=== PATIENT | male | born 1945 | race Hispanic/Latino ===

== ENCOUNTER 2018-10-27 02:08 | Observation (INO) | payer MEDICARE ==
[2018-10-27 02:09] VITALS: BMI 42.3
--- NOTE | 2018-10-27 02:14 | C.PDOC ---
History Of Present Illness Patient presents with SOB and chest pain on deep inspiration. Patient still smokes and is on home o2. He was hypoxic at home, on arrival placed on bipap with improvement. Denies fever or chills. Time Seen by Provider: 10/27/18 02:13 History Per: Patient History/Exam Limitations: no limitations Onset/Duration Of Symptoms: Hrs Current Symptoms Are (Timing): Still Present Current Respiratory Medications: See Home Med List Severity: Severe Pain Scale Rating Of: 8 Associated Symptoms: Other (SOB, Chest with deep inspiration) Reports Recently: Seen In ED, Treated By A Physician, Hospitalized Recent travel outside of the [place]: No Past Medical History Reviewed: Historical Data, Nursing Documentation, Vital Signs - Medical History PMH: Back Problems, Benign Prostatic Hyperplasia, CHF, Fractures, HTN, Hypercholesterolemia Denies: COPD, Chronic Kidney Disease Surgical History: Denies: Pacemaker - [facility] Procedures ASSISTANCE WITH RESPIRATORY VENTILATION, <24 HRS, CPAP (08/15/18) DRAINAGE OF BLADDER WITH DRAINAGE DEVICE, VIA OPENING (08/15/18) EXCISION OF STOMACH, ENDO, DIAGN (08/15/18) INSERT INFUSION DEV IN L INT JUGULAR VEIN, PERC (08/15/18) INSPECTION OF LOWER INTESTINAL TRACT, ENDO (08/15/18) INSPECTION OF UPPER INTESTINAL TRACT, ENDO (08/15/18) INTRODUCTION OF VASOPRESSOR INTO CENTRAL VEIN, PERC APPROACH (08/15/18) TRANSFUSE NONAUT RED BLOOD CELLS IN PERIPH VEIN, PERC (08/15/18) TU DESTRUC BLADD LES NEC (09/07/13) ULTRASONOGRAPHY OF LEFT JUGULAR VEINS, GUIDANCE (08/15/18) Family History: States: No Known Family Hx - Social History Hx Tobacco Use: Yes Hx Alcohol Use: No Hx Substance Use: No - Immunization History Hx Tetanus Toxoid Vaccination: No Hx Influenza Vaccination: No Hx Pneumococcal Vaccination: No Review Of Systems Constitutional: Negative for: Fever, Chills Eyes: Negative for: Vision Change ENT: Negative for: Throat Pain Cardiovascular: Positive for: Chest Pain. Negative for: Palpitations Respiratory: Positive for: Shortness of Breath. Negative for: Cough Gastrointestinal: Negative for: Nausea, Vomiting Genitourinary: Negative for: Dysuria, Hematuria Musculoskeletal: Negative for: Back Pain Skin: Negative for: Rash Neurological: Negative for: Weakness, Numbness Psych: Positive for: Anxiety Physical Exam - Physical Exam Appears: Non-toxic Skin: Warm, Dry Head: Normacephalic Eye(s): bilateral: Normal Inspection Oral Mucosa: Moist Neck: Trachea Midline, Supple Chest: Symmetrical, No Tenderness Cardiovascular: Rhythm Regular Respiratory: Decreased Breath Sounds, Rales, Rhonchi, Wheezing Gastrointestinal/Abdominal: Soft, No Tenderness Back: No CVA Tenderness Extremity: Pedal Edema (Bilateral) Extremity: Bilateral: Atraumatic Pulses: Left Dorsalis Pedis: Normal, Right Dorsalis Pedis: Normal Neurological/Psych: Oriented x3 Gait: Unable To Assess ED Course And Treatment - Laboratory Results Result Diagrams: 10/27/18 02:30 10/27/18 02:30 ECG: Interpreted By Me, Viewed By Me ECG Rhythm: Sinus Rhythm (102), Nonspecific Changes O2 Sat by Pulse Oximetry: 100 Pulse Ox Interpretation: Normal - Radiology CXR: Interpreted by Me, Viewed By Me CXR Interpretation: Yes: Cardiomegaly, Other (pulm edema). No: Infiltrates, Fracture Progress Note: Blood work, EKG, CXR, and urinalysis ordered. Duoneb administered. Critical Care Time - Critical Care Note Total Time (in mins): 30 Documented critical care: time excludes all time spent performing seperately billable procedures. Disposition Discussed With Dr.: Joshua Leon Jr. Comment: accepted the pt on his service and took over the care at 5:11 AM Doctor Will See Patient In The: ED Counseled Patient/Family Regarding: Studies Performed, Diagnosis - Disposition Disposition: HOSPITALIZED Disposition Time: 02:14 Condition: GUARDED - POA Present On Arrival: None - Clinical Impression Clinical Impression: Respiratory distress, Dyspnea, Congestive heart failure, COPD exacerbation - Scribe Statement The provider has reviewed the documentation as recorded by the Scribe Josh Clark All medical record entries made by the Scribe were at my direction and personally dictated by me. I have reviewed the chart and agree that the record accurately reflects my personal performance of the history, physical exam, medical decision making, and the department course for this patient. I have also personally directed, reviewed, and agree with the discharge instructions and disposition. Decision To Admit - Pt Status Changed To: Hospital Disposition Of: Observation - . Bed Request Type: Telemetry Admitting Physician: Joshua Leon Jr. Patient Diagnosis: Respiratory distress, Dyspnea, Congestive heart failure, COPD exacerbation
[2018-10-27 02:42] LABS: INR 1.2; PROTHROMBIN TIME 13.5 SECONDS (9.7-12.2)
[2018-10-27] MEDS: Albuterol-Ipratrop 3 mg / 0.5 (3 ml) UD IH SCH ×3 (02:43→03:31)
[2018-10-27 02:45] LABS: ALB/GLOB RATIO 1.2 (1.0-2.1); ALBUMIN 4.1 g/dL (3.5-5.0); ALT/SGPT 9 U/L (21-72); AST/SGOT 20 U/L (17-59); BLOOD UREA NITROGEN 24 mg/dL (9-20); GFR NON-AFRICAN AMERICAN > 60
[2018-10-27 02:57] LABS: B-TYPE NATRIURETIC PEPTIDE 1480 pg/mL (0-900); BASO % 0.4 % (0.0-2.0); EOS # 0.1 K/uL (0.0-0.7); EOS % 0.7 % (0.0-4.0); LYMPH # 2.1 K/uL (1.0-4.3); MEAN CELL VOLUME 73.4 fL (80.0-94.0); MEAN CORPUSCULAR HEMOGLOBIN 21.7 pg (27.0-31.0); MEAN CORPUSCULAR HGB CONC 29.6 g/dL (33.0-37.0); MEAN PLATELET VOLUME 7.6 fL (7.2-11.7); MONO # 0.9 K/uL (0.0-0.8); MONO % 8.8 % (0.0-10.0); NEUT % 69.1 % (50.0-75.0); NRBC % 0.1 % (0.0-2.0); RBC 5.58 Mil/uL (4.40-5.90); RED CELL DISTRIBUTION WIDTH 18.4 % (11.5-14.5); WHITE BLOOD COUNT 10.2 K/uL (4.8-10.8)
[2018-10-27 03:00] LABS: HEMOGLOBIN 12.1 g/dL (12.0-18.0)
[2018-10-27 03:42] LABS: ABG ALLEN TEST POS; ARTERIAL BLOOD GAS HCO3 22.5 mmol/L (21-28); ARTERIAL BLOOD GAS O2 SAT 93.7 % (95-98); ARTERIAL BLOOD GAS PCO2 60 mm/Hg (35-45); ARTERIAL BLOOD GAS PH 7.24 (7.35-7.45); ARTERIAL BLOOD GAS PO2 65 mm/Hg (80-100); ARTERIAL BLOOD GAS TCO2 27.5 mmol/L (22-28)
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
[2018-10-27] MEDS ORDERED: Oxycodone/Acetaminophen 5/325 mg Tab PO PRN ×2 (07:20→12:56)
[2018-10-27] MEDS ORDERED: Albuterol HFA 90 mcg/actuation (8 g) IH PRN (07:20)
[2018-10-27] MEDS: Metoprolol Succinate 25 mg XL Tab PO SCH (08:24)
[2018-10-27] MEDS: Magnesium Sulfate 1 gm in D5W 1 GM/100 ML BAG IVPB SCH ×2 (08:38→10:55)
[2018-10-27] MEDS: MethylPREDNISolone 40 mg Vial IVP SCH (09:00)
[2018-10-27] MEDS: Pantoprazole 40 mg EC Tab PO SCH ×2 (09:00→18:05)
--- NOTE | 2018-10-27 09:32 | RAD ---
Date of service: 10/27/2018 PROCEDURE: CHEST RADIOGRAPH, 1 VIEW HISTORY: SOB COMPARISON: None available. FINDINGS: LUNGS: Pulmonary venous congestion. No gross consolidation appreciated PLEURA: No pneumothorax or pleural fluid seen. CARDIOVASCULAR: There is presence of aortic atherosclerotic calcification on x-ray. Cardiomegaly. Pulmonary venous congestion present OSSEOUS STRUCTURES: Thoracic spondylosis. VISUALIZED UPPER ABDOMEN: Normal. OTHER FINDINGS: None. IMPRESSION: Cardiomegaly and pulmonary venous congestion-compatible with CHF.
--- NOTE | 2018-10-27 11:19 | CP.PCM.PN ---
Subjective - Date & Time of Evaluation Date of Evaluation: 10/27/18 Time of Evaluation: 08:00 - Subjective Subjective: PGY-[address] Leon service Patient is seen and examined at bedside. Patient denies chest pain or shortness of breath at this time. Patient was observed to be saturating at 88% in the afternoon, placed on bipap. Patient denies fever, chills, n/v/d/c or any other complaint at this time. Objective - Vital Signs/Intake and Output Vital Signs (last 24 hours): Temp Pulse Resp BP Pulse Ox 99.4 F 101 H 20 130/73 97 10/27/18 09:29 10/27/18 09:29 10/27/18 09:29 10/27/18 10:55 10/27/18 09:29 - Medications Medications: Current Medications Acetaminophen (Tylenol 325mg Tab) 650 mg PO Q6 PRN PRN Reason: Fever >100.4 F Last Admin: 10/27/18 08:21 Dose: 650 mg Albuterol (Ventolin Hfa 90 Mcg/Actuation (8 G)) 2 puff IH RQID PRN PRN Reason: Shortness of Breath Amlodipine Besylate (Norvasc) 5 mg PO DAILY [facility] Last Admin: 10/27/18 09:00 Dose: 5 mg Docusate Sodium (Colace) 100 mg PO BID [facility] Furosemide (Lasix) 40 mg IVP BID [facility] Last Admin: 10/27/18 10:55 Dose: 40 mg Heparin Sodium (Porcine) (Heparin) 5,000 units SC Q8 [facility] Lisinopril (Zestril) 20 mg PO DAILY [facility] Last Admin: 10/27/18 09:00 Dose: 20 mg Methylprednisolone (Solu-Medrol) 40 mg IVP DAILY [facility] Last Admin: 10/27/18 09:00 Dose: 40 mg Metoprolol Succinate (Toprol Xl) 25 mg PO BRK [facility] Last Admin: 10/27/18 08:24 Dose: 25 mg Oxycodone/Acetaminophen (Percocet 5/325 Mg Tab) 1 tab PO Q6H PRN PRN Reason: Pain, severe (8-10) Stop: 10/30/18 07:21 Last Admin: 10/27/18 08:25 Dose: 1 tab Pantoprazole Sodium (Protonix Ec Tab) 40 mg PO BID [facility] Last Admin: 10/27/18 09:00 Dose: 40 mg Rosuvastatin Calcium (Crestor) 10 mg PO DIN [facility] - Labs Labs: 10/27/18 02:30 10/27/18 02:30 PT 13.5 SECONDS (9.7-12.2) H 10/27/18 02:30 INR 1.2 10/27/18 02:30 APTT 37 SECONDS (21-34) H 10/27/18 02:30 - Constitutional Appears: Non-toxic, No Acute Distress - Head Exam Head Exam: ATRAUMATIC, NORMOCEPHALIC - Eye Exam Eye Exam: EOMI, Normal appearance - ENT Exam ENT Exam: Mucous Membranes Moist - Respiratory Exam Respiratory Exam: Rales (bilateral lungs ). absent: Rhonchi, Wheezes - Cardiovascular Exam Cardiovascular Exam: REGULAR RHYTHM, +S1, +S2 - GI/Abdominal Exam GI & Abdominal Exam: Soft, Normal Bowel Sounds Additional comments: obese abdomen - Extremities Exam Extremities Exam: Full ROM Additional comments: mild pitting edema LE multiple abrasions and wounds in various staging of healing - Back Exam Back Exam: NORMAL INSPECTION - Neurological Exam Neurological Exam: Alert, Awake, CN II-XII Intact - Psychiatric Exam Psychiatric exam: Normal Affect, Normal Mood - Skin Skin Exam: Diaphoretic, Intact, Normal Color, Warm Assessment and Plan - Assessment and Plan (Free Text) Assessment: 72yo M PMH HTN, DM, COPD, CHF admitted for SOB from CHF vs. COPD exacerbation. Plan: CHF vs. COPD exacerbation ProBNP 1480 chest xray - cardiomegaly and pulm venous congestion, consistent with CHF Trop negative x3 - f/u Blood Cx - f/u UA - f/u ECHO - pending official results - last ECHO 07/17/18: normal LVEF, biatrial enlargement, mod TR, mod to severe pulmonary HTN - home Albuterol 200 puff INH QID prn - home amlodipine 5mg po daily - home lisinopril 20mg po daily - home metoprolol 25mg po daily - Lasix 40mg IVP BID - Solumedrol 40mg IVP daily - Cardio consulted: Dr. Elam - help appreciated - On bipap Hypertension - home lisinopril 20mg po daily - home amlodipine 5mg po daily - home metoprolol 25mg po daily - normotensive, continue to monitor vitals Hyperlipidemia - Crestor 10mg po HS PPx - DVT: Heparin 5000u SC q8 - GI: Protonix 40mg po BID - Diet: HHD - home Percocet 2 tab po q8 prn for severe pain, confirmed with pharmacy - Tylenol 650mg po q6 prn for mod pain -Colace 100 mg PO BID Plan discussed w/ Dr Edward Joshi, PGY-1
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
[2018-10-27] MEDS: Oxycodone/Acetaminophen 5/325 mg Tab PO PRN (19:49)
--- NOTE | 2018-10-28 07:25 | CP.PCM.PN ---
Subjective - Date & Time of Evaluation Date of Evaluation: 10/28/18 Time of Evaluation: 09:00 - Subjective Subjective: Medicine progress note for Dr. Leon. Patient seen and examined at bedside. Patient offers no complaints. States his chest pain is resolved and feels ready to go home. Patient reports using NC @ 3LPM at home at baseline. Denies SOB, headaches, chest pain, constipation, diarrhea, dysuria. Objective - Vital Signs/Intake and Output Vital Signs (last 24 hours): Temp Pulse Resp BP Pulse Ox 97.6 F 75 20 91/55 L 95 10/28/18 00:00 10/28/18 03:50 10/28/18 00:00 10/28/18 00:00 10/28/18 00:00 - Medications Medications: Current Medications Acetaminophen (Tylenol 325mg Tab) 650 mg PO Q6 PRN PRN Reason: Pain, moderate (4-7) Albuterol (Ventolin Hfa 90 Mcg/Actuation (8 G)) 2 puff IH RQID PRN PRN Reason: Shortness of Breath Amlodipine Besylate (Norvasc) 5 mg PO DAILY [facility] Last Admin: 10/27/18 09:00 Dose: 5 mg Docusate Sodium (Colace) 100 mg PO BID [facility] Last Admin: 10/27/18 18:05 Dose: 100 mg Furosemide (Lasix) 40 mg IVP BID [facility] Last Admin: 10/27/18 19:48 Dose: 40 mg Heparin Sodium (Porcine) (Heparin) 5,000 units SC Q8 [facility] Last Admin: 10/28/18 05:04 Dose: 5,000 units Lisinopril (Zestril) 20 mg PO DAILY [facility] Last Admin: 10/27/18 09:00 Dose: 20 mg Methylprednisolone (Solu-Medrol) 40 mg IVP DAILY [facility] Last Admin: 10/27/18 09:00 Dose: 40 mg Metoprolol Succinate (Toprol Xl) 25 mg PO BRK [facility] Last Admin: 10/27/18 08:24 Dose: 25 mg Oxycodone/Acetaminophen (Percocet 5/325 Mg Tab) 2 tab PO Q8H PRN PRN Reason: Pain, severe (8-10) Stop: 10/30/18 12:57 Last Admin: 10/27/18 19:49 Dose: 2 tab Pantoprazole Sodium (Protonix Ec Tab) 40 mg PO BID [facility] Last Admin: 10/27/18 18:05 Dose: 40 mg Rosuvastatin Calcium (Crestor) 10 mg PO DIN [facility] - Labs Labs: 10/27/18 02:30 10/27/18 02:30 PT 13.5 SECONDS (9.7-12.2) H 10/27/18 02:30 INR 1.2 10/27/18 02:30 APTT 37 SECONDS (21-34) H 10/27/18 02:30 - Constitutional Appears: Non-toxic, No Acute Distress - Head Exam Head Exam: NORMAL INSPECTION - Eye Exam Eye Exam: EOMI, Normal appearance - ENT Exam ENT Exam: Mucous Membranes Moist - Respiratory Exam Respiratory Exam: Clear to Ausculation Bilateral, NORMAL BREATHING PATTERN. absent: Rales, Rhonchi, Wheezes - Cardiovascular Exam Cardiovascular Exam: +S1, +S2. absent: Murmur - GI/Abdominal Exam GI & Abdominal Exam: Soft, Normal Bowel Sounds. absent: Firm, Guarding, Rigid - Extremities Exam Extremities Exam: Pedal Edema. absent: Calf Tenderness Additional comments: 1+ pitting edema - Back Exam Back Exam: absent: CVA tenderness (L), CVA tenderness (R) - Neurological Exam Neurological Exam: Alert, Awake, Oriented x3 - Psychiatric Exam Psychiatric exam: Normal Affect, Normal Mood - Skin Skin Exam: Dry, Intact, Normal Color, Warm Assessment and Plan - Assessment and Plan (Free Text) Assessment: 72yo M PMH HTN, DM, COPD, CHF admitted for SOB from CHF vs. COPD exa cerbation. Plan: Hyperkalemia - K+ 6.1 - repeat K+ 6.1 - EKG widened QRS complex - 1 X calcium gluconate - 1 X kayexalate 30gm - repeat BMP @ 9pm - additional kayexalate pending level Acute Kidney injury - Cr 1.9, previously normal - gentle hydration of NS @70 mls/hr - hold nephrotoxic agents for now, lisinopril 20 mg PO daily - reduce lasix to 20 mg PO daily Hyponatremia - plasma osm 276 - gentle hydration of NS @ 70 mls/hr CHF vs. COPD exacerbation - ProBNP 1480, chest xray - cardiomegaly and pulm venous congestion, consistent with CHF, Trop negative x3 - F/u cardio recs - RVD, PTHN, o/p cath - F/u ECHO - pending official results - last ECHO 07/17/18: normal LVEF, biatrial enlargement, mod TR, mod to severe pulmonary HTN - c/w home medications: Albuterol 200 puff INH QID prn, amlodipine 5mg po daily, metoprolol 25mg po daily, Solumedrol 40mg IVP daily - hold lisinopril 20mg po daily / JAREK Hypertension - c/w home medication: amlodipine 5mg po daily, metoprolol 25mg po daily - hold lisinopril 20mg po daily due to new JAERK Hyperlipidemia - Crestor 10mg po HS PPx - DVT: Heparin 5000u SC q8 - GI: Protonix 40mg po BID - Diet: HHD - home Percocet 2 tab po q8 prn for severe pain, confirmed with pharmacy - Tylenol 650mg po q6 prn for mod pain - Colace 100 mg PO BID
[2018-10-28 08:37] LABS: BASO # 0.1 K/uL (0.0-0.2); BASO % 0.4 % (0.0-2.0); EOS % 0.1 % (0.0-4.0); HEMOGLOBIN 11.6 g/dL (12.0-18.0); LYMPH # 1.1 K/uL (1.0-4.3); LYMPH % 6.6 % (20.0-40.0); MEAN CELL VOLUME 74.3 fL (80.0-94.0); MEAN CORPUSCULAR HEMOGLOBIN 21.9 pg (27.0-31.0); MEAN CORPUSCULAR HGB CONC 29.4 g/dL (33.0-37.0); MEAN PLATELET VOLUME 7.6 fL (7.2-11.7); MONO # 1.4 K/uL (0.0-0.8); MONO % 8.4 % (0.0-10.0); NEUT % 84.5 % (50.0-75.0); PLATELET COUNT 360 K/uL (130-400); RBC 5.31 Mil/uL (4.40-5.90); RED CELL DISTRIBUTION WIDTH 18.3 % (11.5-14.5)
[2018-10-28 08:47] LABS: ALB/GLOB RATIO 1.2 (1.0-2.1); ALT/SGPT < 6 U/L (21-72); AST/SGOT 29 U/L (17-59); BLOOD UREA NITROGEN 48 mg/dL (9-20); CALCIUM 8.6 mg/dl (8.6-10.4); GFR NON-AFRICAN AMERICAN 35; WHITE BLOOD COUNT 16.5 K/uL (4.8-10.8)
[2018-10-28 09:14] LABS: LYMPHOCYTE 4 % (20-40); MONOCYTE 8 % (0-10); NEUTROPHIL 88 % (50-75); PLATELET ESTIMATE NORMAL (NORMAL); TOTAL CELLS COUNTED 100
[2018-10-28 09:16] LABS: ANISOCYTOSIS SLIGHT; HYPOCHROMIC SLIGHT; POIKILOCYTOSIS SLIGHT
[2018-10-28] MEDS: MethylPREDNISolone 40 mg Vial IVP SCH (10:11)
[2018-10-28] MEDS: Pantoprazole 40 mg EC Tab PO SCH ×2 (10:14→18:00)
[2018-10-28] MEDS: Metoprolol Succinate 25 mg XL Tab PO SCH (10:14)
[2018-10-28 14:56] LABS: ALB/GLOB RATIO 1.2 (1.0-2.1); ALBUMIN 3.8 g/dL (3.5-5.0); ALT/SGPT < 6 U/L (21-72); AST/SGOT 18 U/L (17-59); BLOOD UREA NITROGEN 51 mg/dL (9-20); CALCIUM 8.7 mg/dl (8.6-10.4); GFR NON-AFRICAN AMERICAN 33
[2018-10-28 15:00] LABS: BASO # 0.1 K/uL (0.0-0.2); BASO % 0.7 % (0.0-2.0); HEMOGLOBIN 11.4 g/dL (12.0-18.0); LYMPH # 0.3 K/uL (1.0-4.3); MEAN CORPUSCULAR HEMOGLOBIN 21.5 pg (27.0-31.0); MEAN CORPUSCULAR HGB CONC 29.8 g/dL (33.0-37.0); MONO # 0.4 K/uL (0.0-0.8); MONO % 2.9 % (0.0-10.0); NEUT # 13.3 K/uL (1.8-7.0); NEUT % 94.4 % (50.0-75.0); NRBC % 0.1 % (0.0-2.0); RBC 5.28 Mil/uL (4.40-5.90); RED CELL DISTRIBUTION WIDTH 17.9 % (11.5-14.5); WHITE BLOOD COUNT 14.1 K/uL (4.8-10.8)
[2018-10-28 15:03] LABS: MEAN CELL VOLUME 73.4 fL (80.0-94.0); PLATELET COUNT 313 K/uL (130-400)
[2018-10-28 15:25] LABS: ANISOCYTOSIS SLIGHT; LYMPHOCYTE 4 % (20-40); MONOCYTE 2 % (0-10); NEUTROPHIL 94 % (50-75); NUCLEATED RED BLOOD CELL 1 % (0-0); PLATELET ESTIMATE NORMAL (NORMAL); POIKILOCYTOSIS SLIGHT; TOTAL CELLS COUNTED 100
[2018-10-28 15:26] LABS: HYPOCHROMIC SLIGHT; TEARDROP CELLS SLIGHT
--- NOTE | 2018-10-28 15:41 | CP.PCM.PN ---
Subjective - Date & Time of Evaluation Date of Evaluation: 10/28/18 Time of Evaluation: 15:41 Objective - Vital Signs/Intake and Output Vital Signs (last 24 hours): Temp Pulse Resp BP Pulse Ox 98.2 F 79 20 125/67 91 L 10/28/18 08:16 10/28/18 13:13 10/28/18 13:13 10/28/18 13:13 10/28/18 13:13 Intake and Output: 10/28/18 10/28/18 06:59 18:59 Intake Total 350 Output Total 500 Balance -150 - Medications Medications: Current Medications Acetaminophen (Tylenol 325mg Tab) 650 mg PO Q6 PRN PRN Reason: Pain, moderate (4-7) Last Admin: 10/28/18 10:29 Dose: 650 mg Albuterol (Ventolin Hfa 90 Mcg/Actuation (8 G)) 2 puff IH RQID PRN PRN Reason: Shortness of Breath Amlodipine Besylate (Norvasc) 5 mg PO DAILY [facility] Last Admin: 10/28/18 10:14 Dose: 5 mg Calcium Gluconate (Calcium Gluconate) 4.65 meq IVP ONCE ONE Stop: 10/28/18 15:37 Docusate Sodium (Colace) 100 mg PO BID [facility] Last Admin: 10/28/18 10:14 Dose: 100 mg Furosemide (Lasix) 20 mg PO DAILY [facility] Heparin Sodium (Porcine) (Heparin) 5,000 units SC Q8 [facility] Last Admin: 10/28/18 13:49 Dose: 5,000 units Sodium Chloride (Sodium Chloride 0.9%) 1,000 mls @ 70 mls/hr IV .[id number] [facility] Lisinopril (Zestril) 20 mg PO DAILY [facility] Last Admin: 10/27/18 09:00 Dose: 20 mg Methylprednisolone (Solu-Medrol) 40 mg IVP DAILY [facility] Last Admin: 10/28/18 10:11 Dose: 40 mg Metoprolol Succinate (Toprol Xl) 25 mg PO BRK [facility] Last Admin: 10/28/18 10:14 Dose: 25 mg Oxycodone/Acetaminophen (Percocet 5/325 Mg Tab) 2 tab PO Q8H PRN PRN Reason: Pain, severe (8-10) Stop: 10/30/18 12:57 Last Admin: 10/27/18 19:49 Dose: 2 tab Pantoprazole Sodium (Protonix Ec Tab) 40 mg PO BID [facility] Last Admin: 10/28/18 10:14 Dose: 40 mg Rosuvastatin Calcium (Crestor) 10 mg PO DIN [facility] - Labs Labs: 10/28/18 14:23 10/28/18 14:23 PT 13.5 SECONDS (9.7-12.2) H 10/27/18 02:30 INR 1.2 10/27/18 02:30 APTT 37 SECONDS (21-34) H 10/27/18 02:30 Assessment and Plan (1) Chest pain Status: Acute (2) Epigastric pain Status: Acute (3) Enlarged RV (right ventricle) Status: Acute (4) PHT (pulmonary hypertension) Status: Acute (5) Edema Status: Acute (6) Cough Status: Acute (7) COPD exacerbation Status: Acute
[2018-10-28] MEDS: Sodium Chloride 0.9% 1,000 ML IV SCH (15:45)
[2018-10-28] MEDS ORDERED: Calcium Gluconate 4.65 mEq/10 ml Inj IVP ONE (16:15)
--- NOTE | 2018-10-28 16:46 | CARD ---
APPROVED REPORT Date of service: 10/27/2018 EKG Measurement Heart [id number] <Conclusion> Sinus tachycardia with occasional premature ventricular complexes Possible Left atrial enlargement Right superior axis deviation Cannot rule out Anterior infarct, age undetermined Abnormal ECG
[2018-10-28 21:25] LABS: CALCIUM 8.6 mg/dl (8.6-10.4)
[2018-10-28] MEDS ORDERED: Sodium Bicarbonate (8.4%) 50 mEq Vial IVP ONE (21:49)
[2018-10-28] MEDS: Albuterol 0.083% Inhal Sol (2.5 mg/3 mL) UD INH ONE ×2 (22:18→23:07)
--- NOTE | 2018-10-28 22:21 | CARD ---
APPROVED REPORT Date of service: 10/27/2018 EXAM: Two-dimensional and M-mode echocardiogram with Doppler and color Doppler. Other Information Quality : Technically LimitedRhythm : INDICATION Dyspnea Chest Pain Congestive Heart Failure COPD RISK FACTORS Hypertension Hyperlipidemia 2D DIMENSIONS IVSd1.4 (0.7-1.1cm)LVDd5.3 (3.9-5.9cm) PWd1.5 (0.7-1.1cm)LA Fcczjl79 (18-58mL) LVDs3.1 (2.5-4.0cm)FS (%) 41.5 % LVEF (%)70.0 (>50%)LVEF (Llanes's)71 % M-Mode DIMENSIONS Left Atrium (MM)5.38 (2.5-4.0cm)IVSd1.51 (0.7-1.1cm) Aortic Root3.92 (2.2-3.7cm)LVDd5.20 (4.0-5.6cm) Aortic Cusp Exc.2.74 (1.5-2.0cm)PWd1.33 (0.7-1.1cm) FS (%) 41 %LVDs3.05 (2.0-3.8cm) LVEF (%)72 (>50%) Mitral Valve MV E Yaplgxdm82.8cm/sMV A Cxuzmkzs72.4cm/sE/A ratio1.0 TDI Lateral E' Peak V10.80cm/sMedial E' Peak V9.51cm/sE/Lateral E'7.5 E/Medial E'8.5 LEFT VENTRICLE The left ventricle is normal size. There is normal left ventricular wall thickness. The left ventricular function is normal. The left ventricular ejection fraction is within the normal range. Transmitral Doppler flow pattern is abnormal. RIGHT VENTRICLE The right ventricle is mildly dilated. ATRIA The left atrium is moderately dilated. AORTIC VALVE The aortic valve is normal in structure. MITRAL VALVE The mitral valve is normal in structure. TRICUSPID VALVE The tricuspid valve is normal in structure. <Conclusion> Technically limited and difficult study. Normal LV systolic function. Diastolic dysfunction. Borderline dilated Aorta. Dilated LA. Dilated RV.
[2018-10-28] MEDS: Oxycodone/Acetaminophen 5/325 mg Tab PO PRN (22:43)
[2018-10-28 23:00] LABS: CALCIUM 8.4 mg/dl (8.6-10.4)
[2018-10-29] MEDS: Sodium Chloride 0.9% 1,000 ML IV SCH (05:49)
[2018-10-29 07:24] LABS: BASO % 0.4 % (0.0-2.0); HEMOGLOBIN 10.7 g/dL (12.0-18.0); LYMPH # 1.2 K/uL (1.0-4.3); MEAN CELL VOLUME 73.9 fL (80.0-94.0); MEAN CORPUSCULAR HEMOGLOBIN 21.9 pg (27.0-31.0); MEAN CORPUSCULAR HGB CONC 29.6 g/dL (33.0-37.0); MEAN PLATELET VOLUME 7.6 fL (7.2-11.7); MONO # 1.2 K/uL (0.0-0.8); MONO % 9.7 % (0.0-10.0); NEUT # 9.8 K/uL (1.8-7.0); NEUT % 79.9 % (50.0-75.0); NRBC % 0.1 % (0.0-2.0); RBC 4.89 Mil/uL (4.40-5.90); WHITE BLOOD COUNT 12.3 K/uL (4.8-10.8)
[2018-10-29 07:34] LABS: ALB/GLOB RATIO 1.2 (1.0-2.1); ALBUMIN 3.6 g/dL (3.5-5.0); ALT/SGPT < 6 U/L (21-72); AST/SGOT 22 U/L (17-59); BLOOD UREA NITROGEN 63 mg/dL (9-20); CALCIUM 8.3 mg/dl (8.6-10.4); GFR NON-AFRICAN AMERICAN 43
[2018-10-29] MEDS: Metoprolol Succinate 25 mg XL Tab PO SCH (08:19)
[2018-10-29 08:45] LABS: CREATININE, RANDOM URINE 119.4 mg/dL
[2018-10-29 08:48] VITALS: BP 141/70; RESP 18; TEMP 97; O2SAT 97
[2018-10-29 09:02] VITALS: PULSE 86
[2018-10-29] MEDS: Pantoprazole 40 mg EC Tab PO SCH (10:42)
[2018-10-29] MEDS: MethylPREDNISolone 40 mg Vial IVP SCH (10:42)
--- NOTE | 2018-10-29 10:48 | CP.PCM.DIS ---
Provider - Provider Date of Admission: 10/27/18 05:10 Attending physician: Joshua Leon Jr, MD Consults: 10/27/18 07:23 Cardiology Consult Routine Comment: Consulting Provider: Rogelio Elam Consulting Physician: Rogelio Elam Reason for Consult: CHF exacerbation Time Spent in preparation of Discharge (in minutes): 45 Hospital Course - Lab Results Lab Results: Micro Results 10/27/18 06:22 Blood Blood Culture - Preliminary NO GROWTH AFTER 48 HOURS 10/27/18 06:22 Blood Blood Culture - Preliminary NO GROWTH AFTER 48 HOURS Most Recent Lab Values WBC 12.3 K/uL (4.8-10.8) H 10/29/18 07:03 RBC 4.89 Mil/uL (4.40-5.90) 10/29/18 07:03 Hgb 10.7 g/dL (12.0-18.0) L 10/29/18 07:03 Hct 36.2 % (35.0-51.0) 10/29/18 07:03 MCV 73.9 fL (80.0-94.0) L 10/29/18 07:03 MCH 21.9 pg (27.0-31.0) L 10/29/18 07:03 MCHC 29.6 g/dL (33.0-37.0) L 10/29/18 07:03 RDW 18.0 % (11.5-14.5) H 10/29/18 07:03 Plt Count 301 K/uL (130-400) 10/29/18 07:03 MPV 7.6 fL (7.2-11.7) 10/29/18 07:03 Neut % (Auto) 79.9 % (50.0-75.0) H 10/29/18 07:03 Lymph % (Auto) 10.0 % (20.0-40.0) L 10/29/18 07:03 [place] % (Auto) 9.7 % (0.0-10.0) 10/29/18 07:03 Eos % (Auto) 0.0 % (0.0-4.0) 10/29/18 07:03 Baso % (Auto) 0.4 % (0.0-2.0) 10/29/18 07:03 Neut # (Auto) 9.8 K/uL (1.8-7.0) H 10/29/18 07:03 Lymph # (Auto) 1.2 K/uL (1.0-4.3) 10/29/18 07:03 [place] # (Auto) 1.2 K/uL (0.0-0.8) H 10/29/18 07:03 Eos # (Auto) 0.0 K/uL (0.0-0.7) 10/29/18 07:03 Baso # (Auto) 0.0 K/uL (0.0-0.2) 10/29/18 07:03 Neutrophils % (Manual) 94 % (50-75) H 10/28/18 14:23 Lymphocytes % (Manual) 4 % (20-40) L 10/28/18 14:23 Monocytes % (Manual) 2 % (0-10) 10/28/18 14:23 Nucleated RBC % 1 % (0-0) H 10/28/18 14:23 Platelet Estimate Normal (NORMAL) 10/28/18 14:23 Hypochromasia (manual) Slight 10/28/18 14:23 Poikilocytosis (manual Slight 10/28/18 14:23 Anisocytosis (manual) Slight 10/28/18 14:23 Tear Drop Cells Slight 10/28/18 14:23 PT 13.5 SECONDS (9.7-12.2) H 10/27/18 02:30 INR 1.2 10/27/18 02:30 APTT 37 SECONDS (21-34) H 10/27/18 02:30 Puncture Site Rr 10/27/18 03:31 pCO2 60 mm/Hg (35-45) H 10/27/18 03:31 pO2 65 mm/Hg (80-100) L 10/27/18 03:31 HCO3 22.5 mmol/L (21-28) 10/27/18 03:31 ABG pH 7.24 (7.35-7.45) L 10/27/18 03:31 ABG Total CO2 27.5 mmol/L (22-28) 10/27/18 03:31 ABG O2 Saturation 93.7 % (95-98) L 10/27/18 03:31 ABG Base Excess -2.8 mmol/L (-2.0-3.0) L 10/27/18 03:31 Robert Test Pos 10/27/18 03:31 ABG Potassium 4.7 mmol/L (3.6-5.2) 10/27/18 03:31 A-a O2 Difference 217.0 mm/Hg 10/27/18 03:31 Respiratory Index 3.3 10/27/18 03:31 Sodium 123.0 mmol/l (132-148) L 10/27/18 03:31 Chloride 91.0 mmol/L (98-107) L 10/27/18 03:31 Glucose 109 mg/dl (75-110) 10/27/18 03:31 Lactate 0.5 mmol/L (0.7-2.1) L 10/27/18 03:31 Vent Mode Bipap 10/27/18 03:31 Mechanical Rate 12 10/27/18 03:31 FiO2 50.0 % 10/27/18 03:31 Inspiratory BiPAP 12 10/27/18 03:31 Expiratory BiPAP 6 10/27/18 03:31 Sodium 121 mmol/L (132-148) L 10/29/18 07:03 Potassium 5.1 mmol/L (3.6-5.2) 10/29/18 07:03 Chloride 86 mmol/L (98-107) L 10/29/18 07:03 Carbon Dioxide 26 mmol/L (22-30) 10/29/18 07:03 Anion Gap 14 (10-20) 10/29/18 07:03 BUN 63 mg/dL (9-20) H 10/29/18 07:03 Creatinine 1.6 mg/dL (0.8-1.5) H 10/29/18 07:03 Est GFR ( Amer) 52 10/29/18 07:03 Est GFR (Non-Af Amer) 43 10/29/18 07:03 POC Glucose (mg/dL) 96 mg/dL (65-110) 10/27/18 02:40 Random Glucose 132 mg/dL (75-110) H D 10/29/18 07:03 Serum Osmolality 272 mosm/kg (272-300) 10/28/18 11:01 Calcium 8.3 mg/dl (8.6-10.4) L 10/29/18 07:03 Phosphorus 5.4 mg/dL (2.5-4.5) H 10/29/18 07:03 Magnesium 1.9 mg/dL (1.6-2.3) 10/29/18 07:03 Total Bilirubin 0.4 mg/dL (0.2-1.3) 10/29/18 07:03 AST 22 U/L (17-59) 10/29/18 07:03 ALT < 6 U/L (21-72) L 10/29/18 07:03 Alkaline Phosphatase 83 U/L (38-126) 10/29/18 07:03 Troponin I < 0.0120 ng/mL (0.00-0.120) 10/27/18 15:24 NT-Pro-B Natriuret Pep 1480 pg/mL (0-900) H 10/27/18 02:30 Total Protein 6.5 g/dL (6.3-8.3) 10/29/18 07:03 Albumin 3.6 g/dL (3.5-5.0) 10/29/18 07:03 Globulin 2.9 gm/dL (2.2-3.9) 10/29/18 07:03 Albumin/Globulin Ratio 1.2 (1.0-2.1) 10/29/18 07:03 Arterial Blood Potassium 4.7 mmol/L (3.6-5.2) 10/27/18 03:31 Urine Osmolality 345 mosm/kg (300-1000) 10/29/18 08:30 Ur Random Creatinine 119.4 mg/dL 10/29/18 08:30 Ur Random Sodium 18 mmol/L 10/29/18 08:30 Urine Calcium 1.3 mg/dL 10/29/18 08:30 Discharge Exam - Head Exam Head Exam: NORMAL INSPECTION Discharge Plan - Discharge Medications Prescriptions: Albuterol Sulfate [Proair Hfa] 200 puff IH QID PRN 30 Days #1 inh PRN Reason: Shortness Of Breath amLODIPine [Norvasc] 5 mg PO DAILY #30 tab Atorvastatin [Lipitor] 20 mg PO DIN 30 Days #30 tab Ferrous Sulfate [Feosol] 324 mg PO DAILY #30 ect Furosemide [Lasix] 40 mg PO DAILY #30 tab Metoprolol Succinate XL [Toprol XL] 25 mg PO BRK #60 tab Pantoprazole [Protonix EC Tab] 40 mg PO BID 30 Days #30 ect - Follow Up Plan Condition: GUARDED Disposition: HOME/ ROUTINE Instructions: Exacerbation of COPD (DC), Pulmonary Hypertension, Adult (DC), Heart Failure (DC) Referrals: Joshua Leon Jr., MD [Medical Doctor] - Rogelio Elam MD [Staff Provider] -
== END 2018-10-29 11:26 | disposition home or self-care (01) ==
LOC: C.ER 02:08 → C.9E 05:10 → C.5S 07:25
PROVIDERS: ADMIT Internal Medicine; ATTEND Internal Medicine
DX: J44.1 Chronic obstructive pulmonary disease with (acute) exacerbation (principal); N40.0 Benign prostatic hyperplasia without lower urinary tract symptoms; R09.02 Hypoxemia; G47.30 Sleep apnea, unspecified; Z91.19 Patient's noncompliance with other medical treatment and regimen; Z99.81 Dependence on supplemental oxygen; R06.03 Acute respiratory distress; R10.13 Epigastric pain; E11.9 Type 2 diabetes mellitus without complications; E78.00 Pure hypercholesterolemia, unspecified; E78.5 Hyperlipidemia, unspecified; F17.210 Nicotine dependence, cigarettes, uncomplicated; I11.0 Hypertensive heart disease with heart failure; I27.20 Pulmonary hypertension, unspecified; I50.9 Heart failure, unspecified
CPT/HCPCS: 36415; 71045; 80048; 80053; 82340; 82436; 82570; 82803; 82948; 83735; 83880; 83930; 83935; 84100; 84300; 84484; 85025; 85610; 85730; 87040; 93005; 93306; 94640; 94660; 96374; 99285; G0378; J0610; J1644; J1940; J2270; J2920; J3475; J7030

== ENCOUNTER 2018-11-17 07:51 | Inpatient (IN) | payer MEDICARE ==
[2018-11-17 08:00] VITALS: BMI 38.0
[2018-11-17 08:13] LABS: BASO # 0.1 K/uL (0.0-0.2); BASO % 0.7 % (0.0-2.0); HEMOGLOBIN 11.7 g/dL (12.0-18.0); LYMPH # 0.9 K/uL (1.0-4.3); LYMPH % 7.9 % (20.0-40.0); MEAN CORPUSCULAR HEMOGLOBIN 22.2 pg (27.0-31.0); MEAN CORPUSCULAR HGB CONC 29.1 g/dL (33.0-37.0); MEAN PLATELET VOLUME 7.2 fL (7.2-11.7); MONO # 0.7 K/uL (0.0-0.8); MONO % 6.2 % (0.0-10.0); NEUT % 85.2 % (50.0-75.0); NRBC % 0.8 % (0.0-2.0); RBC 5.27 Mil/uL (4.40-5.90); RED CELL DISTRIBUTION WIDTH 19.3 % (11.5-14.5); WHITE BLOOD COUNT 11.8 K/uL (4.8-10.8)
[2018-11-17] MEDS ORDERED: Lidocaine 2% MPF (5 ml) Inj ONE (08:14)
[2018-11-17] MEDS ORDERED: Iodixanol 320 MG/ML 200 ML BOTTLE IV ONE (08:14)
--- NOTE | 2018-11-17 08:16 | C.PDOC ---
History Of Present Illness 72 year old male brought in by EMS for cardiac arrest. Per EMS, patient initially complained of back pain and BLS was on scene and witnessed the patient go into cardiac arrest. ALS then arrived on scene and CPR was initiated with Sierra as machine. Patient was intubated and given epi x1, with ROSC. Down time was 10 minutes. Per ALS EMS, initial EKG showed A Flutter. On arrival to the ED patient remains unresponsive. Patient noted to be pulse-less. CPR re-initiated. Time Seen by Provider: 11/17/18 07:52 Chief Complaint (Nursing): Cardiac Arrest History Per: EMS Reason For Code Blue: Full Arrest Circumstances: Brought To ED By EMS Arrest Witnessed By: Family, Other (EMS) CPR Initiated Prior To MD Arrival?: Yes Down-Time Before ACLS: Mins (x 10) Treatment Initiated Prior To MD Arrival: Yes: CPR, Intubation, ACLS Medication Initiation, IV Access Medications Given Prior To MD Arrival: Yes: Epinephrine (x 1) - Initial Findings Mentation: Unresponsive Respirations: None (Assisted) Pulse: None Past Medical History Reviewed: Historical Data, Nursing Documentation, Vital Signs - Medical History PMH: Back Problems, Benign Prostatic Hyperplasia, CHF, COPD, HTN, Hypercholesterolemia Denies: Alzheimer's Disease, Anemia, Anxiety, Arthritis, Asthma, Bipolar Disorder, Bronchitis, Cardia Arrhythmia, Dementia, Depression, Emphysema, Fibromyalgia, Fractures, HIV, Hyperthyroidism, Hypothyroidism, Migraine, Mitral Valve Prolapse, Osteoporosis, Paranoia, Parkinson's Disease, Peripheral Edema, Pneumonia, Post Traumatic Stress Disorder, Chronic Kidney Disease, Schizophrenia, Seizures, Sickle Cell Disease, Sleep Apnea, TIA Surgical History: Denies: Appendectomy, Cholecystectomy, Coronary Stent, Pacemaker - [facility] Procedures ASSISTANCE WITH RESPIRATORY VENTILATION, 24-96 HRS, CPAP (10/31/18) ASSISTANCE WITH RESPIRATORY VENTILATION, <24 HRS, CPAP (08/15/18) DILATION OF 1 COR ART WITH DRUG-ELUT INTRA, PERC APPROACH (10/31/18) DRAINAGE OF BLADDER WITH DRAINAGE DEVICE, VIA OPENING (08/15/18) EXCISION OF STOMACH, ENDO, DIAGN (08/15/18) FLUOROSCOPY OF LEFT HEART USING OTHER CONTRAST (10/31/18) FLUOROSCOPY OF MULTIPLE CORONARY ARTERIES USING OTH CONTRAST (10/31/18) INSERT INFUSION DEV IN L INT JUGULAR VEIN, PERC (08/15/18) INSPECTION OF LOWER INTESTINAL TRACT, ENDO (08/15/18) INSPECTION OF UPPER INTESTINAL TRACT, ENDO (08/15/18) INTRODUCE OF OTH THERAP SUBST INTO RESP TRACT, VIA OPENING (10/31/18) INTRODUCTION OF VASOPRESSOR INTO CENTRAL VEIN, PERC APPROACH (08/15/18) MEASURE CARDIAC SAMPL & PRESSURE, BILATERAL, PERC (10/31/18) TRANSFUSE NONAUT RED BLOOD CELLS IN PERIPH VEIN, PERC (08/15/18) TU DESTRUC BLADD LES NEC (09/07/13) ULTRASONOGRAPHY OF LEFT JUGULAR VEINS, GUIDANCE (08/15/18) Family History: States: No Known Family Hx - Social History Hx Tobacco Use: Yes Hx Alcohol Use: No Hx Substance Use: No - Immunization History Hx Tetanus Toxoid Vaccination: No Hx Influenza Vaccination: No Hx Pneumococcal Vaccination: No Review Of Systems Review Of Systems: ROS cannot be obtained secondary to pt's inabilty to answer questions. Physical Exam - Physical Exam Appears: Other (Unresponsive) Skin: Warm, Dry Head: Atraumatic, Normacephalic Eye(s): bilateral: Normal Inspection (no icterus) Nose: Other (Blood in the nares) Throat: Other (ETT in place) Neck: Supple Chest: Symmetrical Respiratory: No Rhonchi, No Wheezing, Other (Bilateral breath sounds w/ BVM) Gastrointestinal/Abdominal: Soft, Distention (abdomen appears significantly distended) Extremity: Bilateral: Atraumatic, Pulse Deficit (no pulses on arrival), Other (+1 pitting edema bilaterally) ED Course And Treatment - Laboratory Results Result Diagrams: 11/17/18 08:06 11/17/18 08:06 - Other Rad CXR X-Ray: Read By Radiologist Interpretation: Accession No. : [id number]. Patient Name / ID : SARA Alvarado / [id number]. Exam Date : 11/17/2018 08:10:08 ( Approved ). Study Comment : Sex / Age : M / 72Y. Creator : Mich Gill MD. Dictator : Mich Gill MD. Advanced Practice Professional : Web Methods Developer : Mich Gill MD. Approver2 : Report Date : 11/17/2018 09:18:12. My Comment : . Chest x-ray single frontal view. HISTORY: Chest pain. Comparison: None available. Findings: Severe cardiomegaly. Moderate to severe venous congestion. Prominent consolidative opacification in the mid to lower lung zones as well as the medial right lung base. Endotracheal tube extending into the midthoracic trachea. NG tube with distal tip well visualized. Degenerative changes in the spine. Impression: Severe cardiomegaly. Moderate to severe venous congestion. Prominent consolidative opacification in the mid to lower lung zones as well as the medial right lung base. Endotracheal tube extending into the midthoracic trachea. NG tube with distal tip well visualized. Medical Decision Making Medical Decision Making: Patient immediately seen by me. NG tube placed in the ED. 7:56 Epi x1 given Atropine x1 given Patient remains pulse-less. EKG shows rhythm now in V tach. Patient was shocked once, with rhythm now sinus tachycardia on monitor. Bicarb given at 8:03. [facility] called. [facility] on-call, Dr. Berg, paged. EKG now showing sinus rhythm with some PVCs. Dr. Berg made aware, EKG sent. laboratory animal caretaker notified at 8:11. Employment Coordinator, Dr. Summers, notified of case and will come down to the ED. 8:13 Dr. Summers at bedside evaluating patient. Received call back, Dr. Berg is not on for [facility] today, it is Dr. Valencia. 8:20 Dr. Valencia was called. EKG sent. As per Erik, patient is too unstable for the laborer shaft sinking. 8:24 Received call back from Dr. Valencia. [facility] called. Patient is to go to laborer shaft sinking. Disposition Discussed With : Jr Summers - Disposition Disposition Time: 08:24 Condition: CRITICAL - Clinical Impression Clinical Impression: Cardiac arrest, Ventricular tachycardia Critical Care Time - Critical Care Note Total Time (in mins): 30 Documented critical care: time excludes all time spent performing seperately billable procedures. - Scribe Statement The provider has reviewed the documentation as recorded by the Brooks Avila Provider Attestation: All medical record entries made by the Brooks were at my direction and personally dictated by me. I have reviewed the chart and agree that the record accurately reflects my personal performance of the history, physical exam, medical decision making, and the department course for this patient. I have also personally directed, reviewed, and agree with the discharge instructions and disposition. Decision To Admit - Pt Status Changed To: Hospital Disposition Of: Inpatient - Admit Certification Admit to Inpatient:: After my assessment, the patient will require hospitalization for at least two midnights. This is because of the severity of symptoms shown, intensity of services needed, and/or the medical risk in this patient being treated as an outpatient. - InPatient: Physician Admission Certification:: cardiac arrest - . Bed Request Type: ICU Admitting Physician: Sarah Valencia Patient Diagnosis: Cardiac arrest, Ventricular tachycardia
[2018-11-17 08:17] LABS: MEAN CELL VOLUME 76.3 fL (80.0-94.0); PLATELET COUNT 534 K/uL (130-400)
[2018-11-17 08:22] LABS: INR 1.6; PROTHROMBIN TIME 17.9 SECONDS (9.7-12.2)
[2018-11-17 08:23] LABS: ARTERIAL BLOOD GAS HEMOGLOBIN 11.2 g/dL (11.7-17.4); ARTERIAL BLOOD GAS O2 SAT 80.6 % (95-98); ARTERIAL BLOOD GAS PCO2 101 mm/Hg (35-45); ARTERIAL BLOOD GAS PH 7.13 (7.35-7.45); ARTERIAL BLOOD GAS PO2 50 mm/Hg (80-100); ARTERIAL BLOOD GAS TCO2 36.7 mmol/L (22-28)
[2018-11-17 08:27] LABS: ALB/GLOB RATIO 1.1 (1.0-2.1); ALBUMIN 3.7 g/dL (3.5-5.0); CALCIUM 8.8 mg/dl (8.6-10.4)
[2018-11-17] MEDS ORDERED: Aspirin 325 mg EC Tablets PO STA (08:30)
[2018-11-17] MEDS ORDERED: Heparin25000 units/250ml 1/2NS 25,000 UNITS/250 ML BAG IV STA ×2 (08:30→08:48)
[2018-11-17 08:38] LABS: TROPONIN I 0.033 ng/mL (0.00-0.120)
[2018-11-17] MEDS ORDERED: DOPamine 400mg/250ml D5W 0 MG/0 ML BAG IV ONE (08:58)
[2018-11-17] MEDS ORDERED: Phenylephrine 10 mg/ml Inj ONE (08:58)
[2018-11-17 09:02] LABS: BANDS 4 % (0-2); BASOPHIL 1 % (0-2); LYMPHOCYTE 7 % (20-40); MONOCYTE 5 % (0-10); MYELOCYTE 1 % (0-0); NEUTROPHIL 82 % (50-75); NUCLEATED RED BLOOD CELL 1 % (0-0); TOTAL CELLS COUNTED 100
[2018-11-17 09:03] LABS: ANISOCYTOSIS SLIGHT; HYPOCHROMIC SLIGHT; PLATELET ESTIMATE INCREASED (NORMAL); POIKILOCYTOSIS SLIGHT; TARGET CELLS SLIGHT
--- NOTE | 2018-11-17 09:21 | RAD ---
Chest x-ray single frontal view HISTORY: Chest pain. Comparison: None available. Findings: Severe cardiomegaly. Moderate to severe venous congestion. Prominent consolidative opacification in the mid to lower lung zones as well as the medial right lung base. Endotracheal tube extending into the midthoracic trachea. NG tube with distal tip well visualized. Degenerative changes in the spine. Impression: Severe cardiomegaly. Moderate to severe venous congestion. Prominent consolidative opacification in the mid to lower lung zones as well as the medial right lung base. Endotracheal tube extending into the midthoracic trachea. NG tube with distal tip well visualized.
--- NOTE | 2018-11-17 09:27 | RAD ---
Chest x-ray single frontal view HISTORY: Chest pain. Comparison: 11/17/2018 Findings: Endotracheal tube extending into the midthoracic trachea. NG tube with distal tip not well visualized. Additional lines and tubing projecting over the upper abdomen and lower thorax. Clinical correlation. Not well visualized given the suboptimal technique of this study. Severe cardiomegaly. Moderate to severe venous congestion. Confluent airspace opacification in the left mid to lower lung zone with questionable left pleural effusion. Degenerative changes in the spine. Impression: Endotracheal tube extending into the midthoracic trachea. NG tube with distal tip not well visualized. Additional lines and tubing projecting over the upper abdomen and lower thorax. Clinical correlation. Not well visualized given the suboptimal technique of this study. Severe cardiomegaly. Moderate to severe venous congestion. Confluent airspace opacification in the left mid to lower lung zone with questionable left pleural effusion.
[2018-11-17] MEDS ORDERED: Amiodarone 150mg/3 ml vial ONE (10:10)
[2018-11-17] MEDS: Dexmedetomidine Hydrochloride 200 MCG in Sodium Chloride 0.9% 48 ML IV PRN ×3 (10:55→18:34)
--- NOTE | 2018-11-17 13:39 | CP.PCM.PN ---
<Rashel Melendez M - Last Filed: 11/17/18 19:03> Subjective - Date & Time of Evaluation Date of Evaluation: 11/17/18 Time of Evaluation: 08:02 - Subjective Subjective: House doctor note for Code Heart. 72 M w/ PMHx obtained through chart record of HTN, CHF (56%), CAD w/ stents, HLD presented to ED s/p cardiac arrest. Patient called EMS for back pain, upon arrival, patient went into witnessed cardiac arrest, w/ CPR initiated. ROSC obtained w/ x1 epinephrine. Intubated in field. Upon arrival to ED, cardiac arrest again w/ ROSX w/ X1 epinephrine. Patient went to pulseless Vtach. 1 X shock w/ pt return to NSR. Patient also given 1 X bicarb & atropine Initial vitals BP 100s/59, HR 102, O2 Sat 97 Repeat vitals BP in 80s R femoral TLC inserted, started on levophed drip after 250 cc fluid bolus attempted Xray showing flash pulmonary edema; likely 2/2 to cardiac arrest Brilenta, aspirin, heparin drip started. Pt transferred to laboratory supervisor. Initial Code heart time 8:02 AM, 8:21 AM cancel code heart per cardiology, 8:24 AM resume code heart per cardio. Objective - Vital Signs/Intake and Output Vital Signs (last 24 hours): Temp Pulse Resp BP Pulse Ox 98.1 F 78 24 118/77 100 11/17/18 11:28 11/17/18 13:00 11/17/18 13:00 11/17/18 13:00 11/17/18 10:58 Intake and Output: 11/17/18 11/17/18 06:59 18:59 Intake Total 518.9 Output Total 520 Balance -1.1 - Medications Medications: Current Medications Albuterol/Ipratropium (Duoneb 3 Mg/0.5 Mg (3 Ml) Ud) 3 ml INH RQ6 [facility] Aspirin (Aspirin Supp) 300 mg [place] DAILY [facility] Last Admin: 11/17/18 08:19 Dose: 300 mg Clopidogrel Bisulfate (Plavix) 75 mg PO DAILY [facility] Famotidine (Pepcid) 20 mg IVP DAILY [facility] Norepinephrine Bitartrate 4 mg (/ Sodium Chloride) 254 mls @ 15.24 mls/hr IV .[id number] PRN; Protocol PRN Reason: TITRATE PER MD ORDER Last Admin: 11/17/18 10:30 Dose: 5 mcg/min, 19.05 mls/hr Heparin Sodium/Sodium Chloride (Heparin 44227 Units/250ml 1/2 Normal Saline) 25,000 units in 250 mls @ 22.861 mls/hr IV .Q0M STA; Protocol Stop: 11/17/18 19:26 Amiodarone HCl 900 mg/ (Dextrose) 500 mls @ 33.33 mls/hr IV .Q15H1M ONE; Protocol Stop: 11/18/18 00:54 Last Admin: 11/17/18 10:58 Dose: 33.33 mls/hr Dexmedetomidine HCl 200 mcg/ (Sodium Chloride) 50 mls @ 6.35 mls/hr IV TITR PRN; Protocol PRN Reason: Agitation - Labs Labs: 11/17/18 08:06 11/17/18 08:06 PT 17.9 SECONDS (9.7-12.2) H 11/17/18 08:06 INR 1.6 11/17/18 08:06 APTT 33.0 SECONDS (21-34) 11/17/18 08:06 <Sami Lundy - Last Filed: 11/20/18 19:04> Objective - Vital Signs/Intake and Output Vital Signs (last 24 hours): Temp Pulse Resp BP Pulse Ox 98.2 F 78 16 106/56 L 93 L 11/20/18 16:00 11/20/18 18:00 11/20/18 18:00 11/20/18 18:01 11/20/18 18:00 Intake and Output: 11/20/18 11/21/18 18:59 06:59 Intake Total 778.1 Output Total 1000 Balance -221.9 - Medications Medications: Current Medications Acetaminophen (Tylenol 650mg/20.3ml Solution Ud) 650 mg PO Q6 PRN PRN Reason: Temperature Last Admin: 11/19/18 15:55 Dose: 650 mg Albuterol/Ipratropium (Duoneb 3 Mg/0.5 Mg (3 Ml) Ud) 3 ml INH RQ4 [facility] Last Admin: 11/20/18 16:22 Dose: 3 ml Aspirin (Aspirin Supp) 300 mg MI DAILY [facility] Last Admin: 11/20/18 10:00 Dose: 300 mg Clopidogrel Bisulfate (Plavix) 75 mg PO DAILY [facility] Last Admin: 11/20/18 09:56 Dose: 75 mg Famotidine (Pepcid) 20 mg IVP Q12 [facility] Last Admin: 11/20/18 09:56 Dose: 20 mg Midazolam HCl 100 mg/ Dextrose 100 mls @ 2.53 mls/hr IV .Q24H [facility]; Protocol Last Titration: 11/20/18 14:00 Dose: 0.04 mg/kg/hr, 5.1 mls/hr Dexmedetomidine HCl 400 mcg/ (Sodium Chloride) 100 mls @ 6.33 mls/hr IV TITR PRN; Protocol PRN Reason: Agitation Lorazepam (Ativan) 2 mg IVP Q3H PRN PRN Reason: Anxiety Last Admin: 11/20/18 11:05 Dose: 2 mg Methylprednisolone (Solu-Medrol) 40 mg IVP Q8H [facility] Last Admin: 11/20/18 12:30 Dose: 40 mg Rosuvastatin Calcium (Crestor) 10 mg PO HS [facility] Last Admin: 11/19/18 21:35 Dose: 10 mg - Labs Labs: 11/20/18 06:24 11/20/18 06:24 PT 16.5 SECONDS (9.7-12.2) H 11/19/18 07:21 INR 1.5 11/19/18 07:21 APTT 33.0 SECONDS (21-34) 11/17/18 08:06 Attending/Attestation - Attestation I have personally seen and examined this patient.: Yes I have fully participated in the care of the patient.: Yes I have reviewed all pertinent clinical information, including history, physical exam and plan: Yes
[2018-11-17] MEDS ORDERED: Albuterol-Ipratrop 3 mg / 0.5 (3 ml) UD INH SCH (14:00)
[2018-11-17 14:34] LABS: ARTERIAL BLOOD GAS O2 SAT 86.5 % (95-98); ARTERIAL BLOOD GAS PCO2 53 mm/Hg (35-45); ARTERIAL BLOOD GAS PH 7.45 (7.35-7.45); ARTERIAL BLOOD GAS PO2 46 mm/Hg (80-100); ARTERIAL BLOOD GAS TCO2 38.4 mmol/L (22-28)
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
[2018-11-17] MEDS ORDERED: Phytonadione 10 mg/ml Inj (Adult) IV STA (18:12)
[2018-11-17 18:19] LABS: BASO # 0.1 K/uL (0.0-0.2); HEMOGLOBIN 11.3 g/dL (12.0-18.0); LYMPH # 0.6 K/uL (1.0-4.3); LYMPH % 4.6 % (20.0-40.0); MEAN CELL VOLUME 72.6 fL (80.0-94.0); MEAN CORPUSCULAR HEMOGLOBIN 21.5 pg (27.0-31.0); MEAN CORPUSCULAR HGB CONC 29.6 g/dL (33.0-37.0); MEAN PLATELET VOLUME 7.2 fL (7.2-11.7); MONO # 1.4 K/uL (0.0-0.8); MONO % 10.8 % (0.0-10.0); NEUT # 10.6 K/uL (1.8-7.0); NEUT % 83.6 % (50.0-75.0); NRBC % 0.4 % (0.0-2.0); PLATELET COUNT 453 K/uL (130-400); RBC 5.28 Mil/uL (4.40-5.90); RED CELL DISTRIBUTION WIDTH 18.9 % (11.5-14.5); WHITE BLOOD COUNT 12.7 K/uL (4.8-10.8)
[2018-11-17] MEDS: Pantoprazole 80 MG in Sodium Chloride 0.9% 100 ML IVPB SCH (18:30)
--- NOTE | 2018-11-17 18:37 | RAD ---
Date of service: 11/17/2018 HISTORY: coffee ground drainage from OGT COMPARISON: None. TECHNIQUE: 1 view obtained. FINDINGS: Limited visualization of the nasogastric tube in the left upper quadrant. BOWEL: Non specific bowel gas pattern with prominent air-filled loops of bowel. BONES: Osseous demineralization. OTHER FINDINGS: Evidence of right femoral vascular catheter. IMPRESSION: Partially imaged nasogastric tube in the left upper quadrant. Evidence of right femoral vascular catheter. Nonspecific bowel gas pattern with prominent air-filled loops of bowel.
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
[2018-11-17] MEDS ORDERED: niCARdipine IV 25 MG in Sodium Chloride 0.9% 240 ML IV SCH (19:15)
[2018-11-17 19:34] LABS: LYMPHOCYTE 4 % (20-40); MONOCYTE 7 % (0-10); NEUTROPHIL 89 % (50-75); TOTAL CELLS COUNTED 100
[2018-11-17 19:35] LABS: ANISOCYTOSIS SLIGHT; HYPOCHROMIC SLIGHT; MICROCYTOSIS SLIGHT; PLATELET ESTIMATE SLIGHTLY INCREASED (NORMAL); POIKILOCYTOSIS SLIGHT
[2018-11-17] MEDS ORDERED: Iodixanol 320 MG/ML 100 ML BOTTLE IV ONE (20:48)
[2018-11-17] MEDS: Dexmedetomidine Hydrochloride 400 MCG in Sodium Chloride 0.9% 96 ML IV PRN (20:55)
[2018-11-17] MEDS: guaiFENesin 200 mg/10 ml Syrup UD PO SCH (23:30)
[2018-11-18] MEDS: Albuterol-Ipratrop 3 mg / 0.5 (3 ml) UD INH SCH ×6 (00:40→19:47)
[2018-11-18] MEDS: Dexmedetomidine Hydrochloride 400 MCG in Sodium Chloride 0.9% 96 ML IV PRN ×6 (01:15→20:35)
[2018-11-18] MEDS: guaiFENesin 200 mg/10 ml Syrup UD PO SCH (03:50)
[2018-11-18] MEDS: Pantoprazole 80 MG in Sodium Chloride 0.9% 100 ML IVPB SCH ×2 (04:06→13:30)
[2018-11-18 05:29] LABS: ABG ALLEN TEST POS; ARTERIAL BLOOD GAS HEMOGLOBIN 11.7 g/dL (11.7-17.4); ARTERIAL BLOOD GAS O2 SAT 95.6 % (95-98); ARTERIAL BLOOD GAS PCO2 53 mm/Hg (35-45); ARTERIAL BLOOD GAS PH 7.47 (7.35-7.45); ARTERIAL BLOOD GAS PO2 69 mm/Hg (80-100); ARTERIAL BLOOD GAS TCO2 40.2 mmol/L (22-28)
[2018-11-18 06:15] LABS: ALT/SGPT 31 U/L (21-72); AST/SGOT 26 U/L (17-59); BLOOD UREA NITROGEN 69 mg/dL (9-20); CALCIUM 8.8 mg/dl (8.6-10.4); GFR NON-AFRICAN AMERICAN 50
[2018-11-18 07:02] LABS: BASO # 0.1 K/uL (0.0-0.2); BASO % 0.8 % (0.0-2.0); HEMOGLOBIN 11.5 g/dL (12.0-18.0); LYMPH # 1.2 K/uL (1.0-4.3); LYMPH % 9.9 % (20.0-40.0); MEAN CELL VOLUME 73.4 fL (80.0-94.0); MEAN CORPUSCULAR HGB CONC 29.9 g/dL (33.0-37.0); MEAN PLATELET VOLUME 7.4 fL (7.2-11.7); MONO # 1.4 K/uL (0.0-0.8); MONO % 11.5 % (0.0-10.0); NEUT # 9.1 K/uL (1.8-7.0); NEUT % 77.8 % (50.0-75.0); NRBC % 0.6 % (0.0-2.0); PLATELET COUNT 434 K/uL (130-400); RBC 5.23 Mil/uL (4.40-5.90); RED CELL DISTRIBUTION WIDTH 19.2 % (11.5-14.5); WHITE BLOOD COUNT 11.7 K/uL (4.8-10.8)
--- NOTE | 2018-11-18 07:51 | RAD ---
Date of service: 11/18/2018 HISTORY: ff up/ vent COMPARISON: Portable chest 11/17/2018 8:51 a.m.. TECHNIQUE: 1 view obtained. FINDINGS: LUNGS: Endotracheal tube is unchanged in position with nasogastric tube identified terminating at left upper quadrant abdomen. Left base is poorly penetrated and left basilar atelectasis or infiltrate is not excluded. Definite right-sided infiltrate PLEURA: Small pleural effusion not excluded. None is seen at the right. No pneumothorax grossly evident bilaterally. CARDIOVASCULAR: Calcific atherosclerotic changes are seen related to the thoracic aorta. Cardiomegaly reiterated. Diminished pulmonary vascular congestion is noted with mild residual. OSSEOUS STRUCTURES: Previously noted degenerative changes at the T-spine currently obscured. VISUALIZED UPPER ABDOMEN: Normal. OTHER FINDINGS: None. IMPRESSION: Improved CHF with residual pulmonary vascular congestion noted. Cardiomegaly stable. Left basilar airspace disease and pleural effusion not completely excluded with none clearly identified at the right.
[2018-11-18 08:32] LABS: ANISOCYTOSIS SLIGHT; HYPOCHROMIC SLIGHT; LYMPHOCYTE 10 % (20-40); MONOCYTE 10 % (0-10); NEUTROPHIL 80 % (50-75); PLATELET ESTIMATE NORMAL (NORMAL); POIKILOCYTOSIS SLIGHT; TOTAL CELLS COUNTED 100
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
--- NOTE | 2018-11-18 11:20 | CARD ---
APPROVED REPORT Date of service: 11/17/2018 EKG Measurement Heart [id number] <Conclusion> Sinus tachycardia with occasional premature ventricular complexes Possible Left atrial enlargement Low voltage QRS Left anterior fascicular block Cannot rule out Anterior infarct, age undetermined Abnormal ECG
--- NOTE | 2018-11-18 13:18 | CT ---
Date of service: 11/17/2018 PROCEDURE: CT Chest with contrast (Pulmonary Angiogram) HISTORY: r/o pe COMPARISON: No prior chest CT available. Comparisons made to lung base sections from prior abdomen pelvis CT with and without contrast 03/21/2017. TECHNIQUE: Axial computed tomography images were obtained of the chest in the pulmonary arterial phase of enhancement. Coronal and sagittal reformatted images were created and reviewed. Intravenous contrast dose: Visipaque 320, 100 cc Radiation dose: Total exam DLP = 684.48 mGy-cm. This CT exam was performed using one or more of the following dose reduction techniques: Automated exposure control, adjustment of the mA and/or kV according to patient size, and/or use of iterative reconstruction technique. FINDINGS: PULMONARY ARTERIES: Patient unable to adequately position his arms generating tremendous artifacts as well as respiratory motion (patient intubated). No pulmonary embolus is seen in main central pulmonary arteries or proximal segmental branches. The distal segmental branches are limited in evaluation. Main pulmonary artery is dilated to 4.1 cm raising question of potential pulmonary artery hypertension. An element of dilatation of the right lateral ventricle is not excluded compared to the left. AORTA: No acute findings. No thoracic aortic aneurysm. Calcific atherosclerotic changes are seen related to the thoracic aorta. LUNGS: There is complete collapse of the left lung at least in part due to moderate left pleural effusion with compressive likely mixed with dependent atelectasis affecting the right upper and lower lobes. Left pleural effusion combines to completely opacify left hemithorax. Respiratory motion limits evaluation of the lungs however no definite infiltrate is appreciated within nondependent lung at the right upper and middle lobes. An interval 7 mm noncalcified nodule is identified at the right middle lobe in image 63 series 3. Additional 7 mm nodule or varix seen in image 62 series 3. Prior more peripheral 6 mm lateral right middle lobe nodule in prior CT 03/21/2017 is not clearly identified. Endotracheal tube identified terminating 5.3 cm above the bolivar. PLEURAL SPACES: Moderate left pleural effusion. None is appreciated at the right. No pneumothorax bilaterally. HEART: Cardiomegaly is identified with extensive coronary artery calcifications. There is a moderately large pericardial effusion appears at least mildly dense and may indicate hemoperitoneum. It measures 2.8 cm thickness at its greatest extent (posterior to right atrium). LYMPH NODES: No significant lymphadenopathy. BONES, CHEST WALL: Unremarkable. No fracture or destructive lesion OTHER FINDINGS: Nasogastric tube in situ terminating at the gastric fundus. Incidental cholelithiasis and right upper quadrant abdomen. IMPRESSION: 1. No central pulmonary embolus. No pulmonary embolus involving bilateral proximal to medium segmental branches with small branches poorly characterized due to respiratory motion, artifact from the patient's arms and body habitus. 2. Moderately large pericardial effusion, possible hemopericardium. Cardiomegaly noted. 3. Opacification of the left hemithorax by combination of extensive left pulmonary atelectasis and moderate left pleural effusion. Underlying endoluminal lesion difficult to fully exclude although main left pulmonary bronchus widely patent. 4. Right middle lobe nodule 7 mm, noncalcified with possible additional nodule or varix same size also right middle lobe. Prior noncalcified nodule not clearly identified at the lateral right middle lobe. 5. Dilated main pulmonary artery up to 4.1 cm may indicate pulmonary artery hypertension. Questionable dilatation of right lateral ventricle. 6. Other lesser findings as discussed above. Preliminary report provided by Haleigh, 11/17/2018, 10:01 p.m..
--- NOTE | 2018-11-18 15:04 | CARD ---
APPROVED REPORT Date of service: 11/17/2018 EXAM: LIMITED Two-dimensional and M-mode echocardiogram with Doppler and color Doppler. Other Information Quality : TDSRhythm : INDICATION 2D DIMENSIONS IVSd1.4 (0.7-1.1cm)LVDd5.2 (3.9-5.9cm) PWd1.4 (0.7-1.1cm)LVDs3.5 (2.5-4.0cm) FS (%) 33.3 %LVEF (%)61.5 (>50%) LVEF (Llanes's)58.63 % M-Mode DIMENSIONS IVSd1.39 (0.7-1.1cm)LVDd5.28 (4.0-5.6cm) PWd1.24 (0.7-1.1cm)FS (%) 30 % LVDs3.71 (2.0-3.8cm)LVEF (%)56 (>50%) Mitral Valve E/A ratio0.0 TDI E/Lateral E'0.0E/Medial E'0.0 Tricuspid Valve TR Peak [id number] Peak [id number] LEFT VENTRICLE The left ventricle is normal size. There is normal left ventricular wall thickness. Left ventricle systolic function is mildly impaired. The Ejection Fraction is 45-50%. There is a flattened septum consistent with right ventricle volume and pressure overload. No left ventricle thrombus noted on this study. There is no ventricular septal defect visualized. There is no left ventricular aneurysm. There is no mass noted in the left ventricle. RIGHT VENTRICLE The right ventricle is mildly to moderately dilated. There is normal right ventricular wall thickness. Systolic function is mildly reduced. ATRIA The left atrium size is normal. The right atrium size is normal. The interatrial septum is intact with no evidence for an atrial septal defect. AORTIC VALVE The aortic valve is normal in structure and function. No aortic regurgitation is present. There is no aortic valvular stenosis. There is no aortic valvular vegetation. MITRAL VALVE The mitral valve is normal in structure and function. There is no evidence of mitral valve prolapse. There is no mitral valve stenosis. There is no mitral valve regurgitation noted. TRICUSPID VALVE The tricuspid valve is normal in structure and function. There is no tricuspid valve regurgitation noted. There is no tricuspid valve prolapse or vegetation. There is no tricuspid valve stenosis. PULMONIC VALVE The pulmonary valve is normal in structure and function. There is no pulmonic valvular regurgitation. There is no pulmonic valvular stenosis. GREAT VESSELS The aortic root is normal in size. The ascending aorta is normal in size. The pulmonary artery is normal. The IVC is dilated. PERICARDIAL EFFUSION The pericardium appears normal. There is a small-moderate circumferential pericardial effusion. Pericardium appears moderately thickened.( Epicardial fat) There is no pleural effusion. <Conclusion> Left ventricle systolic function is mildly impaired. The Ejection Fraction is 45-50%. There is a flattened septum consistent with right ventricle volume and pressure overload. The right ventricle is mildly to moderately dilated. Systolic function is mildly reduced. The pericardium appears normal. The pericardium appears normal. The pericardium appears normal. There is a small-moderate circumferential pericardial effusion. Pericardium appears moderately thickened.( Epicardial fat)
--- NOTE | 2018-11-18 16:13 | CP.CCUPN ---
<Elder Beckman - Last Filed: 11/18/18 16:44> CCU Subjective - Physician Review Subjective (Free Text): 11/18/18 16:41 PGY-1 ICU Progress Note for Dr. Summers Patient seen and evaluated at bedside. No acute events overnight. Patient remains intubated. EGD with GI tomorrow morning. CCU Objective - Vital Signs / Intake & Output Vital Signs (Last 4 hours): Vital Signs Pulse Resp BP Pulse Ox 11/18/18 15:33 60 18 88/52 L 90 L 11/18/18 15:03 59 L 18 98/57 L 91 L 11/18/18 15:00 59 L 18 91 L 11/18/18 14:33 60 18 106/62 91 L 11/18/18 14:03 62 18 104/63 91 L 11/18/18 14:00 64 17 91 L 11/18/18 13:33 58 L 18 96/59 L 92 L 11/18/18 13:03 60 18 95/59 L 91 L 11/18/18 13:00 61 18 91 L 11/18/18 12:33 59 L 18 95/57 L 93 L Intake and Output (Last 8hrs): Intake & Output 11/18/18 11/18/18 11/18/18 06:59 14:59 22:59 Intake Total 789.0 585.0 35.4 Output Total 635 355 30 Balance 154.0 230.0 5.4 Weight 280 lb Intake: IV 239 187 Intake, IV Amount 550.0 398.0 35.4 Distal port 236 203.2 25.4 Left Forearm 90 90 10 Middle port 90.4 71.4 0 Proxomal tlc 133.6 33.4 Output: Drainage 100 OGT TO GRAVITY 100 Urine 535 355 30 Urethral (Tabor) 535 355 30 - Physical Exam Head: Positive for: Atraumatic, Normocephalic Pupils: Positive for: PERRL Extroacular Muscles: Positive for: EOMI Mouth: Positive for: Moist Mucous Membranes Respiratory/Chest: Positive for: Other (intubated, on vent) Abdomen: Negative for: Distention Neurological: Positive for: Other (sedated, on vent) Skin: Positive for: Dry, Normal Color - Medications Active Medications: Active Medications Generic Name Dose Route Start Last Admin Trade Name Freq PRN Reason Stop Dose Admin Albuterol/Ipratropium 3 ml 11/18/18 00:00 11/18/18 14:34 Duoneb 3 Mg/0.5 Mg (3 Ml) Ud INH 3 ml RQ4 DAMION Administration Aspirin 300 mg 11/17/18 10:00 11/18/18 12:35 Aspirin Supp ME 300 mg DAILY DAMION Administration Clopidogrel Bisulfate 75 mg 11/18/18 10:00 11/18/18 10:00 Plavix PO Not Given DAILY DAMION Norepinephrine Bitartrate 4 mg 254 mls @ 15.24 mls/hr 11/17/18 08:22 11/17/18 23:15 / Sodium Chloride IV 2.5 mcg/min .[id number] PRN 9.53 mls/hr TITRATE PER MD ORDER Titration Protocol 4 MCG/MIN Amiodarone HCl 900 mg/ 500 mls @ 16.67 mls/hr 11/17/18 17:30 11/17/18 17:30 Dextrose IV 11/18/18 17:29 16.67 mls/hr .Q24H ONE Administration Protocol 0.5 MG/MIN Pantoprazole Sodium 80 mg/ 100 mls @ 10 mls/hr 11/17/18 18:00 11/18/18 13:30 Sodium Chloride IVPB 10 mls/hr .Q10H DAMION Administration 8 MG/HR Dexmedetomidine HCl 400 mcg/ 100 mls @ 6.35 mls/hr 11/17/18 20:15 11/18/18 12:29 Sodium Chloride IV 0.8 mcg/kg/hr TITR PRN 25.4 mls/hr Agitation Administration Protocol 0.2 MCG/KG/HR Lorazepam 2 mg 11/17/18 17:40 11/18/18 12:00 Ativan IVP 2 mg Q3H PRN Administration Anxiety - Patient Studies Lab Studies: Lab Studies 11/18/18 11/18/18 11/18/18 Range/Units 05:41 05:41 05:00 WBC 11.7 H (4.8-10.8) K/uL RBC 5.23 (4.40-5.90) Mil/uL Hgb 11.5 L (12.0-18.0) g/dL Hct 38.4 (35.0-51.0) % MCV 73.4 L (80.0-94.0) fL MCH 22.0 L (27.0-31.0) pg MCHC 29.9 L (33.0-37.0) g/dL RDW 19.2 H (11.5-14.5) % Plt Count 434 H (130-400) K/uL MPV 7.4 (7.2-11.7) fL Neut % (Auto) 77.8 H (50.0-75.0) % Lymph % (Auto) 9.9 L (20.0-40.0) % [place] % (Auto) 11.5 H (0.0-10.0) % Eos % (Auto) 0.0 (0.0-4.0) % Baso % (Auto) 0.8 (0.0-2.0) % Neut # (Auto) 9.1 H (1.8-7.0) K/uL Lymph # (Auto) 1.2 (1.0-4.3) K/uL [place] # (Auto) 1.4 H (0.0-0.8) K/uL Eos # (Auto) 0.0 (0.0-0.7) K/uL Baso # (Auto) 0.1 (0.0-0.2) K/uL Neutrophils % (Manual) 80 H (50-75) % Lymphocytes % (Manual) 10 L (20-40) % Monocytes % (Manual) 10 (0-10) % Platelet Estimate Normal (NORMAL) Hypochromasia (manual) Slight Poikilocytosis (manual Slight Anisocytosis (manual) Slight Microcytosis (manual) Puncture Site Rr pCO2 53 H (35-45) mm/Hg pO2 69 L (80-100) mm/Hg HCO3 35.0 H (21-28) mmol/L ABG pH 7.47 H (7.35-7.45) ABG Total CO2 40.2 H (22-28) mmol/L ABG O2 Saturation 95.6 (95-98) % ABG Base Excess 13.0 H (-2.0-3.0) mmol/L ABG Hemoglobin 11.7 (11.7-17.4) g/dL ABG Carboxyhemoglobin 1.8 H (0.5-1.5) % POC ABG HHb (Measured) 4.3 (0.0-5.0) % ABG Methemoglobin 1.0 (0.0-3.0) % Robert Test Pos A-a O2 Difference 578.0 mm/Hg Respiratory Index 8.4 Hgb O2 Saturation 92.9 L (95.0-98.0) % Vent Mode Prvc Mechanical Rate 18 FiO2 100.0 % Tidal Volume 500 PEEP 10 Sodium 137 (132-148) mmol/L Potassium 4.4 (3.6-5.2) mmol/L Chloride 88 L (98-107) mmol/L Carbon Dioxide 39 H (22-30) mmol/L Anion Gap 14 (10-20) BUN 69 H (9-20) mg/dL Creatinine 1.4 (0.8-1.5) mg/dL Est GFR ( Amer) > 60 Est GFR (Non-Af Amer) 50 POC Glucose (mg/dL) (65-110) mg/dL Random Glucose 115 H D (75-110) mg/dL Calcium 8.8 (8.6-10.4) mg/dl Phosphorus 4.7 H (2.5-4.5) mg/dL Magnesium 1.7 (1.6-2.3) mg/dL Total Bilirubin 0.7 (0.2-1.3) mg/dL AST 26 (17-59) U/L ALT 31 (21-72) U/L Alkaline Phosphatase 84 (38-126) U/L Troponin I 0.0500 (0.00-0.120) ng/mL Total Protein 6.1 L (6.3-8.3) g/dL Albumin 3.0 L (3.5-5.0) g/dL Globulin 3.0 (2.2-3.9) gm/dL Albumin/Globulin Ratio 1.0 (1.0-2.1) 11/18/18 11/17/18 Range/Units 03:37 18:08 WBC 12.7 H (4.8-10.8) K/uL RBC 5.28 (4.40-5.90) Mil/uL Hgb 11.3 L (12.0-18.0) g/dL Hct 37.3 (35.0-51.0) % MCV 72.6 L D (80.0-94.0) fL MCH 21.5 L (27.0-31.0) pg MCHC 29.6 L (33.0-37.0) g/dL RDW 18.9 H (11.5-14.5) % Plt Count 453 H (130-400) K/uL MPV 7.2 (7.2-11.7) fL Neut % (Auto) 83.6 H (50.0-75.0) % Lymph % (Auto) 4.6 L (20.0-40.0) % [place] % (Auto) 10.8 H (0.0-10.0) % Eos % (Auto) 0.0 (0.0-4.0) % Baso % (Auto) 1.0 (0.0-2.0) % Neut # (Auto) 10.6 H (1.8-7.0) K/uL Lymph # (Auto) 0.6 L (1.0-4.3) K/uL [place] # (Auto) 1.4 H (0.0-0.8) K/uL Eos # (Auto) 0.0 (0.0-0.7) K/uL Baso # (Auto) 0.1 (0.0-0.2) K/uL Neutrophils % (Manual) 89 H (50-75) % Lymphocytes % (Manual) 4 L (20-40) % Monocytes % (Manual) 7 (0-10) % Platelet Estimate Slightly increased H (NORMAL) Hypochromasia (manual) Slight Poikilocytosis (manual Slight Anisocytosis (manual) Slight Microcytosis (manual) Slight Puncture Site pCO2 (35-45) mm/Hg pO2 (80-100) mm/Hg HCO3 (21-28) mmol/L ABG pH (7.35-7.45) ABG Total CO2 (22-28) mmol/L ABG O2 Saturation (95-98) % ABG Base Excess (-2.0-3.0) mmol/L ABG Hemoglobin (11.7-17.4) g/dL ABG Carboxyhemoglobin (0.5-1.5) % POC ABG HHb (Measured) (0.0-5.0) % ABG Methemoglobin (0.0-3.0) % Robert Test A-a O2 Difference mm/Hg Respiratory Index Hgb O2 Saturation (95.0-98.0) % Vent Mode Mechanical Rate FiO2 % Tidal Volume PEEP Sodium (132-148) mmol/L Potassium (3.6-5.2) mmol/L Chloride (98-107) mmol/L Carbon Dioxide (22-30) mmol/L Anion Gap (10-20) BUN (9-20) mg/dL Creatinine (0.8-1.5) mg/dL Est GFR ( Amer) Est GFR (Non-Af Amer) POC Glucose (mg/dL) 132 H (65-110) mg/dL Random Glucose (75-110) mg/dL Calcium (8.6-10.4) mg/dl Phosphorus (2.5-4.5) mg/dL Magnesium (1.6-2.3) mg/dL Total Bilirubin (0.2-1.3) mg/dL AST (17-59) U/L ALT (21-72) U/L Alkaline Phosphatase (38-126) U/L Troponin I (0.00-0.120) ng/mL Total Protein (6.3-8.3) g/dL Albumin (3.5-5.0) g/dL Globulin (2.2-3.9) gm/dL Albumin/Globulin Ratio (1.0-2.1) Laboratory Results - last 24 hr 11/17/18 11/18/18 11/18/18 18:08 03:37 05:00 WBC 12.7 H RBC 5.28 Hgb 11.3 L Hct 37.3 MCV 72.6 L D MCH 21.5 L MCHC 29.6 L RDW 18.9 H Plt Count 453 H MPV 7.2 Neut % (Auto) 83.6 H Lymph % (Auto) 4.6 L [place] % (Auto) 10.8 H Eos % (Auto) 0.0 Baso % (Auto) 1.0 Neut # (Auto) 10.6 H Lymph # (Auto) 0.6 L [place] # (Auto) 1.4 H Eos # (Auto) 0.0 Baso # (Auto) 0.1 Neutrophils % (Manual) 89 H Lymphocytes % (Manual) 4 L Monocytes % (Manual) 7 Platelet Estimate Slightly increased H Hypochromasia (manual) Slight Poikilocytosis (manual Slight Anisocytosis (manual) Slight Microcytosis (manual) Slight Puncture Site Rr pCO2 53 H pO2 69 L HCO3 35.0 H ABG pH 7.47 H ABG Total CO2 40.2 H ABG O2 Saturation 95.6 ABG Base Excess 13.0 H ABG Hemoglobin 11.7 ABG Carboxyhemoglobin 1.8 H POC ABG HHb (Measured) 4.3 ABG Methemoglobin 1.0 Robert Test Pos A-a O2 Difference 578.0 Respiratory Index 8.4 Hgb O2 Saturation 92.9 L Vent Mode Prvc Mechanical Rate 18 FiO2 100.0 Tidal Volume 500 PEEP 10 Sodium Potassium Chloride Carbon Dioxide Anion Gap BUN Creatinine Est GFR ( Amer) Est GFR (Non-Af Amer) POC Glucose (mg/dL) 132 H Random Glucose Calcium Phosphorus Magnesium Total Bilirubin AST ALT Alkaline Phosphatase Troponin I Total Protein Albumin Globulin Albumin/Globulin Ratio 11/18/18 11/18/18 05:41 05:41 WBC 11.7 H RBC 5.23 Hgb 11.5 L Hct 38.4 MCV 73.4 L MCH 22.0 L MCHC 29.9 L RDW 19.2 H Plt Count 434 H MPV 7.4 Neut % (Auto) 77.8 H Lymph % (Auto) 9.9 L [place] % (Auto) 11.5 H Eos % (Auto) 0.0 Baso % (Auto) 0.8 Neut # (Auto) 9.1 H Lymph # (Auto) 1.2 [place] # (Auto) 1.4 H Eos # (Auto) 0.0 Baso # (Auto) 0.1 Neutrophils % (Manual) 80 H Lymphocytes % (Manual) 10 L Monocytes % (Manual) 10 Platelet Estimate Normal Hypochromasia (manual) Slight Poikilocytosis (manual Slight Anisocytosis (manual) Slight Microcytosis (manual) Puncture Site pCO2 pO2 HCO3 ABG pH ABG Total CO2 ABG O2 Saturation ABG Base Excess ABG Hemoglobin ABG Carboxyhemoglobin POC ABG HHb (Measured) ABG Methemoglobin Robert Test A-a O2 Difference Respiratory Index Hgb O2 Saturation Vent Mode Mechanical Rate FiO2 Tidal Volume PEEP Sodium 137 Potassium 4.4 Chloride 88 L Carbon Dioxide 39 H Anion Gap 14 BUN 69 H Creatinine 1.4 Est GFR ( Amer) > 60 Est GFR (Non-Af Amer) 50 POC Glucose (mg/dL) Random Glucose 115 H D Calcium 8.8 Phosphorus 4.7 H Magnesium 1.7 Total Bilirubin 0.7 AST 26 ALT 31 Alkaline Phosphatase 84 Troponin I 0.0500 Total Protein 6.1 L Albumin 3.0 L Globulin 3.0 Albumin/Globulin Ratio 1.0 Radiology Impressions: Radiology Impressions Abdomen X-Ray 11/17/18 17:57 IMPRESSION: Partially imaged nasogastric tube in the left upper quadrant. Evidence of right femoral vascular catheter. Nonspecific bowel gas pattern with prominent air-filled loops of bowel. Chest CT 11/17/18 20:12 IMPRESSION: 1. No central pulmonary embolus. No pulmonary embolus involving bilateral proximal to medium segmental branches with small branches poorly characterized due to respiratory motion, artifact from the patient's arms and body habitus. 2. Moderately large pericardial effusion, possible hemopericardium. Cardiomegaly noted. 3. Opacification of the left hemithorax by combination of extensive left pulmonary atelectasis and moderate left pleural effusion. Underlying endoluminal lesion difficult to fully exclude although main left pulmonary bronchus widely patent. 4. Right middle lobe nodule 7 mm, noncalcified with possible additional nodule or varix same size also right middle lobe. Prior noncalcified nodule not clearly identified at the lateral right middle lobe. 5. Dilated main pulmonary artery up to 4.1 cm may indicate pulmonary artery hypertension. Questionable dilatation of right lateral ventricle. 6. Other lesser findings as discussed above. Preliminary report provided by [facility], 11/17/2018, 10:01 p.m.. Chest X-Ray 11/18/18 06:00 IMPRESSION: Improved CHF with residual pulmonary vascular congestion noted. Cardiomegaly stable. Left basilar airspace disease and pleural effusion not completely excluded with none clearly identified at the right. Review of Systems - Review of Systems Systems not reviewed;Unavailable: Intubated Assessment/Plan - Assessment and Plan (Free Text) Assessment: 72 year old male in cardiac arrest, patient unresponsive, s/p code heart cath with Dr. Valencia which showed clean coronaries. Patient intubated on vent in ICU. Cardio Cardiac Arrest/V tach/V fib -Cardio, Dr. Valencia -Code heart called in ICU -Cardiac cath with clean coronaries -Patient remains intubated, on vent -UDS - f/u -Serial trops - borderline for ischemia -ASA, plavix -stat echo 11/17: EF 45-50%. LV systolic fun ction mildly impaired. Small- moderate pericardial effusion Meds -Amio ggt -DAPT: ASA 81 mg daily, Plavix 75 mg daily Pericardial Effusion -Moderate/large pericardial effusion on CT/echo -F/u cardio recs Pulm Cardiogenic pulm edema -Lasix 80mg IV given -Repeat CXRs - f/u -Intubated on vent -Rocephin 1 gm given once -CT angio 11/18: Moderately large pericardial effusion. No PE. Extensive L pulmonary atelectasis. Possible R lung nodule. Dilated main pulmonary artery may indicate pulmonary HTN. L Lobe Atelectasis -Significant cardiomegally with significantly reduced L lung volumes/atelectasis on imaing -Plan for Bronchoscopy with Dr. Summers in ICU GI Coffee Ground Emesis -Coffee ground emesis noted 11/17 in NGT -GI consulted, Dr. Wei --Recommend continued medical management in ICU --Plan EGD tomorrow morning --Protonix drip x72 hours --> taper to IVP --HgB goal 9.0 if need to transfuse -ASA/Plavix continued as patient with new coronary stent one week ago, requiring DAPT PPx -Heparin 500o SC Q12 -Protonix 40 IV daily -Precedex drip Assessment and plan d/w Dr. Kristopher Beckman, PGY-1 <Jr Summers S - Last Filed: 11/18/18 17:28> CCU Subjective - Physician Review Critical Care Time Spent (in minutes): 50 CCU Objective - Vital Signs / Intake & Output Vital Signs (Last 4 hours): Vital Signs Pulse Resp BP Pulse Ox 11/18/18 15:33 60 18 88/52 L 90 L 11/18/18 15:03 59 L 18 98/57 L 91 L 11/18/18 15:00 59 L 18 91 L 11/18/18 14:33 60 18 106/62 91 L 11/18/18 14:03 62 18 104/63 91 L 11/18/18 14:00 64 17 91 L 11/18/18 13:33 58 L 18 96/59 L 92 L Intake and Output (Last 8hrs): Intake & Output 11/18/18 11/18/18 11/18/18 06:59 14:59 22:59 Intake Total 789.0 585.0 135.4 Output Total 635 355 30 Balance 154.0 230.0 105.4 Weight 280 lb Intake: IV 239 187 100 Intake, IV Amount 550.0 398.0 35.4 Distal port 236 203.2 25.4 Left Forearm 90 90 10 Middle port 90.4 71.4 0 Proxomal tlc 133.6 33.4 Output: Drainage 100 OGT TO GRAVITY 100 Urine 535 355 30 Urethral ([place]) 535 355 30 - Medications Active Medications: Active Medications Generic Name Dose Route Start Last Admin Trade Name Freq PRN Reason Stop Dose Admin Albuterol/Ipratropium 3 ml 11/18/18 00:00 11/18/18 16:44 Duoneb 3 Mg/0.5 Mg (3 Ml) Ud INH 3 ml RQ4 DAMION Administration Aspirin 300 mg 11/17/18 10:00 11/18/18 12:35 Aspirin Supp ME 300 mg DAILY DAMION Administration Clopidogrel Bisulfate 75 mg 11/18/18 10:00 11/18/18 10:00 Plavix PO Not Given DAILY DAMION Norepinephrine Bitartrate 4 mg 254 mls @ 15.24 mls/hr 11/17/18 08:22 11/17/18 23:15 / Sodium Chloride IV 2.5 mcg/min .[id number] PRN 9.53 mls/hr TITRATE PER MD ORDER Titration Protocol 4 MCG/MIN Amiodarone HCl 900 mg/ 500 mls @ 16.67 mls/hr 11/17/18 17:30 11/17/18 17:30 Dextrose IV 11/18/18 17:29 16.67 mls/hr .Q24H ONE Administration Protocol 0.5 MG/MIN Pantoprazole Sodium 80 mg/ 100 mls @ 10 mls/hr 11/17/18 18:00 11/18/18 13:30 Sodium Chloride IVPB 10 mls/hr .Q10H DAMION Administration 8 MG/HR Dexmedetomidine HCl 400 mcg/ 100 mls @ 6.35 mls/hr 11/17/18 20:15 11/18/18 16:31 Sodium Chloride IV 0.8 mcg/kg/hr TITR PRN 25.4 mls/hr Agitation Administration Protocol 0.2 MCG/KG/HR Lorazepam 2 mg 11/17/18 17:40 11/18/18 12:00 Ativan IVP 2 mg Q3H PRN Administration Anxiety - Patient Studies Lab Studies: Lab Studies 11/18/18 11/18/18 11/18/18 Range/Units 05:41 05:41 05:00 WBC 11.7 H (4.8-10.8) K/uL RBC 5.23 (4.40-5.90) Mil/uL Hgb 11.5 L (12.0-18.0) g/dL Hct 38.4 (35.0-51.0) % MCV 73.4 L (80.0-94.0) fL MCH 22.0 L (27.0-31.0) pg MCHC 29.9 L (33.0-37.0) g/dL RDW 19.2 H (11.5-14.5) % Plt Count 434 H (130-400) K/uL MPV 7.4 (7.2-11.7) fL Neut % (Auto) 77.8 H (50.0-75.0) % Lymph % (Auto) 9.9 L (20.0-40.0) % [place] % (Auto) 11.5 H (0.0-10.0) % Eos % (Auto) 0.0 (0.0-4.0) % Baso % (Auto) 0.8 (0.0-2.0) % Neut # (Auto) 9.1 H (1.8-7.0) K/uL Lymph # (Auto) 1.2 (1.0-4.3) K/uL [place] # (Auto) 1.4 H (0.0-0.8) K/uL Eos # (Auto) 0.0 (0.0-0.7) K/uL Baso # (Auto) 0.1 (0.0-0.2) K/uL Neutrophils % (Manual) 80 H (50-75) % Lymphocytes % (Manual) 10 L (20-40) % Monocytes % (Manual) 10 (0-10) % Platelet Estimate Normal (NORMAL) Hypochromasia (manual) Slight Poikilocytosis (manual Slight Anisocytosis (manual) Slight Microcytosis (manual) Puncture Site Rr pCO2 53 H (35-45) mm/Hg pO2 69 L (80-100) mm/Hg HCO3 35.0 H (21-28) mmol/L ABG pH 7.47 H (7.35-7.45) ABG Total CO2 40.2 H (22-28) mmol/L ABG O2 Saturation 95.6 (95-98) % ABG Base Excess 13.0 H (-2.0-3.0) mmol/L ABG Hemoglobin 11.7 (11.7-17.4) g/dL ABG Carboxyhemoglobin 1.8 H (0.5-1.5) % POC ABG HHb (Measured) 4.3 (0.0-5.0) % ABG Methemoglobin 1.0 (0.0-3.0) % Robert Test Pos A-a O2 Difference 578.0 mm/Hg Respiratory Index 8.4 Hgb O2 Saturation 92.9 L (95.0-98.0) % Vent Mode Prvc Mechanical Rate 18 FiO2 100.0 % Tidal Volume 500 PEEP 10 Sodium 137 (132-148) mmol/L Potassium 4.4 (3.6-5.2) mmol/L Chloride 88 L (98-107) mmol/L Carbon Dioxide 39 H (22-30) mmol/L Anion Gap 14 (10-20) BUN 69 H (9-20) mg/dL Creatinine 1.4 (0.8-1.5) mg/dL Est GFR ( Amer) > 60 Est GFR (Non-Af Amer) 50 POC Glucose (mg/dL) (65-110) mg/dL Random Glucose 115 H D (75-110) mg/dL Calcium 8.8 (8.6-10.4) mg/dl Phosphorus 4.7 H (2.5-4.5) mg/dL Magnesium 1.7 (1.6-2.3) mg/dL Total Bilirubin 0.7 (0.2-1.3) mg/dL AST 26 (17-59) U/L ALT 31 (21-72) U/L Alkaline Phosphatase 84 (38-126) U/L Troponin I 0.0500 (0.00-0.120) ng/mL Total Protein 6.1 L (6.3-8.3) g/dL Albumin 3.0 L (3.5-5.0) g/dL Globulin 3.0 (2.2-3.9) gm/dL Albumin/Globulin Ratio 1.0 (1.0-2.1) 11/18/18 11/17/18 Range/Units 03:37 18:08 WBC 12.7 H (4.8-10.8) K/uL RBC 5.28 (4.40-5.90) Mil/uL Hgb 11.3 L (12.0-18.0) g/dL Hct 37.3 (35.0-51.0) % MCV 72.6 L D (80.0-94.0) fL MCH 21.5 L (27.0-31.0) pg MCHC 29.6 L (33.0-37.0) g/dL RDW 18.9 H (11.5-14.5) % Plt Count 453 H (130-400) K/uL MPV 7.2 (7.2-11.7) fL Neut % (Auto) 83.6 H (50.0-75.0) % Lymph % (Auto) 4.6 L (20.0-40.0) % [place] % (Auto) 10.8 H (0.0-10.0) % Eos % (Auto) 0.0 (0.0-4.0) % Baso % (Auto) 1.0 (0.0-2.0) % Neut # (Auto) 10.6 H (1.8-7.0) K/uL Lymph # (Auto) 0.6 L (1.0-4.3) K/uL [place] # (Auto) 1.4 H (0.0-0.8) K/uL Eos # (Auto) 0.0 (0.0-0.7) K/uL Baso # (Auto) 0.1 (0.0-0.2) K/uL Neutrophils % (Manual) 89 H (50-75) % Lymphocytes % (Manual) 4 L (20-40) % Monocytes % (Manual) 7 (0-10) % Platelet Estimate Slightly increased H (NORMAL) Hypochromasia (manual) Slight Poikilocytosis (manual Slight Anisocytosis (manual) Slight Microcytosis (manual) Slight Puncture Site pCO2 (35-45) mm/Hg pO2 (80-100) mm/Hg HCO3 (21-28) mmol/L ABG pH (7.35-7.45) ABG Total CO2 (22-28) mmol/L ABG O2 Saturation (95-98) % ABG Base Excess (-2.0-3.0) mmol/L ABG Hemoglobin (11.7-17.4) g/dL ABG Carboxyhemoglobin (0.5-1.5) % POC ABG HHb (Measured) (0.0-5.0) % ABG Methemoglobin (0.0-3.0) % Robert Test A-a O2 Difference mm/Hg Respiratory Index Hgb O2 Saturation (95.0-98.0) % Vent Mode Mechanical Rate FiO2 % Tidal Volume PEEP Sodium (132-148) mmol/L Potassium (3.6-5.2) mmol/L Chloride (98-107) mmol/L Carbon Dioxide (22-30) mmol/L Anion Gap (10-20) BUN (9-20) mg/dL Creatinine (0.8-1.5) mg/dL Est GFR ( Amer) Est GFR (Non-Af Amer) POC Glucose (mg/dL) 132 H (65-110) mg/dL Random Glucose (75-110) mg/dL Calcium (8.6-10.4) mg/dl Phosphorus (2.5-4.5) mg/dL Magnesium (1.6-2.3) mg/dL Total Bilirubin (0.2-1.3) mg/dL AST (17-59) U/L ALT (21-72) U/L Alkaline Phosphatase (38-126) U/L Troponin I (0.00-0.120) ng/mL Total Protein (6.3-8.3) g/dL Albumin (3.5-5.0) g/dL Globulin (2.2-3.9) gm/dL Albumin/Globulin Ratio (1.0-2.1) Laboratory Results - last 24 hr 11/17/18 11/18/18 11/18/18 18:08 03:37 05:00 WBC 12.7 H RBC 5.28 Hgb 11.3 L Hct 37.3 MCV 72.6 L D MCH 21.5 L MCHC 29.6 L RDW 18.9 H Plt Count 453 H MPV 7.2 Neut % (Auto) 83.6 H Lymph % (Auto) 4.6 L [place] % (Auto) 10.8 H Eos % (Auto) 0.0 Baso % (Auto) 1.0 Neut # (Auto) 10.6 H Lymph # (Auto) 0.6 L [place] # (Auto) 1.4 H Eos # (Auto) 0.0 Baso # (Auto) 0.1 Neutrophils % (Manual) 89 H Lymphocytes % (Manual) 4 L Monocytes % (Manual) 7 Platelet Estimate Slightly increased H Hypochromasia (manual) Slight Poikilocytosis (manual Slight Anisocytosis (manual) Slight Microcytosis (manual) Slight Puncture Site Rr pCO2 53 H pO2 69 L HCO3 35.0 H ABG pH 7.47 H ABG Total CO2 40.2 H ABG O2 Saturation 95.6 ABG Base Excess 13.0 H ABG Hemoglobin 11.7 ABG Carboxyhemoglobin 1.8 H POC ABG HHb (Measured) 4.3 ABG Methemoglobin 1.0 Robert Test Pos A-a O2 Difference 578.0 Respiratory Index 8.4 Hgb O2 Saturation 92.9 L Vent Mode Prvc Mechanical Rate 18 FiO2 100.0 Tidal Volume 500 PEEP 10 Sodium Potassium Chloride Carbon Dioxide Anion Gap BUN Creatinine Est GFR ( Amer) Est GFR (Non-Af Amer) POC Glucose (mg/dL) 132 H Random Glucose Calcium Phosphorus Magnesium Total Bilirubin AST ALT Alkaline Phosphatase Troponin I Total Protein Albumin Globulin Albumin/Globulin Ratio 11/18/18 11/18/18 05:41 05:41 WBC 11.7 H RBC 5.23 Hgb 11.5 L Hct 38.4 MCV 73.4 L MCH 22.0 L MCHC 29.9 L RDW 19.2 H Plt Count 434 H MPV 7.4 Neut % (Auto) 77.8 H Lymph % (Auto) 9.9 L Cascade % (Auto) 11.5 H Eos % (Auto) 0.0 Baso % (Auto) 0.8 Neut # (Auto) 9.1 H Lymph # (Auto) 1.2 Cascade # (Auto) 1.4 H Eos # (Auto) 0.0 Baso # (Auto) 0.1 Neutrophils % (Manual) 80 H Lymphocytes % (Manual) 10 L Monocytes % (Manual) 10 Platelet Estimate Normal Hypochromasia (manual) Slight Poikilocytosis (manual Slight Anisocytosis (manual) Slight Microcytosis (manual) Puncture Site pCO2 pO2 HCO3 ABG pH ABG Total CO2 ABG O2 Saturation ABG Base Excess ABG Hemoglobin ABG Carboxyhemoglobin POC ABG HHb (Measured) ABG Methemoglobin Robert Test A-a O2 Difference Respiratory Index Hgb O2 Saturation Vent Mode Mechanical Rate FiO2 Tidal Volume PEEP Sodium 137 Potassium 4.4 Chloride 88 L Carbon Dioxide 39 H Anion Gap 14 BUN 69 H Creatinine 1.4 Est GFR ( Amer) > 60 Est GFR (Non-Af Amer) 50 POC Glucose (mg/dL) Random Glucose 115 H D Calcium 8.8 Phosphorus 4.7 H Magnesium 1.7 Total Bilirubin 0.7 AST 26 ALT 31 Alkaline Phosphatase 84 Troponin I 0.0500 Total Protein 6.1 L Albumin 3.0 L Globulin 3.0 Albumin/Globulin Ratio 1.0 Radiology Impressions: Radiology Impressions Abdomen X-Ray 11/17/18 17:57 IMPRESSION: Partially imaged nasogastric tube in the left upper quadrant. Evidence of right femoral vascular catheter. Nonspecific bowel gas pattern with prominent air-filled loops of bowel. Chest CT 11/17/18 20:12 IMPRESSION: 1. No central pulmonary embolus. No pulmonary embolus involving bilateral proximal to medium segmental branches with small branches poorly characterized due to respiratory motion, artifact from the patient's arms and body habitus. 2. Moderately large pericardial effusion, possible hemopericardium. Cardiomegaly noted. 3. Opacification of the left hemithorax by combination of extensive left pulmonary atelectasis and moderate left pleural effusion. Underlying endoluminal lesion difficult to fully exclude although main left pulmonary bronchus widely patent. 4. Right middle lobe nodule 7 mm, noncalcified with possible additional nodule or varix same size also right middle lobe. Prior noncalcified nodule not clearly identified at the lateral right middle lobe. 5. Dilated main pulmonary artery up to 4.1 cm may indicate pulmonary artery hypertension. Questionable dilatation of right lateral ventricle. 6. Other lesser findings as discussed above. Preliminary report provided by [facility], 11/17/2018, 10:01 p.m.. Chest X-Ray 11/18/18 06:00 IMPRESSION: Improved CHF with residual pulmonary vascular congestion noted. Cardiomegaly stable. Left basilar airspace disease and pleural effusion not completely excluded with none clearly identified at the right. Attending/Attestation - Attestation I have personally seen and examined this patient.: Yes I have fully participated in the care of the patient.: Yes I have reviewed all pertinent clinical information: Yes Notes (Text): 11/18/18 17:27 Patient seen and examined in the intensive care unit. Case discussed with housestaff in the morning rounds. Remained intubated on ventilatory support requiring high FiO2 with PEEP of 10 CT angios last night showed no pulmonary embolism Continue Lasix Reduce FiO2 as tolerated On antibiotics Taper off pressors as tolerated Cardiology follow-up
--- NOTE | 2018-11-18 23:19 | CATH ---
APPROVED REPORT Date of service: 11/17/2018 Procedure(s) performed: Cardiac catheterization. HISTORY The patient is a 72 year-old male with a history of : previous PCI (The PCI date was ), hypertension, dyslipidemia. CASE TECHNIQUE The patient was brought emergently to the Cardiac Catheterization Laboratory in a fasting state and was prepped and draped in a sterile manner. The right femoral groin was infiltrated with 2% Lidocaine subcutaneous anesthesia. A 6 F sheath was inserted into the right femoral artery without difficulty. Coronary angiography was performed using coronary diagnostic catheters. The left coronary system was accessed and visualized with a Guide 6 F catheter. The right coronary system was accessed and visualized with a Diagnostic catheter. The left ventricle was accessed and visualized with a 6 F Pigtail catheter. Left ventricular/Aortic Valve gradient assessed on pullback. Left ventriculogram was performed in BECK projection. Pre-demployment femoral angiogram was performed . Closure device was deployed with a 6 Fr Angioseal without any complications. The patient tolerated the procedure well and there were no complications associated with the procedure. Vessel Analysis The patient's coronary anatomy is co-dominant. The left main coronary artery is a large size vessel free of disease. The left anterior descending artery is a medium size vessel patent stent in the mid vessel.. The circumflex artery is a medium size vessel without significant stenosis. The right coronary artery is a medium size vessel without significant stenosis. Left Ventricle The left ventricle is normal in size with normal contractility. The left ventricular end diastolic pressure is 20 mmHg. Conclusion Patientwith cardiac arrest. Patent stent in the LAD. Normal LV systolic function. Recommendations Daily ASA with Plavix for at least one year E P S for possibel AICD.
[2018-11-19] MEDS: Albuterol-Ipratrop 3 mg / 0.5 (3 ml) UD INH SCH ×6 (00:25→19:53)
[2018-11-19] MEDS: Pantoprazole 80 MG in Sodium Chloride 0.9% 100 ML IVPB SCH ×2 (00:45→09:27)
[2018-11-19] MEDS: Dexmedetomidine Hydrochloride 400 MCG in Sodium Chloride 0.9% 96 ML IV PRN ×2 (02:44→09:26)
[2018-11-19 05:40] LABS: ABG ALLEN TEST POS; ARTERIAL BLOOD GAS HCO3 35.3 mmol/L (21-28); ARTERIAL BLOOD GAS HEMOGLOBIN 10.8 g/dL (11.7-17.4); ARTERIAL BLOOD GAS O2 SAT 91.6 % (95-98); ARTERIAL BLOOD GAS PCO2 57 mm/Hg (35-45); ARTERIAL BLOOD GAS PH 7.45 (7.35-7.45); ARTERIAL BLOOD GAS PO2 58 mm/Hg (80-100); ARTERIAL BLOOD GAS TCO2 41.3 mmol/L (22-28)
[2018-11-19 06:00] LABS: BASO % 0.2 % (0.0-2.0); HEMOGLOBIN 10.8 g/dL (12.0-18.0); LYMPH # 0.8 K/uL (1.0-4.3); LYMPH % 6.7 % (20.0-40.0); MEAN CELL VOLUME 72.8 fL (80.0-94.0); MEAN CORPUSCULAR HEMOGLOBIN 21.5 pg (27.0-31.0); MEAN CORPUSCULAR HGB CONC 29.5 g/dL (33.0-37.0); MEAN PLATELET VOLUME 7.5 fL (7.2-11.7); MONO % 8.6 % (0.0-10.0); NEUT # 9.7 K/uL (1.8-7.0); NEUT % 84.5 % (50.0-75.0); NRBC % 0.1 % (0.0-2.0); PLATELET COUNT 347 K/uL (130-400); RBC 5.03 Mil/uL (4.40-5.90); RED CELL DISTRIBUTION WIDTH 19.3 % (11.5-14.5); WHITE BLOOD COUNT 11.5 K/uL (4.8-10.8)
[2018-11-19 06:24] LABS: ALBUMIN 2.9 g/dL (3.5-5.0); ALT/SGPT 21 U/L (21-72); AST/SGOT 18 U/L (17-59); BLOOD UREA NITROGEN 82 mg/dL (9-20); CALCIUM 8.1 mg/dl (8.6-10.4); GFR NON-AFRICAN AMERICAN 50
[2018-11-19 07:32] LABS: INR 1.5; PROTHROMBIN TIME 16.5 SECONDS (9.7-12.2)
[2018-11-19 08:18] LABS: ANISOCYTOSIS SLIGHT; HYPOCHROMIC SLIGHT; LYMPHOCYTE 6 % (20-40); MONOCYTE 6 % (0-10); NEUTROPHIL 87 % (50-75); NUCLEATED RED BLOOD CELL 1 % (0-0); PLATELET ESTIMATE NORMAL (NORMAL); POIKILOCYTOSIS SLIGHT; REACTIVE LYMPHOCYTES 1 % (0-0); TOTAL CELLS COUNTED 100
[2018-11-19] MEDS ORDERED: Midazolam 2 MG/2 ML VIAL ONE (12:05)
[2018-11-19] MEDS ORDERED: Etomidate 20 mg/10ml Inj IV ONE (12:06)
--- NOTE | 2018-11-19 14:44 | RAD ---
Chest x-ray single frontal view HISTORY: Chest pain. Comparison: 11/18/2018 Findings: Endotracheal tube extending into the midthoracic trachea. NG tube with distal tip not visualized. Dense airspace consolidation seen within the right mid to lower lung zone as well as at the left lung base. Bilateral pleural effusions. Cardiomegaly. Biapical pleural thickening upper lobe granulomatous changes. Diffuse increased interstitial lung markings. Degenerative changes in the spine and shoulders. Question lobulated rounded foci projecting over the left proximal humerus. Correlation with left humerus plain film may be helpful. Impression: Endotracheal tube extending into the midthoracic trachea. NG tube with distal tip not visualized. Dense airspace consolidation seen within the right mid to lower lung zone as well as at the left lung base. Bilateral pleural effusions. Cardiomegaly. Biapical pleural thickening upper lobe granulomatous changes. Diffuse increased interstitial lung markings. Degenerative changes in the spine and shoulders. Question lobulated rounded foci projecting over the left proximal humerus. Correlation with left humerus plain film may be helpful.
--- NOTE | 2018-11-19 15:19 | CP.PCM.PN ---
Subjective - Date & Time of Evaluation Date of Evaluation: 11/19/18 Time of Evaluation: 15:18 - Subjective Subjective: Still intubated and asking for tube removal. Objective - Vital Signs/Intake and Output Vital Signs (last 24 hours): Temp Pulse Resp BP Pulse Ox 99 F 109 H 34 H 121/61 90 L 11/19/18 08:00 11/19/18 15:01 11/19/18 15:01 11/19/18 15:01 11/19/18 15:01 Intake and Output: 11/19/18 11/19/18 06:59 18:59 Intake Total 732.3 177.0 Output Total 430 430 Balance 302.3 -253.0 - Medications Medications: Current Medications Albuterol/Ipratropium (Duoneb 3 Mg/0.5 Mg (3 Ml) Ud) 3 ml INH RQ4 [facility] Last Admin: 11/19/18 13:20 Dose: 3 ml Aspirin (Aspirin Supp) 300 mg AL DAILY [facility] Last Admin: 11/19/18 12:31 Dose: 300 mg Clopidogrel Bisulfate (Plavix) 75 mg PO DAILY [facility] Last Admin: 11/18/18 10:00 Dose: Not Given Famotidine (Pepcid) 20 mg IVP Q12 [facility] Last Admin: 11/19/18 12:30 Dose: 20 mg Lorazepam (Ativan) 2 mg IVP Q3H PRN PRN Reason: Anxiety Last Admin: 11/19/18 02:49 Dose: 2 mg - Labs Labs: 11/19/18 05:55 11/19/18 05:55 PT 16.5 SECONDS (9.7-12.2) H 11/19/18 07:21 INR 1.5 11/19/18 07:21 APTT 33.0 SECONDS (21-34) 11/17/18 08:06 - Head Exam Head Exam: NORMOCEPHALIC - Neck Exam Neck Exam: Normal Inspection - Cardiovascular Exam Cardiovascular Exam: REGULAR RHYTHM Additional comments: Intubated. - Back Exam Back Exam: NORMAL INSPECTION - Neurological Exam Neurological Exam: Alert Neuro motor strength exam: Left Upper Extremity: 5 Assessment and Plan (1) Cardiac arrest Assessment & Plan: In sinus rhythm, continue Amiodarone. Paricardial effusion with pleural effusion. Etiology ? CPR/ Monitor for hemodynamic stability. Discussed with patient about future work-up. Status: Acute (2) Ventricular tachycardia Status: Acute (3) Congestive heart failure Assessment & Plan: Diastolic and systolic. Right sided failure due to pulmonary hypertension. Fluid restriction. Status: Acute
[2018-11-19] MEDS: Acetaminophen 650mg/20.3ml solution UD PO PRN (15:55)
--- NOTE | 2018-11-19 18:41 | CP.CCUPN ---
<Elder Beckman - Last Filed: 11/19/18 18:41> CCU Subjective - Physician Review Subjective (Free Text): 11/18/18 16:41 PGY-1 ICU Progress Note for Dr. Tee Patient seen and evaluated at bedside. No acute events overnight. Patient remains intubated, difficult to wean. CCU Objective - Vital Signs / Intake & Output Vital Signs (Last 4 hours): Vital Signs Temp Pulse Resp BP Pulse Ox 11/19/18 18:02 121 H 30 H 115/68 85 L 11/19/18 18:00 108 H 28 H 90 L 11/19/18 17:02 105 H 31 H 119/62 89 L 11/19/18 17:00 104 H 27 H 90 L 11/19/18 16:55 100.2 F H 11/19/18 16:01 107 H 22 119/64 90 L 11/19/18 16:00 109 H 32 H 89 L 11/19/18 15:01 109 H 34 H 121/61 90 L 11/19/18 15:00 110 H 28 H 89 L 11/19/18 14:57 110 H 29 H 119/60 90 L 11/19/18 14:42 111 H 28 H 117/62 89 L Intake and Output (Last 8hrs): Intake & Output 11/19/18 11/19/18 11/19/18 06:59 14:59 22:59 Intake Total 483.2 177.0 100 Output Total 305 430 0 Balance 178.2 -253.0 100 Weight 279 lb Intake: IV 200 Intake, IV Amount 283.2 177.0 leftarm 203.2 127.0 right forearm 80 50 Oral 0 0 Tube Feeding 100 Output: Urine 305 430 0 Urethral (Tabor) 305 430 0 Other: # Bowel Movements 0 - Physical Exam Head: Positive for: Atraumatic, Normocephalic Pupils: Positive for: PERRL Extroacular Muscles: Positive for: EOMI Mouth: Positive for: Moist Mucous Membranes Respiratory/Chest: Positive for: Other (intubated, on vent) Abdomen: Negative for: Distention Neurological: Positive for: Other (sedated, on vent) Skin: Positive for: Dry, Normal Color - Medications Active Medications: Active Medications Generic Name Dose Route Start Last Admin Trade Name Freq PRN Reason Stop Dose Admin Acetaminophen 650 mg 11/19/18 15:49 05/02/19 15:55 Tylenol 650mg/20.3ml Solution Ud PO 650 mg Q6 PRN Administration Temperature Albuterol/Ipratropium 3 ml 11/18/18 00:00 11/19/18 16:16 Duoneb 3 Mg/0.5 Mg (3 Ml) Ud INH 3 ml RQ4 DAMION Administration Aspirin 300 mg 11/17/18 10:00 11/19/18 12:31 Aspirin Supp [place] 300 mg DAILY DAMION Administration Clopidogrel Bisulfate 75 mg 11/18/18 10:00 11/19/18 10:00 Plavix PO Not Given DAILY DAMION Famotidine 20 mg 11/19/18 12:30 11/19/18 12:30 Pepcid IVP 20 mg Q12 DAMION Administration Lorazepam 2 mg 11/17/18 17:40 11/19/18 02:49 Ativan IVP 2 mg Q3H PRN Administration Anxiety - Patient Studies Lab Studies: Microbiology Studies 11/17/18 11:29 MRSA Culture (Admit) - Final Naris MRSA NOT DETECTED Lab Studies 11/19/18 11/19/18 11/19/18 Range/Units 07:21 05:55 05:55 WBC 11.5 H (4.8-10.8) K/uL RBC 5.03 (4.40-5.90) Mil/uL Hgb 10.8 L (12.0-18.0) g/dL Hct 36.6 (35.0-51.0) % MCV 72.8 L (80.0-94.0) fL MCH 21.5 L (27.0-31.0) pg MCHC 29.5 L (33.0-37.0) g/dL RDW 19.3 H (11.5-14.5) % Plt Count 347 (130-400) K/uL MPV 7.5 (7.2-11.7) fL Neut % (Auto) 84.5 H (50.0-75.0) % Lymph % (Auto) 6.7 L (20.0-40.0) % Pratt % (Auto) 8.6 (0.0-10.0) % Eos % (Auto) 0.0 (0.0-4.0) % Baso % (Auto) 0.2 (0.0-2.0) % Neut # (Auto) 9.7 H (1.8-7.0) K/uL Lymph # (Auto) 0.8 L (1.0-4.3) K/uL Pratt # (Auto) 1.0 H (0.0-0.8) K/uL Eos # (Auto) 0.0 (0.0-0.7) K/uL Baso # (Auto) 0.0 (0.0-0.2) K/uL Neutrophils % (Manual) 87 H (50-75) % Lymphocytes % (Manual) 6 L (20-40) % Reactive Lymphs % 1 H (0-0) % Monocytes % (Manual) 6 (0-10) % Nucleated RBC % 1 H (0-0) % Platelet Estimate Normal (NORMAL) Hypochromasia (manual) Slight Poikilocytosis (manual Slight Anisocytosis (manual) Slight PT 16.5 H (9.7-12.2) SECONDS INR 1.5 Puncture Site pCO2 (35-45) mm/Hg pO2 (80-100) mm/Hg HCO3 (21-28) mmol/L ABG pH (7.35-7.45) ABG Total CO2 (22-28) mmol/L ABG O2 Saturation (95-98) % ABG Base Excess (-2.0-3.0) mmol/L ABG Hemoglobin (11.7-17.4) g/dL ABG Carboxyhemoglobin (0.5-1.5) % POC ABG HHb (Measured) (0.0-5.0) % ABG Methemoglobin (0.0-3.0) % Robert Test A-a O2 Difference mm/Hg Respiratory Index Hgb O2 Saturation (95.0-98.0) % Vent Mode Mechanical Rate FiO2 % Tidal Volume PEEP Sodium 137 (132-148) mmol/L Potassium 4.4 (3.6-5.2) mmol/L Chloride 91 L (98-107) mmol/L Carbon Dioxide 37 H (22-30) mmol/L Anion Gap 14 (10-20) BUN 82 H (9-20) mg/dL Creatinine 1.4 (0.8-1.5) mg/dL Est GFR ( Amer) > 60 Est GFR (Non-Af Amer) 50 Random Glucose 102 (75-110) mg/dL Calcium 8.1 L (8.6-10.4) mg/dl Phosphorus 5.8 H (2.5-4.5) mg/dL Magnesium 1.9 (1.6-2.3) mg/dL Total Bilirubin 0.7 (0.2-1.3) mg/dL AST 18 (17-59) U/L ALT 21 D (21-72) U/L Alkaline Phosphatase 73 (38-126) U/L Total Protein 5.8 L (6.3-8.3) g/dL Albumin 2.9 L (3.5-5.0) g/dL Globulin 2.9 (2.2-3.9) gm/dL Albumin/Globulin Ratio 1.0 (1.0-2.1) /09/08 Range/Units 05:10 WBC (4.8-10.8) K/uL RBC (4.40-5.90) Mil/uL Hgb (12.0-18.0) g/dL Hct (35.0-51.0) % MCV (80.0-94.0) fL MCH (27.0-31.0) pg MCHC (33.0-37.0) g/dL RDW (11.5-14.5) % Plt Count (130-400) K/uL MPV (7.2-11.7) fL Neut % (Auto) (50.0-75.0) % Lymph % (Auto) (20.0-40.0) % Pratt % (Auto) (0.0-10.0) % Eos % (Auto) (0.0-4.0) % Baso % (Auto) (0.0-2.0) % Neut # (Auto) (1.8-7.0) K/uL Lymph # (Auto) (1.0-4.3) K/uL Pratt # (Auto) (0.0-0.8) K/uL Eos # (Auto) (0.0-0.7) K/uL Baso # (Auto) (0.0-0.2) K/uL Neutrophils % (Manual) (50-75) % Lymphocytes % (Manual) (20-40) % Reactive Lymphs % (0-0) % Monocytes % (Manual) (0-10) % Nucleated RBC % (0-0) % Platelet Estimate (NORMAL) Hypochromasia (manual) Poikilocytosis (manual Anisocytosis (manual) PT (9.7-12.2) SECONDS INR Puncture Site R rad pCO2 57 H (35-45) mm/Hg pO2 58 L (80-100) mm/Hg HCO3 35.3 H (21-28) mmol/L ABG pH 7.45 (7.35-7.45) ABG Total CO2 41.3 H (22-28) mmol/L ABG O2 Saturation 91.6 L (95-98) % ABG Base Excess 13.5 H (-2.0-3.0) mmol/L ABG Hemoglobin 10.8 L (11.7-17.4) g/dL ABG Carboxyhemoglobin 2.0 H (0.5-1.5) % POC ABG HHb (Measured) 8.2 H (0.0-5.0) % ABG Methemoglobin 1.0 (0.0-3.0) % Robert Test Pos A-a O2 Difference 512.0 mm/Hg Respiratory Index 8.8 Hgb O2 Saturation 88.9 L (95.0-98.0) % Vent Mode Prvc Mechanical Rate 18 FiO2 90.0 % Tidal Volume 500 PEEP 10 Sodium (132-148) mmol/L Potassium (3.6-5.2) mmol/L Chloride (98-107) mmol/L Carbon Dioxide (22-30) mmol/L Anion Gap (10-20) BUN (9-20) mg/dL Creatinine (0.8-1.5) mg/dL Est GFR ( Amer) Est GFR (Non-Af Amer) Random Glucose (75-110) mg/dL Calcium (8.6-10.4) mg/dl Phosphorus (2.5-4.5) mg/dL Magnesium (1.6-2.3) mg/dL Total Bilirubin (0.2-1.3) mg/dL AST (17-59) U/L ALT (21-72) U/L Alkaline Phosphatase (38-126) U/L Total Protein (6.3-8.3) g/dL Albumin (3.5-5.0) g/dL Globulin (2.2-3.9) gm/dL Albumin/Globulin Ratio (1.0-2.1) Laboratory Results - last 24 hr 11/19/18 11/19/18 11/19/18 05:10 05:55 05:55 WBC 11.5 H RBC 5.03 Hgb 10.8 L Hct 36.6 MCV 72.8 L MCH 21.5 L MCHC 29.5 L RDW 19.3 H Plt Count 347 MPV 7.5 Neut % (Auto) 84.5 H Lymph % (Auto) 6.7 L Pratt % (Auto) 8.6 Eos % (Auto) 0.0 Baso % (Auto) 0.2 Neut # (Auto) 9.7 H Lymph # (Auto) 0.8 L Pratt # (Auto) 1.0 H Eos # (Auto) 0.0 Baso # (Auto) 0.0 Neutrophils % (Manual) 87 H Lymphocytes % (Manual) 6 L Reactive Lymphs % 1 H Monocytes % (Manual) 6 Nucleated RBC % 1 H Platelet Estimate Normal Hypochromasia (manual) Slight Poikilocytosis (manual Slight Anisocytosis (manual) Slight PT INR Puncture Site R rad pCO2 57 H pO2 58 L HCO3 35.3 H ABG pH 7.45 ABG Total CO2 41.3 H ABG O2 Saturation 91.6 L ABG Base Excess 13.5 H ABG Hemoglobin 10.8 L ABG Carboxyhemoglobin 2.0 H POC ABG HHb (Measured) 8.2 H ABG Methemoglobin 1.0 Robert Test Pos A-a O2 Difference 512.0 Respiratory Index 8.8 Hgb O2 Saturation 88.9 L Vent Mode Prvc Mechanical Rate 18 FiO2 90.0 Tidal Volume 500 PEEP 10 Sodium 137 Potassium 4.4 Chloride 91 L Carbon Dioxide 37 H Anion Gap 14 BUN 82 H Creatinine 1.4 Est GFR ( Amer) > 60 Est GFR (Non-Af Amer) 50 Random Glucose 102 Calcium 8.1 L Phosphorus 5.8 H Magnesium 1.9 Total Bilirubin 0.7 AST 18 ALT 21 D Alkaline Phosphatase 73 Total Protein 5.8 L Albumin 2.9 L Globulin 2.9 Albumin/Globulin Ratio 1.0 11/19/18 07:21 WBC RBC Hgb Hct MCV MCH MCHC RDW Plt Count MPV Neut % (Auto) Lymph % (Auto) Pratt % (Auto) Eos % (Auto) Baso % (Auto) Neut # (Auto) Lymph # (Auto) Pratt # (Auto) Eos # (Auto) Baso # (Auto) Neutrophils % (Manual) Lymphocytes % (Manual) Reactive Lymphs % Monocytes % (Manual) Nucleated RBC % Platelet Estimate Hypochromasia (manual) Poikilocytosis (manual Anisocytosis (manual) PT 16.5 H INR 1.5 Puncture Site pCO2 pO2 HCO3 ABG pH ABG Total CO2 ABG O2 Saturation ABG Base Excess ABG Hemoglobin ABG Carboxyhemoglobin POC ABG HHb (Measured) ABG Methemoglobin Robert Test A-a O2 Difference Respiratory Index Hgb O2 Saturation Vent Mode Mechanical Rate FiO2 Tidal Volume PEEP Sodium Potassium Chloride Carbon Dioxide Anion Gap BUN Creatinine Est GFR ( Amer) Est GFR (Non-Af Amer) Random Glucose Calcium Phosphorus Magnesium Total Bilirubin AST ALT Alkaline Phosphatase Total Protein Albumin Globulin Albumin/Globulin Ratio Radiology Impressions: Radiology Impressions Chest X-Ray 11/19/18 06:00 Impression: Endotracheal tube extending into the midthoracic trachea. NG tube with distal tip not visualized. Dense airspace consolidation seen within the right mid to lower lung zone as well as at the left lung base. Bilateral pleural effusions. Cardiomegaly. Biapical pleural thickening upper lobe granulomatous changes. Diffuse increased interstitial lung markings. Degenerative changes in the spine and shoulders. Question lobulated rounded foci projecting over the left proximal humerus. Correlation with left humerus plain film may be helpful. Assessment/Plan - Assessment and Plan (Free Text) Assessment: 72 year old male in cardiac arrest, patient unresponsive, s/p code heart cath with Dr. Valencia which showed clean coronaries. Patient intubated on vent in ICU. Cardio Cardiac Arrest/V tach/V fib -Cardio, Dr. Valencia -Code heart called in ICU -Cardiac cath with clean coronaries -Patient remains intubated, on vent -UDS - never collected -Serial trops - borderline for ischemia -ASA, plavix -stat echo 11/17: EF 45-50%. LV systolic fun ction mildly impaired. Small- moderate pericardial effusion. Significant R ventricular hypertrophy. Meds -Amio ggt -DAPT: ASA 81 mg daily, Plavix 75 mg daily Pericardial Effusion -Moderate/large pericardial effusion on CT/echo -Monitor signs of tamponade -F/u cardio recs R Ventricular Hypertrophy -Significant R ventricular hypertrophy on CXR/CT/Echo -Likely 2/2 Pulmonary HTN -> 2/2 long standing COPD? Pulm Cardiogenic pulm edema -Lasix 80mg IV given -Repeat CXRs - f/u -Intubated on vent -Rocephin 1 gm given once -CT angio 11/18: Moderately large pericardial effusion. No PE. Extensive L pu lmonary atelectasis. Possible R lung nodule. Dilated main pulmonary artery may indicate pulmonary HTN. L Lobe Atelectasis -Significant cardiomegally (R ventricular hypertrophy + mod pericardial effus ion) with significantly reduced L lung volumes/atelectasis on imaging -Possible Bronchoscopy - f/u GI Coffee Ground Emesis -Coffee ground emesis noted 11/17 in NGT -GI consulted, Dr. Wei --Recommend continued medical management in ICU --S/p EGD 11/19 --> Gastritis and diffuse duodenitis --Protonix drip x72 hours --> taper to IVP --HgB goal 9.0 if need to transfuse -ASA/Plavix continued as patient with new coronary stent one week ago, requiring DAPT PPx -Heparin 500o SC Q12 -Protonix 40 IV daily -Precedex drip Assessment and plan d/w Dr. Randal Beckman, PGY-1 <Baldemar Tee - Last Filed: 11/19/18 19:08> CCU Objective - Vital Signs / Intake & Output Vital Signs (Last 4 hours): Vital Signs Temp Pulse Resp BP Pulse Ox 11/19/18 18:02 121 H 30 H 115/68 85 L 11/19/18 18:00 108 H 28 H 90 L 11/19/18 17:02 105 H 31 H 119/62 89 L 11/19/18 17:00 104 H 27 H 90 L 11/19/18 16:55 100.2 F H 11/19/18 16:01 107 H 22 119/64 90 L 11/19/18 16:00 109 H 32 H 89 L Intake and Output (Last 8hrs): Intake & Output 11/19/18 11/19/18 11/19/18 06:59 14:59 22:59 Intake Total 483.2 177.0 100 Output Total 305 430 0 Balance 178.2 -253.0 100 Weight 279 lb Intake: IV 200 Intake, IV Amount 283.2 177.0 leftarm 203.2 127.0 right forearm 80 50 Oral 0 0 Tube Feeding 100 Output: Urine 305 430 0 Urethral (Tabor) 305 430 0 Other: # Bowel Movements 0 - Medications Active Medications: Active Medications Generic Name Dose Route Start Last Admin Trade Name Freq PRN Reason Stop Dose Admin Acetaminophen 650 mg 11/19/18 15:49 11/19/18 15:55 Tylenol 650mg/20.3ml Solution Ud PO 650 mg Q6 PRN Administration Temperature Albuterol/Ipratropium 3 ml 11/18/18 00:00 11/19/18 16:16 Duoneb 3 Mg/0.5 Mg (3 Ml) Ud INH 3 ml RQ4 DAMION Administration Aspirin 300 mg 11/17/18 10:00 11/19/18 12:31 Aspirin Supp [place] 300 mg DAILY DAMION Administration Clopidogrel Bisulfate 75 mg 11/18/18 10:00 11/19/18 10:00 Plavix PO Not Given DAILY DAMION Famotidine 20 mg 11/19/18 12:30 11/19/18 12:30 Pepcid IVP 20 mg Q12 DAMION Administration Lorazepam 2 mg 11/17/18 17:40 11/19/18 02:49 Ativan IVP 2 mg Q3H PRN Administration Anxiety - Patient Studies Lab Studies: Microbiology Studies 11/17/18 11:29 MRSA Culture (Admit) - Final Naris MRSA NOT DETECTED Lab Studies 11/19/18 11/19/18 11/19/18 Range/Units 07:21 05:55 05:55 WBC 11.5 H (4.8-10.8) K/uL RBC 5.03 (4.40-5.90) Mil/uL Hgb 10.8 L (12.0-18.0) g/dL Hct 36.6 (35.0-51.0) % MCV 72.8 L (80.0-94.0) fL MCH 21.5 L (27.0-31.0) pg MCHC 29.5 L (33.0-37.0) g/dL RDW 19.3 H (11.5-14.5) % Plt Count 347 (130-400) K/uL MPV 7.5 (7.2-11.7) fL Neut % (Auto) 84.5 H (50.0-75.0) % Lymph % (Auto) 6.7 L (20.0-40.0) % Pratt % (Auto) 8.6 (0.0-10.0) % Eos % (Auto) 0.0 (0.0-4.0) % Baso % (Auto) 0.2 (0.0-2.0) % Neut # (Auto) 9.7 H (1.8-7.0) K/uL Lymph # (Auto) 0.8 L (1.0-4.3) K/uL Pratt # (Auto) 1.0 H (0.0-0.8) K/uL Eos # (Auto) 0.0 (0.0-0.7) K/uL Baso # (Auto) 0.0 (0.0-0.2) K/uL Neutrophils % (Manual) 87 H (50-75) % Lymphocytes % (Manual) 6 L (20-40) % Reactive Lymphs % 1 H (0-0) % Monocytes % (Manual) 6 (0-10) % Nucleated RBC % 1 H (0-0) % Platelet Estimate Normal (NORMAL) Hypochromasia (manual) Slight Poikilocytosis (manual Slight Anisocytosis (manual) Slight PT 16.5 H (9.7-12.2) SECONDS INR 1.5 Puncture Site pCO2 (35-45) mm/Hg pO2 (80-100) mm/Hg HCO3 (21-28) mmol/L ABG pH (7.35-7.45) ABG Total CO2 (22-28) mmol/L ABG O2 Saturation (95-98) % ABG Base Excess (-2.0-3.0) mmol/L ABG Hemoglobin (11.7-17.4) g/dL ABG Carboxyhemoglobin (0.5-1.5) % POC ABG HHb (Measured) (0.0-5.0) % ABG Methemoglobin (0.0-3.0) % Robert Test A-a O2 Difference mm/Hg Respiratory Index Hgb O2 Saturation (95.0-98.0) % Vent Mode Mechanical Rate FiO2 % Tidal Volume PEEP Sodium 137 (132-148) mmol/L Potassium 4.4 (3.6-5.2) mmol/L Chloride 91 L (98-107) mmol/L Carbon Dioxide 37 H (22-30) mmol/L Anion Gap 14 (10-20) BUN 82 H (9-20) mg/dL Creatinine 1.4 (0.8-1.5) mg/dL Est GFR ( Amer) > 60 Est GFR (Non-Af Amer) 50 Random Glucose 102 (75-110) mg/dL Calcium 8.1 L (8.6-10.4) mg/dl Phosphorus 5.8 H (2.5-4.5) mg/dL Magnesium 1.9 (1.6-2.3) mg/dL Total Bilirubin 0.7 (0.2-1.3) mg/dL AST 18 (17-59) U/L ALT 21 D (21-72) U/L Alkaline Phosphatase 73 (38-126) U/L Total Protein 5.8 L (6.3-8.3) g/dL Albumin 2.9 L (3.5-5.0) g/dL Globulin 2.9 (2.2-3.9) gm/dL Albumin/Globulin Ratio 1.0 (1.0-2.1) 11/19/18 Range/Units 05:10 WBC (4.8-10.8) K/uL RBC (4.40-5.90) Mil/uL Hgb (12.0-18.0) g/dL Hct (35.0-51.0) % MCV (80.0-94.0) fL MCH (27.0-31.0) pg MCHC (33.0-37.0) g/dL RDW (11.5-14.5) % Plt Count (130-400) K/uL MPV (7.2-11.7) fL Neut % (Auto) (50.0-75.0) % Lymph % (Auto) (20.0-40.0) % Pratt % (Auto) (0.0-10.0) % Eos % (Auto) (0.0-4.0) % Baso % (Auto) (0.0-2.0) % Neut # (Auto) (1.8-7.0) K/uL Lymph # (Auto) (1.0-4.3) K/uL Pratt # (Auto) (0.0-0.8) K/uL Eos # (Auto) (0.0-0.7) K/uL Baso # (Auto) (0.0-0.2) K/uL Neutrophils % (Manual) (50-75) % Lymphocytes % (Manual) (20-40) % Reactive Lymphs % (0-0) % Monocytes % (Manual) (0-10) % Nucleated RBC % (0-0) % Platelet Estimate (NORMAL) Hypochromasia (manual) Poikilocytosis (manual Anisocytosis (manual) PT (9.7-12.2) SECONDS INR Puncture Site R rad pCO2 57 H (35-45) mm/Hg pO2 58 L (80-100) mm/Hg HCO3 35.3 H (21-28) mmol/L ABG pH 7.45 (7.35-7.45) ABG Total CO2 41.3 H (22-28) mmol/L ABG O2 Saturation 91.6 L (95-98) % ABG Base Excess 13.5 H (-2.0-3.0) mmol/L ABG Hemoglobin 10.8 L (11.7-17.4) g/dL ABG Carboxyhemoglobin 2.0 H (0.5-1.5) % POC ABG HHb (Measured) 8.2 H (0.0-5.0) % ABG Methemoglobin 1.0 (0.0-3.0) % Robert Test Pos A-a O2 Difference 512.0 mm/Hg Respiratory Index 8.8 Hgb O2 Saturation 88.9 L (95.0-98.0) % Vent Mode Prvc Mechanical Rate 18 FiO2 90.0 % Tidal Volume 500 PEEP 10 Sodium (132-148) mmol/L Potassium (3.6-5.2) mmol/L Chloride (98-107) mmol/L Carbon Dioxide (22-30) mmol/L Anion Gap (10-20) BUN (9-20) mg/dL Creatinine (0.8-1.5) mg/dL Est GFR ( Amer) Est GFR (Non-Af Amer) Random Glucose (75-110) mg/dL Calcium (8.6-10.4) mg/dl Phosphorus (2.5-4.5) mg/dL Magnesium (1.6-2.3) mg/dL Total Bilirubin (0.2-1.3) mg/dL AST (17-59) U/L ALT (21-72) U/L Alkaline Phosphatase (38-126) U/L Total Protein (6.3-8.3) g/dL Albumin (3.5-5.0) g/dL Globulin (2.2-3.9) gm/dL Albumin/Globulin Ratio (1.0-2.1) Laboratory Results - last 24 hr 11/19/18 11/19/18 11/19/18 05:10 05:55 05:55 WBC 11.5 H RBC 5.03 Hgb 10.8 L Hct 36.6 MCV 72.8 L MCH 21.5 L MCHC 29.5 L RDW 19.3 H Plt Count 347 MPV 7.5 Neut % (Auto) 84.5 H Lymph % (Auto) 6.7 L Pratt % (Auto) 8.6 Eos % (Auto) 0.0 Baso % (Auto) 0.2 Neut # (Auto) 9.7 H Lymph # (Auto) 0.8 L Pratt # (Auto) 1.0 H Eos # (Auto) 0.0 Baso # (Auto) 0.0 Neutrophils % (Manual) 87 H Lymphocytes % (Manual) 6 L Reactive Lymphs % 1 H Monocytes % (Manual) 6 Nucleated RBC % 1 H Platelet Estimate Normal Hypochromasia (manual) Slight Poikilocytosis (manual Slight Anisocytosis (manual) Slight PT INR Puncture Site R rad pCO2 57 H pO2 58 L HCO3 35.3 H ABG pH 7.45 ABG Total CO2 41.3 H ABG O2 Saturation 91.6 L ABG Base Excess 13.5 H ABG Hemoglobin 10.8 L ABG Carboxyhemoglobin 2.0 H POC ABG HHb (Measured) 8.2 H ABG Methemoglobin 1.0 Robert Test Pos A-a O2 Difference 512.0 Respiratory Index 8.8 Hgb O2 Saturation 88.9 L Vent Mode Prvc Mechanical Rate 18 FiO2 90.0 Tidal Volume 500 PEEP 10 Sodium 137 Potassium 4.4 Chloride 91 L Carbon Dioxide 37 H Anion Gap 14 BUN 82 H Creatinine 1.4 Est GFR ( Amer) > 60 Est GFR (Non-Af Amer) 50 Random Glucose 102 Calcium 8.1 L Phosphorus 5.8 H Magnesium 1.9 Total Bilirubin 0.7 AST 18 ALT 21 D Alkaline Phosphatase 73 Total Protein 5.8 L Albumin 2.9 L Globulin 2.9 Albumin/Globulin Ratio 1.0 11/19/18 07:21 WBC RBC Hgb Hct MCV MCH MCHC RDW Plt Count MPV Neut % (Auto) Lymph % (Auto) Pratt % (Auto) Eos % (Auto) Baso % (Auto) Neut # (Auto) Lymph # (Auto) Pratt # (Auto) Eos # (Auto) Baso # (Auto) Neutrophils % (Manual) Lymphocytes % (Manual) Reactive Lymphs % Monocytes % (Manual) Nucleated RBC % Platelet Estimate Hypochromasia (manual) Poikilocytosis (manual Anisocytosis (manual) PT 16.5 H INR 1.5 Puncture Site pCO2 pO2 HCO3 ABG pH ABG Total CO2 ABG O2 Saturation ABG Base Excess ABG Hemoglobin ABG Carboxyhemoglobin POC ABG HHb (Measured) ABG Methemoglobin Robert Test A-a O2 Difference Respiratory Index Hgb O2 Saturation Vent Mode Mechanical Rate FiO2 Tidal Volume PEEP Sodium Potassium Chloride Carbon Dioxide Anion Gap BUN Creatinine Est GFR ( Amer) Est GFR (Non-Af Amer) Random Glucose Calcium Phosphorus Magnesium Total Bilirubin AST ALT Alkaline Phosphatase Total Protein Albumin Globulin Albumin/Globulin Ratio Radiology Impressions: Radiology Impressions Chest X-Ray 11/19/18 06:00 Impression: Endotracheal tube extending into the midthoracic trachea. NG tube with distal tip not visualized. Dense airspace consolidation seen within the right mid to lower lung zone as well as at the left lung base. Bilateral pleural effusions. Cardiomegaly. Biapical pleural thickening upper lobe granulomatous changes. Diffuse increased interstitial lung markings. Degenerative changes in the spine and shoulders. Question lobulated rounded foci projecting over the left proximal humerus. Correlation with left humerus plain film may be helpful. Attending/Attestation - Attestation I have personally seen and examined this patient.: Yes I have fully participated in the care of the patient.: Yes I have reviewed all pertinent clinical information: Yes Notes (Text): 11/19/18 19:06 I have seen and examined the patient. Medical records, lab studies, and imaging were reviewed by me and a management plan was formulated on multidisciplinary rounds with resident Dr. Beckman. I agree with their documented assessment and plan. Patient has severe pulmonary hypertension with cor pulmonale. Will need AICD placement for recent Vfib arrest, scheduled for tomorrow. He will need trach/peg placement for slow weaning off of vent as his oxygen requirements are quite high and barely improving over two days now. Discussed at length with is son over the phone. Critical Care Time 35 minutes. Multi-disciplinary rounds were performed with house staff, nursing, speech t herapy, respiratory therapy, pharmacy and nutrition with integrated input from the primary team/attending and other consulting services. The documented time is cumulative and includes review of patient data/exams/labs/chart review and examination of the patient on rounds and throughout the day; time is exclusive of any procedures or teaching time.
[2018-11-19] MEDS: Dexmedetomidine Hydrochloride 200 MCG in Sodium Chloride 0.9% 48 ML IV PRN (20:00)
[2018-11-19] MEDS: MethylPREDNISolone 40 mg Vial IVP SCH (21:00)
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
[2018-11-20] MEDS: Albuterol-Ipratrop 3 mg / 0.5 (3 ml) UD INH SCH ×6 (00:11→19:42)
[2018-11-20] MEDS: Dexmedetomidine Hydrochloride 200 MCG in Sodium Chloride 0.9% 48 ML IV PRN ×5 (04:30→18:04)
[2018-11-20] MEDS: MethylPREDNISolone 40 mg Vial IVP SCH ×3 (05:00→20:30)
[2018-11-20 05:45] LABS: ARTERIAL BLOOD GAS HEMOGLOBIN 10.9 g/dL (11.7-17.4); ARTERIAL BLOOD GAS PCO2 58 mm/Hg (35-45); ARTERIAL BLOOD GAS PH 7.44 (7.35-7.45); ARTERIAL BLOOD GAS PO2 54 mm/Hg (80-100); ARTERIAL BLOOD GAS TCO2 41.2 mmol/L (22-28)
[2018-11-20 06:37] LABS: BASO % 0.1 % (0.0-2.0); EOS % 0.4 % (0.0-4.0); HEMOGLOBIN 10.6 g/dL (12.0-18.0); LYMPH # 0.2 K/uL (1.0-4.3); LYMPH % 1.8 % (20.0-40.0); MEAN CELL VOLUME 74.2 fL (80.0-94.0); MEAN CORPUSCULAR HEMOGLOBIN 21.9 pg (27.0-31.0); MEAN CORPUSCULAR HGB CONC 29.6 g/dL (33.0-37.0); MEAN PLATELET VOLUME 7.7 fL (7.2-11.7); MONO # 0.2 K/uL (0.0-0.8); MONO % 1.5 % (0.0-10.0); NEUT # 11.4 K/uL (1.8-7.0); NEUT % 96.2 % (50.0-75.0); NRBC % 0.2 % (0.0-2.0); PLATELET COUNT 334 K/uL (130-400); RBC 4.84 Mil/uL (4.40-5.90); RED CELL DISTRIBUTION WIDTH 19.4 % (11.5-14.5); WHITE BLOOD COUNT 11.8 K/uL (4.8-10.8)
[2018-11-20 06:55] LABS: ALT/SGPT 21 U/L (21-72); AST/SGOT 26 U/L (17-59); BLOOD UREA NITROGEN 78 mg/dL (9-20); GFR NON-AFRICAN AMERICAN > 60
[2018-11-20 08:30] LABS: ANISOCYTOSIS MODERATE; BANDS 1 % (0-2); HYPOCHROMIC SLIGHT; LYMPHOCYTE 2 % (20-40); MONOCYTE 1 % (0-10); NEUTROPHIL 96 % (50-75); PLATELET ESTIMATE NORMAL (NORMAL); TOTAL CELLS COUNTED 100
--- NOTE | 2018-11-20 10:49 | RAD ---
Date of service: 11/20/2018 HISTORY: eval et tube COMPARISON: 11/19/2018. FINDINGS: Endotracheal tube terminates in the mid trachea. The nasogastric tube terminates in the stomach. LUNGS: The lungs are well inflated. Again seen is severe pulmonary venous congestion and redistribution. There is interval improved aeration in the right lower lobe. PLEURA: Suspect layering effusions. No pneumothorax. CARDIOVASCULAR: Persistent severe cardiomegaly with prominent central vasculature. There are aortic atherosclerotic calcifications present. OSSEOUS STRUCTURES: Within normal limits for the patient's age. VISUALIZED UPPER ABDOMEN: Normal. OTHER FINDINGS: None. IMPRESSION: Improved aeration in the right lower lobe which may represent improving pulmonary edema versus pleural effusion. Otherwise no significant interval change in persistent severe cardiomegaly, prominent central vasculature and severe pulmonary venous congestion with presumable layering effusions. Stable position of support tubes.
[2018-11-20] MEDS: Midazolam 50 mg/10 ml 100 MG in Dextrose 5% In Water 80 ML IV SCH (12:17)
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
--- NOTE | 2018-11-20 14:55 | PN ---
DATE: 11/20/2018 LOCATION: ICU 17. SUBJECTIVE: This is a 72-year-old male seen and examined in rounds without significant clinical changes or reported active GI bleeding, still intubated on vent with period of agitation for which Ativan was given. The entire chart is reviewed including but not limited to the most recent lab and radiology study results, current and previous medication list, current and previous medical records. Today's lab results showed white blood cells of 11.8, hemoglobin 10.6 with normal hematocrit, but low indices highly suggestive of hypochromic microcytic anemia with normal platelet count and abnormal ABGs with BUN 78 but normal creatinine. Blood glucose level 116, calcium 8, phosphorus 5.1, albumin 3, total protein 6. The most recently done chest x-ray today, official report is pending. PHYSICAL EXAMINATION: GENERAL: A 72-year-old male. VITAL SIGNS: With reported low-grade temperature, heart rate of 86 with blood pressure of 120/70. HEENT: Showed pale, dry oral mucous membrane. Nonicteric sclerae. NG tube in place. LUNGS: Scattered crepitation. Decreased air entry at bases bilaterally with few bilateral rales. HEART: Positive S1 and S2. ABDOMEN: Soft with mild to moderate distention, mildly obese. Bowel sounds are hypoactive. No mass or organomegaly. No rebound tenderness or guarding. EXTREMITIES: Lower extremities with mild edematous changes. No clubbing or cyanosis. No reported new neurological deficits. No reported new focal deficits. IMPRESSION: 1. Recently reported upper gastrointestinal bleeding, none now with status post upper endoscopy and re-exacerbation of peptic ulcer disease. 2. Status post code. 3. Respiratory failure, the patient was intubated. 4. Electrolyte imbalance. 5. Known history of hypertension. SUGGESTIONS: 1. Continue current management. 2. Due to the patient's poor oral intake and malnutrition, central hyperalimentation to be started in the meantime. 3. If there is no subsequent improvement of his pulmonary status, percutaneous endoscopic gastrostomy insertion to be kept in mind, however, this is too early to decide further. 4. Further recommendation to follow. Dakota Mercado MD [facility] # [id number]
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
--- NOTE | 2018-11-20 17:39 | CP.CCUPN ---
<Elder Beckman - Last Filed: 11/20/18 17:39> CCU Subjective - Physician Review Subjective (Free Text): 11/18/18 16:41 PGY-1 ICU Progress Note for Dr. Tee Patient seen and evaluated at bedside. No acute events overnight. Patient remains intubated, difficult to wean. CCU Objective - Vital Signs / Intake & Output Vital Signs (Last 4 hours): Vital Signs Temp Pulse Resp BP Pulse Ox 11/20/18 17:01 119/61 11/20/18 17:00 73 16 92 L 11/20/18 16:01 125/65 11/20/18 16:00 98.2 F 62 16 92 L 11/20/18 15:01 125/81 11/20/18 15:00 64 16 94 L 11/20/18 14:01 93 H 23 134/79 88 L 11/20/18 14:00 102 H 19 88 L Intake and Output (Last 8hrs): Intake & Output 11/20/18 11/20/18 11/20/18 06:59 14:59 22:59 Intake Total 143.9 423.8 118.2 Output Total 1600 800 200 Balance -1456.1 -376.2 -81.8 Weight 279 lb Intake: IV 50 175.2 Intake, IV Amount 93.9 148.6 78.2 right forearm 93.9 148.6 78.2 Tube Feeding 40 Other 100 Output: Urine 1600 800 200 Urethral (Tabor) 1600 800 200 Stool 0 - Physical Exam Head: Positive for: Atraumatic, Normocephalic Pupils: Positive for: PERRL Extroacular Muscles: Positive for: EOMI Mouth: Positive for: Moist Mucous Membranes Respiratory/Chest: Positive for: Other (intubated, on vent) Abdomen: Negative for: Distention Neurological: Positive for: Other (sedated, on vent) Skin: Positive for: Dry, Normal Color - Medications Active Medications: Active Medications Generic Name Dose Route Start Last Admin Trade Name Freq PRN Reason Stop Dose Admin Acetaminophen 650 mg 11/19/18 15:49 11/19/18 15:55 Tylenol 650mg/20.3ml Solution Ud PO 650 mg Q6 PRN Administration Temperature Albuterol/Ipratropium 3 ml 11/18/18 00:00 11/20/18 16:22 Duoneb 3 Mg/0.5 Mg (3 Ml) Ud INH 3 ml RQ4 DAMION Administration Aspirin 300 mg 11/17/18 10:00 11/20/18 10:00 Aspirin Supp LA 300 mg DAILY DAMION Administration Clopidogrel Bisulfate 75 mg 11/18/18 10:00 11/20/18 09:56 Plavix PO 75 mg DAILY DAMION Administration Famotidine 20 mg 11/19/18 12:30 11/20/18 09:56 Pepcid IVP 20 mg Q12 DAMION Administration Midazolam HCl 100 mg/ Dextrose 100 mls @ 2.53 mls/hr 11/20/18 10:45 11/20/18 14:00 IV 0.04 mg/kg/hr .Q24H DAMION 5.1 mls/hr Titration Protocol 0.02 MG/KG/HR Dexmedetomidine HCl 400 mcg/ 100 mls @ 6.33 mls/hr 11/20/18 17:00 Sodium Chloride IV TITR PRN Agitation Protocol 0.2 MCG/KG/HR Lorazepam 2 mg 11/17/18 17:40 11/20/18 11:05 Ativan IVP 2 mg Q3H PRN Administration Anxiety Methylprednisolone 40 mg 11/19/18 20:00 11/20/18 12:30 Solu-Medrol IVP 40 mg Q8H DAMION Administration Rosuvastatin Calcium 10 mg 11/19/18 22:00 11/19/18 21:35 Crestor PO 10 mg HS DAMION Administration - Patient Studies Lab Studies: Microbiology Studies 11/20/18 07:33 Gram Stain - Final Trachasp Lab Studies 11/20/18 11/20/18 11/20/18 Range/Units 13:45 06:24 06:24 WBC 11.8 H (4.8-10.8) K/uL RBC 4.84 (4.40-5.90) Mil/uL Hgb 10.6 L (12.0-18.0) g/dL Hct 35.9 (35.0-51.0) % MCV 74.2 L (80.0-94.0) fL MCH 21.9 L (27.0-31.0) pg MCHC 29.6 L (33.0-37.0) g/dL RDW 19.4 H (11.5-14.5) % Plt Count 334 (130-400) K/uL MPV 7.7 (7.2-11.7) fL Neut % (Auto) 96.2 H (50.0-75.0) % Lymph % (Auto) 1.8 L (20.0-40.0) % Trigg % (Auto) 1.5 (0.0-10.0) % Eos % (Auto) 0.4 (0.0-4.0) % Baso % (Auto) 0.1 (0.0-2.0) % Neut # (Auto) 11.4 H (1.8-7.0) K/uL Lymph # (Auto) 0.2 L (1.0-4.3) K/uL Trigg # (Auto) 0.2 (0.0-0.8) K/uL Eos # (Auto) 0.0 (0.0-0.7) K/uL Baso # (Auto) 0.0 (0.0-0.2) K/uL Neutrophils % (Manual) 96 H (50-75) % Band Neutrophils % 1 (0-2) % Lymphocytes % (Manual) 2 L (20-40) % Monocytes % (Manual) 1 (0-10) % Platelet Estimate Normal (NORMAL) Hypochromasia (manual) Slight Anisocytosis (manual) Moderate Puncture Site pCO2 (35-45) mm/Hg pO2 (80-100) mm/Hg HCO3 (21-28) mmol/L ABG pH (7.35-7.45) ABG Total CO2 (22-28) mmol/L ABG O2 Saturation (95-98) % ABG Base Excess (-2.0-3.0) mmol/L ABG Hemoglobin (11.7-17.4) g/dL ABG Carboxyhemoglobin (0.5-1.5) % POC ABG HHb (Measured) (0.0-5.0) % ABG Methemoglobin (0.0-3.0) % Robert Test A-a O2 Difference mm/Hg Respiratory Index Hgb O2 Saturation (95.0-98.0) % Vent Mode Mechanical Rate FiO2 % Tidal Volume PEEP Sodium 141 (132-148) mmol/L Potassium 4.1 (3.6-5.2) mmol/L Chloride 94 L (98-107) mmol/L Carbon Dioxide 36 H (22-30) mmol/L Anion Gap 15 (10-20) BUN 78 H (9-20) mg/dL Creatinine 1.1 (0.8-1.5) mg/dL Est GFR ( Amer) > 60 Est GFR (Non-Af Amer) > 60 Random Glucose 116 H (75-110) mg/dL Calcium 8.0 L (8.6-10.4) mg/dl Phosphorus 5.1 H (2.5-4.5) mg/dL Magnesium 2.3 (1.6-2.3) mg/dL Total Bilirubin 0.9 (0.2-1.3) mg/dL AST 26 (17-59) U/L ALT 21 (21-72) U/L Alkaline Phosphatase 68 (38-126) U/L Total Protein 6.0 L (6.3-8.3) g/dL Albumin 3.0 L (3.5-5.0) g/dL Globulin 3.0 (2.2-3.9) gm/dL Albumin/Globulin Ratio 1.0 (1.0-2.1) Free T4 1.26 (0.78-2.19) ng/dL TSH 3rd Generation 0.83 (0.46-4.68) mIU/L Influenza Typ A,B (EIA) (NEGATIVE) 11/20/18 11/20/18 Range/Units 05:25 04:26 WBC (4.8-10.8) K/uL RBC (4.40-5.90) Mil/uL Hgb (12.0-18.0) g/dL Hct (35.0-51.0) % MCV (80.0-94.0) fL MCH (27.0-31.0) pg MCHC (33.0-37.0) g/dL RDW (11.5-14.5) % Plt Count (130-400) K/uL MPV (7.2-11.7) fL Neut % (Auto) (50.0-75.0) % Lymph % (Auto) (20.0-40.0) % Trigg % (Auto) (0.0-10.0) % Eos % (Auto) (0.0-4.0) % Baso % (Auto) (0.0-2.0) % Neut # (Auto) (1.8-7.0) K/uL Lymph # (Auto) (1.0-4.3) K/uL Trigg # (Auto) (0.0-0.8) K/uL Eos # (Auto) (0.0-0.7) K/uL Baso # (Auto) (0.0-0.2) K/uL Neutrophils % (Manual) (50-75) % Band Neutrophils % (0-2) % Lymphocytes % (Manual) (20-40) % Monocytes % (Manual) (0-10) % Platelet Estimate (NORMAL) Hypochromasia (manual) Anisocytosis (manual) Puncture Site R bra pCO2 58 H (35-45) mm/Hg pO2 54 L (80-100) mm/Hg HCO3 35.0 H (21-28) mmol/L ABG pH 7.44 (7.35-7.45) ABG Total CO2 41.2 H (22-28) mmol/L ABG O2 Saturation 90.0 L (95-98) % ABG Base Excess 13.2 H (-2.0-3.0) mmol/L ABG Hemoglobin 10.9 L (11.7-17.4) g/dL ABG Carboxyhemoglobin 2.3 H (0.5-1.5) % POC ABG HHb (Measured) 9.7 H (0.0-5.0) % ABG Methemoglobin 1.0 (0.0-3.0) % Robert Test Na A-a O2 Difference 587.0 mm/Hg Respiratory Index 10.9 Hgb O2 Saturation 87.1 L (95.0-98.0) % Vent Mode Prvc Mechanical Rate 16 FiO2 100.0 % Tidal Volume 500 PEEP 10 Sodium (132-148) mmol/L Potassium (3.6-5.2) mmol/L Chloride (98-107) mmol/L Carbon Dioxide (22-30) mmol/L Anion Gap (10-20) BUN (9-20) mg/dL Creatinine (0.8-1.5) mg/dL Est GFR ( Amer) Est GFR (Non-Af Amer) Random Glucose (75-110) mg/dL Calcium (8.6-10.4) mg/dl Phosphorus (2.5-4.5) mg/dL Magnesium (1.6-2.3) mg/dL Total Bilirubin (0.2-1.3) mg/dL AST (17-59) U/L ALT (21-72) U/L Alkaline Phosphatase (38-126) U/L Total Protein (6.3-8.3) g/dL Albumin (3.5-5.0) g/dL Globulin (2.2-3.9) gm/dL Albumin/Globulin Ratio (1.0-2.1) Free T4 (0.78-2.19) ng/dL TSH 3rd Generation (0.46-4.68) mIU/L Influenza Typ A,B (EIA) Negative for flu a/b (NEGATIVE) Laboratory Results - last 24 hr 11/20/18 11/20/18 11/20/18 04:26 05:25 06:24 WBC 11.8 H RBC 4.84 Hgb 10.6 L Hct 35.9 MCV 74.2 L MCH 21.9 L MCHC 29.6 L RDW 19.4 H Plt Count 334 MPV 7.7 Neut % (Auto) 96.2 H Lymph % (Auto) 1.8 L Trigg % (Auto) 1.5 Eos % (Auto) 0.4 Baso % (Auto) 0.1 Neut # (Auto) 11.4 H Lymph # (Auto) 0.2 L Trigg # (Auto) 0.2 Eos # (Auto) 0.0 Baso # (Auto) 0.0 Neutrophils % (Manual) 96 H Band Neutrophils % 1 Lymphocytes % (Manual) 2 L Monocytes % (Manual) 1 Platelet Estimate Normal Hypochromasia (manual) Slight Anisocytosis (manual) Moderate Puncture Site R bra pCO2 58 H pO2 54 L HCO3 35.0 H ABG pH 7.44 ABG Total CO2 41.2 H ABG O2 Saturation 90.0 L ABG Base Excess 13.2 H ABG Hemoglobin 10.9 L ABG Carboxyhemoglobin 2.3 H POC ABG HHb (Measured) 9.7 H ABG Methemoglobin 1.0 Robert Test Na A-a O2 Difference 587.0 Respiratory Index 10.9 Hgb O2 Saturation 87.1 L Vent Mode Prvc Mechanical Rate 16 FiO2 100.0 Tidal Volume 500 PEEP 10 Sodium Potassium Chloride Carbon Dioxide Anion Gap BUN Creatinine Est GFR ( Amer) Est GFR (Non-Af Amer) Random Glucose Calcium Phosphorus Magnesium Total Bilirubin AST ALT Alkaline Phosphatase Total Protein Albumin Globulin Albumin/Globulin Ratio Free T4 TSH 3rd Generation Influenza Typ A,B (EIA) Negative for flu a/b 11/20/18 11/20/18 06:24 13:45 WBC RBC Hgb Hct MCV MCH MCHC RDW Plt Count MPV Neut % (Auto) Lymph % (Auto) Trigg % (Auto) Eos % (Auto) Baso % (Auto) Neut # (Auto) Lymph # (Auto) Trigg # (Auto) Eos # (Auto) Baso # (Auto) Neutrophils % (Manual) Band Neutrophils % Lymphocytes % (Manual) Monocytes % (Manual) Platelet Estimate Hypochromasia (manual) Anisocytosis (manual) Puncture Site pCO2 pO2 HCO3 ABG pH ABG Total CO2 ABG O2 Saturation ABG Base Excess ABG Hemoglobin ABG Carboxyhemoglobin POC ABG HHb (Measured) ABG Methemoglobin Robert Test A-a O2 Difference Respiratory Index Hgb O2 Saturation Vent Mode Mechanical Rate FiO2 Tidal Volume PEEP Sodium 141 Potassium 4.1 Chloride 94 L Carbon Dioxide 36 H Anion Gap 15 BUN 78 H Creatinine 1.1 Est GFR ( Amer) > 60 Est GFR (Non-Af Amer) > 60 Random Glucose 116 H Calcium 8.0 L Phosphorus 5.1 H Magnesium 2.3 Total Bilirubin 0.9 AST 26 ALT 21 Alkaline Phosphatase 68 Total Protein 6.0 L Albumin 3.0 L Globulin 3.0 Albumin/Globulin Ratio 1.0 Free T4 1.26 TSH 3rd Generation 0.83 Influenza Typ A,B (EIA) Radiology Impressions: Radiology Impressions Chest X-Ray 11/20/18 06:08 IMPRESSION: Improved aeration in the right lower lobe which may represent improving pulmonary edema versus pleural effusion. Otherwise no significant interval change in persistent severe cardiomegaly, prominent central vasculature and severe pulmonary venous congestion with presumable layering effusions. Stable position of support tubes. EKG/Cardiology Studies: Cardiology / EKG Studies 11/20/18 09:15 EKG [ELECTROCARDIOGRAM] Routine Comment: Mode Of Transportation: Reason For Exam: s/p cardiav arrest; cardiomegaly <Baldemar Tee - Last Filed: 11/20/18 18:13> CCU Objective - Vital Signs / Intake & Output Vital Signs (Last 4 hours): Vital Signs Temp Pulse Resp BP Pulse Ox 11/20/18 17:01 119/61 11/20/18 17:00 73 16 92 L 11/20/18 16:01 125/65 11/20/18 16:00 98.2 F 62 16 92 L 11/20/18 15:01 125/81 11/20/18 15:00 64 16 94 L 11/20/18 14:01 93 H 23 134/79 88 L 11/20/18 14:00 102 H 19 88 L Intake and Output (Last 8hrs): Intake & Output 11/20/18 11/20/18 11/20/18 06:59 14:59 22:59 Intake Total 143.9 423.8 118.2 Output Total 1600 800 200 Balance -1456.1 -376.2 -81.8 Weight 279 lb Intake: IV 50 175.2 Intake, IV Amount 93.9 148.6 78.2 right forearm 93.9 148.6 78.2 Tube Feeding 40 Other 100 Output: Urine 1600 800 200 Urethral (Tabor) 1600 800 200 Stool 0 - Medications Active Medications: Active Medications Generic Name Dose Route Start Last Admin Trade Name Freq PRN Reason Stop Dose Admin Acetaminophen 650 mg 11/19/18 15:49 11/19/18 15:55 Tylenol 650mg/20.3ml Solution Ud PO 650 mg Q6 PRN Administration Temperature Albuterol/Ipratropium 3 ml 11/18/18 00:00 11/20/18 16:22 Duoneb 3 Mg/0.5 Mg (3 Ml) Ud INH 3 ml RQ4 DAMION Administration Aspirin 300 mg 11/17/18 10:00 11/20/18 10:00 Aspirin Supp LA 300 mg DAILY DAMION Administration Clopidogrel Bisulfate 75 mg 11/18/18 10:00 11/20/18 09:56 Plavix PO 75 mg DAILY DAMION Administration Famotidine 20 mg 11/19/18 12:30 11/20/18 09:56 Pepcid IVP 20 mg Q12 DAMION Administration Midazolam HCl 100 mg/ Dextrose 100 mls @ 2.53 mls/hr 11/20/18 10:45 11/20/18 14:00 IV 0.04 mg/kg/hr .Q24H DAMION 5.1 mls/hr Titration Protocol 0.02 MG/KG/HR Dexmedetomidine HCl 400 mcg/ 100 mls @ 6.33 mls/hr 11/20/18 17:00 Sodium Chloride IV TITR PRN Agitation Protocol 0.2 MCG/KG/HR Lorazepam 2 mg 11/17/18 17:40 11/20/18 11:05 Ativan IVP 2 mg Q3H PRN Administration Anxiety Methylprednisolone 40 mg 11/19/18 20:00 11/20/18 12:30 Solu-Medrol IVP 40 mg Q8H DAMION Administration Rosuvastatin Calcium 10 mg 11/19/18 22:00 11/19/18 21:35 Crestor PO 10 mg HS DAMION Administration - Patient Studies Lab Studies: Microbiology Studies 11/20/18 07:33 Gram Stain - Final Trachasp Lab Studies 11/20/18 11/20/18 11/20/18 Range/Units 13:45 06:24 06:24 WBC 11.8 H (4.8-10.8) K/uL RBC 4.84 (4.40-5.90) Mil/uL Hgb 10.6 L (12.0-18.0) g/dL Hct 35.9 (35.0-51.0) % MCV 74.2 L (80.0-94.0) fL MCH 21.9 L (27.0-31.0) pg MCHC 29.6 L (33.0-37.0) g/dL RDW 19.4 H (11.5-14.5) % Plt Count 334 (130-400) K/uL MPV 7.7 (7.2-11.7) fL Neut % (Auto) 96.2 H (50.0-75.0) % Lymph % (Auto) 1.8 L (20.0-40.0) % Trigg % (Auto) 1.5 (0.0-10.0) % Eos % (Auto) 0.4 (0.0-4.0) % Baso % (Auto) 0.1 (0.0-2.0) % Neut # (Auto) 11.4 H (1.8-7.0) K/uL Lymph # (Auto) 0.2 L (1.0-4.3) K/uL Trigg # (Auto) 0.2 (0.0-0.8) K/uL Eos # (Auto) 0.0 (0.0-0.7) K/uL Baso # (Auto) 0.0 (0.0-0.2) K/uL Neutrophils % (Manual) 96 H (50-75) % Band Neutrophils % 1 (0-2) % Lymphocytes % (Manual) 2 L (20-40) % Monocytes % (Manual) 1 (0-10) % Platelet Estimate Normal (NORMAL) Hypochromasia (manual) Slight Anisocytosis (manual) Moderate Puncture Site pCO2 (35-45) mm/Hg pO2 (80-100) mm/Hg HCO3 (21-28) mmol/L ABG pH (7.35-7.45) ABG Total CO2 (22-28) mmol/L ABG O2 Saturation (95-98) % ABG Base Excess (-2.0-3.0) mmol/L ABG Hemoglobin (11.7-17.4) g/dL ABG Carboxyhemoglobin (0.5-1.5) % POC ABG HHb (Measured) (0.0-5.0) % ABG Methemoglobin (0.0-3.0) % Robert Test A-a O2 Difference mm/Hg Respiratory Index Hgb O2 Saturation (95.0-98.0) % Vent Mode Mechanical Rate FiO2 % Tidal Volume PEEP Sodium 141 (132-148) mmol/L Potassium 4.1 (3.6-5.2) mmol/L Chloride 94 L (98-107) mmol/L Carbon Dioxide 36 H (22-30) mmol/L Anion Gap 15 (10-20) BUN 78 H (9-20) mg/dL Creatinine 1.1 (0.8-1.5) mg/dL Est GFR ( Amer) > 60 Est GFR (Non-Af Amer) > 60 Random Glucose 116 H (75-110) mg/dL Calcium 8.0 L (8.6-10.4) mg/dl Phosphorus 5.1 H (2.5-4.5) mg/dL Magnesium 2.3 (1.6-2.3) mg/dL Total Bilirubin 0.9 (0.2-1.3) mg/dL AST 26 (17-59) U/L ALT 21 (21-72) U/L Alkaline Phosphatase 68 (38-126) U/L Total Protein 6.0 L (6.3-8.3) g/dL Albumin 3.0 L (3.5-5.0) g/dL Globulin 3.0 (2.2-3.9) gm/dL Albumin/Globulin Ratio 1.0 (1.0-2.1) Free T4 1.26 (0.78-2.19) ng/dL TSH 3rd Generation 0.83 (0.46-4.68) mIU/L Influenza Typ A,B (EIA) (NEGATIVE) 11/20/18 11/20/18 Range/Units 05:25 04:26 WBC (4.8-10.8) K/uL RBC (4.40-5.90) Mil/uL Hgb (12.0-18.0) g/dL Hct (35.0-51.0) % MCV (80.0-94.0) fL MCH (27.0-31.0) pg MCHC (33.0-37.0) g/dL RDW (11.5-14.5) % Plt Count (130-400) K/uL MPV (7.2-11.7) fL Neut % (Auto) (50.0-75.0) % Lymph % (Auto) (20.0-40.0) % Trigg % (Auto) (0.0-10.0) % Eos % (Auto) (0.0-4.0) % Baso % (Auto) (0.0-2.0) % Neut # (Auto) (1.8-7.0) K/uL Lymph # (Auto) (1.0-4.3) K/uL Trigg # (Auto) (0.0-0.8) K/uL Eos # (Auto) (0.0-0.7) K/uL Baso # (Auto) (0.0-0.2) K/uL Neutrophils % (Manual) (50-75) % Band Neutrophils % (0-2) % Lymphocytes % (Manual) (20-40) % Monocytes % (Manual) (0-10) % Platelet Estimate (NORMAL) Hypochromasia (manual) Anisocytosis (manual) Puncture Site R bra pCO2 58 H (35-45) mm/Hg pO2 54 L (80-100) mm/Hg HCO3 35.0 H (21-28) mmol/L ABG pH 7.44 (7.35-7.45) ABG Total CO2 41.2 H (22-28) mmol/L ABG O2 Saturation 90.0 L (95-98) % ABG Base Excess 13.2 H (-2.0-3.0) mmol/L ABG Hemoglobin 10.9 L (11.7-17.4) g/dL ABG Carboxyhemoglobin 2.3 H (0.5-1.5) % POC ABG HHb (Measured) 9.7 H (0.0-5.0) % ABG Methemoglobin 1.0 (0.0-3.0) % Robert Test Na A-a O2 Difference 587.0 mm/Hg Respiratory Index 10.9 Hgb O2 Saturation 87.1 L (95.0-98.0) % Vent Mode Prvc Mechanical Rate 16 FiO2 100.0 % Tidal Volume 500 PEEP 10 Sodium (132-148) mmol/L Potassium (3.6-5.2) mmol/L Chloride (98-107) mmol/L Carbon Dioxide (22-30) mmol/L Anion Gap (10-20) BUN (9-20) mg/dL Creatinine (0.8-1.5) mg/dL Est GFR ( Amer) Est GFR (Non-Af Amer) Random Glucose (75-110) mg/dL Calcium (8.6-10.4) mg/dl Phosphorus (2.5-4.5) mg/dL Magnesium (1.6-2.3) mg/dL Total Bilirubin (0.2-1.3) mg/dL AST (17-59) U/L ALT (21-72) U/L Alkaline Phosphatase (38-126) U/L Total Protein (6.3-8.3) g/dL Albumin (3.5-5.0) g/dL Globulin (2.2-3.9) gm/dL Albumin/Globulin Ratio (1.0-2.1) Free T4 (0.78-2.19) ng/dL TSH 3rd Generation (0.46-4.68) mIU/L Influenza Typ A,B (EIA) Negative for flu a/b (NEGATIVE) Laboratory Results - last 24 hr 11/20/18 11/20/18 11/20/18 04:26 05:25 06:24 WBC 11.8 H RBC 4.84 Hgb 10.6 L Hct 35.9 MCV 74.2 L MCH 21.9 L MCHC 29.6 L RDW 19.4 H Plt Count 334 MPV 7.7 Neut % (Auto) 96.2 H Lymph % (Auto) 1.8 L Trigg % (Auto) 1.5 Eos % (Auto) 0.4 Baso % (Auto) 0.1 Neut # (Auto) 11.4 H Lymph # (Auto) 0.2 L Trigg # (Auto) 0.2 Eos # (Auto) 0.0 Baso # (Auto) 0.0 Neutrophils % (Manual) 96 H Band Neutrophils % 1 Lymphocytes % (Manual) 2 L Monocytes % (Manual) 1 Platelet Estimate Normal Hypochromasia (manual) Slight Anisocytosis (manual) Moderate Puncture Site R bra pCO2 58 H pO2 54 L HCO3 35.0 H ABG pH 7.44 ABG Total CO2 41.2 H ABG O2 Saturation 90.0 L ABG Base Excess 13.2 H ABG Hemoglobin 10.9 L ABG Carboxyhemoglobin 2.3 H POC ABG HHb (Measured) 9.7 H ABG Methemoglobin 1.0 Robert Test Na A-a O2 Difference 587.0 Respiratory Index 10.9 Hgb O2 Saturation 87.1 L Vent Mode Prvc Mechanical Rate 16 FiO2 100.0 Tidal Volume 500 PEEP 10 Sodium Potassium Chloride Carbon Dioxide Anion Gap BUN Creatinine Est GFR ( Amer) Est GFR (Non-Af Amer) Random Glucose Calcium Phosphorus Magnesium Total Bilirubin AST ALT Alkaline Phosphatase Total Protein Albumin Globulin Albumin/Globulin Ratio Free T4 TSH 3rd Generation Influenza Typ A,B (EIA) Negative for flu a/b 11/20/18 11/20/18 06:24 13:45 WBC RBC Hgb Hct MCV MCH MCHC RDW Plt Count MPV Neut % (Auto) Lymph % (Auto) Trigg % (Auto) Eos % (Auto) Baso % (Auto) Neut # (Auto) Lymph # (Auto) Trigg # (Auto) Eos # (Auto) Baso # (Auto) Neutrophils % (Manual) Band Neutrophils % Lymphocytes % (Manual) Monocytes % (Manual) Platelet Estimate Hypochromasia (manual) Anisocytosis (manual) Puncture Site pCO2 pO2 HCO3 ABG pH ABG Total CO2 ABG O2 Saturation ABG Base Excess ABG Hemoglobin ABG Carboxyhemoglobin POC ABG HHb (Measured) ABG Methemoglobin Robert Test A-a O2 Difference Respiratory Index Hgb O2 Saturation Vent Mode Mechanical Rate FiO2 Tidal Volume PEEP Sodium 141 Potassium 4.1 Chloride 94 L Carbon Dioxide 36 H Anion Gap 15 BUN 78 H Creatinine 1.1 Est GFR ( Amer) > 60 Est GFR (Non-Af Amer) > 60 Random Glucose 116 H Calcium 8.0 L Phosphorus 5.1 H Magnesium 2.3 Total Bilirubin 0.9 AST 26 ALT 21 Alkaline Phosphatase 68 Total Protein 6.0 L Albumin 3.0 L Globulin 3.0 Albumin/Globulin Ratio 1.0 Free T4 1.26 TSH 3rd Generation 0.83 Influenza Typ A,B (EIA) Radiology Impressions: Radiology Impressions Chest X-Ray 11/20/18 06:08 IMPRESSION: Improved aeration in the right lower lobe which may represent improving pulmonary edema versus pleural effusion. Otherwise no significant interval change in persistent severe cardiomegaly, prominent central vasculature and severe pulmonary venous congestion with presumable layering effusions. Stable position of support tubes. EKG/Cardiology Studies: Cardiology / EKG Studies 11/20/18 09:15 EKG [ELECTROCARDIOGRAM] Routine Comment: Mode Of Transportation: Reason For Exam: s/p cardiav arrest; cardiomegaly Attending/Attestation - Attestation I have personally seen and examined this patient.: Yes I have fully participated in the care of the patient.: Yes I have reviewed all pertinent clinical information: Yes Notes (Text): 11/20/18 17:52 I have seen and examined the patient. Medical records, lab studies, and imaging were reviewed by me and a management plan was formulated on multidisciplinary rounds with resident Dr. Beckman. I agree with their documented assessment and plan. Patient still severely hypoxic on vent, titrating down Fio2 slowly. Scheduled for trach and peg, because I don't anticipate quick weaning. 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 Critical Care Time 35 minutes. Multi-disciplinary rounds were performed with house staff, nursing, speech therapy, respiratory therapy, pharmacy and nutrition with integrated input from the primary team/attending and other consulting services. The documented time is cumulative and includes review of patient data/exams/labs/chart review and examination of the patient on rounds and throughout the day; time is exclusive of any procedures or teaching time.
--- NOTE | 2018-11-20 17:58 | CP.CCUPN ---
<Elder Beckman - Last Filed: 11/20/18 17:46> CCU Subjective - Physician Review Subjective (Free Text): 11/18/18 16:41 PGY-1 ICU Progress Note for Dr. Tee Patient seen and evaluated at bedside. No acute events overnight. Patient remains intubated, difficult to wean. Surgery and GI consulted for trach and PEG, respectively. Sedation increased as patient remained agitated and alert on precedex drip. CCU Objective - Vital Signs / Intake & Output Vital Signs (Last 4 hours): Vital Signs Temp Pulse Resp BP Pulse Ox 11/20/18 17:01 119/61 11/20/18 17:00 73 16 92 L 11/20/18 16:01 125/65 11/20/18 16:00 98.2 F 62 16 92 L 11/20/18 15:01 125/81 11/20/18 15:00 64 16 94 L 11/20/18 14:01 93 H 23 134/79 88 L 11/20/18 14:00 102 H 19 88 L Intake and Output (Last 8hrs): Intake & Output 11/20/18 11/20/18 11/20/18 06:59 14:59 22:59 Intake Total 143.9 423.8 118.2 Output Total 1600 800 200 Balance -1456.1 -376.2 -81.8 Weight 279 lb Intake: IV 50 175.2 Intake, IV Amount 93.9 148.6 78.2 right forearm 93.9 148.6 78.2 Tube Feeding 40 Other 100 Output: Urine 1600 800 200 Urethral (Tabor) 1600 800 200 Stool 0 - Physical Exam Head: Positive for: Atraumatic, Normocephalic Pupils: Positive for: PERRL Extroacular Muscles: Positive for: EOMI Mouth: Positive for: Moist Mucous Membranes Respiratory/Chest: Positive for: Other (intubated, on vent) Abdomen: Negative for: Distention Neurological: Positive for: Other (sedated, on vent) Skin: Positive for: Dry, Normal Color - Medications Active Medications: Active Medications Generic Name Dose Route Start Last Admin Trade Name Freq PRN Reason Stop Dose Admin Acetaminophen 650 mg 11/19/18 15:49 11/19/18 15:55 Tylenol 650mg/20.3ml Solution Ud PO 650 mg Q6 PRN Administration Temperature Albuterol/Ipratropium 3 ml 11/18/18 00:00 11/20/18 16:22 Duoneb 3 Mg/0.5 Mg (3 Ml) Ud INH 3 ml RQ4 DAMION Administration Aspirin 300 mg 11/17/18 10:00 11/20/18 10:00 Aspirin Supp ID 300 mg DAILY DAMION Administration Clopidogrel Bisulfate 75 mg 11/18/18 10:00 11/20/18 09:56 Plavix PO 75 mg DAILY DAMION Administration Famotidine 20 mg 11/19/18 12:30 11/20/18 09:56 Pepcid IVP 20 mg Q12 DAMION Administration Midazolam HCl 100 mg/ Dextrose 100 mls @ 2.53 mls/hr 11/20/18 10:45 11/20/18 14:00 IV 0.04 mg/kg/hr .Q24H DAMION 5.1 mls/hr Titration Protocol 0.02 MG/KG/HR Dexmedetomidine HCl 400 mcg/ 100 mls @ 6.33 mls/hr 11/20/18 17:00 Sodium Chloride IV TITR PRN Agitation Protocol 0.2 MCG/KG/HR Lorazepam 2 mg 11/17/18 17:40 11/20/18 11:05 Ativan IVP 2 mg Q3H PRN Administration Anxiety Methylprednisolone 40 mg 11/19/18 20:00 11/20/18 12:30 Solu-Medrol IVP 40 mg Q8H DAMION Administration Rosuvastatin Calcium 10 mg 11/19/18 22:00 11/19/18 21:35 Crestor PO 10 mg HS DAMION Administration - Patient Studies Lab Studies: Microbiology Studies 11/20/18 07:33 Gram Stain - Final Trachasp Lab Studies 11/20/18 11/20/18 11/20/18 Range/Units 13:45 06:24 06:24 WBC 11.8 H (4.8-10.8) K/uL RBC 4.84 (4.40-5.90) Mil/uL Hgb 10.6 L (12.0-18.0) g/dL Hct 35.9 (35.0-51.0) % MCV 74.2 L (80.0-94.0) fL MCH 21.9 L (27.0-31.0) pg MCHC 29.6 L (33.0-37.0) g/dL RDW 19.4 H (11.5-14.5) % Plt Count 334 (130-400) K/uL MPV 7.7 (7.2-11.7) fL Neut % (Auto) 96.2 H (50.0-75.0) % Lymph % (Auto) 1.8 L (20.0-40.0) % Wilkin % (Auto) 1.5 (0.0-10.0) % Eos % (Auto) 0.4 (0.0-4.0) % Baso % (Auto) 0.1 (0.0-2.0) % Neut # (Auto) 11.4 H (1.8-7.0) K/uL Lymph # (Auto) 0.2 L (1.0-4.3) K/uL Wilkin # (Auto) 0.2 (0.0-0.8) K/uL Eos # (Auto) 0.0 (0.0-0.7) K/uL Baso # (Auto) 0.0 (0.0-0.2) K/uL Neutrophils % (Manual) 96 H (50-75) % Band Neutrophils % 1 (0-2) % Lymphocytes % (Manual) 2 L (20-40) % Monocytes % (Manual) 1 (0-10) % Platelet Estimate Normal (NORMAL) Hypochromasia (manual) Slight Anisocytosis (manual) Moderate Puncture Site pCO2 (35-45) mm/Hg pO2 (80-100) mm/Hg HCO3 (21-28) mmol/L ABG pH (7.35-7.45) ABG Total CO2 (22-28) mmol/L ABG O2 Saturation (95-98) % ABG Base Excess (-2.0-3.0) mmol/L ABG Hemoglobin (11.7-17.4) g/dL ABG Carboxyhemoglobin (0.5-1.5) % POC ABG HHb (Measured) (0.0-5.0) % ABG Methemoglobin (0.0-3.0) % Robert Test A-a O2 Difference mm/Hg Respiratory Index Hgb O2 Saturation (95.0-98.0) % Vent Mode Mechanical Rate FiO2 % Tidal Volume PEEP Sodium 141 (132-148) mmol/L Potassium 4.1 (3.6-5.2) mmol/L Chloride 94 L (98-107) mmol/L Carbon Dioxide 36 H (22-30) mmol/L Anion Gap 15 (10-20) BUN 78 H (9-20) mg/dL Creatinine 1.1 (0.8-1.5) mg/dL Est GFR ( Amer) > 60 Est GFR (Non-Af Amer) > 60 Random Glucose 116 H (75-110) mg/dL Calcium 8.0 L (8.6-10.4) mg/dl Phosphorus 5.1 H (2.5-4.5) mg/dL Magnesium 2.3 (1.6-2.3) mg/dL Total Bilirubin 0.9 (0.2-1.3) mg/dL AST 26 (17-59) U/L ALT 21 (21-72) U/L Alkaline Phosphatase 68 (38-126) U/L Total Protein 6.0 L (6.3-8.3) g/dL Albumin 3.0 L (3.5-5.0) g/dL Globulin 3.0 (2.2-3.9) gm/dL Albumin/Globulin Ratio 1.0 (1.0-2.1) Free T4 1.26 (0.78-2.19) ng/dL TSH 3rd Generation 0.83 (0.46-4.68) mIU/L Influenza Typ A,B (EIA) (NEGATIVE) 11/20/18 11/20/18 Range/Units 05:25 04:26 WBC (4.8-10.8) K/uL RBC (4.40-5.90) Mil/uL Hgb (12.0-18.0) g/dL Hct (35.0-51.0) % MCV (80.0-94.0) fL MCH (27.0-31.0) pg MCHC (33.0-37.0) g/dL RDW (11.5-14.5) % Plt Count (130-400) K/uL MPV (7.2-11.7) fL Neut % (Auto) (50.0-75.0) % Lymph % (Auto) (20.0-40.0) % Wilkin % (Auto) (0.0-10.0) % Eos % (Auto) (0.0-4.0) % Baso % (Auto) (0.0-2.0) % Neut # (Auto) (1.8-7.0) K/uL Lymph # (Auto) (1.0-4.3) K/uL Wilkin # (Auto) (0.0-0.8) K/uL Eos # (Auto) (0.0-0.7) K/uL Baso # (Auto) (0.0-0.2) K/uL Neutrophils % (Manual) (50-75) % Band Neutrophils % (0-2) % Lymphocytes % (Manual) (20-40) % Monocytes % (Manual) (0-10) % Platelet Estimate (NORMAL) Hypochromasia (manual) Anisocytosis (manual) Puncture Site R bra pCO2 58 H (35-45) mm/Hg pO2 54 L (80-100) mm/Hg HCO3 35.0 H (21-28) mmol/L ABG pH 7.44 (7.35-7.45) ABG Total CO2 41.2 H (22-28) mmol/L ABG O2 Saturation 90.0 L (95-98) % ABG Base Excess 13.2 H (-2.0-3.0) mmol/L ABG Hemoglobin 10.9 L (11.7-17.4) g/dL ABG Carboxyhemoglobin 2.3 H (0.5-1.5) % POC ABG HHb (Measured) 9.7 H (0.0-5.0) % ABG Methemoglobin 1.0 (0.0-3.0) % Robert Test Na A-a O2 Difference 587.0 mm/Hg Respiratory Index 10.9 Hgb O2 Saturation 87.1 L (95.0-98.0) % Vent Mode Prvc Mechanical Rate 16 FiO2 100.0 % Tidal Volume 500 PEEP 10 Sodium (132-148) mmol/L Potassium (3.6-5.2) mmol/L Chloride (98-107) mmol/L Carbon Dioxide (22-30) mmol/L Anion Gap (10-20) BUN (9-20) mg/dL Creatinine (0.8-1.5) mg/dL Est GFR ( Amer) Est GFR (Non-Af Amer) Random Glucose (75-110) mg/dL Calcium (8.6-10.4) mg/dl Phosphorus (2.5-4.5) mg/dL Magnesium (1.6-2.3) mg/dL Total Bilirubin (0.2-1.3) mg/dL AST (17-59) U/L ALT (21-72) U/L Alkaline Phosphatase (38-126) U/L Total Protein (6.3-8.3) g/dL Albumin (3.5-5.0) g/dL Globulin (2.2-3.9) gm/dL Albumin/Globulin Ratio (1.0-2.1) Free T4 (0.78-2.19) ng/dL TSH 3rd Generation (0.46-4.68) mIU/L Influenza Typ A,B (EIA) Negative for flu a/b (NEGATIVE) Laboratory Results - last 24 hr 11/20/18 11/20/18 11/20/18 04:26 05:25 06:24 WBC 11.8 H RBC 4.84 Hgb 10.6 L Hct 35.9 MCV 74.2 L MCH 21.9 L MCHC 29.6 L RDW 19.4 H Plt Count 334 MPV 7.7 Neut % (Auto) 96.2 H Lymph % (Auto) 1.8 L Wilkin % (Auto) 1.5 Eos % (Auto) 0.4 Baso % (Auto) 0.1 Neut # (Auto) 11.4 H Lymph # (Auto) 0.2 L Wilkin # (Auto) 0.2 Eos # (Auto) 0.0 Baso # (Auto) 0.0 Neutrophils % (Manual) 96 H Band Neutrophils % 1 Lymphocytes % (Manual) 2 L Monocytes % (Manual) 1 Platelet Estimate Normal Hypochromasia (manual) Slight Anisocytosis (manual) Moderate Puncture Site R bra pCO2 58 H pO2 54 L HCO3 35.0 H ABG pH 7.44 ABG Total CO2 41.2 H ABG O2 Saturation 90.0 L ABG Base Excess 13.2 H ABG Hemoglobin 10.9 L ABG Carboxyhemoglobin 2.3 H POC ABG HHb (Measured) 9.7 H ABG Methemoglobin 1.0 Robert Test Na A-a O2 Difference 587.0 Respiratory Index 10.9 Hgb O2 Saturation 87.1 L Vent Mode Prvc Mechanical Rate 16 FiO2 100.0 Tidal Volume 500 PEEP 10 Sodium Potassium Chloride Carbon Dioxide Anion Gap BUN Creatinine Est GFR ( Amer) Est GFR (Non-Af Amer) Random Glucose Calcium Phosphorus Magnesium Total Bilirubin AST ALT Alkaline Phosphatase Total Protein Albumin Globulin Albumin/Globulin Ratio Free T4 TSH 3rd Generation Influenza Typ A,B (EIA) Negative for flu a/b 11/20/18 11/20/18 06:24 13:45 WBC RBC Hgb Hct MCV MCH MCHC RDW Plt Count MPV Neut % (Auto) Lymph % (Auto) Wilkin % (Auto) Eos % (Auto) Baso % (Auto) Neut # (Auto) Lymph # (Auto) Wilkin # (Auto) Eos # (Auto) Baso # (Auto) Neutrophils % (Manual) Band Neutrophils % Lymphocytes % (Manual) Monocytes % (Manual) Platelet Estimate Hypochromasia (manual) Anisocytosis (manual) Puncture Site pCO2 pO2 HCO3 ABG pH ABG Total CO2 ABG O2 Saturation ABG Base Excess ABG Hemoglobin ABG Carboxyhemoglobin POC ABG HHb (Measured) ABG Methemoglobin Robert Test A-a O2 Difference Respiratory Index Hgb O2 Saturation Vent Mode Mechanical Rate FiO2 Tidal Volume PEEP Sodium 141 Potassium 4.1 Chloride 94 L Carbon Dioxide 36 H Anion Gap 15 BUN 78 H Creatinine 1.1 Est GFR ( Amer) > 60 Est GFR (Non-Af Amer) > 60 Random Glucose 116 H Calcium 8.0 L Phosphorus 5.1 H Magnesium 2.3 Total Bilirubin 0.9 AST 26 ALT 21 Alkaline Phosphatase 68 Total Protein 6.0 L Albumin 3.0 L Globulin 3.0 Albumin/Globulin Ratio 1.0 Free T4 1.26 TSH 3rd Generation 0.83 Influenza Typ A,B (EIA) Radiology Impressions: Radiology Impressions Chest X-Ray 11/20/18 06:08 IMPRESSION: Improved aeration in the right lower lobe which may represent improving pulmonary edema versus pleural effusion. Otherwise no significant interval change in persistent severe cardiomegaly, prominent central vasculature and severe pulmonary venous congestion with presumable layering effusions. Stable position of support tubes. EKG/Cardiology Studies: Cardiology / EKG Studies 11/20/18 09:15 EKG [ELECTROCARDIOGRAM] Routine Comment: Mode Of Transportation: Reason For Exam: s/p cardiav arrest; cardiomegaly Review of Systems - Review of Systems Systems not reviewed;Unavailable: Intubated Assessment/Plan - Assessment and Plan (Free Text) Assessment: 72 year old male in cardiac arrest, patient unresponsive, s/p code heart cath with Dr. Valencia which showed clean coronaries. Patient intubated on vent in ICU. Remains on vent on high FiO2. Surgery, GI consulted for trach and PEG respectively. Cardio Cardiac Arrest/V tach/V fib -Cardio, Dr. Valencia -Code heart called in ICU -Cardiac cath with clean coronaries -Patient remains intubated, on vent -UDS - never collected -Serial trops - borderline for ischemia -ASA, plavix -stat echo 11/17: EF 45-50%. LV systolic fun ction mildly impaired. Small- moderate pericardial effusion. Significant R ventricular hypertrophy. Meds -Amio ggt -DAPT: ASA 81 mg daily, Plavix 75 mg daily Pericardial Effusion -Moderate/large pericardial effusion on CT/echo -Monitor signs of tamponade -F/u cardio recs R Ventricular Hypertrophy -Significant R ventricular hypertrophy on CXR/CT/Echo -Likely 2/2 Pulmonary HTN -> 2/2 long standing COPD? Pulm Cardiogenic pulm edema -Lasix 80mg IV given -Repeat CXRs - f/u -Intubated on vent -Rocephin 1 gm given once -CT angio 11/18: Moderately large pericardial effusion. No PE. Extensive L pulmonary atelectasis. Possible R lung nodule. Dilated main pulmonary artery may indicate pulmonary HTN. L Lobe Atelectasis -Significant cardiomegally (R ventricular hypertrophy + mod pericardial effusion) with significantly reduced L lung volumes/atelectasis on imaging -Possible Bronchoscopy - f/u -Surgery consulted for trach, Dr. Waters GI Coffee Ground Emesis -Coffee ground emesis noted 11/17 in NGT -GI consulted, Dr. Wei --Recommend continued medical management in ICU --S/p EGD / --> Gastritis and diffuse duodenitis --Protonix drip x72 hours --> taper to IVP --HgB goal 9.0 if need to transfuse -ASA/Plavix continued as patient with new coronary stent one week ago, requiring DAPT -GI consulted for PEG, Dr. Wei PPx -Heparin 500o SC Q12 -Protonix 40 IV daily -Precedex ggt -Versed ggt Assessment and plan d/w Dr. Randal Beckman, PGY-1 <Baldemar Tee - Last Filed: 11/20/18 18:21> CCU Objective - Vital Signs / Intake & Output Vital Signs (Last 4 hours): Vital Signs Temp Pulse Resp BP Pulse Ox 11/20/18 18:01 106/56 L 11/20/18 18:00 78 16 93 L 11/20/18 17:01 119/61 11/20/18 17:00 73 16 92 L 11/20/18 16:01 125/65 11/20/18 16:00 98.2 F 62 16 92 L 11/20/18 15:01 125/81 11/20/18 15:00 64 16 94 L Intake and Output (Last 8hrs): Intake & Output 11/20/18 11/20/18 11/20/18 06:59 14:59 22:59 Intake Total 143.9 423.8 168.2 Output Total 1600 800 200 Balance -1456.1 -376.2 -31.8 Weight 279 lb Intake: IV 50 175.2 50 Intake, IV Amount 93.9 148.6 78.2 right forearm 93.9 148.6 78.2 Tube Feeding 40 Other 100 Output: Urine 1600 800 200 Urethral (Tabor) 1600 800 200 Stool 0 - Medications Active Medications: Active Medications Generic Name Dose Route Start Last Admin Trade Name Freq PRN Reason Stop Dose Admin Acetaminophen 650 mg 11/19/18 15:49 11/19/18 15:55 Tylenol 650mg/20.3ml Solution Ud PO 650 mg Q6 PRN Administration Temperature Albuterol/Ipratropium 3 ml 11/18/18 00:00 11/20/18 16:22 Duoneb 3 Mg/0.5 Mg (3 Ml) Ud INH 3 ml RQ4 DAMION Administration Aspirin 300 mg 11/17/18 10:00 11/20/18 10:00 Aspirin Supp ID 300 mg DAILY DAMION Administration Clopidogrel Bisulfate 75 mg 11/18/18 10:00 11/20/18 09:56 Plavix PO 75 mg DAILY DAMION Administration Famotidine 20 mg 11/19/18 12:30 11/20/18 09:56 Pepcid IVP 20 mg Q12 DAMION Administration Midazolam HCl 100 mg/ Dextrose 100 mls @ 2.53 mls/hr 11/20/18 10:45 11/20/18 14:00 IV 0.04 mg/kg/hr .Q24H DAMION 5.1 mls/hr Titration Protocol 0.02 MG/KG/HR Dexmedetomidine HCl 400 mcg/ 100 mls @ 6.33 mls/hr 11/20/18 17:00 Sodium Chloride IV TITR PRN Agitation Protocol 0.2 MCG/KG/HR Lorazepam 2 mg 11/17/18 17:40 11/20/18 11:05 Ativan IVP 2 mg Q3H PRN Administration Anxiety Methylprednisolone 40 mg 11/19/18 20:00 11/20/18 12:30 Solu-Medrol IVP 40 mg Q8H DAMION Administration Rosuvastatin Calcium 10 mg 11/19/18 22:00 11/19/18 21:35 Crestor PO 10 mg HS DAMION Administration - Patient Studies Lab Studies: Microbiology Studies 11/20/18 07:33 Gram Stain - Final Trachasp Lab Studies 11/20/18 11/20/18 11/20/18 Range/Units 13:45 06:24 06:24 WBC 11.8 H (4.8-10.8) K/uL RBC 4.84 (4.40-5.90) Mil/uL Hgb 10.6 L (12.0-18.0) g/dL Hct 35.9 (35.0-51.0) % MCV 74.2 L (80.0-94.0) fL MCH 21.9 L (27.0-31.0) pg MCHC 29.6 L (33.0-37.0) g/dL RDW 19.4 H (11.5-14.5) % Plt Count 334 (130-400) K/uL MPV 7.7 (7.2-11.7) fL Neut % (Auto) 96.2 H (50.0-75.0) % Lymph % (Auto) 1.8 L (20.0-40.0) % Wilkin % (Auto) 1.5 (0.0-10.0) % Eos % (Auto) 0.4 (0.0-4.0) % Baso % (Auto) 0.1 (0.0-2.0) % Neut # (Auto) 11.4 H (1.8-7.0) K/uL Lymph # (Auto) 0.2 L (1.0-4.3) K/uL Wilkin # (Auto) 0.2 (0.0-0.8) K/uL Eos # (Auto) 0.0 (0.0-0.7) K/uL Baso # (Auto) 0.0 (0.0-0.2) K/uL Neutrophils % (Manual) 96 H (50-75) % Band Neutrophils % 1 (0-2) % Lymphocytes % (Manual) 2 L (20-40) % Monocytes % (Manual) 1 (0-10) % Platelet Estimate Normal (NORMAL) Hypochromasia (manual) Slight Anisocytosis (manual) Moderate Puncture Site pCO2 (35-45) mm/Hg pO2 (80-100) mm/Hg HCO3 (21-28) mmol/L ABG pH (7.35-7.45) ABG Total CO2 (22-28) mmol/L ABG O2 Saturation (95-98) % ABG Base Excess (-2.0-3.0) mmol/L ABG Hemoglobin (11.7-17.4) g/dL ABG Carboxyhemoglobin (0.5-1.5) % POC ABG HHb (Measured) (0.0-5.0) % ABG Methemoglobin (0.0-3.0) % Robert Test A-a O2 Difference mm/Hg Respiratory Index Hgb O2 Saturation (95.0-98.0) % Vent Mode Mechanical Rate FiO2 % Tidal Volume PEEP Sodium 141 (132-148) mmol/L Potassium 4.1 (3.6-5.2) mmol/L Chloride 94 L (98-107) mmol/L Carbon Dioxide 36 H (22-30) mmol/L Anion Gap 15 (10-20) BUN 78 H (9-20) mg/dL Creatinine 1.1 (0.8-1.5) mg/dL Est GFR ( Amer) > 60 Est GFR (Non-Af Amer) > 60 Random Glucose 116 H (75-110) mg/dL Calcium 8.0 L (8.6-10.4) mg/dl Phosphorus 5.1 H (2.5-4.5) mg/dL Magnesium 2.3 (1.6-2.3) mg/dL Total Bilirubin 0.9 (0.2-1.3) mg/dL AST 26 (17-59) U/L ALT 21 (21-72) U/L Alkaline Phosphatase 68 (38-126) U/L Total Protein 6.0 L (6.3-8.3) g/dL Albumin 3.0 L (3.5-5.0) g/dL Globulin 3.0 (2.2-3.9) gm/dL Albumin/Globulin Ratio 1.0 (1.0-2.1) Free T4 1.26 (0.78-2.19) ng/dL TSH 3rd Generation 0.83 (0.46-4.68) mIU/L Influenza Typ A,B (EIA) (NEGATIVE) 11/20/18 11/20/18 Range/Units 05:25 04:26 WBC (4.8-10.8) K/uL RBC (4.40-5.90) Mil/uL Hgb (12.0-18.0) g/dL Hct (35.0-51.0) % MCV (80.0-94.0) fL MCH (27.0-31.0) pg MCHC (33.0-37.0) g/dL RDW (11.5-14.5) % Plt Count (130-400) K/uL MPV (7.2-11.7) fL Neut % (Auto) (50.0-75.0) % Lymph % (Auto) (20.0-40.0) % Wilkin % (Auto) (0.0-10.0) % Eos % (Auto) (0.0-4.0) % Baso % (Auto) (0.0-2.0) % Neut # (Auto) (1.8-7.0) K/uL Lymph # (Auto) (1.0-4.3) K/uL Wilkin # (Auto) (0.0-0.8) K/uL Eos # (Auto) (0.0-0.7) K/uL Baso # (Auto) (0.0-0.2) K/uL Neutrophils % (Manual) (50-75) % Band Neutrophils % (0-2) % Lymphocytes % (Manual) (20-40) % Monocytes % (Manual) (0-10) % Platelet Estimate (NORMAL) Hypochromasia (manual) Anisocytosis (manual) Puncture Site R bra pCO2 58 H (35-45) mm/Hg pO2 54 L (80-100) mm/Hg HCO3 35.0 H (21-28) mmol/L ABG pH 7.44 (7.35-7.45) ABG Total CO2 41.2 H (22-28) mmol/L ABG O2 Saturation 90.0 L (95-98) % ABG Base Excess 13.2 H (-2.0-3.0) mmol/L ABG Hemoglobin 10.9 L (11.7-17.4) g/dL ABG Carboxyhemoglobin 2.3 H (0.5-1.5) % POC ABG HHb (Measured) 9.7 H (0.0-5.0) % ABG Methemoglobin 1.0 (0.0-3.0) % Robert Test Na A-a O2 Difference 587.0 mm/Hg Respiratory Index 10.9 Hgb O2 Saturation 87.1 L (95.0-98.0) % Vent Mode Prvc Mechanical Rate 16 FiO2 100.0 % Tidal Volume 500 PEEP 10 Sodium (132-148) mmol/L Potassium (3.6-5.2) mmol/L Chloride (98-107) mmol/L Carbon Dioxide (22-30) mmol/L Anion Gap (10-20) BUN (9-20) mg/dL Creatinine (0.8-1.5) mg/dL Est GFR ( Amer) Est GFR (Non-Af Amer) Random Glucose (75-110) mg/dL Calcium (8.6-10.4) mg/dl Phosphorus (2.5-4.5) mg/dL Magnesium (1.6-2.3) mg/dL Total Bilirubin (0.2-1.3) mg/dL AST (17-59) U/L ALT (21-72) U/L Alkaline Phosphatase (38-126) U/L Total Protein (6.3-8.3) g/dL Albumin (3.5-5.0) g/dL Globulin (2.2-3.9) gm/dL Albumin/Globulin Ratio (1.0-2.1) Free T4 (0.78-2.19) ng/dL TSH 3rd Generation (0.46-4.68) mIU/L Influenza Typ A,B (EIA) Negative for flu a/b (NEGATIVE) Laboratory Results - last 24 hr 11/20/18 11/20/18 11/20/18 04:26 05:25 06:24 WBC 11.8 H RBC 4.84 Hgb 10.6 L Hct 35.9 MCV 74.2 L MCH 21.9 L MCHC 29.6 L RDW 19.4 H Plt Count 334 MPV 7.7 Neut % (Auto) 96.2 H Lymph % (Auto) 1.8 L Wilkin % (Auto) 1.5 Eos % (Auto) 0.4 Baso % (Auto) 0.1 Neut # (Auto) 11.4 H Lymph # (Auto) 0.2 L Wilkin # (Auto) 0.2 Eos # (Auto) 0.0 Baso # (Auto) 0.0 Neutrophils % (Manual) 96 H Band Neutrophils % 1 Lymphocytes % (Manual) 2 L Monocytes % (Manual) 1 Platelet Estimate Normal Hypochromasia (manual) Slight Anisocytosis (manual) Moderate Puncture Site R bra pCO2 58 H pO2 54 L HCO3 35.0 H ABG pH 7.44 ABG Total CO2 41.2 H ABG O2 Saturation 90.0 L ABG Base Excess 13.2 H ABG Hemoglobin 10.9 L ABG Carboxyhemoglobin 2.3 H POC ABG HHb (Measured) 9.7 H ABG Methemoglobin 1.0 Robert Test Na A-a O2 Difference 587.0 Respiratory Index 10.9 Hgb O2 Saturation 87.1 L Vent Mode Prvc Mechanical Rate 16 FiO2 100.0 Tidal Volume 500 PEEP 10 Sodium Potassium Chloride Carbon Dioxide Anion Gap BUN Creatinine Est GFR ( Amer) Est GFR (Non-Af Amer) Random Glucose Calcium Phosphorus Magnesium Total Bilirubin AST ALT Alkaline Phosphatase Total Protein Albumin Globulin Albumin/Globulin Ratio Free T4 TSH 3rd Generation Influenza Typ A,B (EIA) Negative for flu a/b 11/20/18 11/20/18 06:24 13:45 WBC RBC Hgb Hct MCV MCH MCHC RDW Plt Count MPV Neut % (Auto) Lymph % (Auto) Wilkin % (Auto) Eos % (Auto) Baso % (Auto) Neut # (Auto) Lymph # (Auto) Wilkin # (Auto) Eos # (Auto) Baso # (Auto) Neutrophils % (Manual) Band Neutrophils % Lymphocytes % (Manual) Monocytes % (Manual) Platelet Estimate Hypochromasia (manual) Anisocytosis (manual) Puncture Site pCO2 pO2 HCO3 ABG pH ABG Total CO2 ABG O2 Saturation ABG Base Excess ABG Hemoglobin ABG Carboxyhemoglobin POC ABG HHb (Measured) ABG Methemoglobin Robert Test A-a O2 Difference Respiratory Index Hgb O2 Saturation Vent Mode Mechanical Rate FiO2 Tidal Volume PEEP Sodium 141 Potassium 4.1 Chloride 94 L Carbon Dioxide 36 H Anion Gap 15 BUN 78 H Creatinine 1.1 Est GFR ( Amer) > 60 Est GFR (Non-Af Amer) > 60 Random Glucose 116 H Calcium 8.0 L Phosphorus 5.1 H Magnesium 2.3 Total Bilirubin 0.9 AST 26 ALT 21 Alkaline Phosphatase 68 Total Protein 6.0 L Albumin 3.0 L Globulin 3.0 Albumin/Globulin Ratio 1.0 Free T4 1.26 TSH 3rd Generation 0.83 Influenza Typ A,B (EIA) Radiology Impressions: Radiology Impressions Chest X-Ray 11/20/18 06:08 IMPRESSION: Improved aeration in the right lower lobe which may represent improving pulmonary edema versus pleural effusion. Otherwise no significant interval change in persistent severe cardiomegaly, prominent central vasculature and severe pulmonary venous congestion with presumable layering effusions. Stable position of support tubes. EKG/Cardiology Studies: Cardiology / EKG Studies 11/20/18 09:15 EKG [ELECTROCARDIOGRAM] Routine Comment: Mode Of Transportation: Reason For Exam: s/p cardiav arrest; cardiomegaly Attending/Attestation - Attestation I have personally seen and examined this patient.: Yes I have fully participated in the care of the patient.: Yes I have reviewed all pertinent clinical information: Yes Notes (Text): 11/20/18 18:21 I have seen and examined the patient. Medical records, lab studies, and imaging were reviewed by me and a management plan was formulated on multidisciplinary rounds with resident Dr. Beckman. I agree with their documented assessment and plan. Patient still severely hypoxic on vent, titrating down Fio2 slowly. Scheduled for trach and peg, because I don't anticipate quick weaning. 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 Critical Care Time 35 minutes. Multi-disciplinary rounds were performed with house staff, nursing, speech therapy, respiratory therapy, pharmacy and nutrition with integrated input from the primary team/attending and other consulting services. The documented time is cumulative and includes review of patient data/exams/labs/chart review and examination of the patient on rounds and throughout the day; time is exclusive of any procedures or teaching time.
--- NOTE | 2018-11-20 18:31 | CP.PCM.PN ---
Subjective - Date & Time of Evaluation Date of Evaluation: 11/20/18 Time of Evaluation: 18:31 - Subjective Subjective: Patient with Cardiac arrest and CHF with pulmonary hypertension still intubated and agitated. Objective - Vital Signs/Intake and Output Vital Signs (last 24 hours): Temp Pulse Resp BP Pulse Ox 98.2 F 78 16 106/56 L 93 L 11/20/18 16:00 11/20/18 18:00 11/20/18 18:00 11/20/18 18:01 11/20/18 18:00 Intake and Output: 11/20/18 11/20/18 06:59 18:59 Intake Total 162.8 592.0 Output Total 1600 1000 Balance -1437.2 -408.0 - Medications Medications: Current Medications Acetaminophen (Tylenol 650mg/20.3ml Solution Ud) 650 mg PO Q6 PRN PRN Reason: Temperature Last Admin: 11/19/18 15:55 Dose: 650 mg Albuterol/Ipratropium (Duoneb 3 Mg/0.5 Mg (3 Ml) Ud) 3 ml INH RQ4 DAMION Last Admin: 11/20/18 16:22 Dose: 3 ml Aspirin (Aspirin Supp) 300 mg [place] DAILY DAMION Last Admin: 11/20/18 10:00 Dose: 300 mg Clopidogrel Bisulfate (Plavix) 75 mg PO DAILY DAMION Last Admin: 11/20/18 09:56 Dose: 75 mg Famotidine (Pepcid) 20 mg IVP Q12 DAMION Last Admin: 11/20/18 09:56 Dose: 20 mg Midazolam HCl 100 mg/ Dextrose 100 mls @ 2.53 mls/hr IV .Q24H DAMION; Protocol Last Titration: 11/20/18 14:00 Dose: 0.04 mg/kg/hr, 5.1 mls/hr Dexmedetomidine HCl 400 mcg/ (Sodium Chloride) 100 mls @ 6.33 mls/hr IV TITR PRN; Protocol PRN Reason: Agitation Lorazepam (Ativan) 2 mg IVP Q3H PRN PRN Reason: Anxiety Last Admin: 11/20/18 11:05 Dose: 2 mg Methylprednisolone (Solu-Medrol) 40 mg IVP Q8H DAMION Last Admin: 11/20/18 12:30 Dose: 40 mg Rosuvastatin Calcium (Crestor) 10 mg PO HS DAMION Last Admin: 11/19/18 21:35 Dose: 10 mg - Labs Labs: 11/20/18 06:24 11/20/18 06:24 PT 16.5 SECONDS (9.7-12.2) H 11/19/18 07:21 INR 1.5 11/19/18 07:21 APTT 33.0 SECONDS (21-34) 11/17/18 08:06 - Head Exam Head Exam: NORMOCEPHALIC - Neck Exam Neck Exam: Normal Inspection - Respiratory Exam Additional comments: Intubated - Cardiovascular Exam Cardiovascular Exam: REGULAR RHYTHM - Extremities Exam Extremities Exam: Normal Inspection - Neurological Exam Neurological Exam: Alert Assessment and Plan (1) Cardiac arrest Assessment & Plan: In sinus rhythm now. Discussed and EP note reviewed, he is not stable enough at this time for AICD. Continue current care. Maintain electrolyte balance. Pay proceed with PEG and Trach form cardiac point. Discussed with team. Status: Acute (2) Ventricular tachycardia Status: Acute (3) Congestive heart failure Assessment & Plan: CHF and preicardial effusion. Pulmonary congestion has improved a little. For pericardial effusion limited Echo to assess effusion. Status: Acute
[2018-11-20] MEDS: Dexmedetomidine Hydrochloride 400 MCG in Sodium Chloride 0.9% 96 ML IV PRN (20:18)
[2018-11-21] MEDS: Albuterol-Ipratrop 3 mg / 0.5 (3 ml) UD INH SCH ×6 (00:45→20:16)
[2018-11-21] MEDS: Dexmedetomidine Hydrochloride 400 MCG in Sodium Chloride 0.9% 96 ML IV PRN ×2 (03:16→09:40)
[2018-11-21] MEDS: MethylPREDNISolone 40 mg Vial IVP SCH ×3 (03:17→20:50)
[2018-11-21] MEDS: Midazolam 50 mg/10 ml 100 MG in Dextrose 5% In Water 80 ML IV SCH ×2 (05:26→10:00)
[2018-11-21 05:31] LABS: ARTERIAL BLOOD GAS HCO3 36.3 mmol/L (21-28); ARTERIAL BLOOD GAS HEMOGLOBIN 10.8 g/dL (11.7-17.4); ARTERIAL BLOOD GAS O2 SAT 93.7 % (95-98); ARTERIAL BLOOD GAS PCO2 68 mm/Hg (35-45); ARTERIAL BLOOD GAS PO2 63 mm/Hg (80-100); ARTERIAL BLOOD GAS TCO2 44.2 mmol/L (22-28)
[2018-11-21 06:10] LABS: INR 1.3; PROTHROMBIN TIME 14.6 SECONDS (9.7-12.2)
[2018-11-21 06:16] LABS: ALB/GLOB RATIO 1.1 (1.0-2.1); ALBUMIN 3.3 g/dL (3.5-5.0); ALT/SGPT 13 U/L (21-72); AST/SGOT 25 U/L (17-59); BLOOD UREA NITROGEN 83 mg/dL (9-20); CALCIUM 8.7 mg/dl (8.6-10.4); GFR NON-AFRICAN AMERICAN > 60
[2018-11-21] MEDS ORDERED: Phytonadione 10 mg/ml Inj (Adult) SC STA (06:36)
[2018-11-21 06:45] LABS: BASO % 0.6 % (0.0-2.0); LYMPH # 0.2 K/uL (1.0-4.3); LYMPH % 3.1 % (20.0-40.0); MEAN CELL VOLUME 74.6 fL (80.0-94.0); MEAN CORPUSCULAR HEMOGLOBIN 21.6 pg (27.0-31.0); MEAN CORPUSCULAR HGB CONC 28.9 g/dL (33.0-37.0); MEAN PLATELET VOLUME 7.5 fL (7.2-11.7); MONO # 0.3 K/uL (0.0-0.8); MONO % 3.9 % (0.0-10.0); NEUT # 6.8 K/uL (1.8-7.0); NEUT % 92.4 % (50.0-75.0); NRBC % 0.4 % (0.0-2.0); PLATELET COUNT 322 K/uL (130-400); RBC 5.06 Mil/uL (4.40-5.90); RED CELL DISTRIBUTION WIDTH 19.4 % (11.5-14.5); WHITE BLOOD COUNT 7.3 K/uL (4.8-10.8)
[2018-11-21 06:46] LABS: HEMOGLOBIN 10.9 g/dL (12.0-18.0)
--- NOTE | 2018-11-21 07:27 | PN ---
DATE: 11/21/2018 LOCATION: ICU 17. SUBJECTIVE: This is a 72-year-old male, seen and examined early in rounds without significant clinical changes, had been on Versed recently due to agitation in a patient to Ativan IV. No reported active bleeding and the patient is still on NG tube feeding, for which PEG tube was recommended, and I was contacted to perform it. The entire chart is reviewed including but not limited to the most recent lab and radiology study results, current and the previous medication list, and the patient is still intubated to vent. Today's lab results showed PT of 14.6 with abnormal ABGs with CO2 content 34, BUN 83 with normal creatinine, glucose 136 with magnesium elevated 2.3 with low albumin 3.3. Rest of the lab results still pending. PHYSICAL EXAMINATION: GENERAL: A 72-year-old male. VITAL SIGNS: Afebrile with pulse of 64, blood pressure 124/60. HEENT: Showed pale, dry oral mucoid membrane. Nonicteric sclerae. T-tube as well as NG tube are in place. LUNGS: Few scattered crepitation. Decreased air entry at bases. HEART: Positive S1 and S2. EXTREMITIES: With lower extremities mild edematous changes. No clubbing or cyanosis. NEUROLOGIC: No reported new neurological deficits, sensory or motor. IMPRESSION: 1. Malnutrition with hypoalbuminemia. 2. Anemia. 3. Multiple recent past medical history including but not limited to recent reported upper gastrointestinal bleeding, status post cardiac arrest, respiratory failure, intubated. 4. Electrolyte imbalance. 5. Known history of hypertension. 6. Dehydration with prerenal azotemia. SUGGESTIONS: 1. Continue current management. 2. The patient is to be scheduled for PEG insertion before any tracheostomy tube insertion. Case is to be discussed at and at length with the patient's own family and the admitting MD. Dakota Mercado MD
--- NOTE | 2018-11-21 07:52 | CP.PCM.PN ---
Subjective - Date & Time of Evaluation Date of Evaluation: 11/21/18 Time of Evaluation: 09:15 - Subjective Subjective: medicine progress note for Dr. Leon. Pt seen and examined at bedside. Pt remains awake & alert; however still intubated required high Fio2. Pt keeps points to remove ET tube. In afternoon pt self-extubated and required re-intubation 2/2 to respiratory distress. Pt re- intubated by ICU w/ no issues. Objective - Vital Signs/Intake and Output Vital Signs (last 24 hours): Temp Pulse Resp BP Pulse Ox 98.9 F 63 19 117/60 90 L 11/21/18 00:00 11/21/18 06:00 11/21/18 06:00 11/21/18 05:53 11/21/18 06:00 Intake and Output: 11/21/18 11/21/18 06:59 18:59 Intake Total 705.7 Output Total 730 Balance -24.3 - Medications Medications: Current Medications Acetaminophen (Tylenol 650mg/20.3ml Solution Ud) 650 mg PO Q6 PRN PRN Reason: Temperature Last Admin: 11/19/18 15:55 Dose: 650 mg Albuterol/Ipratropium (Duoneb 3 Mg/0.5 Mg (3 Ml) Ud) 3 ml INH RQ4 DAMION Last Admin: 11/21/18 07:34 Dose: 3 ml Aspirin (Aspirin Supp) 300 mg [place] DAILY DAMION Last Admin: 11/20/18 10:00 Dose: 300 mg Clopidogrel Bisulfate (Plavix) 75 mg PO DAILY DAMION Last Admin: 11/20/18 09:56 Dose: 75 mg Famotidine (Pepcid) 20 mg IVP Q12 DAMION Last Admin: 11/20/18 21:15 Dose: 20 mg Midazolam HCl 100 mg/ Dextrose 100 mls @ 2.53 mls/hr IV .Q24H DAMION; Protocol Last Admin: 11/21/18 05:26 Dose: 0.04 mg/kg/hr, 5.1 mls/hr Dexmedetomidine HCl 400 mcg/ (Sodium Chloride) 100 mls @ 6.33 mls/hr IV TITR PRN; Protocol PRN Reason: Agitation Last Admin: 11/21/18 03:16 Dose: 0.5 mcg/kg/hr, 15.82 mls/hr Lorazepam (Ativan) 2 mg IVP Q3H PRN PRN Reason: Anxiety Last Admin: 11/20/18 14:25 Dose: 2 mg Methylprednisolone (Solu-Medrol) 40 mg IVP Q8H [facility] Last Admin: 11/21/18 03:17 Dose: 40 mg Rosuvastatin Calcium (Crestor) 10 mg PO HS [facility] Last Admin: 11/20/18 21:15 Dose: 10 mg - Labs Labs: 11/21/18 06:34 11/21/18 05:47 PT 14.6 SECONDS (9.7-12.2) H 11/21/18 05:47 INR 1.3 11/21/18 05:47 APTT 31.0 SECONDS (21-34) 11/21/18 05:47 - Head Exam Head Exam: NORMAL INSPECTION - Eye Exam Eye Exam: EOMI, Normal appearance - Respiratory Exam Respiratory Exam: Decreased Breath Sounds, Rales Additional comments: on ventilator requires FI02 100 Peep 10 Tv 500 RR 16 - Cardiovascular Exam Cardiovascular Exam: +S1, +S2. absent: Murmur - GI/Abdominal Exam GI & Abdominal Exam: Distended, Soft, Normal Bowel Sounds. absent: Firm, Guar ding, Rigid - Neurological Exam Neurological Exam: Alert, Awake Assessment and Plan - Assessment and Plan (Free Text) Assessment: 72 year old male in cardiac arrest, patient unresponsive, s/p code heart cath with Dr. Valencia which showed clean coronaries. Patient intubated on vent in ICU. Remains on vent on high FiO2. Surgery, GI consulted for trach and PEG respectively. s/p self extubation & re-intubation on 11/21. Cardio Cardiac Arrest/V tach/V fib -Cardio, Dr. Valencia -Code heart called in ICU -Cardiac cath with clean coronaries -Patient remains intubated, on vent -UDS - never collected -Serial trops - borderline for ischemia -ASA, plavix -stat echo 11/17: EF 45-50%. LV systolic fun ction mildly impaired. Small- moderate pericardial effusion. Significant R ventricular hypertrophy. Meds -Amio ggt -DAPT: ASA 81 mg daily, Plavix 75 mg daily Pericardial Effusion -Moderate/large pericardial effusion on CT/echo -Monitor signs of tamponade -F/u cardio recs R Ventricular Hypertrophy -Significant R ventricular hypertrophy on CXR/CT/Echo -Likely 2/2 Pulmonary HTN -> 2/2 long standing COPD? Pulm Cardiogenic pulm edema L Lobe Atelectasis -CT angio 11/18: Moderately large pericardial effusion. No PE. Extensive L pulmonary atelectasis. Possible R lung nodule. Dilated main pulmonary artery may indicate pulmonary HTN -Significant cardiomegally (R ventricular hypertrophy + mod pericardial effusion) with significantly reduced L lung volumes/atelectasis on imaging -Lasix 80mg IV given X1 -Rocephin 1 gm given once X 1 -Repeat CXRs - f/u -Intubated on vent -Possible Bronchoscopy - f/u -Surgery consulted for trach, Dr. Waters -lasix drip started 11/21 -solumedrol 40 Q8H -duonebs Q4H GI Coffee Ground Emesis -Coffee ground emesis noted 11/17 in NGT -GI consulted, Dr. Wei -Recommend continued medical management in ICU -S/p EGD 11/19 --> Gastritis and diffuse duodenitis -Protonix drip x72 hours --> taper to IVP -HgB goal 9.0 if need to transfuse -ASA/Plavix continued as patient with new coronary stent one week ago, requiring DAPT -GI consulted for PEG, Dr. Wei PPx -Heparin 500o SC Q12 -Protonix 40 IV daily -Precedex ggt -Versed ggt
[2018-11-21 11:55] LABS: ANISOCYTOSIS MODERATE; LYMPHOCYTE 4 % (20-40); MONOCYTE 3 % (0-10); NEUTROPHIL 93 % (50-75); PLATELET ESTIMATE NORMAL (NORMAL); TOTAL CELLS COUNTED 100
[2018-11-21 11:56] LABS: HYPOCHROMIC SLIGHT; POLYCHROMIC SLIGHT; TOXIC GRANULATION PRESENT
--- NOTE | 2018-11-21 13:20 | RAD ---
Date of service: 11/21/2018 HISTORY: ff up/vent COMPARISON: Comparison is made with 11/20/2018 TECHNIQUE: 1 view obtained. FINDINGS: LUNGS: Moderate pulmonary vascular congestion is noted. The ET tube is seen at high position. PLEURA: No significant pleural effusion identified, no pneumothorax apparent. CARDIOVASCULAR: No aortic atherosclerotic calcification present. The cardiac silhouette is enlarged. Moderate pulmonary edema. OSSEOUS STRUCTURES: No significant abnormalities. VISUALIZED UPPER ABDOMEN: Distal portion of the enteric tube is not clearly visualized in this exam. OTHER FINDINGS: None. IMPRESSION: High position of the ETT. Please correlate clinically. Moderate pulmonary edema and cardiomegaly.
--- NOTE | 2018-11-21 13:47 | CP.CCUPN ---
CCU Subjective - Physician Review Events Since Last Encounter (Free Text): 11/21/18 13:44 on vent with versed gtt, still awake. CCU Objective - Vital Signs / Intake & Output Intake and Output (Last 8hrs): Intake & Output 11/20/18 11/21/18 11/21/18 22:59 06:59 14:59 Intake Total 507.0 542.9 222.7 Output Total 490 540 Balance 17.0 2.9 222.7 Weight 262 lb Intake: IV 54 174.8 100 Intake, IV Amount 213.0 188.1 62.7 Left Antecubital 40.8 45.9 15.3 right forearm 172.2 142.2 47.4 Tube Feeding 140 180 60 Other 100 Output: Urine 490 540 Urethral (Tabor) 490 540 - Physical Exam Head: Positive for: Atraumatic, Normocephalic Pupils: Positive for: PERRL Extroacular Muscles: Positive for: EOMI Conjunctiva: Positive for: Normal Ears: Positive for: Normal Mouth: Positive for: Moist Mucous Membranes Respiratory/Chest: Positive for: Good Air Exchange, Decreased Breath Sounds (on left lung oakes), Other (intubated, on vent) Cardiovascular: Positive for: Regular Rate and Rhythm Abdomen: Positive for: Normal Bowel Sounds. Negative for: Tenderness, Distention Upper Extremity: Positive for: Normal Inspection Lower Extremity: Positive for: Normal Inspection Neurological: Positive for: Other (sedated, on vent) Skin: Positive for: Dry, Normal Color Psychiatric: Positive for: Alert - Medications Active Medications: Active Medications Generic Name Dose Route Start Last Admin Trade Name Freq PRN Reason Stop Dose Admin Acetaminophen 650 mg 11/19/18 15:49 11/19/18 15:55 Tylenol 650mg/20.3ml Solution Ud PO 650 mg Q6 PRN Administration Temperature Albuterol/Ipratropium 3 ml 11/18/18 00:00 11/21/18 12:24 Duoneb 3 Mg/0.5 Mg (3 Ml) Ud INH 3 ml RQ4 DAMION Administration Aspirin 300 mg 11/17/18 10:00 11/21/18 10:23 Aspirin Supp NC 300 mg DAILY DAMION Administration Clopidogrel Bisulfate 75 mg 11/18/18 10:00 11/21/18 10:23 Plavix PO 75 mg DAILY DAMION Administration Famotidine 20 mg 11/19/18 12:30 11/21/18 10:23 Pepcid IVP 20 mg Q12 DAMION Administration Midazolam HCl 100 mg/ Dextrose 100 mls @ 2.53 mls/hr 11/20/18 10:45 11/21/18 05:26 IV 0.04 mg/kg/hr .Q24H DAMION 5.1 mls/hr Administration Protocol 0.02 MG/KG/HR Dexmedetomidine HCl 400 mcg/ 100 mls @ 6.33 mls/hr 11/20/18 17:00 11/21/18 09:40 Sodium Chloride IV 0.5 mcg/kg/hr TITR PRN 15.82 mls/hr Agitation Administration Protocol 0.2 MCG/KG/HR Furosemide 100 mg/ Sodium 100 mls @ 5 mls/hr 11/21/18 14:00 Chloride IV .Q20H DAMION 5 MG/HR Lorazepam 2 mg 11/17/18 17:40 11/20/18 14:25 Ativan IVP 2 mg Q3H PRN Administration Anxiety Methylprednisolone 40 mg 11/19/18 20:00 11/21/18 11:23 Solu-Medrol IVP 40 mg Q8H DAMION Administration Rosuvastatin Calcium 10 mg 11/19/18 22:00 11/20/18 21:15 Crestor PO 10 mg HS DAMION Administration - Patient Studies Lab Studies: Microbiology Studies 11/20/18 06:24 Urine Culture - Final Urine,Tabor No Growth (<1,000 CFU/ML) 11/20/18 07:33 Gram Stain - Final Trachasp Lab Studies 11/21/18 11/21/18 11/21/18 Range/Units 06:34 05:47 05:47 WBC 7.3 (4.8-10.8) K/uL RBC 5.06 (4.40-5.90) Mil/uL Hgb 10.9 L (12.0-18.0) g/dL Hct 37.8 (35.0-51.0) % MCV 74.6 L (80.0-94.0) fL MCH 21.6 L (27.0-31.0) pg MCHC 28.9 L (33.0-37.0) g/dL RDW 19.4 H (11.5-14.5) % Plt Count 322 (130-400) K/uL MPV 7.5 (7.2-11.7) fL Neut % (Auto) 92.4 H (50.0-75.0) % Lymph % (Auto) 3.1 L (20.0-40.0) % Treasure % (Auto) 3.9 (0.0-10.0) % Eos % (Auto) 0.0 (0.0-4.0) % Baso % (Auto) 0.6 (0.0-2.0) % Neut # (Auto) 6.8 (1.8-7.0) K/uL Lymph # (Auto) 0.2 L (1.0-4.3) K/uL Treasure # (Auto) 0.3 (0.0-0.8) K/uL Eos # (Auto) 0.0 (0.0-0.7) K/uL Baso # (Auto) 0.0 (0.0-0.2) K/uL Neutrophils % (Manual) 93 H (50-75) % Lymphocytes % (Manual) 4 L (20-40) % Monocytes % (Manual) 3 (0-10) % Toxic Granulation Present Platelet Estimate Normal (NORMAL) Polychromasia Slight Hypochromasia (manual) Slight Anisocytosis (manual) Moderate PT 14.6 H (9.7-12.2) SECONDS INR 1.3 APTT 31.0 (21-34) SECONDS Puncture Site pCO2 (35-45) mm/Hg pO2 (80-100) mm/Hg HCO3 (21-28) mmol/L ABG pH (7.35-7.45) ABG Total CO2 (22-28) mmol/L ABG O2 Saturation (95-98) % ABG Base Excess (-2.0-3.0) mmol/L ABG Hemoglobin (11.7-17.4) g/dL ABG Carboxyhemoglobin (0.5-1.5) % POC ABG HHb (Measured) (0.0-5.0) % ABG Methemoglobin (0.0-3.0) % Robert Test A-a O2 Difference mm/Hg Respiratory Index Hgb O2 Saturation (95.0-98.0) % Vent Mode Mechanical Rate FiO2 % Tidal Volume PEEP Sodium 143 (132-148) mmol/L Potassium 5.2 (3.6-5.2) mmol/L Chloride 99 (98-107) mmol/L Carbon Dioxide 34 H (22-30) mmol/L Anion Gap 15 (10-20) BUN 83 H (9-20) mg/dL Creatinine 1.0 (0.8-1.5) mg/dL Est GFR ( Amer) > 60 Est GFR (Non-Af Amer) > 60 Random Glucose 136 H (75-110) mg/dL Calcium 8.7 (8.6-10.4) mg/dl Phosphorus 4.5 (2.5-4.5) mg/dL Magnesium 2.7 H (1.6-2.3) mg/dL Total Bilirubin 0.7 (0.2-1.3) mg/dL AST 25 (17-59) U/L ALT 13 L D (21-72) U/L Alkaline Phosphatase 63 (38-126) U/L Total Protein 6.4 (6.3-8.3) g/dL Albumin 3.3 L (3.5-5.0) g/dL Globulin 3.1 (2.2-3.9) gm/dL Albumin/Globulin Ratio 1.1 (1.0-2.1) Free T4 (0.78-2.19) ng/dL 11/21/18 11/20/18 Range/Units 05:09 13:45 WBC (4.8-10.8) K/uL RBC (4.40-5.90) Mil/uL Hgb (12.0-18.0) g/dL Hct (35.0-51.0) % MCV (80.0-94.0) fL MCH (27.0-31.0) pg MCHC (33.0-37.0) g/dL RDW (11.5-14.5) % Plt Count (130-400) K/uL MPV (7.2-11.7) fL Neut % (Auto) (50.0-75.0) % Lymph % (Auto) (20.0-40.0) % Treasure % (Auto) (0.0-10.0) % Eos % (Auto) (0.0-4.0) % Baso % (Auto) (0.0-2.0) % Neut # (Auto) (1.8-7.0) K/uL Lymph # (Auto) (1.0-4.3) K/uL Treasure # (Auto) (0.0-0.8) K/uL Eos # (Auto) (0.0-0.7) K/uL Baso # (Auto) (0.0-0.2) K/uL Neutrophils % (Manual) (50-75) % Lymphocytes % (Manual) (20-40) % Monocytes % (Manual) (0-10) % Toxic Granulation Platelet Estimate (NORMAL) Polychromasia Hypochromasia (manual) Anisocytosis (manual) PT (9.7-12.2) SECONDS INR APTT (21-34) SECONDS Puncture Site R bra pCO2 68 H (35-45) mm/Hg pO2 63 L (80-100) mm/Hg HCO3 36.3 H (21-28) mmol/L ABG pH 7.40 (7.35-7.45) ABG Total CO2 44.2 H (22-28) mmol/L ABG O2 Saturation 93.7 L (95-98) % ABG Base Excess 14.7 H (-2.0-3.0) mmol/L ABG Hemoglobin 10.8 L (11.7-17.4) g/dL ABG Carboxyhemoglobin 2.1 H (0.5-1.5) % POC ABG HHb (Measured) 6.1 H (0.0-5.0) % ABG Methemoglobin 0.8 (0.0-3.0) % Robert Test Na A-a O2 Difference 565.0 mm/Hg Respiratory Index 9.0 Hgb O2 Saturation 91.1 L (95.0-98.0) % Vent Mode Prvc Mechanical Rate 16 FiO2 100.0 % Tidal Volume 500 PEEP 10 Sodium (132-148) mmol/L Potassium (3.6-5.2) mmol/L Chloride (98-107) mmol/L Carbon Dioxide (22-30) mmol/L Anion Gap (10-20) BUN (9-20) mg/dL Creatinine (0.8-1.5) mg/dL Est GFR ( Amer) Est GFR (Non-Af Amer) Random Glucose (75-110) mg/dL Calcium (8.6-10.4) mg/dl Phosphorus (2.5-4.5) mg/dL Magnesium (1.6-2.3) mg/dL Total Bilirubin (0.2-1.3) mg/dL AST (17-59) U/L ALT (21-72) U/L Alkaline Phosphatase (38-126) U/L Total Protein (6.3-8.3) g/dL Albumin (3.5-5.0) g/dL Globulin (2.2-3.9) gm/dL Albumin/Globulin Ratio (1.0-2.1) Free T4 1.26 (0.78-2.19) ng/dL Laboratory Results - last 24 hr 11/20/18 11/21/18 11/21/18 13:45 05:09 05:47 WBC RBC Hgb Hct MCV MCH MCHC RDW Plt Count MPV Neut % (Auto) Lymph % (Auto) Treasure % (Auto) Eos % (Auto) Baso % (Auto) Neut # (Auto) Lymph # (Auto) Treasure # (Auto) Eos # (Auto) Baso # (Auto) Neutrophils % (Manual) Lymphocytes % (Manual) Monocytes % (Manual) Toxic Granulation Platelet Estimate Polychromasia Hypochromasia (manual) Anisocytosis (manual) PT INR APTT Puncture Site R bra pCO2 68 H pO2 63 L HCO3 36.3 H ABG pH 7.40 ABG Total CO2 44.2 H ABG O2 Saturation 93.7 L ABG Base Excess 14.7 H ABG Hemoglobin 10.8 L ABG Carboxyhemoglobin 2.1 H POC ABG HHb (Measured) 6.1 H ABG Methemoglobin 0.8 Robert Test Na A-a O2 Difference 565.0 Respiratory Index 9.0 Hgb O2 Saturation 91.1 L Vent Mode Prvc Mechanical Rate 16 FiO2 100.0 Tidal Volume 500 PEEP 10 Sodium 143 Potassium 5.2 Chloride 99 Carbon Dioxide 34 H Anion Gap 15 BUN 83 H Creatinine 1.0 Est GFR ( Amer) > 60 Est GFR (Non-Af Amer) > 60 Random Glucose 136 H Calcium 8.7 Phosphorus 4.5 Magnesium 2.7 H Total Bilirubin 0.7 AST 25 ALT 13 L D Alkaline Phosphatase 63 Total Protein 6.4 Albumin 3.3 L Globulin 3.1 Albumin/Globulin Ratio 1.1 Free T4 1.26 11/21/18 11/21/18 05:47 06:34 WBC 7.3 RBC 5.06 Hgb 10.9 L Hct 37.8 MCV 74.6 L MCH 21.6 L MCHC 28.9 L RDW 19.4 H Plt Count 322 MPV 7.5 Neut % (Auto) 92.4 H Lymph % (Auto) 3.1 L Treasure % (Auto) 3.9 Eos % (Auto) 0.0 Baso % (Auto) 0.6 Neut # (Auto) 6.8 Lymph # (Auto) 0.2 L Treasure # (Auto) 0.3 Eos # (Auto) 0.0 Baso # (Auto) 0.0 Neutrophils % (Manual) 93 H Lymphocytes % (Manual) 4 L Monocytes % (Manual) 3 Toxic Granulation Present Platelet Estimate Normal Polychromasia Slight Hypochromasia (manual) Slight Anisocytosis (manual) Moderate PT 14.6 H INR 1.3 APTT 31.0 Puncture Site pCO2 pO2 HCO3 ABG pH ABG Total CO2 ABG O2 Saturation ABG Base Excess ABG Hemoglobin ABG Carboxyhemoglobin POC ABG HHb (Measured) ABG Methemoglobin Robert Test A-a O2 Difference Respiratory Index Hgb O2 Saturation Vent Mode Mechanical Rate FiO2 Tidal Volume PEEP Sodium Potassium Chloride Carbon Dioxide Anion Gap BUN Creatinine Est GFR ( Amer) Est GFR (Non-Af Amer) Random Glucose Calcium Phosphorus Magnesium Total Bilirubin AST ALT Alkaline Phosphatase Total Protein Albumin Globulin Albumin/Globulin Ratio Free T4 Radiology Impressions: Radiology Impressions Chest X-Ray 11/21/18 06:00 IMPRESSION: High position of the ETT. Please correlate clinically. Moderate pulmonary edema and cardiomegaly. Review of Systems - Review of Systems Systems not reviewed;Unavailable: Intubated Critical Care Progress Note - Nutrition Nutrition: Nutrition Category Date Time Status NPO Diet [DIET] Diets 11/22/18 Dinner Active Assessment/Plan (1) PHT (pulmonary hypertension) Assessment and plan: 72 year old male in cardiac arrest, patient unresponsive, s/p code heart cath with Dr. Valencia which showed clean coronaries. Patient intubated on vent in ICU. Remains on vent on high FiO2. Surgery, GI consulted for trach and PEG respectively. Cardio Cardiac Arrest/V tach/V fib -Cardio, Dr. Valencia -Cardiac cath with clean coronaries -ASA, plavix -stat echo 11/17: EF 45-50%. LV systolic fun ction mildly impaired. Small- moderate pericardial effusion. Significant R ventricular hypertrophy. Meds -DAPT: ASA 81 mg daily, Plavix 75 mg daily -Moderate/large pericardial effusion on CT/echo, no tamponade and repeat echo shows no enlargement, f/u official second report. - R Ventricular Hypertrophy, cor pulmonale Pulm -Intubated on vent -Rocephin 1 gm given once -CT angio 11/18: Moderately large pericardial effusion. No PE. Extensive L pulmonary atelectasis. Possible R lung nodule. Dilated main pulmonary artery may indicate pulmonary HTN. Patient has severe pulmonary HTN type 2 secondary to COPD, with cor pulmonale. -Surgery consulted for Dr. Jt garcia GI Coffee Ground Emesis -Coffee ground emesis noted 11/17 in NGT -GI consulted, Dr. Wei --Recommend continued medical management in ICU --S/p EGD 11/19 --> Gastritis and diffuse duodenitis --Protonix drip x72 hours --> taper to IVP --HgB goal 9.0 if need to transfuse -ASA/Plavix continued as patient with new coronary stent one week ago, requiring DAPT -GI consulted for PEG, Dr. Wei PPx -Heparin 500o SC Q12 -Protonix 40 IV daily -Precedex ggt -Versed ggt Critical Care time 35 minutes Current Visit: Yes Status: Acute
--- NOTE | 2018-11-21 14:27 | CARD ---
APPROVED REPORT Date of service: 11/20/2018 EKG Measurement Heart [id number] <Conclusion> Normal sinus rhythm Low voltage QRS Septal infarct, age undetermined T wave abnormality, consider anterior ischemia Abnormal ECG
[2018-11-21] MEDS: Furosemide 100 MG in Sodium Chloride 0.9% 90 ML IV SCH (14:30)
--- NOTE | 2018-11-21 14:43 | CP.PCM.PN ---
Subjective - Date & Time of Evaluation Date of Evaluation: 11/21/18 Time of Evaluation: 13:00 - Subjective Subjective: Patient seen and examined Remained intubated on ventilatory support requiring high FiO2 Sedated on Precedex Started on Lasix drip Tolerating feeding Objective - Vital Signs/Intake and Output Vital Signs (last 24 hours): Temp Pulse Resp BP Pulse Ox 97.6 F 84 19 124/64 89 L 11/21/18 07:53 11/21/18 09:00 11/21/18 09:00 11/21/18 08:54 11/21/18 09:00 Intake and Output: 11/21/18 11/21/18 06:59 18:59 Intake Total 705.7 222.7 Output Total 730 Balance -24.3 222.7 - Medications Medications: Current Medications Acetaminophen (Tylenol 650mg/20.3ml Solution Ud) 650 mg PO Q6 PRN PRN Reason: Temperature Last Admin: 11/19/18 15:55 Dose: 650 mg Albuterol/Ipratropium (Duoneb 3 Mg/0.5 Mg (3 Ml) Ud) 3 ml INH RQ4 [facility] Last Admin: 11/21/18 12:24 Dose: 3 ml Aspirin (Aspirin Supp) 300 mg HI DAILY [facility] Last Admin: 11/21/18 10:23 Dose: 300 mg Clopidogrel Bisulfate (Plavix) 75 mg PO DAILY [facility] Last Admin: 11/21/18 10:23 Dose: 75 mg Famotidine (Pepcid) 20 mg IVP Q12 [facility] Last Admin: 11/21/18 10:23 Dose: 20 mg Midazolam HCl 100 mg/ Dextrose 100 mls @ 2.53 mls/hr IV .Q24H [facility]; Protocol Last Admin: 11/21/18 05:26 Dose: 0.04 mg/kg/hr, 5.1 mls/hr Dexmedetomidine HCl 400 mcg/ (Sodium Chloride) 100 mls @ 6.33 mls/hr IV TITR PRN; Protocol PRN Reason: Agitation Last Admin: 11/21/18 09:40 Dose: 0.5 mcg/kg/hr, 15.82 mls/hr Furosemide 100 mg/ Sodium (Chloride) 100 mls @ 5 mls/hr IV .Q20H [facility] Lorazepam (Ativan) 2 mg IVP Q3H PRN PRN Reason: Anxiety Last Admin: 11/20/18 14:25 Dose: 2 mg Methylprednisolone (Solu-Medrol) 40 mg IVP Q8H [facility] Last Admin: 11/21/18 11:23 Dose: 40 mg Rosuvastatin Calcium (Crestor) 10 mg PO HS [facility] Last Admin: 11/20/18 21:15 Dose: 10 mg - Labs Labs: 11/21/18 06:34 11/21/18 05:47 PT 14.6 SECONDS (9.7-12.2) H 11/21/18 05:47 INR 1.3 11/21/18 05:47 APTT 31.0 SECONDS (21-34) 11/21/18 05:47 - Head Exam Head Exam: ATRAUMATIC, NORMOCEPHALIC - ENT Exam ENT Exam: Mucous Membranes Moist - Respiratory Exam Respiratory Exam: Decreased Breath Sounds - Cardiovascular Exam Cardiovascular Exam: REGULAR RHYTHM - GI/Abdominal Exam GI & Abdominal Exam: Soft Assessment and Plan (1) Cardiac arrest Assessment & Plan: Patient is awake and responsive Started on Lasix drip Reduce FiO2 as tolerated Tracheostomy Patient on home oxygen noncompliant Status: Acute (2) COPD (chronic obstructive pulmonary disease) Status: Acute (3) Ventricular tachycardia Status: Acute (4) Congestive heart failure Status: Acute (5) PHT (pulmonary hypertension) Status: Acute
[2018-11-21] MEDS: Propofol 10 mg/ml 1,000 MG/100 ML VIAL IV PRN ×3 (15:35→23:24)
--- NOTE | 2018-11-21 15:53 | RAD ---
Date of service: 11/21/2018 PROCEDURE: CHEST RADIOGRAPH, 1 VIEW HISTORY: post intubation COMPARISON: Comparison is made with 11/21/2018 FINDINGS: LUNGS: Diffuse heterogeneous opacities in the lungs are again noted smaller compared to the previous exam. The patient is status post intubation. The ET tube tip is approximately 2 centimeter above the bolivar. PLEURA: No significant pleural effusion or pneumothorax. CARDIOVASCULAR: The cardiac silhouette is enlarged. Atherosclerotic calcification noted at the aortic knob OSSEOUS STRUCTURES: No significant abnormalities. VISUALIZED UPPER ABDOMEN: Gas distended stomach is noted. OTHER FINDINGS: None. IMPRESSION: Status post intubation. Interval slight improvement in the lungs since the previous exam.
--- NOTE | 2018-11-21 16:59 | RAD ---
Date of service: 11/21/2018 HISTORY: Check ET tube position COMPARISON: Comparison is made with 11/21/2018 at 15:30 TECHNIQUE: 1 view obtained. FINDINGS: LUNGS: The ETT no seen at appropriate position with the tip is 5 centimeter above the bolivar. Interval slight improvement in the lungs since the previous exam. Moderate pulmonary vascular congestion is again noted. PLEURA: No significant pleural effusion identified, no pneumothorax apparent. CARDIOVASCULAR: aortic atherosclerotic calcification present. The cardiac silhouette is enlarged. No pulmonary vascular congestion. OSSEOUS STRUCTURES: No significant abnormalities. VISUALIZED UPPER ABDOMEN: There is NG tube seen extending to the abdomen. OTHER FINDINGS: None. IMPRESSION: Cardiomegaly and pulmonary congestion. Appropriate position of the ETT and NG tube.
[2018-11-21 17:47] LABS: ABG ALLEN TEST UNABLE; ARTERIAL BLOOD GAS O2 SAT 96.3 % (95-98); ARTERIAL BLOOD GAS PCO2 66 mm/Hg (35-45); ARTERIAL BLOOD GAS PO2 74 mm/Hg (80-100); ARTERIAL BLOOD GAS TCO2 42.9 mmol/L (22-28)
[2018-11-22] MEDS: Albuterol-Ipratrop 3 mg / 0.5 (3 ml) UD INH SCH ×5 (00:41→20:20)
[2018-11-22] MEDS: Propofol 10 mg/ml 1,000 MG/100 ML VIAL IV PRN ×7 (02:29→22:43)
[2018-11-22] MEDS: MethylPREDNISolone 40 mg Vial IVP SCH ×3 (04:19→20:17)
[2018-11-22 05:35] LABS: BASO % 0.1 % (0.0-2.0); EOS % 0.2 % (0.0-4.0); LYMPH # 0.4 K/uL (1.0-4.3); LYMPH % 3.1 % (20.0-40.0); MEAN CELL VOLUME 74.5 fL (80.0-94.0); MEAN CORPUSCULAR HEMOGLOBIN 21.6 pg (27.0-31.0); MEAN CORPUSCULAR HGB CONC 29.1 g/dL (33.0-37.0); MEAN PLATELET VOLUME 7.8 fL (7.2-11.7); MONO # 0.6 K/uL (0.0-0.8); MONO % 5.6 % (0.0-10.0); NEUT # 10.6 K/uL (1.8-7.0); PLATELET COUNT 338 K/uL (130-400); RBC 4.93 Mil/uL (4.40-5.90); RED CELL DISTRIBUTION WIDTH 19.8 % (11.5-14.5); WHITE BLOOD COUNT 11.6 K/uL (4.8-10.8)
[2018-11-22 05:39] LABS: HEMOGLOBIN 10.7 g/dL (12.0-18.0)
[2018-11-22 06:04] LABS: ALBUMIN 3.1 g/dL (3.5-5.0); ALT/SGPT 17 U/L (21-72); AST/SGOT 19 U/L (17-59); BLOOD UREA NITROGEN 96 mg/dL (9-20); CALCIUM 9.2 mg/dl (8.6-10.4); GFR NON-AFRICAN AMERICAN 50
[2018-11-22 06:12] LABS: ABG ALLEN TEST POS; ARTERIAL BLOOD GAS HCO3 37.8 mmol/L (21-28); ARTERIAL BLOOD GAS HEMOGLOBIN 10.8 g/dL (11.7-17.4); ARTERIAL BLOOD GAS O2 SAT 90.9 % (95-98); ARTERIAL BLOOD GAS PCO2 64 mm/Hg (35-45); ARTERIAL BLOOD GAS PH 7.44 (7.35-7.45); ARTERIAL BLOOD GAS PO2 54 mm/Hg (80-100); ARTERIAL BLOOD GAS TCO2 45.5 mmol/L (22-28)
[2018-11-22 06:50] LABS: LYMPHOCYTE 4 % (20-40); MONOCYTE 6 % (0-10); NEUTROPHIL 90 % (50-75); TOTAL CELLS COUNTED 100
[2018-11-22 06:51] LABS: PLATELET ESTIMATE NORMAL (NORMAL)
[2018-11-22 07:02] LABS: ANISOCYTOSIS MODERATE
[2018-11-22 07:03] LABS: HYPOCHROMIC SLIGHT; MICROCYTOSIS SLIGHT
--- NOTE | 2018-11-22 07:20 | CP.PCM.PN ---
Subjective - Date & Time of Evaluation Date of Evaluation: 11/22/18 Time of Evaluation: 10:00 - Subjective Subjective: Medicine progress note for Dr. Leon. Pt seen and examined at bedside. Yesterday pt self extubated mid afternoon requiring re-intubation for respiratory distress. Post intubatption pt still required 90-100% FiO2. Unable to obtain ROS due to intubation. Pt remains on fentanyl & propofol drip. Objective - Vital Signs/Intake and Output Vital Signs (last 24 hours): Temp Pulse Resp BP Pulse Ox 98.7 F 81 16 127/64 91 L 11/22/18 04:00 11/22/18 06:00 11/22/18 06:00 11/22/18 06:00 11/22/18 06:00 Intake and Output: 11/22/18 11/22/18 06:59 18:59 Intake Total 765.6 Output Total 1250 Balance -484.4 - Medications Medications: Current Medications Acetaminophen (Tylenol 650mg/20.3ml Solution Ud) 650 mg PO Q6 PRN PRN Reason: Temperature Last Admin: 11/19/18 15:55 Dose: 650 mg Albuterol/Ipratropium (Duoneb 3 Mg/0.5 Mg (3 Ml) Ud) 3 ml INH RQ4 [facility] Last Admin: 11/22/18 00:41 Dose: 3 ml Aspirin (Aspirin Chewable) 81 mg PO DAILY [facility] Clopidogrel Bisulfate (Plavix) 75 mg PO DAILY [facility] Last Admin: 11/21/18 10:23 Dose: 75 mg Enoxaparin Sodium (Lovenox) 40 mg SC DAILY [facility] Famotidine (Pepcid) 20 mg IVP Q12 [facility] Last Admin: 11/21/18 20:59 Dose: 20 mg Furosemide 100 mg/ Sodium (Chloride) 100 mls @ 5 mls/hr IV .Q20H [facility] Last Admin: 11/21/18 14:30 Dose: 5 mls/hr Propofol (Diprivan) 1,000 mg in 100 mls @ 3.565 mls/hr IV .Q24H PRN; Protocol PRN Reason: TITRATE PER MD ORDER Last Admin: 11/22/18 05:46 Dose: 40 mcg/kg/min, 28.522 mls/hr Lorazepam (Ativan) 2 mg IVP Q3H PRN PRN Reason: Anxiety Last Admin: 11/22/18 05:41 Dose: 2 mg Methylprednisolone (Solu-Medrol) 40 mg IVP Q8H [facility] Last Admin: 11/22/18 04:19 Dose: 40 mg Metoclopramide HCl (Reglan) 5 mg IVP Q8H [facility] Stop: 11/24/18 06:00 Rosuvastatin Calcium (Crestor) 10 mg PO HS [facility] Last Admin: 11/21/18 20:59 Dose: 10 mg - Labs Labs: 11/22/18 05:26 11/22/18 05:26 PT 14.6 SECONDS (9.7-12.2) H 11/21/18 05:47 INR 1.3 11/21/18 05:47 APTT 31.0 SECONDS (21-34) 11/21/18 05:47 - Constitutional Appears: Older Than Stated Age, Chronically Ill - Head Exam Head Exam: NORMAL INSPECTION - Eye Exam Additional comments: sedated, intubated - Respiratory Exam Respiratory Exam: Decreased Breath Sounds Additional comments: on ventilator requires FI02 100 Peep 10 Tv 500 RR 16 - Cardiovascular Exam Cardiovascular Exam: +S1, +S2 - GI/Abdominal Exam GI & Abdominal Exam: Distended. absent: Firm, Guarding - Neurological Exam Additional comments: sedated Assessment and Plan - Assessment and Plan (Free Text) Assessment: 72 year old male in cardiac arrest, patient unresponsive, s/p code heart cath with Dr. Valencia which showed clean coronaries. Patient intubated on vent in ICU. Remains on vent on high FiO2. Surgery, GI consulted for trach and PEG respectively. s/p self extubation & re-intubation on 11/21. Scheduled for trach on 11/24 & peg on 11/23 Neuro - seduated on fentanyl & propofal Cardio Cardiac Arrest/V tach/V fib -Cardio, Dr. Valencia -Code heart called in ICU -Cardiac cath with clean coronaries -Patient remains intubated, on vent -UDS - never collected -Serial trops - borderline for ischemia -ASA, plavix -stat echo 11/17: EF 45-50%. LV systolic fun ction mildly impaired. Small- moderate pericardial effusion. Significant R ventricular hypertrophy. Meds -Amio ggt -DAPT: ASA 81 mg daily, Plavix 75 mg daily Pericardial Effusion -Moderate/large pericardial effusion on CT/echo -Monitor signs of tamponade -F/u cardio recs R Ventricular Hypertrophy -Significant R ventricular hypertrophy on CXR/CT/Echo -Likely 2/2 Pulmonary HTN -> 2/2 long standing COPD? Pulm Cardiogenic pulm edema L Lobe Atelectasis -CT angio 11/18: Moderately large pericardial effusion. No PE. Extensive L pulmonary atelectasis. Possible R lung nodule. Dilated main pulmonary artery may indicate pulmonary HTN -Significant cardiomegally (R ventricular hypertrophy + mod pericardial effusion) with significantly reduced L lung volumes/atelectasis on imaging -Lasix 80mg IV given X1 -Rocephin 1 gm given once X 1 -Repeat CXRs - f/u -Intubated on vent -Possible Bronchoscopy - f/u -Surgery consulted for trach, Dr. Waters -lasix drip started 11/21 -solumedrol 40 Q8H -duonebs Q4H GI Coffee Ground Emesis -Coffee ground emesis noted 11/17 in NGT -GI consulted, Dr. Wei -Recommend continued medical management in ICU -S/p EGD 11/19 --> Gastritis and diffuse duodenitis -Protonix drip x72 hours --> taper to IVP -HgB goal 9.0 if need to transfuse -ASA/Plavix continued as patient with new coronary stent one week ago, requiring DAPT -GI consulted for PEG, Dr. Wei PPx -Heparin 500o SC Q12 -Protonix 40 IV daily -Precedex ggt -Versed ggt will discus with Dr. Leon
--- NOTE | 2018-11-22 07:56 | CP.PCM.PN ---
Subjective - Date & Time of Evaluation Date of Evaluation: 11/22/18 Time of Evaluation: 07:51 - Subjective Subjective: General surgery progress note for Dr. Nyasia Guzman, PGY-2 Pt seen/examined at bedside Pt intubated/sedated on 40 of propofol and Lasix drip. Continues to require 100%FiO2, currently saturating 89-90%. GCS 11T. Objective - Vital Signs/Intake and Output Vital Signs (last 24 hours): Temp Pulse Resp BP Pulse Ox 98.1 F 88 15 122/72 90 L 11/22/18 07:30 11/22/18 07:00 11/22/18 07:00 11/22/18 07:00 11/22/18 07:00 Intake and Output: 11/22/18 11/22/18 06:59 18:59 Intake Total 765.6 33.8 Output Total 1250 350 Balance -484.4 -316.2 - Medications Medications: Current Medications Acetaminophen (Tylenol 650mg/20.3ml Solution Ud) 650 mg PO Q6 PRN PRN Reason: Temperature Last Admin: 11/19/18 15:55 Dose: 650 mg Albuterol/Ipratropium (Duoneb 3 Mg/0.5 Mg (3 Ml) Ud) 3 ml INH RQ4 [facility] Last Admin: 11/22/18 07:32 Dose: 3 ml Aspirin (Aspirin Chewable) 81 mg PO DAILY [facility] Clopidogrel Bisulfate (Plavix) 75 mg PO DAILY [facility] Last Admin: 11/21/18 10:23 Dose: 75 mg Enoxaparin Sodium (Lovenox) 40 mg SC DAILY [facility] Famotidine (Pepcid) 20 mg IVP Q12 [facility] Last Admin: 11/21/18 20:59 Dose: 20 mg Furosemide 100 mg/ Sodium (Chloride) 100 mls @ 5 mls/hr IV .Q20H [facility] Last Admin: 11/21/18 14:30 Dose: 5 mls/hr Propofol (Diprivan) 1,000 mg in 100 mls @ 3.565 mls/hr IV .Q24H PRN; Protocol PRN Reason: TITRATE PER MD ORDER Last Admin: 11/22/18 05:46 Dose: 40 mcg/kg/min, 28.522 mls/hr Metronidazole (Flagyl) 500 mg in 100 mls @ 100 mls/hr IVPB Q8H [facility]; Protocol Lorazepam (Ativan) 2 mg IVP Q3H PRN PRN Reason: Anxiety Last Admin: 11/22/18 05:41 Dose: 2 mg Methylprednisolone (Solu-Medrol) 40 mg IVP Q8H [facility] Last Admin: 11/22/18 04:19 Dose: 40 mg Metoclopramide HCl (Reglan) 5 mg IVP Q8H [facility] Stop: 11/24/18 06:00 Last Admin: 11/22/18 07:41 Dose: 5 mg Rosuvastatin Calcium (Crestor) 10 mg PO HS [facility] Last Admin: 11/21/18 20:59 Dose: 10 mg - Labs Labs: 11/22/18 05:26 11/22/18 05:26 PT 14.6 SECONDS (9.7-12.2) H 11/21/18 05:47 INR 1.3 11/21/18 05:47 APTT 31.0 SECONDS (21-34) 11/21/18 05:47 - Constitutional Appears: Non-toxic, No Acute Distress - Head Exam Head Exam: ATRAUMATIC, NORMAL INSPECTION, NORMOCEPHALIC - Eye Exam Eye Exam: EOMI, Normal appearance - ENT Exam Additional comments: ETT in place - Respiratory Exam Respiratory Exam: NORMAL BREATHING PATTERN (on mechanical vent) - Cardiovascular Exam Cardiovascular Exam: REGULAR RHYTHM, +S1, +S2 - GI/Abdominal Exam GI & Abdominal Exam: Soft. absent: Tenderness - Neurological Exam Neurological Exam: absent: Alert (arousable to verbal stimuli) - Psychiatric Exam Psychiatric exam: absent: Normal Affect, Normal Mood Additional comments: intubated - Skin Skin Exam: Dry, Intact, Normal Color, Warm Assessment and Plan - Assessment and Plan (Free Text) Assessment: 72M w/respiratory failure requiring skilled nursing mechanical ventilation Plan: Plan for tracheostomy when medically optimized Consent in chart DW Dr. Jt Guzman, PGY-2
[2018-11-22] MEDS: metroNIDAZOLE IV 500 mg/100 ml 500 MG/100 ML BAG IVPB SCH ×2 (08:26→15:27)
[2018-11-22] MEDS: Furosemide 100 MG in Sodium Chloride 0.9% 90 ML IV SCH ×2 (08:50→09:14)
[2018-11-22] MEDS: Enoxaparin 40 mg Syringe SC SCH (09:20)
--- NOTE | 2018-11-22 10:01 | PN ---
DATE: 11/22/2018 LOCATION: ICU 17. SUBJECTIVE: This is a 72-year-old male, seen and examined in rounds without significant clinical changes, intubated in vent with NG tube in place, still on Diprivan drip due to his agitation in addition to Lasix IV drip. The entire chart is reviewed including but not limited to most recent lab and radiology study results, current and the previous medication list, current and the previous medical events and today's lab results showed white blood cells of 11.6, hemoglobin 10.7 with low indices but normal platelet count with abnormal ABGs with CO2 content of 38 indicative of respiratory alkalosis with BUN of 96 normal, creatinine 1.4, glucose 117, phosphorus 4.8, magnesium 2.5 with albumin 3.1, total protein 6.2, low. In record, no reported active bleeding from the GI tract so far. The patient is still on steroid IV. The patient is scheduled for PEG insertion at a.m. before any other aggressive procedure and before bronchoscopy, please note this. PHYSICAL EXAMINATION: GENERAL: A 72-year-old male, intubated on NG tube feeding, sedated. VITAL SIGNS: Afebrile with pulse of 80, blood pressure 124/62. HEENT: Showed pale, dry oral mucous membrane. Nonicteric sclerae. LUNGS: Few scattered crepitation. Decreased air entry at bases. HEART: Positive S1 and S2. ABDOMEN: Soft with mild distention. No mass or organomegaly. No rebound tenderness or guarding. EXTREMITIES: Without significant clubbing, cyanosis or edema. NEUROLOGIC: No reported new neurological deficits, sensory or motor. No reported new focal deficits. IMPRESSION: 1. Respiratory failure with status post code, intubated to vent. 2. Malnutrition, on nasogastric tube feeding with hypoalbuminemia and hypoproteinemia. 3. The patient for a percutaneous endoscopic gastrostomy insertion at a.m. 4. Anemia, most likely secondary to above. 5. Multiple past medical history including recently reported upper GI bleeding with status post upper endoscopy. 6. Electrolyte imbalance. 7. Prerenal azotemia with dehydration. 8. History of hypertension. SUGGESTIONS: 1. Agree with your plan. 2. Add Reglan IV and Flagyl IV prior to the PEG insertion. 3. Case to be discussed with the family prior to the PEG insertion. 4. Further recommendation to follow. Dakota Mercado MD [facility] # [id number]
--- NOTE | 2018-11-22 11:08 | RAD ---
Date of service: 11/22/2018 HISTORY: vent COMPARISON: Comparison is made with 11/21/2018 TECHNIQUE: 1 view obtained. FINDINGS: LUNGS: Interval mild improvement in the previously seen moderate pulmonary vascular congestion. Otherwise no significant changes. The ET tube is seen at appropriate position with the tip is 5.2 centimeter above the bolivar. PLEURA: No significant pleural effusion identified, no pneumothorax apparent. CARDIOVASCULAR: aortic atherosclerotic calcification present. Cardiomegaly is again noted P. OSSEOUS STRUCTURES: No significant abnormalities. VISUALIZED UPPER ABDOMEN: Normal. OTHER FINDINGS: None. IMPRESSION: Interval improvement in the lungs since the previous exam. Otherwise no significant interval changes.
--- NOTE | 2018-11-22 11:52 | CP.CCUPN ---
CCU Subjective - Physician Review Events Since Last Encounter (Free Text): 11/22/18 11:51 sedated on vent. CCU Objective - Vital Signs / Intake & Output Vital Signs (Last 4 hours): Vital Signs Temp Pulse Resp BP Pulse Ox 11/22/18 11:47 99.6 F 11/22/18 11:00 103 H 21 126/62 93 L 11/22/18 10:00 100 H 16 124/61 95 11/22/18 09:00 100 H 13 124/63 92 L 11/22/18 08:50 130/63 11/22/18 08:00 93 H 16 130/63 93 L Intake and Output (Last 8hrs): Intake & Output 11/21/18 11/22/18 11/22/18 22:59 06:59 14:59 Intake Total 472.1 570.4 566.2 Output Total 350 1000 695 Balance 122.1 -429.6 -128.8 Weight 259 lb 4 oz Intake: IV 250 300 200 Intake, IV Amount 222.1 270.4 276.2 Left Antecubital 5.1 RFA Y Port 100 Right Forearm 28.8 Right Forearm #1 148.2 230.4 151.2 Right Forearm #2 35 40 25 Right Hand 5 Tube Feeding 0 40 Other 50 Output: Urine 350 1000 695 Urethral (Tabor) 350 1000 695 Other: # Bowel Movements 0 0 - Physical Exam Head: Positive for: Atraumatic, Normocephalic Pupils: Positive for: PERRL Extroacular Muscles: Positive for: EOMI Conjunctiva: Positive for: Normal Ears: Positive for: Normal Mouth: Positive for: Moist Mucous Membranes Respiratory/Chest: Positive for: Good Air Exchange, Decreased Breath Sounds (on left lung oakes), Other (intubated, on vent) Cardiovascular: Positive for: Regular Rate and Rhythm Abdomen: Positive for: Normal Bowel Sounds. Negative for: Tenderness, Distention Upper Extremity: Positive for: Normal Inspection Lower Extremity: Positive for: Normal Inspection Neurological: Positive for: Other (sedated, on vent) Skin: Positive for: Dry, Normal Color Psychiatric: Positive for: Alert - Medications Active Medications: Active Medications Generic Name Dose Route Start Last Admin Trade Name Freq PRN Reason Stop Dose Admin Acetaminophen 650 mg 11/19/18 15:49 11/19/18 15:55 Tylenol 650mg/20.3ml Solution Ud PO 650 mg Q6 PRN Administration Temperature Albuterol/Ipratropium 3 ml 11/18/18 00:00 11/22/18 11:21 Duoneb 3 Mg/0.5 Mg (3 Ml) Ud INH 3 ml RQ4 DAMION Administration Aspirin 81 mg 11/22/18 10:00 11/22/18 09:21 Aspirin Chewable PO 81 mg DAILY DAMION Administration Clopidogrel Bisulfate 75 mg 11/18/18 10:00 11/22/18 09:20 Plavix PO 75 mg DAILY DAMION Administration Enoxaparin Sodium 40 mg 11/22/18 10:00 11/22/18 09:20 Lovenox SC 40 mg DAILY DAMION Administration Famotidine 20 mg 11/19/18 12:30 11/22/18 09:20 Pepcid IVP 20 mg Q12 DAMION Administration Furosemide 100 mg/ Sodium 100 mls @ 5 mls/hr 11/21/18 14:00 11/22/18 09:14 Chloride IV Not Given .Q20H DAMION 5 MG/HR Propofol 1,000 mg in 100 mls @ 3.565 mls/hr 11/21/18 15:30 11/22/18 11:37 Diprivan IV 35 mcg/kg/min .Q24H PRN 24.957 mls/hr TITRATE PER MD ORDER Titration Protocol 5 MCG/KG/MIN Metronidazole 500 mg in 100 mls @ 100 mls/hr 11/22/18 08:00 11/22/18 08:26 Flagyl IVPB 100 mls/hr Q8H DAMION Administration Protocol Fentanyl Citrate 2,500 mcg/ 250 mls @ 23.52 mls/hr 11/22/18 09:45 11/22/18 10:35 Sodium Chloride IV 1 mcg/kg/hr .[id number] PRN 11.76 mls/hr TITRATION Titration Protocol 2 MCG/KG/HR Lorazepam 2 mg 11/17/18 17:40 11/22/18 08:36 Ativan IVP 2 mg Q3H PRN Administration Anxiety Methylprednisolone 40 mg 11/19/18 20:00 11/22/18 11:30 Solu-Medrol IVP 40 mg Q8H DAMION Administration Metoclopramide HCl 5 mg 11/22/18 07:30 11/22/18 07:41 Reglan IVP 11/24/18 06:00 5 mg Q8H DAMION Administration Rosuvastatin Calcium 10 mg 11/19/18 22:00 11/21/18 20:59 Crestor PO 10 mg HS DAMION Administration - Patient Studies Lab Studies: Microbiology Studies 11/20/18 06:24 Urine Culture - Final Urine,Tabor No Growth (<1,000 CFU/ML) Lab Studies 11/22/18 11/22/18 11/22/18 Range/Units 05:55 05:26 05:26 WBC 11.6 H D (4.8-10.8) K/uL RBC 4.93 (4.40-5.90) Mil/uL Hgb 10.7 L (12.0-18.0) g/dL Hct 36.7 (35.0-51.0) % MCV 74.5 L (80.0-94.0) fL MCH 21.6 L (27.0-31.0) pg MCHC 29.1 L (33.0-37.0) g/dL RDW 19.8 H (11.5-14.5) % Plt Count 338 (130-400) K/uL MPV 7.8 (7.2-11.7) fL Neut % (Auto) 91.0 H (50.0-75.0) % Lymph % (Auto) 3.1 L (20.0-40.0) % Jenkins % (Auto) 5.6 (0.0-10.0) % Eos % (Auto) 0.2 (0.0-4.0) % Baso % (Auto) 0.1 (0.0-2.0) % Neut # (Auto) 10.6 H (1.8-7.0) K/uL Lymph # (Auto) 0.4 L (1.0-4.3) K/uL Jenkins # (Auto) 0.6 (0.0-0.8) K/uL Eos # (Auto) 0.0 (0.0-0.7) K/uL Baso # (Auto) 0.0 (0.0-0.2) K/uL Neutrophils % (Manual) 90 H (50-75) % Lymphocytes % (Manual) 4 L (20-40) % Monocytes % (Manual) 6 (0-10) % Toxic Granulation Platelet Estimate Normal (NORMAL) Polychromasia Hypochromasia (manual) Slight Anisocytosis (manual) Moderate Microcytosis (manual) Slight Puncture Site Rraial pCO2 64 H (35-45) mm/Hg pO2 54 L (80-100) mm/Hg HCO3 37.8 H (21-28) mmol/L ABG pH 7.44 (7.35-7.45) ABG Total CO2 45.5 H (22-28) mmol/L ABG O2 Saturation 90.9 L (95-98) % ABG Base Excess 16.7 H (-2.0-3.0) mmol/L ABG Hemoglobin 10.8 L (11.7-17.4) g/dL ABG Carboxyhemoglobin 2.0 H (0.5-1.5) % POC ABG HHb (Measured) 8.8 H (0.0-5.0) % ABG Methemoglobin 1.1 (0.0-3.0) % Robert Test Pos ABG Potassium (3.6-5.2) mmol/L A-a O2 Difference 579.0 mm/Hg Respiratory Index 10.7 Hgb O2 Saturation 88.1 L (95.0-98.0) % Sodium 148 (132-148) mmol/l Chloride 102 (98-107) mmol/L Glucose (75-110) mg/dl Lactate (0.7-2.1) mmol/L Vent Mode Prvc Mechanical Rate 16 FiO2 100.0 % Tidal Volume 500 PEEP 10 Potassium 4.0 (3.6-5.2) mmol/L Carbon Dioxide 38 H (22-30) mmol/L Anion Gap 12 (10-20) BUN 96 H (9-20) mg/dL Creatinine 1.4 (0.8-1.5) mg/dL Est GFR ( Amer) > 60 Est GFR (Non-Af Amer) 50 Random Glucose 117 H (75-110) mg/dL Calcium 9.2 (8.6-10.4) mg/dl Phosphorus 4.8 H (2.5-4.5) mg/dL Magnesium 2.5 H (1.6-2.3) mg/dL Total Bilirubin 1.0 (0.2-1.3) mg/dL AST 19 (17-59) U/L ALT 17 L D (21-72) U/L Alkaline Phosphatase 61 (38-126) U/L Total Protein 6.2 L (6.3-8.3) g/dL Albumin 3.1 L (3.5-5.0) g/dL Globulin 3.1 (2.2-3.9) gm/dL Albumin/Globulin Ratio 1.0 (1.0-2.1) Arterial Blood Potassium (3.6-5.2) mmol/L 11/21/18 11/21/18 Range/Units 17:45 06:34 WBC (4.8-10.8) K/uL RBC (4.40-5.90) Mil/uL Hgb (12.0-18.0) g/dL Hct (35.0-51.0) % MCV (80.0-94.0) fL MCH (27.0-31.0) pg MCHC (33.0-37.0) g/dL RDW (11.5-14.5) % Plt Count (130-400) K/uL MPV (7.2-11.7) fL Neut % (Auto) (50.0-75.0) % Lymph % (Auto) (20.0-40.0) % Jenkins % (Auto) (0.0-10.0) % Eos % (Auto) (0.0-4.0) % Baso % (Auto) (0.0-2.0) % Neut # (Auto) (1.8-7.0) K/uL Lymph # (Auto) (1.0-4.3) K/uL Jenkins # (Auto) (0.0-0.8) K/uL Eos # (Auto) (0.0-0.7) K/uL Baso # (Auto) (0.0-0.2) K/uL Neutrophils % (Manual) 93 H (50-75) % Lymphocytes % (Manual) 4 L (20-40) % Monocytes % (Manual) 3 (0-10) % Toxic Granulation Present Platelet Estimate Normal (NORMAL) Polychromasia Slight Hypochromasia (manual) Slight Anisocytosis (manual) Moderate Microcytosis (manual) Puncture Site Lr pCO2 66 H (35-45) mm/Hg pO2 74 L (80-100) mm/Hg HCO3 35.0 H (21-28) mmol/L ABG pH 7.40 (7.35-7.45) ABG Total CO2 42.9 H (22-28) mmol/L ABG O2 Saturation 96.3 (95-98) % ABG Base Excess 13.0 H (-2.0-3.0) mmol/L ABG Hemoglobin (11.7-17.4) g/dL ABG Carboxyhemoglobin (0.5-1.5) % POC ABG HHb (Measured) (0.0-5.0) % ABG Methemoglobin (0.0-3.0) % Robert Test Unable ABG Potassium 3.5 L (3.6-5.2) mmol/L A-a O2 Difference 557.0 mm/Hg Respiratory Index 7.5 Hgb O2 Saturation (95.0-98.0) % Sodium 147.0 (132-148) mmol/l Chloride 109.0 H (98-107) mmol/L Glucose 119 H (75-110) mg/dl Lactate 0.9 (0.7-2.1) mmol/L Vent Mode Prvc Mechanical Rate 16 FiO2 100.0 % Tidal Volume 500 PEEP 10 Potassium (3.6-5.2) mmol/L Carbon Dioxide (22-30) mmol/L Anion Gap (10-20) BUN (9-20) mg/dL Creatinine (0.8-1.5) mg/dL Est GFR ( Amer) Est GFR (Non-Af Amer) Random Glucose (75-110) mg/dL Calcium (8.6-10.4) mg/dl Phosphorus (2.5-4.5) mg/dL Magnesium (1.6-2.3) mg/dL Total Bilirubin (0.2-1.3) mg/dL AST (17-59) U/L ALT (21-72) U/L Alkaline Phosphatase (38-126) U/L Total Protein (6.3-8.3) g/dL Albumin (3.5-5.0) g/dL Globulin (2.2-3.9) gm/dL Albumin/Globulin Ratio (1.0-2.1) Arterial Blood Potassium 3.5 L (3.6-5.2) mmol/L Laboratory Results - last 24 hr 11/21/18 11/21/18 11/22/18 06:34 17:45 05:26 WBC 11.6 H D RBC 4.93 Hgb 10.7 L Hct 36.7 MCV 74.5 L MCH 21.6 L MCHC 29.1 L RDW 19.8 H Plt Count 338 MPV 7.8 Neut % (Auto) 91.0 H Lymph % (Auto) 3.1 L Jenkins % (Auto) 5.6 Eos % (Auto) 0.2 Baso % (Auto) 0.1 Neut # (Auto) 10.6 H Lymph # (Auto) 0.4 L Jenkins # (Auto) 0.6 Eos # (Auto) 0.0 Baso # (Auto) 0.0 Neutrophils % (Manual) 93 H 90 H Lymphocytes % (Manual) 4 L 4 L Monocytes % (Manual) 3 6 Toxic Granulation Present Platelet Estimate Normal Normal Polychromasia Slight Hypochromasia (manual) Slight Slight Anisocytosis (manual) Moderate Moderate Microcytosis (manual) Slight Puncture Site Lr pCO2 66 H pO2 74 L HCO3 35.0 H ABG pH 7.40 ABG Total CO2 42.9 H ABG O2 Saturation 96.3 ABG Base Excess 13.0 H ABG Hemoglobin ABG Carboxyhemoglobin POC ABG HHb (Measured) ABG Methemoglobin Robert Test Unable ABG Potassium 3.5 L A-a O2 Difference 557.0 Respiratory Index 7.5 Hgb O2 Saturation Sodium 147.0 Chloride 109.0 H Glucose 119 H Lactate 0.9 Vent Mode Prvc Mechanical Rate 16 FiO2 100.0 Tidal Volume 500 PEEP 10 Potassium Carbon Dioxide Anion Gap BUN Creatinine Est GFR ( Amer) Est GFR (Non-Af Amer) Random Glucose Calcium Phosphorus Magnesium Total Bilirubin AST ALT Alkaline Phosphatase Total Protein Albumin Globulin Albumin/Globulin Ratio Arterial Blood Potassium 3.5 L 11/22/18 11/22/18 05:26 05:55 WBC RBC Hgb Hct MCV MCH MCHC RDW Plt Count MPV Neut % (Auto) Lymph % (Auto) Jenkins % (Auto) Eos % (Auto) Baso % (Auto) Neut # (Auto) Lymph # (Auto) Jenkins # (Auto) Eos # (Auto) Baso # (Auto) Neutrophils % (Manual) Lymphocytes % (Manual) Monocytes % (Manual) Toxic Granulation Platelet Estimate Polychromasia Hypochromasia (manual) Anisocytosis (manual) Microcytosis (manual) Puncture Site Rraial pCO2 64 H pO2 54 L HCO3 37.8 H ABG pH 7.44 ABG Total CO2 45.5 H ABG O2 Saturation 90.9 L ABG Base Excess 16.7 H ABG Hemoglobin 10.8 L ABG Carboxyhemoglobin 2.0 H POC ABG HHb (Measured) 8.8 H ABG Methemoglobin 1.1 Robert Test Pos ABG Potassium A-a O2 Difference 579.0 Respiratory Index 10.7 Hgb O2 Saturation 88.1 L Sodium 148 Chloride 102 Glucose Lactate Vent Mode Prvc Mechanical Rate 16 FiO2 100.0 Tidal Volume 500 PEEP 10 Potassium 4.0 Carbon Dioxide 38 H Anion Gap 12 BUN 96 H Creatinine 1.4 Est GFR ( Amer) > 60 Est GFR (Non-Af Amer) 50 Random Glucose 117 H Calcium 9.2 Phosphorus 4.8 H Magnesium 2.5 H Total Bilirubin 1.0 AST 19 ALT 17 L D Alkaline Phosphatase 61 Total Protein 6.2 L Albumin 3.1 L Globulin 3.1 Albumin/Globulin Ratio 1.0 Arterial Blood Potassium Radiology Impressions: Radiology Impressions Chest X-Ray 11/21/18 06:00 IMPRESSION: High position of the ETT. Please correlate clinically. Moderate pulmonary edema and cardiomegaly. Chest X-Ray 11/21/18 15:24 IMPRESSION: Status post intubation. Interval slight improvement in the lungs since the previous exam. Chest X-Ray 11/21/18 15:40 IMPRESSION: Cardiomegaly and pulmonary congestion. Appropriate position of the ETT and NG tube. Chest X-Ray 11/22/18 09:29 IMPRESSION: Interval improvement in the lungs since the previous exam. Otherwise no significant interval changes. Critical Care Progress Note - Nutrition Nutrition: Nutrition Category Date Time Status NPO Diet [DIET] Diets 11/22/18 Dinner Active Assessment/Plan (1) PHT (pulmonary hypertension) Assessment and plan: 72 year old male in cardiac arrest, patient unresponsive, s/p code heart cath with Dr. Valencia which showed clean coronaries. Patient intubated on vent in ICU. Remains on vent on high FiO2. Trach scheduled for Friday and PEG scheduled for tomorrow. Neuro: sedated with propofol gtt and fentanyl gtt. Cardio Cardiac Arrest/V tach/V fib -Cardio, Dr. Valencia -Cardiac cath with clean coronaries -ASA, plavix -stat echo 11/17: EF 45-50%. LV systolic fun ction mildly impaired. Small- moderate pericardial effusion. Significant R ventricular hypertrophy. Meds -DAPT: ASA 81 mg daily, Plavix 75 mg daily -Moderate/large pericardial effusion on CT/echo, no tamponade and repeat echo shows no enlargement, f/u official second report. - R Ventricular Hypertrophy, cor pulmonale Pulm -Intubated on vent -Rocephin 1 gm given once -CT angio 11/18: Moderately large pericardial effusion. No PE. Extensive L pulmonary atelectasis. Possible R lung nodule. Dilated main pulmonary artery may indicate pulmonary HTN. Patient has severe pulmonary HTN type 2 secondary to COPD, with cor pulmonale. -Surgery consulted for Dr. Jt garcia GI Coffee Ground Emesis -Coffee ground emesis noted 11/17 in NGT -GI consulted, Dr. Wei --Recommend continued medical management in ICU --S/p EGD 11/19 --> Gastritis and diffuse duodenitis --Protonix drip x72 hours --> taper to IVP --HgB goal 9.0 if need to transfuse -ASA/Plavix continued as patient with new coronary stent one week ago, requiring DAPT -GI consulted for PEGDr. Wei PPx -Heparin 500o SC Q12 -Protonix 40 IV daily -Precedex ggt -Versed ggt Critical Care time 35 minutes Current Visit: Yes Status: Acute
[2018-11-22 13:17] LABS: SQUAMOUS EPITHIAL 2 /hpf (0-5); URINE BACTERIA OCC (<OCC); URINE BILIRUBIN NEGATIVE (NEGATIVE); URINE BLOOD 3+ (NEGATIVE); URINE CLARITY Turbid (Clear); URINE COLOR Yellow (YELLOW); URINE GLUCOSE (UA) NORMAL (Normal); URINE LEUKOCYTE ESTERASE NEG Leu/uL (Negative); URINE PROTEIN NEGATIVE (NEGATIVE); URINE URIC ACID CRYSTALS MOD /hpf (<OCC); URINE UROBILINOGEN NORMAL mg/dL (0.2-1.0)
--- NOTE | 2018-11-22 17:50 | CP.PCM.PN ---
Subjective - Date & Time of Evaluation Date of Evaluation: 11/22/18 Time of Evaluation: 15:00 - Subjective Subjective: Pulmonary follow up, Covering Dr Summers The Patient was seen and examined at the bedside, Medical records reviewed, and management issues were discussed and formulated with the house staff. Events reviewed Mr. oakley is 72 years old male with past medical history of hypertension, hyperlipidemia, chronic obstructive pulmonary disease, congestive heart failure, back problems and benign prostatic hyperplasia, Who was found unresponsive, now status post cardiac arrest with return of spontaneous circulation The patient received epi and atropine in the emergency room, he remained pulseless, EKG shows V. tach, he was shocked 1 once and back to sinus tachycardia, code heart was called and was transferred to the [facility] Status post code heart, cardiac cath showed clean coronaries. Patient is currently sedated and orally intubated He is on light sedation with Precedex, moves extremity unpurposeful, not following commands Pt was tarted on Lasix drip Pt also on Protonix drip, underwent EGD on November 19 to evaluate for coffee-ground emesis found to have, gastritis and diffuse duodenitis Borderline hypotensive, afebrile Adequate oxygenation but his oxygen requirement is 100% FiO2 and PEEP of 10 Tolerating Tube feeding Had extensive discussion with the family at the bedside we discussed, patient diagnosis, critical conditions, very guarded prognosis, treatment plan and alternative, he is scheduled for PEG tomorrow and take on Friday Objective - Vital Signs/Intake and Output Vital Signs (last 24 hours): Temp Pulse Resp BP Pulse Ox 99.2 F 83 16 116/52 L 89 L 11/22/18 16:00 11/22/18 17:00 11/22/18 17:00 11/22/18 17:00 11/22/18 17:00 Intake and Output: 11/22/18 11/22/18 06:59 18:59 Intake Total 765.6 1133.9 Output Total 1250 1220 Balance -484.4 -86.1 - Medications Medications: Current Medications Acetaminophen (Tylenol 650mg/20.3ml Solution Ud) 650 mg PO Q6 PRN PRN Reason: Temperature Last Admin: 11/19/18 15:55 Dose: 650 mg Albuterol/Ipratropium (Duoneb 3 Mg/0.5 Mg (3 Ml) Ud) 3 ml INH RQ4 DAMION Last Admin: 11/22/18 16:29 Dose: 3 ml Aspirin (Aspirin Chewable) 81 mg PO DAILY DAMION Last Admin: 11/22/18 09:21 Dose: 81 mg Clopidogrel Bisulfate (Plavix) 75 mg PO DAILY [facility] Last Admin: 11/22/18 09:20 Dose: 75 mg Enoxaparin Sodium (Lovenox) 40 mg SC DAILY DAMION Last Admin: 11/22/18 09:20 Dose: 40 mg Famotidine (Pepcid) 20 mg IVP Q12 DAMION Last Admin: 11/22/18 09:20 Dose: 20 mg Furosemide 100 mg/ Sodium (Chloride) 100 mls @ 5 mls/hr IV .Q20H DAMION Last Admin: 11/22/18 09:14 Dose: Not Given Propofol (Diprivan) 1,000 mg in 100 mls @ 3.565 mls/hr IV .Q24H PRN; Protocol PRN Reason: TITRATE PER MD ORDER Last Titration: 11/22/18 17:21 Dose: 40 mcg/kg/min, 28.522 mls/hr Metronidazole (Flagyl) 500 mg in 100 mls @ 100 mls/hr IVPB Q8H DAMION; Protocol Last Admin: 11/22/18 15:27 Dose: 100 mls/hr Fentanyl Citrate 2,500 mcg/ (Sodium Chloride) 250 mls @ 23.52 mls/hr IV .[id number] PRN; Protocol PRN Reason: TITRATION Last Titration: 11/22/18 14:33 Dose: 1 mcg/kg/hr, 11.76 mls/hr Lorazepam (Ativan) 2 mg IVP Q3H PRN PRN Reason: Anxiety Last Admin: 11/22/18 17:21 Dose: 2 mg Methylprednisolone (Solu-Medrol) 40 mg IVP Q8H DAMION Last Admin: 11/22/18 11:30 Dose: 40 mg Metoclopramide HCl (Reglan) 5 mg IVP Q8H [facility] Stop: 11/24/18 06:00 Last Admin: 11/22/18 15:27 Dose: 5 mg Rosuvastatin Calcium (Crestor) 10 mg PO HS [facility] Last Admin: 11/21/18 20:59 Dose: 10 mg - Labs Labs: 11/22/18 05:26 11/22/18 05:26 PT 14.6 SECONDS (9.7-12.2) H 11/21/18 05:47 INR 1.3 11/21/18 05:47 APTT 31.0 SECONDS (21-34) 11/21/18 05:47 - Constitutional Appears: Toxic, No Acute Distress, Older Than Stated Age - Head Exam Head Exam: ATRAUMATIC, NORMAL INSPECTION, NORMOCEPHALIC - Eye Exam Eye Exam: EOMI, Normal appearance, PERRL. absent: Scleral icterus Pupil Exam: NORMAL ACCOMODATION, PERRL - ENT Exam ENT Exam: Mucous Membranes Moist - Neck Exam Neck Exam: Full ROM, Normal Inspection. absent: Lymphadenopathy, Meningismus, Tenderness - Respiratory Exam Respiratory Exam: Decreased Breath Sounds, Rales, Rhonchi. absent: Accessory Muscle Use, Chest Wall Tenderness, Wheezes, Respiratory Distress - Cardiovascular Exam Cardiovascular Exam: Tachycardia, REGULAR RHYTHM, +S1, +S2. absent: Clicks, Diastolic murmur, Irregular Rhythm - GI/Abdominal Exam GI & Abdominal Exam: Distended, Soft, Normal Bowel Sounds. absent: Tenderness - Extremities Exam Extremities Exam: Full ROM, Pedal Edema. absent: Calf Tenderness, Normal Inspection Assessment and Plan (1) COPD (chronic obstructive pulmonary disease) Status: Acute (2) Cardiac arrest Status: Acute (3) PHT (pulmonary hypertension) Status: Acute (4) Ventricular tachycardia Status: Acute (5) Congestive heart failure Status: Acute (6) Respiratory distress Status: Acute - Assessment and Plan (Free Text) Assessment: The patient currently unresponsive sedated with Precedex and orally intubated status post code heart status post V. tach cardiac arrest very critically ill with a 100% FiO2 requirement and PEEP of 10. Patient also with right ventricular hypertrophy, pulmonary hypertension and cor pulmonale. Also CT angios on November 18 shows moderately large pericardial effusion right lung nodule Patient scheduled for PEG tube tomorrow and tracheostomy on Friday. Continue full vent support for now patient is not a candidate for any vent weaning at this point due to very poor mental status and very high FiO2 requirement with impaired oxygenation and ventilation. Continue aspirin and Plavix and statins. Continue intravenous antibiotic for possible aspiration pneumonia. Continue on Protonix drip, patient underwent EGD on November 19 to evaluate for coffee-ground emesis found to have, gastritis and diffuse duodenitis. Continue GI and DVT prophylaxis with Protonix and subcu heparin Patient is full code Total critical care time is 46 minutes
[2018-11-23] MEDS: metroNIDAZOLE IV 500 mg/100 ml 500 MG/100 ML BAG IVPB SCH ×4 (00:36→23:50)
[2018-11-23] MEDS: Albuterol-Ipratrop 3 mg / 0.5 (3 ml) UD INH SCH ×4 (00:40→19:20)
[2018-11-23] MEDS: Propofol 10 mg/ml 1,000 MG/100 ML VIAL IV PRN ×5 (02:59→21:30)
[2018-11-23] MEDS: MethylPREDNISolone 40 mg Vial IVP SCH ×3 (03:00→21:29)
[2018-11-23 05:54] LABS: ABG ALLEN TEST POS; ARTERIAL BLOOD GAS HCO3 39.4 mmol/L (21-28); ARTERIAL BLOOD GAS O2 SAT 95.5 % (95-98); ARTERIAL BLOOD GAS PCO2 54 mm/Hg (35-45); ARTERIAL BLOOD GAS PH 7.52 (7.35-7.45); ARTERIAL BLOOD GAS PO2 64 mm/Hg (80-100); ARTERIAL BLOOD GAS TCO2 45.8 mmol/L (22-28)
[2018-11-23 06:08] LABS: BASO % 0.1 % (0.0-2.0); LYMPH # 0.3 K/uL (1.0-4.3); LYMPH % 3.7 % (20.0-40.0); MEAN CELL VOLUME 74.2 fL (80.0-94.0); MEAN CORPUSCULAR HEMOGLOBIN 21.4 pg (27.0-31.0); MEAN CORPUSCULAR HGB CONC 28.9 g/dL (33.0-37.0); MEAN PLATELET VOLUME 7.7 fL (7.2-11.7); MONO # 0.5 K/uL (0.0-0.8); MONO % 6.7 % (0.0-10.0); NEUT # 6.8 K/uL (1.8-7.0); NEUT % 89.5 % (50.0-75.0); NRBC % 0.1 % (0.0-2.0); PLATELET COUNT 323 K/uL (130-400); RBC 5.12 Mil/uL (4.40-5.90); RED CELL DISTRIBUTION WIDTH 19.8 % (11.5-14.5); WHITE BLOOD COUNT 7.6 K/uL (4.8-10.8)
[2018-11-23] MEDS: Furosemide 100 MG in Sodium Chloride 0.9% 90 ML IV SCH (06:25)
[2018-11-23 06:27] LABS: ALB/GLOB RATIO 1.1 (1.0-2.1); ALBUMIN 3.2 g/dL (3.5-5.0)
[2018-11-23 08:37] LABS: ANISOCYTOSIS MODERATE; BANDS 4 % (0-2); LYMPHOCYTE 4 % (20-40); MONOCYTE 3 % (0-10); NEUTROPHIL 89 % (50-75); PLATELET ESTIMATE NORMAL (NORMAL); TOTAL CELLS COUNTED 100
[2018-11-23 08:38] LABS: HYPOCHROMIC SLIGHT
--- NOTE | 2018-11-23 08:41 | CP.CCUPN ---
CCU Subjective - Physician Review Subjective (Free Text): 11/23/18 10:47 Patient seen and examined at bedside this AM, remains sedated on mechanical vent. 12 pt ROS unattainable due to clinical condition. CCU Objective - Vital Signs / Intake & Output Vital Signs (Last 4 hours): Vital Signs Temp Pulse Resp BP Pulse Ox 11/23/18 08:00 99.4 F 72 16 121/64 93 L 11/23/18 07:00 69 16 121/65 95 11/23/18 06:25 126/64 11/23/18 06:00 80 16 126/64 95 11/23/18 05:00 66 16 124/53 L 92 L Intake and Output (Last 8hrs): Intake & Output 11/22/18 11/23/18 11/23/18 22:59 06:59 14:59 Intake Total 713.1 751.4 276.6 Output Total 140 1575 320 Balance 573.1 -823.6 -43.4 Weight 114.334 kg Intake: IV 233 295 100 Intake, IV Amount 340.1 406.4 176.6 R FA 2 Y Port 69.7 93.6 23.4 RFA Y Port 100 100 Right Forearm 28.8 Right Forearm #1 201.6 172.8 43.2 Right Forearm #2 35 40 10 Right Hand 5 Tube Feeding 140 0 0 Other 50 Output: Urine 140 1575 320 Urethral ([place]abor) 140 1575 320 Other: # Bowel Movements 0 0 0 - Physical Exam Head: Positive for: Atraumatic, Normocephalic Pupils: Positive for: PERRL Extroacular Muscles: Positive for: EOMI Conjunctiva: Positive for: Normal Ears: Positive for: Normal Mouth: Positive for: Moist Mucous Membranes Respiratory/Chest: Positive for: Good Air Exchange, Decreased Breath Sounds (on left lung oakes), Other (intubated, on vent) Cardiovascular: Positive for: Regular Rate and Rhythm Abdomen: Positive for: Normal Bowel Sounds. Negative for: Tenderness, Distention Upper Extremity: Positive for: Normal Inspection Lower Extremity: Positive for: Normal Inspection Neurological: Positive for: Other (sedated, on vent) Skin: Positive for: Dry, Normal Color Psychiatric: Positive for: Alert - Medications Active Medications: Active Medications Generic Name Dose Route Start Last Admin Trade Name Freq PRN Reason Stop Dose Admin Acetaminophen 650 mg 11/19/18 15:49 11/19/18 15:55 Tylenol 650mg/20.3ml Solution Ud PO 650 mg Q6 PRN Administration Temperature Aspirin 81 mg 11/22/18 10:00 11/22/18 09:21 Aspirin Chewable PO 81 mg DAILY [facility] Administration Clopidogrel Bisulfate 75 mg 11/18/18 10:00 11/22/18 09:20 Plavix PO 75 mg DAILY [facility] Administration Enoxaparin Sodium 40 mg 11/22/18 10:00 11/22/18 09:20 Lovenox SC 40 mg DAILY [facility] Administration Famotidine 20 mg 11/19/18 12:30 11/22/18 21:19 Pepcid IVP 20 mg Q12 [facility] Administration Furosemide 100 mg/ Sodium 100 mls @ 5 mls/hr 11/21/18 14:00 11/23/18 06:25 Chloride IV 5 mls/hr .Q20H [facility] Administration 5 MG/HR Propofol 1,000 mg in 100 mls @ 3.565 mls/hr 11/21/18 15:30 11/23/18 08:03 Diprivan IV 30 mcg/kg/min .Q24H PRN 21.391 mls/hr TITRATE PER MD ORDER Administration Protocol 5 MCG/KG/MIN Metronidazole 500 mg in 100 mls @ 100 mls/hr 11/22/18 08:00 11/23/18 08:11 Flagyl IVPB 100 mls/hr Q8H [facility] Administration Protocol Fentanyl Citrate 2,500 mcg/ 250 mls @ 23.52 mls/hr 11/22/18 09:45 11/23/18 06:22 Sodium Chloride IV 1 mcg/kg/hr .[id number] PRN 11.76 mls/hr TITRATION Administration Protocol 2 MCG/KG/HR Lorazepam 2 mg 11/17/18 17:40 11/23/18 03:11 Ativan IVP 2 mg Q3H PRN Administration Anxiety Methylprednisolone 40 mg 11/19/18 20:00 11/23/18 03:00 Solu-Medrol IVP 40 mg Q8H [facility] Administration Metoclopramide HCl 5 mg 11/22/18 07:30 11/23/18 06:29 Reglan IVP 11/24/18 06:00 5 mg Q8H [facility] Administration Rosuvastatin Calcium 10 mg 11/19/18 22:00 11/22/18 21:17 Crestor PO 10 mg HS [facility] Administration - Patient Studies Lab Studies: Microbiology Studies 11/20/18 07:33 Gram Stain - Final Trachasp Sputum Culture - Preliminary Yeast Species Lab Studies 11/23/18 11/23/18 11/23/18 Range/Units 05:59 05:59 05:45 WBC 7.6 (4.8-10.8) K/uL RBC 5.12 (4.40-5.90) Mil/uL Hgb 11.0 L (12.0-18.0) g/dL Hct 38.0 (35.0-51.0) % MCV 74.2 L (80.0-94.0) fL MCH 21.4 L (27.0-31.0) pg MCHC 28.9 L (33.0-37.0) g/dL RDW 19.8 H (11.5-14.5) % Plt Count 323 (130-400) K/uL MPV 7.7 (7.2-11.7) fL Neut % (Auto) 89.5 H (50.0-75.0) % Lymph % (Auto) 3.7 L (20.0-40.0) % [place] % (Auto) 6.7 (0.0-10.0) % Eos % (Auto) 0.0 (0.0-4.0) % Baso % (Auto) 0.1 (0.0-2.0) % Neut # (Auto) 6.8 (1.8-7.0) K/uL Lymph # (Auto) 0.3 L (1.0-4.3) K/uL [place] # (Auto) 0.5 (0.0-0.8) K/uL Eos # (Auto) 0.0 (0.0-0.7) K/uL Baso # (Auto) 0.0 (0.0-0.2) K/uL Neutrophils % (Manual) 89 H (50-75) % Band Neutrophils % 4 H (0-2) % Lymphocytes % (Manual) 4 L (20-40) % Monocytes % (Manual) 3 (0-10) % Platelet Estimate Normal (NORMAL) Hypochromasia (manual) Slight Anisocytosis (manual) Moderate Puncture Site Rradial pCO2 54 H (35-45) mm/Hg pO2 64 L (80-100) mm/Hg HCO3 39.4 H (21-28) mmol/L ABG pH 7.52 H (7.35-7.45) ABG Total CO2 45.8 H (22-28) mmol/L ABG O2 Saturation 95.5 (95-98) % ABG Base Excess 18.7 H (-2.0-3.0) mmol/L ABG Hemoglobin 11.0 L (11.7-17.4) g/dL ABG Carboxyhemoglobin 1.9 H (0.5-1.5) % POC ABG HHb (Measured) 4.4 (0.0-5.0) % ABG Methemoglobin 0.9 (0.0-3.0) % Robert Test Pos A-a O2 Difference 582.0 mm/Hg Respiratory Index 9.1 Hgb O2 Saturation 92.7 L (95.0-98.0) % Vent Mode Prvc Mechanical Rate 16 FiO2 100.0 % Tidal Volume 500 PEEP 10 Sodium 150 H (132-148) mmol/L Potassium 3.9 (3.6-5.2) mmol/L Chloride 101 (98-107) mmol/L Carbon Dioxide 39 H (22-30) mmol/L Anion Gap 15 (10-20) BUN 101 H* (9-20) mg/dL Creatinine 2.0 H (0.8-1.5) mg/dL Est GFR ( Amer) 40 Est GFR (Non-Af Amer) 33 Random Glucose 125 H (75-110) mg/dL Calcium 9.0 (8.6-10.4) mg/dl Phosphorus 3.8 (2.5-4.5) mg/dL Magnesium 2.3 (1.6-2.3) mg/dL Total Bilirubin 0.7 (0.2-1.3) mg/dL AST 17 (17-59) U/L ALT 17 L (21-72) U/L Alkaline Phosphatase 62 (38-126) U/L Total Protein 6.1 L (6.3-8.3) g/dL Albumin 3.2 L (3.5-5.0) g/dL Globulin 2.9 (2.2-3.9) gm/dL Albumin/Globulin Ratio 1.1 (1.0-2.1) Urine Color (YELLOW) Urine Clarity (Clear) Urine pH (5.0-8.0) Ur Specific [place] (1.003-1.030) Urine Protein (NEGATIVE) mg/dL Urine Glucose (UA) (Normal) mg/dL Urine Ketones (NEGATIVE) mg/dL Urine Blood (NEGATIVE) Urine Nitrate (NEGATIVE) Urine Bilirubin (NEGATIVE) Urine Urobilinogen (0.2-1.0) mg/dL Ur Leukocyte Esterase (Negative) Diandra/uL Urine WBC (Auto) (0-5) /hpf Urine RBC (Auto) (0-3) /hpf Ur Squamous Epith Cells (0-5) /hpf Uric Acid Crystals (<OCC) /hpf Urine Bacteria (<OCC) Hyaline Casts (0-2) /lpf 11/22/18 Range/Units 13:01 WBC (4.8-10.8) K/uL RBC (4.40-5.90) Mil/uL Hgb (12.0-18.0) g/dL Hct (35.0-51.0) % MCV (80.0-94.0) fL MCH (27.0-31.0) pg MCHC (33.0-37.0) g/dL RDW (11.5-14.5) % Plt Count (130-400) K/uL MPV (7.2-11.7) fL Neut % (Auto) (50.0-75.0) % Lymph % (Auto) (20.0-40.0) % [place] % (Auto) (0.0-10.0) % Eos % (Auto) (0.0-4.0) % Baso % (Auto) (0.0-2.0) % Neut # (Auto) (1.8-7.0) K/uL Lymph # (Auto) (1.0-4.3) K/uL [place] # (Auto) (0.0-0.8) K/uL Eos # (Auto) (0.0-0.7) K/uL Baso # (Auto) (0.0-0.2) K/uL Neutrophils % (Manual) (50-75) % Band Neutrophils % (0-2) % Lymphocytes % (Manual) (20-40) % Monocytes % (Manual) (0-10) % Platelet Estimate (NORMAL) Hypochromasia (manual) Anisocytosis (manual) Puncture Site pCO2 (35-45) mm/Hg pO2 (80-100) mm/Hg HCO3 (21-28) mmol/L ABG pH (7.35-7.45) ABG Total CO2 (22-28) mmol/L ABG O2 Saturation (95-98) % ABG Base Excess (-2.0-3.0) mmol/L ABG Hemoglobin (11.7-17.4) g/dL ABG Carboxyhemoglobin (0.5-1.5) % POC ABG HHb (Measured) (0.0-5.0) % ABG Methemoglobin (0.0-3.0) % Robert Test A-a O2 Difference mm/Hg Respiratory Index Hgb O2 Saturation (95.0-98.0) % Vent Mode Mechanical Rate FiO2 % Tidal Volume PEEP Sodium (132-148) mmol/L Potassium (3.6-5.2) mmol/L Chloride (98-107) mmol/L Carbon Dioxide (22-30) mmol/L Anion Gap (10-20) BUN (9-20) mg/dL Creatinine (0.8-1.5) mg/dL Est GFR ( Amer) Est GFR (Non-Af Amer) Random Glucose (75-110) mg/dL Calcium (8.6-10.4) mg/dl Phosphorus (2.5-4.5) mg/dL Magnesium (1.6-2.3) mg/dL Total Bilirubin (0.2-1.3) mg/dL AST (17-59) U/L ALT (21-72) U/L Alkaline Phosphatase (38-126) U/L Total Protein (6.3-8.3) g/dL Albumin (3.5-5.0) g/dL Globulin (2.2-3.9) gm/dL Albumin/Globulin Ratio (1.0-2.1) Urine Color Yellow (YELLOW) Urine Clarity Turbid (Clear) Urine pH 5.0 (5.0-8.0) Ur Specific [place] 1.009 (1.003-1.030) Urine Protein Negative (NEGATIVE) mg/dL Urine Glucose (UA) Normal (Normal) mg/dL Urine Ketones Negative (NEGATIVE) mg/dL Urine Blood 3+ H (NEGATIVE) Urine Nitrate Negative (NEGATIVE) Urine Bilirubin Negative (NEGATIVE) Urine Urobilinogen Normal (0.2-1.0) mg/dL Ur Leukocyte Esterase Neg (Negative) Diandra/uL Urine WBC (Auto) 2 (0-5) /hpf Urine RBC (Auto) 98 H (0-3) /hpf Ur Squamous Epith Cells 2 (0-5) /hpf Uric Acid Crystals Mod H (<OCC) /hpf Urine Bacteria Occ H (<OCC) Hyaline Casts 11-20 H (0-2) /lpf Laboratory Results - last 24 hr 11/22/18 11/23/18 11/23/18 13:01 05:45 05:59 WBC 7.6 RBC 5.12 Hgb 11.0 L Hct 38.0 MCV 74.2 L MCH 21.4 L MCHC 28.9 L RDW 19.8 H Plt Count 323 MPV 7.7 Neut % (Auto) 89.5 H Lymph % (Auto) 3.7 L [place] % (Auto) 6.7 Eos % (Auto) 0.0 Baso % (Auto) 0.1 Neut # (Auto) 6.8 Lymph # (Auto) 0.3 L [place] # (Auto) 0.5 Eos # (Auto) 0.0 Baso # (Auto) 0.0 Neutrophils % (Manual) 89 H Band Neutrophils % 4 H Lymphocytes % (Manual) 4 L Monocytes % (Manual) 3 Platelet Estimate Normal Hypochromasia (manual) Slight Anisocytosis (manual) Moderate Puncture Site Rradial pCO2 54 H pO2 64 L HCO3 39.4 H ABG pH 7.52 H ABG Total CO2 45.8 H ABG O2 Saturation 95.5 ABG Base Excess 18.7 H ABG Hemoglobin 11.0 L ABG Carboxyhemoglobin 1.9 H POC ABG HHb (Measured) 4.4 ABG Methemoglobin 0.9 Robert Test Pos A-a O2 Difference 582.0 Respiratory Index 9.1 Hgb O2 Saturation 92.7 L Vent Mode Prvc Mechanical Rate 16 FiO2 100.0 Tidal Volume 500 PEEP 10 Sodium Potassium Chloride Carbon Dioxide Anion Gap BUN Creatinine Est GFR ( Amer) Est GFR (Non-Af Amer) Random Glucose Calcium Phosphorus Magnesium Total Bilirubin AST ALT Alkaline Phosphatase Total Protein Albumin Globulin Albumin/Globulin Ratio Urine Color Yellow Urine Clarity Turbid Urine pH 5.0 Ur Specific [place] 1.009 Urine Protein Negative Urine Glucose (UA) Normal Urine Ketones Negative Urine Blood 3+ H Urine Nitrate Negative Urine Bilirubin Negative Urine Urobilinogen Normal Ur Leukocyte Esterase Neg Urine WBC (Auto) 2 Urine RBC (Auto) 98 H Ur Squamous Epith Cells 2 Uric Acid Crystals Mod H Urine Bacteria Occ H Hyaline Casts 11-20 H 11/23/18 05:59 WBC RBC Hgb Hct MCV MCH MCHC RDW Plt Count MPV Neut % (Auto) Lymph % (Auto) [place] % (Auto) Eos % (Auto) Baso % (Auto) Neut # (Auto) Lymph # (Auto) [place] # (Auto) Eos # (Auto) Baso # (Auto) Neutrophils % (Manual) Band Neutrophils % Lymphocytes % (Manual) Monocytes % (Manual) Platelet Estimate Hypochromasia (manual) Anisocytosis (manual) Puncture Site pCO2 pO2 HCO3 ABG pH ABG Total CO2 ABG O2 Saturation ABG Base Excess ABG Hemoglobin ABG Carboxyhemoglobin POC ABG HHb (Measured) ABG Methemoglobin Robert Test A-a O2 Difference Respiratory Index Hgb O2 Saturation Vent Mode Mechanical Rate FiO2 Tidal Volume PEEP Sodium 150 H Potassium 3.9 Chloride 101 Carbon Dioxide 39 H Anion Gap 15 BUN 101 H* Creatinine 2.0 H Est GFR ( Amer) 40 Est GFR (Non-Af Amer) 33 Random Glucose 125 H Calcium 9.0 Phosphorus 3.8 Magnesium 2.3 Total Bilirubin 0.7 AST 17 ALT 17 L Alkaline Phosphatase 62 Total Protein 6.1 L Albumin 3.2 L Globulin 2.9 Albumin/Globulin Ratio 1.1 Urine Color Urine Clarity Urine pH Ur Specific [place] Urine Protein Urine Glucose (UA) Urine Ketones Urine Blood Urine Nitrate Urine Bilirubin Urine Urobilinogen Ur Leukocyte Esterase Urine WBC (Auto) Urine RBC (Auto) Ur Squamous Epith Cells Uric Acid Crystals Urine Bacteria Hyaline Casts Radiology Impressions: Radiology Impressions Chest X-Ray 11/22/18 09:29 IMPRESSION: Interval improvement in the lungs since the previous exam. Otherwise no significant interval changes. Review of Systems - Review of Systems All systems: reviewed and no additional remarkable complaints except Review of Systems: as per subjective Critical Care Progress Note - Nutrition Nutrition: Nutrition Category Date Time Status NPO Diet [DIET] Diets 11/22/18 Dinner Active Assessment/Plan - Assessment and Plan (Free Text) Assessment: 72 year old male presenting to ED in cardiac arrest, s/p cardiac cath (Dr. Valencia) with clean coronaries. Patient remains unresponsive, on mechanical vent with high FIO2. 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 Waters) appreciated -trach placement postponed due to resp settings -Imaging -CTA (11/18): Moderately large pericardial effusion. No PE. Extensive L pulmonary atelectasis. Possible R lung nodule. Dilated main pulmonary artery may indicate pulmonary HTN. CV -Cardiac arrest/v tach/v fib -R Ventricular Hypertrophy, cor pulmonale -Cardiac recs (Dr. Valencia) appreciated -s/p cath with no acute findings, clean coronary arteries -Imaging -ECHO (11/17): EF 45-50%. LV systolic function mildly impaired. Small-moderate pericardial effusion. Significant R ventricular hypertrophy. -repeat ECHO (11/20): no noted enlargement, f/u official reported -Meds -DAPT: ASA 81 mg PO daily, Plavix 75 mg PO daily Heme -no acute issues Renal -acute renal failure -BUN/Cr: 96->101/1.4->2.0 (11/23) -Nephrology (Dr. Stephens) consulted GI -Coffee ground emesis noted 11/17 in NGT -GI recs (Dr. Wei) appreciated -s/p EGD (11/19): gastritis and diffuse duodenitis -Meds -Pepcid 20 mg PO BID -Reglan 5 mg IVP q8 -Flagyl 500 mg IVPB q8h for empiric abx coverage ID -no acute issues PPx, Diet, Disposition -DVT ppx: lovenox -GI ppx: pepcid 20 mg IVP q12 -Diet: NPO Case discussed with Dr. Sussy Weinstein DO, PGY-1
[2018-11-23] MEDS ORDERED: Midazolam 2 MG/2 ML VIAL ONE (11:46)
[2018-11-23] MEDS ORDERED: Propofol 10 mg/ml Inj (20 ML) ONE (11:46)
[2018-11-23] MEDS ORDERED: Etomidate 20 mg/10ml Inj IV ONE (11:46)
--- NOTE | 2018-11-23 12:05 | CP.PCM.PN ---
Subjective - Date & Time of Evaluation Date of Evaluation: 11/23/18 Time of Evaluation: 11:00 - Subjective Subjective: ppatient seen and examined On ventilatory support requiring 100% FiO2 with PEEP of 10 Saturation 95% On Lasix drip Sedated Tolerating feeding For PEG insertion Tracheostomy on hold Objective - Vital Signs/Intake and Output Vital Signs (last 24 hours): Temp Pulse Resp BP Pulse Ox 99.4 F 78 16 111/61 95 11/23/18 08:00 11/23/18 10:00 11/23/18 10:00 11/23/18 10:00 11/23/18 10:00 Intake and Output: 11/23/18 11/23/18 06:59 18:59 Intake Total 1143.7 353.2 Output Total 1615 595 Balance -471.3 -241.8 - Medications Medications: Current Medications Acetaminophen (Tylenol 650mg/20.3ml Solution Ud) 650 mg PO Q6 PRN PRN Reason: Temperature Last Admin: 11/19/18 15:55 Dose: 650 mg Albuterol/Ipratropium (Duoneb 3 Mg/0.5 Mg (3 Ml) Ud) 3 ml INH RQ4 [facility] Last Admin: 11/23/18 11:41 Dose: Not Given Aspirin (Aspirin Chewable) 81 mg PO DAILY [facility] Last Admin: 11/22/18 09:21 Dose: 81 mg Clopidogrel Bisulfate (Plavix) 75 mg PO DAILY [facility] Last Admin: 11/22/18 09:20 Dose: 75 mg Enoxaparin Sodium (Lovenox) 40 mg SC DAILY [facility] Last Admin: 11/22/18 09:20 Dose: 40 mg Famotidine (Pepcid) 20 mg IVP Q12 [facility] Last Admin: 11/23/18 10:38 Dose: 20 mg Furosemide 100 mg/ Sodium (Chloride) 100 mls @ 5 mls/hr IV .Q20H [facility] Last Admin: 11/23/18 06:25 Dose: 5 mls/hr Propofol (Diprivan) 1,000 mg in 100 mls @ 3.565 mls/hr IV .Q24H PRN; Protocol PRN Reason: TITRATE PER MD ORDER Last Admin: 11/23/18 08:03 Dose: 30 mcg/kg/min, 21.391 mls/hr Metronidazole (Flagyl) 500 mg in 100 mls @ 100 mls/hr IVPB Q8H [facility]; Protocol Last Admin: 11/23/18 08:11 Dose: 100 mls/hr Fentanyl Citrate 2,500 mcg/ (Sodium Chloride) 250 mls @ 23.52 mls/hr IV .[id number] PRN; Protocol PRN Reason: TITRATION Last Admin: 11/23/18 06:22 Dose: 1 mcg/kg/hr, 11.76 mls/hr Lorazepam (Ativan) 2 mg IVP Q3H PRN PRN Reason: Anxiety Last Admin: 11/23/18 03:11 Dose: 2 mg Methylprednisolone (Solu-Medrol) 40 mg IVP Q8H [facility] Last Admin: 11/23/18 03:00 Dose: 40 mg Metoclopramide HCl (Reglan) 5 mg IVP Q8H [facility] Stop: 11/24/18 06:00 Last Admin: 11/23/18 06:29 Dose: 5 mg Rosuvastatin Calcium (Crestor) 10 mg PO HS [facility] Last Admin: 11/22/18 21:17 Dose: 10 mg - Labs Labs: 11/23/18 05:59 11/23/18 05:59 PT 14.6 SECONDS (9.7-12.2) H 11/21/18 05:47 INR 1.3 11/21/18 05:47 APTT 31.0 SECONDS (21-34) 11/21/18 05:47 Assessment and Plan (1) Cardiac arrest Status: Acute (2) COPD (chronic obstructive pulmonary disease) Status: Acute (3) Ventricular tachycardia Status: Acute (4) Congestive heart failure Status: Acute (5) PHT (pulmonary hypertension) Status: Acute
--- NOTE | 2018-11-23 12:10 | CP.PCM.PN ---
Subjective - Date & Time of Evaluation Date of Evaluation: 11/23/18 Time of Evaluation: 12:06 - Subjective Subjective: Still intubated and sedated. Awaiting for PEG placement. Objective - Vital Signs/Intake and Output Vital Signs (last 24 hours): Temp Pulse Resp BP Pulse Ox 99.4 F 78 16 111/61 95 11/23/18 08:00 11/23/18 10:00 11/23/18 10:00 11/23/18 10:00 11/23/18 10:00 Intake and Output: 11/23/18 11/23/18 06:59 18:59 Intake Total 1143.7 353.2 Output Total 1615 595 Balance -471.3 -241.8 - Medications Medications: Current Medications Acetaminophen (Tylenol 650mg/20.3ml Solution Ud) 650 mg PO Q6 PRN PRN Reason: Temperature Last Admin: 11/19/18 15:55 Dose: 650 mg Albuterol/Ipratropium (Duoneb 3 Mg/0.5 Mg (3 Ml) Ud) 3 ml INH RQ4 [facility] Last Admin: 11/23/18 11:41 Dose: Not Given Aspirin (Aspirin Chewable) 81 mg PO DAILY [facility] Last Admin: 11/22/18 09:21 Dose: 81 mg Clopidogrel Bisulfate (Plavix) 75 mg PO DAILY [facility] Last Admin: 11/22/18 09:20 Dose: 75 mg Enoxaparin Sodium (Lovenox) 40 mg SC DAILY [facility] Last Admin: 11/22/18 09:20 Dose: 40 mg Famotidine (Pepcid) 20 mg IVP Q12 [facility] Last Admin: 11/23/18 10:38 Dose: 20 mg Furosemide 100 mg/ Sodium (Chloride) 100 mls @ 5 mls/hr IV .Q20H [facility] Last Admin: 11/23/18 06:25 Dose: 5 mls/hr Propofol (Diprivan) 1,000 mg in 100 mls @ 3.565 mls/hr IV .Q24H PRN; Protocol PRN Reason: TITRATE PER MD ORDER Last Admin: 11/23/18 08:03 Dose: 30 mcg/kg/min, 21.391 mls/hr Metronidazole (Flagyl) 500 mg in 100 mls @ 100 mls/hr IVPB Q8H [facility]; Protocol Last Admin: 11/23/18 08:11 Dose: 100 mls/hr Fentanyl Citrate 2,500 mcg/ (Sodium Chloride) 250 mls @ 23.52 mls/hr IV .[id number] PRN; Protocol PRN Reason: TITRATION Last Admin: 11/23/18 06:22 Dose: 1 mcg/kg/hr, 11.76 mls/hr Lorazepam (Ativan) 2 mg IVP Q3H PRN PRN Reason: Anxiety Last Admin: 11/23/18 03:11 Dose: 2 mg Methylprednisolone (Solu-Medrol) 40 mg IVP Q8H [facility] Last Admin: 11/23/18 03:00 Dose: 40 mg Metoclopramide HCl (Reglan) 5 mg IVP Q8H [facility] Stop: 11/24/18 06:00 Last Admin: 11/23/18 06:29 Dose: 5 mg Rosuvastatin Calcium (Crestor) 10 mg PO HS [facility] Last Admin: 11/22/18 21:17 Dose: 10 mg - Labs Labs: 11/23/18 05:59 11/23/18 05:59 PT 14.6 SECONDS (9.7-12.2) H 11/21/18 05:47 INR 1.3 11/21/18 05:47 APTT 31.0 SECONDS (21-34) 11/21/18 05:47 - Head Exam Head Exam: NORMOCEPHALIC - Neck Exam Neck Exam: Normal Inspection - Respiratory Exam Additional comments: Intubated and sedated. - Cardiovascular Exam Cardiovascular Exam: REGULAR RHYTHM - Extremities Exam Extremities Exam: Normal Inspection - Neurological Exam Additional comments: Sedated. Assessment and Plan (1) Cardiac arrest Assessment & Plan: In sinus rhythm now. No new episodes of arrhythmia. Cardiac colón no new issues. May proceed with planned PEG and Trach. Status: Acute (2) Ventricular tachycardia Assessment & Plan: In sinus rhythm, continue current care. Status: Acute (3) Congestive heart failure Assessment & Plan: Diastolic dysfunction with severe pulmonary hypertension. Decrease dose of diuretics. Maintain electrolyte balance. Status: Acute
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
[2018-11-23] MEDS: Enoxaparin 40 mg Syringe SC SCH (13:02)
--- NOTE | 2018-11-23 13:31 | CARD ---
APPROVED REPORT Date of service: 11/20/2018 EXAM: LIMITED Two-dimensional echocardiogram with Doppler and color Doppler. Other Information Quality : GoodRhythm : INDICATION Pericardial Effusion Mitral Valve E/A ratio0.0 TDI E/Lateral E'0.0E/Medial E'0.0 Tricuspid Valve TR Peak [id number] Peak [id number] <Conclusion> Limited study for pericardial effusion Mild to moderate concentric opericardial effusion Normal transphasic valvular inflow Atrial systolic collapse noted IVC was not visualozed RV dilated; normal wall motion No signifiant interval change
[2018-11-24] MEDS: Albuterol-Ipratrop 3 mg / 0.5 (3 ml) UD INH SCH ×6 (00:24→20:01)
[2018-11-24] MEDS: Furosemide 100 MG in Sodium Chloride 0.9% 90 ML IV SCH (01:11)
[2018-11-24] MEDS: Propofol 10 mg/ml 1,000 MG/100 ML VIAL IV PRN ×5 (02:53→21:00)
[2018-11-24] MEDS: MethylPREDNISolone 40 mg Vial IVP SCH ×3 (03:40→15:28)
[2018-11-24 05:32] LABS: ABG ALLEN TEST POS; ARTERIAL BLOOD GAS HCO3 39.4 mmol/L (21-28); ARTERIAL BLOOD GAS HEMOGLOBIN 11.6 g/dL (11.7-17.4); ARTERIAL BLOOD GAS O2 SAT 93.4 % (95-98); ARTERIAL BLOOD GAS PCO2 72 mm/Hg (35-45); ARTERIAL BLOOD GAS PH 7.42 (7.35-7.45); ARTERIAL BLOOD GAS PO2 63 mm/Hg (80-100); ARTERIAL BLOOD GAS TCO2 48.9 mmol/L (22-28)
[2018-11-24 06:47] LABS: BASO % 0.1 % (0.0-2.0); LYMPH # 0.2 K/uL (1.0-4.3); LYMPH % 2.2 % (20.0-40.0); MEAN CELL VOLUME 75.1 fL (80.0-94.0); MEAN CORPUSCULAR HEMOGLOBIN 21.5 pg (27.0-31.0); MEAN CORPUSCULAR HGB CONC 28.6 g/dL (33.0-37.0); MEAN PLATELET VOLUME 8.1 fL (7.2-11.7); MONO # 0.7 K/uL (0.0-0.8); MONO % 7.9 % (0.0-10.0); NEUT # 8.3 K/uL (1.8-7.0); NEUT % 89.8 % (50.0-75.0); PLATELET COUNT 318 K/uL (130-400); RBC 5.15 Mil/uL (4.40-5.90); RED CELL DISTRIBUTION WIDTH 19.9 % (11.5-14.5); WHITE BLOOD COUNT 9.3 K/uL (4.8-10.8)
[2018-11-24 06:58] LABS: ALB/GLOB RATIO 1.1 (1.0-2.1); ALBUMIN 3.2 g/dL (3.5-5.0); CALCIUM 8.7 mg/dl (8.6-10.4); HEMOGLOBIN 11.1 g/dL (12.0-18.0)
[2018-11-24] MEDS: metroNIDAZOLE IV 500 mg/100 ml 500 MG/100 ML BAG IVPB SCH ×2 (08:00→15:00)
--- NOTE | 2018-11-24 08:19 | CP.PCM.PN ---
Subjective - Date & Time of Evaluation Date of Evaluation: 11/24/18 Time of Evaluation: 08:16 - Subjective Subjective: Pt is a 72 year old male with PMHx hypertension, hyperlipidemia, COPD, CHF, R ear deafness who came in as a code heart cardiac arrest on 11/17 . 911 called for chest/back pain, ALS had assessed patient and left scene at the time as patient was awake and alert . BLS was still on scene at which point patient arrested and was found to have no pulse. CPR was initiated and ALS called back to scene. ACLS initiated and epi administered once at which point ROSC was achieved. Patient arrested again in the ED , unresponsive, CPR was initiated again with ROSC achieved. Pt underwent cardiac cath to see patency of recently placed cardiac stent- found to be patent He also self extubated himself on 11/21 and was reintuabated, noted to be hypotensive at that time renal consult for rising Cr and BUN Pt on lasix drip, iv steroids and tube feeds non oliguric , good UOP 11/24 Notes reviewed Remains intubated and sedated Receiving tube feeding through ogt No family present Unable to provide any history Urine output 500cc Ros unobtainable due to mental status ROS - unable to obtain as pt intubated and sedated PMHx- as above PSHx- cardiac cath Social- no recent smoking, alcohol or drug use Family history - no family history of kidney disease Objective - Vital Signs/Intake and Output Vital Signs (last 24 hours): Temp Pulse Resp BP Pulse Ox 98.7 F 88 16 110/54 L 89 L 11/24/18 04:00 11/24/18 07:00 11/24/18 07:00 11/24/18 06:38 11/24/18 07:00 Intake and Output: 11/24/18 11/24/18 06:59 18:59 Intake Total 1376.2 58.3 Output Total 1030 Balance 346.2 58.3 - Medications Medications: Current Medications Acetaminophen (Tylenol 650mg/20.3ml Solution Ud) 650 mg PO Q6 PRN PRN Reason: Temperature Last Admin: 11/19/18 15:55 Dose: 650 mg Albuterol/Ipratropium (Duoneb 3 Mg/0.5 Mg (3 Ml) Ud) 3 ml INH RQ4 [facility] Last Admin: 11/24/18 07:40 Dose: 3 ml Aspirin (Aspirin Chewable) 81 mg PO DAILY [facility] Last Admin: 11/23/18 13:03 Dose: 81 mg Clopidogrel Bisulfate (Plavix) 75 mg PO DAILY [facility] Last Admin: 11/23/18 13:03 Dose: 75 mg Enoxaparin Sodium (Lovenox) 40 mg SC DAILY [facility] Last Admin: 11/23/18 13:02 Dose: 40 mg Famotidine (Pepcid) 20 mg IVP Q12 [facility] Last Admin: 11/23/18 21:31 Dose: 20 mg Furosemide 100 mg/ Sodium (Chloride) 100 mls @ 5 mls/hr IV .Q20H [facility] Last Admin: 11/24/18 01:11 Dose: 5 mls/hr Propofol (Diprivan) 1,000 mg in 100 mls @ 3.565 mls/hr IV .Q24H PRN; Protocol PRN Reason: TITRATE PER MD ORDER Last Admin: 11/24/18 06:05 Dose: 30 mcg/kg/min, 21.391 mls/hr Metronidazole (Flagyl) 500 mg in 100 mls @ 100 mls/hr IVPB Q8H [facility]; Protocol Last Admin: 11/23/18 23:50 Dose: 100 mls/hr Fentanyl Citrate 2,500 mcg/ (Sodium Chloride) 250 mls @ 23.52 mls/hr IV .[id number] PRN; Protocol PRN Reason: TITRATION Last Admin: 11/24/18 06:02 Dose: 1 mcg/kg/hr, 11.76 mls/hr Lorazepam (Ativan) 2 mg IVP Q3H PRN PRN Reason: Anxiety Last Admin: 11/24/18 03:44 Dose: 2 mg Methylprednisolone (Solu-Medrol) 20 mg IVP Q8H [facility] Rosuvastatin Calcium (Crestor) 10 mg PO HS [facility] Last Admin: 11/23/18 21:35 Dose: 10 mg - Labs Labs: 11/24/18 06:38 11/24/18 06:38 PT 14.6 SECONDS (9.7-12.2) H 11/21/18 05:47 INR 1.3 11/21/18 05:47 APTT 31.0 SECONDS (21-34) 11/21/18 05:47 - Constitutional Appears: In Acute Distress, Chronically Ill - Head Exam Head Exam: ATRAUMATIC, NORMAL INSPECTION - Eye Exam Eye Exam: absent: Conjunctival injection, Scleral icterus - ENT Exam ENT Exam: Mucous Membranes Dry Additional comments: ET tube and OGT in place - Neck Exam Neck Exam: absent: Lymphadenopathy, Thyromegaly - Respiratory Exam Respiratory Exam: Rhonchi. absent: Rales - Cardiovascular Exam Cardiovascular Exam: +S1, +S2. absent: Rubs - GI/Abdominal Exam GI & Abdominal Exam: Soft, Normal Bowel Sounds - Extremities Exam Extremities Exam: Pedal Edema. absent: Joint Swelling - Neurological Exam Neurological Exam: absent: Alert, Awake, Oriented x3 - Skin Skin Exam: Dry, Intact Assessment and Plan (1) Acute hypernatremia Status: Acute (2) Acute renal failure due to tubular necrosis Status: Acute (3) COPD (chronic obstructive pulmonary disease) Status: Acute (4) Cardiac arrest Status: Acute (5) PHT (pulmonary hypertension) Status: Acute - Assessment and Plan (Free Text) Assessment: Acute kidney injury due to ischemic atn Oligoanuric Electrolytes acceptable Azotemia elevated in part due to steroids and volume depletion Discussed with icu team Hold lasix infusion Add d5w Dialysis if no improvement
[2018-11-24 08:26] LABS: BANDS 2 % (0-2); LYMPHOCYTE 2 % (20-40); MONOCYTE 6 % (0-10); NEUTROPHIL 90 % (50-75); PLATELET ESTIMATE NORMAL (NORMAL); TOTAL CELLS COUNTED 100
[2018-11-24 08:27] LABS: ANISOCYTOSIS MODERATE
[2018-11-24] MEDS: Enoxaparin 40 mg Syringe SC SCH (09:20)
[2018-11-24] MEDS: Sodium Chloride 0.45% 1,000 ML IV SCH ×3 (10:00→22:26)
--- NOTE | 2018-11-24 11:18 | CP.CCUPN ---
<CorinnaAlexander - Last Filed: 11/24/18 11:15> CCU Subjective - Physician Review Subjective (Free Text): 11/24/18 11:15 See and examined at bedside, sedated on vent. Sedated. Tolerating feeding PEG not inserted yest due to difficult intubation of scope. Tracheostomy on hold. CCU Objective - Vital Signs / Intake & Output Vital Signs (Last 4 hours): Vital Signs Pulse Resp BP Pulse Ox 11/24/18 10:00 82 19 90 L 11/24/18 09:38 89 16 105/50 L 92 L 11/24/18 09:00 89 14 90 L 11/24/18 08:38 77 16 107/51 L 88 L 11/24/18 08:00 85 16 91 L 11/24/18 07:38 88 19 107/52 L 90 L Intake and Output (Last 8hrs): Intake & Output 11/23/18 11/24/18 11/24/18 22:59 06:59 14:59 Intake Total 693.0 1016.4 523.2 Output Total 940 500 Balance -247.0 516.4 523.2 Weight 114.362 kg Intake: IV 200 450 100 Intake, IV Amount 333.0 406.4 343.2 R FA 2 Y Port 93.6 93.6 46.8 RFA Y Port 100 Right Forearm 21.6 Right Forearm #1 172.8 172.8 86.4 Right Forearm #2 40 40 210 Right arm 5 Tube Feeding 160 160 80 Output: Urine 940 500 Urethral (Tabor) 940 500 Other: # Bowel Movements 0 0 0 - Physical Exam Head: Positive for: Atraumatic, Normocephalic Pupils: Positive for: PERRL Extroacular Muscles: Positive for: EOMI Conjunctiva: Positive for: Normal Ears: Positive for: Normal Mouth: Positive for: Moist Mucous Membranes Respiratory/Chest: Positive for: Good Air Exchange, Decreased Breath Sounds (on left lung oakes), Other (intubated, on vent) Cardiovascular: Positive for: Regular Rate and Rhythm Abdomen: Positive for: Normal Bowel Sounds. Negative for: Tenderness, Distention Upper Extremity: Positive for: Normal Inspection Lower Extremity: Positive for: Normal Inspection Neurological: Positive for: Other (sedated, on vent) Skin: Positive for: Dry, Normal Color Psychiatric: Positive for: Alert - Medications Active Medications: Active Medications Generic Name Dose Route Start Last Admin Trade Name Freq PRN Reason Stop Dose Admin Acetaminophen 650 mg 11/19/18 15:49 11/19/18 15:55 Tylenol 650mg/20.3ml Solution Ud PO 650 mg Q6 PRN Administration Temperature Albuterol/Ipratropium 3 ml 11/23/18 12:00 11/24/18 07:40 Duoneb 3 Mg/0.5 Mg (3 Ml) Ud INH 3 ml RQ4 DAMION Administration Aspirin 81 mg 11/22/18 10:00 11/24/18 09:20 Aspirin Chewable PO 81 mg DAILY DAMION Administration Clopidogrel Bisulfate 75 mg 11/18/18 10:00 11/24/18 09:20 Plavix PO 75 mg DAILY DAMION Administration Enoxaparin Sodium 40 mg 11/22/18 10:00 11/24/18 09:20 Lovenox SC 40 mg DAILY DAMION Administration Famotidine 20 mg 11/24/18 10:00 11/24/18 09:20 Pepcid IVP 20 mg DAILY DAMION Administration Propofol 1,000 mg in 100 mls @ 3.565 mls/hr 11/21/18 15:30 11/24/18 10:53 Diprivan IV 30 mcg/kg/min .Q24H PRN 21.391 mls/hr TITRATE PER MD ORDER Administration Protocol 5 MCG/KG/MIN Metronidazole 500 mg in 100 mls @ 100 mls/hr 11/22/18 08:00 11/24/18 08:00 Flagyl IVPB 100 mls/hr Q8H DAMION Administration Protocol Fentanyl Citrate 2,500 mcg/ 250 mls @ 23.52 mls/hr 11/22/18 09:45 11/24/18 06:02 Sodium Chloride IV 1 mcg/kg/hr .[id number] PRN 11.76 mls/hr TITRATION Administration Protocol 2 MCG/KG/HR Sodium Chloride 1,000 mls @ 100 mls/hr 11/24/18 09:45 11/24/18 10:00 Sodium Chloride 0.45% IV 100 mls/hr .Q10H DAMION Administration Lorazepam 2 mg 11/17/18 17:40 11/24/18 03:44 Ativan IVP 2 mg Q3H PRN Administration Anxiety Methylprednisolone 20 mg 11/24/18 08:00 11/24/18 09:00 Solu-Medrol IVP 20 mg Q8H DAMION Administration Rosuvastatin Calcium 10 mg 11/19/18 22:00 11/23/18 21:35 Crestor PO 10 mg HS DAMION Administration - Patient Studies Lab Studies: Microbiology Studies 11/20/18 07:33 Gram Stain - Final Trachasp Sputum Culture - Final Yeast Species 11/22/18 13:01 Urine Culture - Final Urine,Tabor No Growth (<1,000 CFU/ML) Lab Studies 11/24/18 11/24/18 11/24/18 Range/Units 06:38 06:38 05:28 WBC 9.3 (4.8-10.8) K/uL RBC 5.15 (4.40-5.90) Mil/uL Hgb 11.1 L (12.0-18.0) g/dL Hct 38.7 (35.0-51.0) % MCV 75.1 L (80.0-94.0) fL MCH 21.5 L (27.0-31.0) pg MCHC 28.6 L (33.0-37.0) g/dL RDW 19.9 H (11.5-14.5) % Plt Count 318 (130-400) K/uL MPV 8.1 (7.2-11.7) fL Neut % (Auto) 89.8 H (50.0-75.0) % Lymph % (Auto) 2.2 L (20.0-40.0) % [place] % (Auto) 7.9 (0.0-10.0) % Eos % (Auto) 0.0 (0.0-4.0) % Baso % (Auto) 0.1 (0.0-2.0) % Neut # (Auto) 8.3 H (1.8-7.0) K/uL Lymph # (Auto) 0.2 L (1.0-4.3) K/uL [place] # (Auto) 0.7 (0.0-0.8) K/uL Eos # (Auto) 0.0 (0.0-0.7) K/uL Baso # (Auto) 0.0 (0.0-0.2) K/uL Neutrophils % (Manual) 90 H (50-75) % Band Neutrophils % 2 (0-2) % Lymphocytes % (Manual) 2 L (20-40) % Monocytes % (Manual) 6 (0-10) % Platelet Estimate Normal (NORMAL) Anisocytosis (manual) Moderate Puncture Site Lr pCO2 72 H* (35-45) mm/Hg pO2 63 L (80-100) mm/Hg HCO3 39.4 H (21-28) mmol/L ABG pH 7.42 (7.35-7.45) ABG Total CO2 48.9 H (22-28) mmol/L ABG O2 Saturation 93.4 L (95-98) % ABG Base Excess 18.8 H (-2.0-3.0) mmol/L ABG Hemoglobin 11.6 L (11.7-17.4) g/dL ABG Carboxyhemoglobin 2.2 H (0.5-1.5) % POC ABG HHb (Measured) 6.4 H (0.0-5.0) % ABG Methemoglobin 0.8 (0.0-3.0) % Robert Test Pos A-a O2 Difference 560.0 mm/Hg Respiratory Index 8.9 Hgb O2 Saturation 90.7 L (95.0-98.0) % Vent Mode Prvc Mechanical Rate 16 FiO2 100.0 % Tidal Volume 500 PEEP 10 Crit Value Called To Paty rn Crit Value Called By Brianna instant print operator Crit Value Read Back Y Blood Gas Notified Time 532 Sodium 153 H (132-148) mmol/L Potassium 4.1 (3.6-5.2) mmol/L Chloride 102 (98-107) mmol/L Carbon Dioxide 40 H* (22-30) mmol/L Anion Gap 15 (10-20) BUN 129 H* D (9-20) mg/dL Creatinine 2.5 H (0.8-1.5) mg/dL Est GFR ( Amer) 31 Est GFR (Non-Af Amer) 26 Random Glucose 134 H (75-110) mg/dL Calcium 8.7 (8.6-10.4) mg/dl Phosphorus 6.0 H (2.5-4.5) mg/dL Magnesium 2.4 H (1.6-2.3) mg/dL Total Bilirubin 0.7 (0.2-1.3) mg/dL AST 48 (17-59) U/L ALT 21 D (21-72) U/L Alkaline Phosphatase 57 (38-126) U/L Total Protein 6.1 L (6.3-8.3) g/dL Albumin 3.2 L (3.5-5.0) g/dL Globulin 2.9 (2.2-3.9) gm/dL Albumin/Globulin Ratio 1.1 (1.0-2.1) Laboratory Results - last 24 hr 11/24/18 11/24/18 11/24/18 05:28 06:38 06:38 WBC 9.3 RBC 5.15 Hgb 11.1 L Hct 38.7 MCV 75.1 L MCH 21.5 L MCHC 28.6 L RDW 19.9 H Plt Count 318 MPV 8.1 Neut % (Auto) 89.8 H Lymph % (Auto) 2.2 L [place] % (Auto) 7.9 Eos % (Auto) 0.0 Baso % (Auto) 0.1 Neut # (Auto) 8.3 H Lymph # (Auto) 0.2 L [place] # (Auto) 0.7 Eos # (Auto) 0.0 Baso # (Auto) 0.0 Neutrophils % (Manual) 90 H Band Neutrophils % 2 Lymphocytes % (Manual) 2 L Monocytes % (Manual) 6 Platelet Estimate Normal Anisocytosis (manual) Moderate Puncture Site Lr pCO2 72 H* pO2 63 L HCO3 39.4 H ABG pH 7.42 ABG Total CO2 48.9 H ABG O2 Saturation 93.4 L ABG Base Excess 18.8 H ABG Hemoglobin 11.6 L ABG Carboxyhemoglobin 2.2 H POC ABG HHb (Measured) 6.4 H ABG Methemoglobin 0.8 Robert Test Pos A-a O2 Difference 560.0 Respiratory Index 8.9 Hgb O2 Saturation 90.7 L Vent Mode Prvc Mechanical Rate 16 FiO2 100.0 Tidal Volume 500 PEEP 10 Crit Value Called To Paty rn Crit Value Called By Brianna instant print operator Crit Value Read Back Y Blood Gas Notified Time 532 Sodium 153 H Potassium 4.1 Chloride 102 Carbon Dioxide 40 H* Anion Gap 15 BUN 129 H* D Creatinine 2.5 H Est GFR ( Amer) 31 Est GFR (Non-Af Amer) 26 Random Glucose 134 H Calcium 8.7 Phosphorus 6.0 H Magnesium 2.4 H Total Bilirubin 0.7 AST 48 ALT 21 D Alkaline Phosphatase 57 Total Protein 6.1 L Albumin 3.2 L Globulin 2.9 Albumin/Globulin Ratio 1.1 Review of Systems - Review of Systems All systems: reviewed and no additional remarkable complaints except Critical Care Progress Note - Nutrition Nutrition: Nutrition Category Date Time Status NPO Diet [DIET] Diets 11/22/18 Dinner Active Assessment/Plan - Assessment and Plan (Free Text) Assessment: 72 year old male presenting to ED in cardiac arrest, s/p cardiac cath (Dr. Valencia) with clean coronaries. Patient remains unresponsive, on mechanical vent with high FIO2. 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 Waters) appreciated -tracheostomy on hold -Imaging -CTA (11/18): Moderately large pericardial effusion. No PE. Extensive L pulmonary atelectasis. Possible R lung nodule. Dilated main pulmonary artery may indicate pulmonary HTN. CV -Cardiac arrest/v tach/v fib -R Ventricular Hypertrophy, cor pulmonale -Cardiac recs (Dr. Valencia) appreciated -s/p cath with no acute findings, clean coronary arteries -Imaging -ECHO (11/17): EF 45-50%. LV systolic function mildly impaired. Small-moderate pericardial effusion. Significant R ventricular hypertrophy. -repeat ECHO (11/20): no noted enlargement, f/u official reported -Meds -DAPT: ASA 81 mg PO daily, Plavix 75 mg PO daily Heme -no acute issues Renal -acute renal failure -BUN/Cr increasing -Nephrology (Dr. Stephens) recs appreciated -lasix gtt d/c'd, begin 07/22 NS @ 100cc/hr -solumedrol reduced to 20 mg IVP q8 GI -Coffee ground emesis noted 11/17 in NGT -GI recs (Dr. Wei) appreciated -s/p EGD (11/19): gastritis and diffuse duodenitis -PEG unsuccessful to due to difficulty advancing scope during intubation -Meds -Pepcid 20 mg PO BID -Reglan 5 mg IVP q8 -Flagyl 500 mg IVPB q8h for empiric abx coverage ID -no acute issues PPx, Diet, Disposition -DVT ppx: lovenox -GI ppx: pepcid 20 mg IVP q12 -Diet: tube feeds; OG tube Case discussed with Dr. Kristopher Weinstein DO, PGY-1 <Jr Summers S - Last Filed: 11/24/18 17:25> CCU Subjective - Physician Review Critical Care Time Spent (in minutes): 45 CCU Objective - Vital Signs / Intake & Output Vital Signs (Last 4 hours): Vital Signs Temp Pulse Resp BP Pulse Ox 11/24/18 16:02 90 12 99/54 L 89 L 11/24/18 16:00 101.5 F H 94 H 18 11/24/18 15:19 101.5 F H 11/24/18 15:00 73 16 90 L 11/24/18 14:38 75 16 106/55 L 90 L 11/24/18 14:00 75 16 90 L 11/24/18 13:38 77 16 108/56 L 90 L Intake and Output (Last 8hrs): Intake & Output 11/24/18 11/24/18 11/24/18 06:59 14:59 22:59 Intake Total 1016.4 1136.4 406.6 Output Total 500 870 110 Balance 516.4 266.4 296.6 Weight 252 lb 2 oz Intake: IV 450 100 100 Intake, IV Amount 406.4 876.4 266.6 R FA 2 Y Port 93.6 93.6 23.4 RFA Y Port 100 Right Forearm #1 172.8 172.8 43.2 Right Forearm #2 40 610 200 Tube Feeding 160 160 40 Output: Urine 500 870 110 Urethral ([place]) 500 870 110 Other: # Bowel Movements 0 0 0 - Medications Active Medications: Active Medications Generic Name Dose Route Start Last Admin Trade Name Freq PRN Reason Stop Dose Admin Acetaminophen 650 mg 11/19/18 15:49 11/24/18 15:19 Tylenol 650mg/20.3ml Solution Ud PO 650 mg Q6 PRN Administration Temperature Albuterol/Ipratropium 3 ml 11/23/18 12:00 11/24/18 15:56 Duoneb 3 Mg/0.5 Mg (3 Ml) Ud INH 3 ml RQ4 DAMION Administration Aspirin 81 mg 11/22/18 10:00 11/24/18 09:20 Aspirin Chewable PO 81 mg DAILY DAMION Administration Clopidogrel Bisulfate 75 mg 11/18/18 10:00 11/24/18 09:20 Plavix PO 75 mg DAILY DAMION Administration Enoxaparin Sodium 40 mg 11/22/18 10:00 11/24/18 09:20 Lovenox SC 40 mg DAILY DAMION Administration Famotidine 20 mg 11/24/18 10:00 11/24/18 09:20 Pepcid IVP 20 mg DAILY DAMION Administration Propofol 1,000 mg in 100 mls @ 3.565 mls/hr 11/21/18 15:30 11/24/18 15:45 Diprivan IV 30 mcg/kg/min .Q24H PRN 21.391 mls/hr TITRATE PER MD ORDER Administration Protocol 5 MCG/KG/MIN Metronidazole 500 mg in 100 mls @ 100 mls/hr 11/22/18 08:00 11/24/18 15:00 Flagyl IVPB 100 mls/hr Q8H DAMION Administration Protocol Fentanyl Citrate 2,500 mcg/ 250 mls @ 23.52 mls/hr 11/22/18 09:45 11/24/18 06:02 Sodium Chloride IV 1 mcg/kg/hr .[id number] PRN 11.76 mls/hr TITRATION Administration Protocol 2 MCG/KG/HR Sodium Chloride 1,000 mls @ 100 mls/hr 11/24/18 09:45 11/24/18 10:00 Sodium Chloride 0.45% IV 100 mls/hr .Q10H DAMION Administration Lorazepam 2 mg 11/17/18 17:40 11/24/18 03:44 Ativan IVP 2 mg Q3H PRN Administration Anxiety Methylprednisolone 20 mg 11/24/18 08:00 11/24/18 15:28 Solu-Medrol IVP 20 mg Q8H DAMION Administration Rosuvastatin Calcium 10 mg 11/19/18 22:00 11/23/18 21:35 Crestor PO 10 mg HS DAMION Administration - Patient Studies Lab Studies: Microbiology Studies 11/20/18 07:33 Gram Stain - Final Trachasp Sputum Culture - Final Yeast Species Lab Studies 11/24/18 11/24/18 11/24/18 Range/Units 06:38 06:38 05:28 WBC 9.3 (4.8-10.8) K/uL RBC 5.15 (4.40-5.90) Mil/uL Hgb 11.1 L (12.0-18.0) g/dL Hct 38.7 (35.0-51.0) % MCV 75.1 L (80.0-94.0) fL MCH 21.5 L (27.0-31.0) pg MCHC 28.6 L (33.0-37.0) g/dL RDW 19.9 H (11.5-14.5) % Plt Count 318 (130-400) K/uL MPV 8.1 (7.2-11.7) fL Neut % (Auto) 89.8 H (50.0-75.0) % Lymph % (Auto) 2.2 L (20.0-40.0) % [place] % (Auto) 7.9 (0.0-10.0) % Eos % (Auto) 0.0 (0.0-4.0) % Baso % (Auto) 0.1 (0.0-2.0) % Neut # (Auto) 8.3 H (1.8-7.0) K/uL Lymph # (Auto) 0.2 L (1.0-4.3) K/uL [place] # (Auto) 0.7 (0.0-0.8) K/uL Eos # (Auto) 0.0 (0.0-0.7) K/uL Baso # (Auto) 0.0 (0.0-0.2) K/uL Neutrophils % (Manual) 90 H (50-75) % Band Neutrophils % 2 (0-2) % Lymphocytes % (Manual) 2 L (20-40) % Monocytes % (Manual) 6 (0-10) % Platelet Estimate Normal (NORMAL) Anisocytosis (manual) Moderate Puncture Site Lr pCO2 72 H* (35-45) mm/Hg pO2 63 L (80-100) mm/Hg HCO3 39.4 H (21-28) mmol/L ABG pH 7.42 (7.35-7.45) ABG Total CO2 48.9 H (22-28) mmol/L ABG O2 Saturation 93.4 L (95-98) % ABG Base Excess 18.8 H (-2.0-3.0) mmol/L ABG Hemoglobin 11.6 L (11.7-17.4) g/dL ABG Carboxyhemoglobin 2.2 H (0.5-1.5) % POC ABG HHb (Measured) 6.4 H (0.0-5.0) % ABG Methemoglobin 0.8 (0.0-3.0) % Robert Test Pos A-a O2 Difference 560.0 mm/Hg Respiratory Index 8.9 Hgb O2 Saturation 90.7 L (95.0-98.0) % Vent Mode Prvc Mechanical Rate 16 FiO2 100.0 % Tidal Volume 500 PEEP 10 Crit Value Called To Paty rn Crit Value Called By Brianna instant print operator Crit Value Read Back Y Blood Gas Notified Time 532 Sodium 153 H (132-148) mmol/L Potassium 4.1 (3.6-5.2) mmol/L Chloride 102 (98-107) mmol/L Carbon Dioxide 40 H* (22-30) mmol/L Anion Gap 15 (10-20) BUN 129 H* D (9-20) mg/dL Creatinine 2.5 H (0.8-1.5) mg/dL Est GFR ( Amer) 31 Est GFR (Non-Af Amer) 26 Random Glucose 134 H (75-110) mg/dL Calcium 8.7 (8.6-10.4) mg/dl Phosphorus 6.0 H (2.5-4.5) mg/dL Magnesium 2.4 H (1.6-2.3) mg/dL Total Bilirubin 0.7 (0.2-1.3) mg/dL AST 48 (17-59) U/L ALT 21 D (21-72) U/L Alkaline Phosphatase 57 (38-126) U/L Total Protein 6.1 L (6.3-8.3) g/dL Albumin 3.2 L (3.5-5.0) g/dL Globulin 2.9 (2.2-3.9) gm/dL Albumin/Globulin Ratio 1.1 (1.0-2.1) Laboratory Results - last 24 hr 11/24/18 11/24/18 11/24/18 05:28 06:38 06:38 WBC 9.3 RBC 5.15 Hgb 11.1 L Hct 38.7 MCV 75.1 L MCH 21.5 L MCHC 28.6 L RDW 19.9 H Plt Count 318 MPV 8.1 Neut % (Auto) 89.8 H Lymph % (Auto) 2.2 L [place] % (Auto) 7.9 Eos % (Auto) 0.0 Baso % (Auto) 0.1 Neut # (Auto) 8.3 H Lymph # (Auto) 0.2 L [place] # (Auto) 0.7 Eos # (Auto) 0.0 Baso # (Auto) 0.0 Neutrophils % (Manual) 90 H Band Neutrophils % 2 Lymphocytes % (Manual) 2 L Monocytes % (Manual) 6 Platelet Estimate Normal Anisocytosis (manual) Moderate Puncture Site Lr pCO2 72 H* pO2 63 L HCO3 39.4 H ABG pH 7.42 ABG Total CO2 48.9 H ABG O2 Saturation 93.4 L ABG Base Excess 18.8 H ABG Hemoglobin 11.6 L ABG Carboxyhemoglobin 2.2 H POC ABG HHb (Measured) 6.4 H ABG Methemoglobin 0.8 Robert Test Pos A-a O2 Difference 560.0 Respiratory Index 8.9 Hgb O2 Saturation 90.7 L Vent Mode Prvc Mechanical Rate 16 FiO2 100.0 Tidal Volume 500 PEEP 10 Crit Value Called To Paty rn Crit Value Called By Brianna instant print operator Crit Value Read Back Y Blood Gas Notified Time 532 Sodium 153 H Potassium 4.1 Chloride 102 Carbon Dioxide 40 H* Anion Gap 15 BUN 129 H* D Creatinine 2.5 H Est GFR ( Amer) 31 Est GFR (Non-Af Amer) 26 Random Glucose 134 H Calcium 8.7 Phosphorus 6.0 H Magnesium 2.4 H Total Bilirubin 0.7 AST 48 ALT 21 D Alkaline Phosphatase 57 Total Protein 6.1 L Albumin 3.2 L Globulin 2.9 Albumin/Globulin Ratio 1.1 Radiology Impressions: Radiology Impressions Joint Effusion 11/24/18 09:41 Impression: Small bilateral pleural effusions; right greater than left. Critical Care Progress Note - Nutrition Nutrition: Nutrition Category Date Time Status NPO Diet [DIET] Diets 11/22/18 Dinner Active Assessment/Plan (1) Cardiac arrest Current Visit: Yes Status: Acute (2) COPD (chronic obstructive pulmonary disease) Current Visit: Yes Status: Acute (3) Ventricular tachycardia Current Visit: Yes Status: Acute (4) Congestive heart failure Current Visit: No Status: Acute (5) PHT (pulmonary hypertension) Current Visit: Yes Status: Acute Attending/Attestation - Attestation I have personally seen and examined this patient.: Yes I have fully participated in the care of the patient.: Yes I have reviewed all pertinent clinical information: Yes Notes (Text): 11/24/18 17:24 Patient seen and examined in the intensive care unit. Remained intubated requiring high FiO2 with PEEP of 10 Saturation 90% Sedated Continue feeding Consider tracheostomy as it is difficult to lower the FiO2 Consider PEG insertion Continue antibiotics Discontinue Lasix drip and start fluid
--- NOTE | 2018-11-24 11:59 | PN ---
DATE: 11/24/2018 LOCATION: ICU 17. SUBJECTIVE: This is a 72-year-old male seen early in rounds, post the trial for PEG insertion yesterday, I was not able to pass the scope through the posterior oral cavity due to large ET tube, as the patient was intubated to vent. At this point, the procedure was terminated to avoid any potential high risk of complications or/and bleeding with perforation. The patient is still intubated to vent and the patient still have NG tube in place. The entire chart was reviewed including but not limited to the most recent lab and radiology study results, current and the previous medication list, current and the previous medical events. Today's blood workup showed hemoglobin of 11.1 with low indices and a normal white blood cells as well as normal platelet count with abnormal ABGs. Sodium level is 153, CO2 content of 40, BUN 129, creatinine 2.5, blood glucose level 134 with increased phosphorus at 6, magnesium 2.4, albumin 3.2, total protein 6.1. PHYSICAL EXAMINATION: GENERAL: A 72-year-old male, intubated, sedated. VITAL SIGNS: Afebrile with pulse of 88 and blood pressure 110/58. HEENT: Showed pale, dry oral mucous membrane. T-tube as well as NG tube are in place with nonicteric sclerae. LUNGS: Scattered bilateral crepitation with decreased air entry at bases. HEART: Positive S1 and S2. ABDOMEN: Soft with mild distention. Bowel sounds are hypoactive. No mass or organomegaly. No rebound tenderness or guarding. EXTREMITIES: With lower extremity edematous changes. No clubbing or cyanosis. NEUROLOGIC: No reported new neurological deficits, sensory or motor. The patient is sedated. IMPRESSION: 1. Malnutrition with hypoalbuminemia hypoproteinemia. 2. The patient is a candidate for percutaneous endoscopic gastrostomy insertion post tracheostomy at this point due to the size of the T-tube 3. Anemia, secondary to above. 4. Acute renal failure, dehydration with prerenal azotemia. 5. Pneumonia and respiratory failure. 6. Status post code. 7. Electrolyte imbalance. 8. Known history of hypertension. SUGGESTIONS: 1. Continue current management. 2. Peripheral hyperalimentation. 3. Reschedule PEG insertion when the patient is more stable clinically and post tracheostomy. Thank you for letting me participate in your patient's case management. Further evaluation and recommendation to follow. Dakota Mercado MD
--- NOTE | 2018-11-24 13:13 | US ---
Limited bilateral hemithorax chest ultrasound HISTORY: Pleural effusion. COMPARISON: X-ray dated 11/22/2018 Technique: Limited real-time sonography was performed through the bilateral hemithoraces of the chest. FINDINGS: Small bilateral pleural effusions were noted; right greater than left. Impression: Small bilateral pleural effusions; right greater than left.
[2018-11-24] MEDS: Acetaminophen 650mg/20.3ml solution UD PO PRN ×2 (15:19→23:39)
--- NOTE | 2018-11-24 19:10 | CP.PCM.PCO ---
Physician Communication Note - Physician Communication Note Physician Communication Note: Plan for OR 11/26 for Tracheostomy and open G-Tube placement
[2018-11-25] MEDS: Albuterol-Ipratrop 3 mg / 0.5 (3 ml) UD INH SCH ×6 (00:15→20:09)
[2018-11-25] MEDS: Propofol 10 mg/ml 1,000 MG/100 ML VIAL IV PRN ×5 (04:16→21:02)
[2018-11-25] MEDS: metroNIDAZOLE IV 500 mg/100 ml 500 MG/100 ML BAG IVPB SCH ×2 (04:17→08:00)
[2018-11-25] MEDS: MethylPREDNISolone 40 mg Vial IVP SCH ×4 (04:17→23:30)
[2018-11-25 05:39] LABS: ABG ALLEN TEST POS; ARTERIAL BLOOD GAS HCO3 36.9 mmol/L (21-28); ARTERIAL BLOOD GAS O2 SAT 87.5 % (95-98); ARTERIAL BLOOD GAS PCO2 68 mm/Hg (35-45); ARTERIAL BLOOD GAS PH 7.41 (7.35-7.45); ARTERIAL BLOOD GAS PO2 50 mm/Hg (80-100); ARTERIAL BLOOD GAS TCO2 45.2 mmol/L (22-28)
[2018-11-25 05:53] LABS: BASO # 0.1 K/uL (0.0-0.2); BASO % 1.1 % (0.0-2.0); LYMPH # 0.4 K/uL (1.0-4.3); LYMPH % 3.9 % (20.0-40.0); MEAN CELL VOLUME 75.9 fL (80.0-94.0); MEAN CORPUSCULAR HEMOGLOBIN 21.4 pg (27.0-31.0); MEAN CORPUSCULAR HGB CONC 28.2 g/dL (33.0-37.0); MEAN PLATELET VOLUME 8.4 fL (7.2-11.7); MONO # 0.6 K/uL (0.0-0.8); MONO % 5.6 % (0.0-10.0); NEUT # 9.2 K/uL (1.8-7.0); NEUT % 89.4 % (50.0-75.0); PLATELET COUNT 282 K/uL (130-400); RBC 5.13 Mil/uL (4.40-5.90); RED CELL DISTRIBUTION WIDTH 20.5 % (11.5-14.5); WHITE BLOOD COUNT 10.3 K/uL (4.8-10.8)
[2018-11-25 06:17] LABS: CALCIUM 8.5 mg/dl (8.6-10.4)
--- NOTE | 2018-11-25 08:50 | RAD ---
Chest x-ray single frontal view HISTORY: Ventilator. Comparison: 11/22/2018 Findings: Endotracheal tube extending into the midthoracic trachea. NG tube extending into the stomach. Moderate to severe venous congestion. Confluent consolidative opacification in the mid to lower lung zones with moderate right and small left pleural effusions. Bilateral hilar prominence. Cardiomegaly. Atherosclerotic calcification at the aortic knob. Degenerative changes in the spine and shoulders. Impression: Endotracheal tube extending into the midthoracic trachea. NG tube extending into the stomach. Moderate to severe venous congestion. Confluent consolidative opacification in the mid to lower lung zones with moderate right and small left pleural effusions. Bilateral hilar prominence. Cardiomegaly. Atherosclerotic calcification at the aortic knob.
[2018-11-25 08:56] LABS: LYMPHOCYTE 2 % (20-40); MONOCYTE 5 % (0-10); NEUTROPHIL 93 % (50-75); TOTAL CELLS COUNTED 100
[2018-11-25 08:57] LABS: ANISOCYTOSIS MODERATE; HYPOCHROMIC SLIGHT; PLATELET ESTIMATE NORMAL (NORMAL)
[2018-11-25] MEDS: Sodium Chloride 0.45% 1,000 ML IV SCH ×2 (09:00→16:13)
[2018-11-25] MEDS: Enoxaparin 40 mg Syringe SC SCH (09:47)
[2018-11-25] MEDS ORDERED: Piperacill/Tazo 2.25gm in Dex 2.25 GM/50 ML BAG IVPB SCH (10:00)
[2018-11-25] MEDS: Piperacill/Tazo 2.25gm in Dex 2.25 GM/50 ML BAG IVPB SCH ×3 (10:00→22:45)
[2018-11-25] MEDS ORDERED: Azithromycin 500 MG in Sodium Chloride 0.9% 250 ML IVPB SCH (10:00)
[2018-11-25] MEDS ORDERED: Vancomycin 1 gm/NS 200 ml 1 GM/200 ML BAG IVPB SCH (11:00)
--- NOTE | 2018-11-25 11:22 | CP.CCUPN ---
<Alexander Weinstein - Last Filed: 11/25/18 11:19> CCU Subjective - Physician Review Subjective (Free Text): 11/25/18 11:19 PGY-1 Critical Care Progress Note for Dr. Summers Seen and examined at bedside this AM Sedated, on propofol and fentanyl gtt on mechanical vent, FIO2 remains 100%, PEEP increased to 12 tolerating feeds via OGT PEG not inserted d/t difficult intubation of scope. Consider tracheostomy as it is difficult to lower the FiO2 on 07/22 NS CXR: consolidative opacities in mid to lower lung zones with b/l pleural effusions Begin vanc/zosyn, azithro for atypical coverage CCU Objective - Vital Signs / Intake & Output Vital Signs (Last 4 hours): Vital Signs Temp Pulse Resp BP Pulse Ox 11/25/18 10:29 92/51 L 11/25/18 10:28 68 16 92 L 11/25/18 10:00 69 16 91 L 11/25/18 09:59 71 16 99/57 L 91 L 11/25/18 09:29 69 16 98/54 L 91 L 11/25/18 09:00 71 16 90 L 11/25/18 08:59 70 16 97/53 L 90 L 11/25/18 08:30 74 16 106/56 L 90 L 11/25/18 08:29 75 16 90 L 11/25/18 08:00 98.1 F 74 16 105/57 L 90 L 11/25/18 07:30 77 16 106/57 L 92 L Intake and Output (Last 8hrs): Intake & Output 11/24/18 11/25/18 11/25/18 22:59 06:59 14:59 Intake Total 1519.3 1340.4 1099.0 Output Total 645 900 500 Balance 874.3 440.4 599.0 Intake: IV 200 100 350 Intake, IV Amount 1049.3 1020.4 649.0 R FA 2 Y Port 85.5 65.6 41.0 Right Forearm #1 163.8 154.8 108.0 Right Forearm #2 800 800 500 Tube Feeding 160 160 100 Other 110 60 Output: Urine 645 900 500 Urethral (Tabor) 645 900 500 Other: # Bowel Movements 0 0 0 - Physical Exam Head: Positive for: Atraumatic, Normocephalic Pupils: Positive for: PERRL Extroacular Muscles: Positive for: EOMI Conjunctiva: Positive for: Normal Ears: Positive for: Normal Mouth: Positive for: Moist Mucous Membranes Respiratory/Chest: Positive for: Good Air Exchange, Decreased Breath Sounds (on left lung oakes), Other (intubated, on vent) Cardiovascular: Positive for: Regular Rate and Rhythm Abdomen: Positive for: Normal Bowel Sounds. Negative for: Tenderness, Di stention Upper Extremity: Positive for: Normal Inspection Lower Extremity: Positive for: Normal Inspection Neurological: Positive for: Other (sedated, on vent) Skin: Positive for: Dry, Normal Color Psychiatric: Positive for: Alert - Medications Active Medications: Active Medications Generic Name Dose Route Start Last Admin Trade Name Freq PRN Reason Stop Dose Admin Acetaminophen 650 mg 11/19/18 15:49 11/24/18 23:39 Tylenol 650mg/20.3ml Solution Ud PO 650 mg Q6 PRN Administration Temperature Albuterol/Ipratropium 3 ml 11/23/18 12:00 11/25/18 08:44 Duoneb 3 Mg/0.5 Mg (3 Ml) Ud INH 3 ml RQ4 DAMION Administration Aspirin 81 mg 11/22/18 10:00 11/25/18 09:46 Aspirin Chewable PO 81 mg DAILY DAMION Administration Clopidogrel Bisulfate 75 mg 11/18/18 10:00 11/25/18 09:46 Plavix PO 75 mg DAILY DAMION Administration Enoxaparin Sodium 40 mg 11/22/18 10:00 11/25/18 09:47 Lovenox SC 40 mg DAILY DAMION Administration Famotidine 20 mg 11/24/18 10:00 11/25/18 09:46 Pepcid IVP 20 mg DAILY DAMION Administration Propofol 1,000 mg in 100 mls @ 3.565 mls/hr 11/21/18 15:30 11/25/18 08:30 Diprivan IV 30 mcg/kg/min .Q24H PRN 21.391 mls/hr TITRATE PER MD ORDER Administration Protocol 5 MCG/KG/MIN Fentanyl Citrate 2,500 mcg/ 250 mls @ 23.52 mls/hr 11/22/18 09:45 11/25/18 10:29 Sodium Chloride IV 0.69 mcg/kg/hr .[id number] PRN 8.2 mls/hr TITRATION Administration Protocol 2 MCG/KG/HR Sodium Chloride 1,000 mls @ 100 mls/hr 11/24/18 09:45 11/25/18 09:00 Sodium Chloride 0.45% IV 100 mls/hr .Q10H DAMION Administration Piperacillin Sod/Tazobactam Sod 2.25 gm in 50 mls @ 100 mls/hr 11/25/18 10:00 11/25/18 10:00 Zosyn 2.25 Gm Iv Premix IVPB 100 mls/hr Q6H DAMION Administration Protocol Vancomycin HCl 1 gm/ Sodium 250 mls @ 166.7 mls/hr 11/25/18 10:30 11/25/18 10:29 Chloride IVPB 166.7 mls/hr Q24H DAMION Administration Protocol Azithromycin 500 mg/ Sodium 250 mls @ 250 mls/hr 11/25/18 12:00 Chloride IVPB Q24H DAMION Protocol Lorazepam 2 mg 11/17/18 17:40 11/24/18 03:44 Ativan IVP 2 mg Q3H PRN Administration Anxiety Methylprednisolone 20 mg 11/24/18 08:00 11/25/18 08:00 Solu-Medrol IVP 20 mg Q8H DAMION Administration Rosuvastatin Calcium 10 mg 11/19/18 22:00 11/24/18 21:08 Crestor PO 10 mg HS DAMION Administration - Patient Studies Lab Studies: Lab Studies 11/25/18 11/25/18 11/25/18 Range/Units 05:48 05:48 05:20 WBC 10.3 (4.8-10.8) K/uL RBC 5.13 (4.40-5.90) Mil/uL Hgb 11.0 L (12.0-18.0) g/dL Hct 38.9 (35.0-51.0) % MCV 75.9 L (80.0-94.0) fL MCH 21.4 L (27.0-31.0) pg MCHC 28.2 L (33.0-37.0) g/dL RDW 20.5 H (11.5-14.5) % Plt Count 282 (130-400) K/uL MPV 8.4 (7.2-11.7) fL Neut % (Auto) 89.4 H (50.0-75.0) % Lymph % (Auto) 3.9 L (20.0-40.0) % Bent % (Auto) 5.6 (0.0-10.0) % Eos % (Auto) 0.0 (0.0-4.0) % Baso % (Auto) 1.1 (0.0-2.0) % Neut # (Auto) 9.2 H (1.8-7.0) K/uL Lymph # (Auto) 0.4 L (1.0-4.3) K/uL Bent # (Auto) 0.6 (0.0-0.8) K/uL Eos # (Auto) 0.0 (0.0-0.7) K/uL Baso # (Auto) 0.1 (0.0-0.2) K/uL Neutrophils % (Manual) 93 H (50-75) % Lymphocytes % (Manual) 2 L (20-40) % Monocytes % (Manual) 5 (0-10) % Platelet Estimate Normal (NORMAL) Hypochromasia (manual) Slight Anisocytosis (manual) Moderate Puncture Site Rr pCO2 68 H (35-45) mm/Hg pO2 50 L (80-100) mm/Hg HCO3 36.9 H (21-28) mmol/L ABG pH 7.41 (7.35-7.45) ABG Total CO2 45.2 H (22-28) mmol/L ABG O2 Saturation 87.5 L (95-98) % ABG Base Excess 15.7 H (-2.0-3.0) mmol/L ABG Hemoglobin 11.0 L (11.7-17.4) g/dL ABG Carboxyhemoglobin 2.5 H (0.5-1.5) % POC ABG HHb (Measured) 12.1 H (0.0-5.0) % ABG Methemoglobin 0.9 (0.0-3.0) % Robert Test Pos A-a O2 Difference 578.0 mm/Hg Respiratory Index 11.6 Hgb O2 Saturation 84.6 L (95.0-98.0) % Vent Mode Prvc Mechanical Rate 16 FiO2 100.0 % Tidal Volume 500 PEEP 12 Sodium 153 H (132-148) mmol/L Potassium 4.0 (3.6-5.2) mmol/L Chloride 105 (98-107) mmol/L Carbon Dioxide 39 H (22-30) mmol/L Anion Gap 13 (10-20) BUN 145 H* (9-20) mg/dL Creatinine 2.2 H (0.8-1.5) mg/dL Est GFR ( Amer) 36 Est GFR (Non-Af Amer) 30 Random Glucose 148 H (75-110) mg/dL Calcium 8.5 L (8.6-10.4) mg/dl Phosphorus 5.9 H (2.5-4.5) mg/dL Magnesium 2.7 H (1.6-2.3) mg/dL Total Bilirubin 0.9 (0.2-1.3) mg/dL AST 65 H D (17-59) U/L ALT 30 (21-72) U/L Alkaline Phosphatase 53 (38-126) U/L Total Protein 6.0 L (6.3-8.3) g/dL Albumin 3.0 L (3.5-5.0) g/dL Globulin 3.0 (2.2-3.9) gm/dL Albumin/Globulin Ratio 1.0 (1.0-2.1) Laboratory Results - last 24 hr 11/25/18 11/25/18 11/25/18 05:20 05:48 05:48 WBC 10.3 RBC 5.13 Hgb 11.0 L Hct 38.9 MCV 75.9 L MCH 21.4 L MCHC 28.2 L RDW 20.5 H Plt Count 282 MPV 8.4 Neut % (Auto) 89.4 H Lymph % (Auto) 3.9 L Bent % (Auto) 5.6 Eos % (Auto) 0.0 Baso % (Auto) 1.1 Neut # (Auto) 9.2 H Lymph # (Auto) 0.4 L Bent # (Auto) 0.6 Eos # (Auto) 0.0 Baso # (Auto) 0.1 Neutrophils % (Manual) 93 H Lymphocytes % (Manual) 2 L Monocytes % (Manual) 5 Platelet Estimate Normal Hypochromasia (manual) Slight Anisocytosis (manual) Moderate Puncture Site Rr pCO2 68 H pO2 50 L HCO3 36.9 H ABG pH 7.41 ABG Total CO2 45.2 H ABG O2 Saturation 87.5 L ABG Base Excess 15.7 H ABG Hemoglobin 11.0 L ABG Carboxyhemoglobin 2.5 H POC ABG HHb (Measured) 12.1 H ABG Methemoglobin 0.9 Robert Test Pos A-a O2 Difference 578.0 Respiratory Index 11.6 Hgb O2 Saturation 84.6 L Vent Mode Prvc Mechanical Rate 16 FiO2 100.0 Tidal Volume 500 PEEP 12 Sodium 153 H Potassium 4.0 Chloride 105 Carbon Dioxide 39 H Anion Gap 13 BUN 145 H* Creatinine 2.2 H Est GFR ( Amer) 36 Est GFR (Non-Af Amer) 30 Random Glucose 148 H Calcium 8.5 L Phosphorus 5.9 H Magnesium 2.7 H Total Bilirubin 0.9 AST 65 H D ALT 30 Alkaline Phosphatase 53 Total Protein 6.0 L Albumin 3.0 L Globulin 3.0 Albumin/Globulin Ratio 1.0 Radiology Impressions: Radiology Impressions Joint Effusion US 11/24/18 09:41 Impression: Small bilateral pleural effusions; right greater than left. Chest X-Ray 11/25/18 07:00 Impression: Endotracheal tube extending into the midthoracic trachea. NG tube extending into the stomach. Moderate to severe venous congestion. Confluent consolidative opacification in the mid to lower lung zones with moderate right and small left pleural effusions. Bilateral hilar prominence. Cardiomegaly. Atherosclerotic calcification at the aortic knob. Review of Systems - Review of Systems All systems: reviewed and no additional remarkable complaints except Review of Systems: as per HPI Critical Care Progress Note - Nutrition Nutrition: Nutrition Category Date Time Status NPO Diet [DIET] Diets 11/22/18 Dinner Active NPO Diet [DIET] Diets 11/26/18 Breakfast Active Assessment/Plan - Assessment and Plan (Free Text) Assessment: 72 year old male presenting to ED in cardiac arrest, s/p cardiac cath (Dr. Valencia) with clean coronaries. Patient remains unresponsive, on mechanical vent with high FIO2. 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 Waters) appreciated -tracheostomy on hold -Imaging -CTA (11/18): Moderately large pericardial effusion. No PE. Extensive L pulmonary atelectasis. Possible R lung nodule. Dilated main pulmonary artery may indicate pulmonary HTN. CV -Cardiac arrest/v tach/v fib -R Ventricular Hypertrophy, cor pulmonale -Cardiac recs (Dr. Valencia) appreciated -s/p cath with no acute findings, clean coronary arteries -Imaging -ECHO (11/17): EF 45-50%. LV systolic function mildly impaired. Small-moderate pericardial effusion. Significant R ventricular hypertrophy. -repeat ECHO (11/20): no noted enlargement, f/u official reported -Meds -DAPT: ASA 81 mg PO daily, Plavix 75 mg PO daily Heme -no acute issues Renal -acute renal failure -BUN/Cr increasing -Nephrology (Dr. Stephens) recs appreciated -lasix gtt d/c'd, begin 07/22 NS @ 100cc/hr -solumedrol reduced to 20 mg IVP q8 GI -Coffee ground emesis noted 11/17 in NGT -GI recs (Dr. Wei) appreciated -s/p EGD (11/19): gastritis and diffuse duodenitis -PEG unsuccessful to due to difficulty advancing scope during intubation -Meds -Pepcid 20 mg PO BID -Reglan 5 mg IVP q8 -flagyl d/c'd ID -worsening CXR -begin vanc/zosyn, azithro for atypical coverage -f/u sputum cultures PPx, Diet, Disposition -DVT ppx: lovenox -GI ppx: pepcid 20 mg IVP q12 -Diet: tube feeds; OG tube Case discussed with Dr. Kristopher Weinstein DO, PGY-1 <Jr Summers S - Last Filed: 11/25/18 17:02> CCU Subjective - Physician Review Critical Care Time Spent (in minutes): 40 CCU Objective - Vital Signs / Intake & Output Vital Signs (Last 4 hours): Vital Signs Temp Pulse Resp BP Pulse Ox 11/25/18 16:00 98.8 F 11/25/18 15:00 79 16 96/48 L 91 L 11/25/18 14:29 72 16 107/56 L 90 L 11/25/18 14:00 68 16 101/52 L 88 L 11/25/18 13:30 70 16 104/52 L 88 L Intake and Output (Last 8hrs): Intake & Output 05/03/0811/25/18 11/25/18 06:59 14:59 22:59 Intake Total 1340.4 1648.4 399.6 Output Total 900 500 Balance 440.4 1148.4 399.6 Intake: IV 100 450 100 Intake, IV Amount 1020.4 1038.4 259.6 R FA 2 Y Port 65.6 65.6 16.4 Right Forearm #1 154.8 172.8 43.2 Right Forearm #2 800 800 200 Tube Feeding 160 160 40 Other 60 Output: Urine 900 500 Urethral (Tabor) 900 500 Other: # Bowel Movements 0 0 - Medications Active Medications: Active Medications Generic Name Dose Route Start Last Admin Trade Name Freq PRN Reason Stop Dose Admin Acetaminophen 650 mg 11/19/18 15:49 11/24/18 23:39 Tylenol 650mg/20.3ml Solution Ud PO 650 mg Q6 PRN Administration Temperature Albuterol/Ipratropium 3 ml 11/23/18 12:00 11/25/18 15:57 Duoneb 3 Mg/0.5 Mg (3 Ml) Ud INH 3 ml RQ4 DAMION Administration Aspirin 81 mg 11/22/18 10:00 11/25/18 09:46 Aspirin Chewable PO 81 mg DAILY DAMION Administration Clopidogrel Bisulfate 75 mg 11/18/18 10:00 11/25/18 09:46 Plavix PO 75 mg DAILY DAMION Administration Enoxaparin Sodium 40 mg 11/22/18 10:00 11/25/18 09:47 Lovenox SC 40 mg DAILY DAMION Administration Famotidine 20 mg 11/24/18 10:00 11/25/18 09:46 Pepcid IVP 20 mg DAILY DAMION Administration Propofol 1,000 mg in 100 mls @ 3.565 mls/hr 11/21/18 15:30 11/25/18 16:12 Diprivan IV 30 mcg/kg/min .Q24H PRN 21.391 mls/hr TITRATE PER MD ORDER Administration Protocol 5 MCG/KG/MIN Fentanyl Citrate 2,500 mcg/ 250 mls @ 23.52 mls/hr 11/22/18 09:45 11/25/18 10:29 Sodium Chloride IV 0.69 mcg/kg/hr .[id number] PRN 8.2 mls/hr TITRATION Administration Protocol 2 MCG/KG/HR Sodium Chloride 1,000 mls @ 100 mls/hr 11/24/18 09:45 11/25/18 16:13 Sodium Chloride 0.45% IV Not Given .Q10H DAMION Piperacillin Sod/Tazobactam Sod 2.25 gm in 50 mls @ 100 mls/hr 11/25/18 10:00 11/25/18 16:00 Zosyn 2.25 Gm Iv Premix IVPB 100 mls/hr Q6H DAMION Administration Protocol Vancomycin HCl 1 gm/ Sodium 250 mls @ 166.7 mls/hr 11/25/18 10:30 11/25/18 10:29 Chloride IVPB 166.7 mls/hr Q24H DAMION Administration Protocol Azithromycin 500 mg/ Sodium 250 mls @ 250 mls/hr 11/25/18 12:00 11/25/18 12:00 Chloride IVPB 250 mls/hr Q24H DAMION Administration Protocol Lorazepam 2 mg 11/17/18 17:40 11/24/18 03:44 Ativan IVP 2 mg Q3H PRN Administration Anxiety Methylprednisolone 20 mg 11/24/18 08:00 11/25/18 08:00 Solu-Medrol IVP 20 mg Q8H DAMION Administration Rosuvastatin Calcium 10 mg 11/19/18 22:00 11/24/18 21:08 Crestor PO 10 mg HS DAMION Administration - Patient Studies Lab Studies: Lab Studies 11/25/18 11/25/18 11/25/18 Range/Units 10:31 05:48 05:48 WBC 10.3 (4.8-10.8) K/uL RBC 5.13 (4.40-5.90) Mil/uL Hgb 11.0 L (12.0-18.0) g/dL Hct 38.9 (35.0-51.0) % MCV 75.9 L (80.0-94.0) fL MCH 21.4 L (27.0-31.0) pg MCHC 28.2 L (33.0-37.0) g/dL RDW 20.5 H (11.5-14.5) % Plt Count 282 (130-400) K/uL MPV 8.4 (7.2-11.7) fL Neut % (Auto) 89.4 H (50.0-75.0) % Lymph % (Auto) 3.9 L (20.0-40.0) % Bent % (Auto) 5.6 (0.0-10.0) % Eos % (Auto) 0.0 (0.0-4.0) % Baso % (Auto) 1.1 (0.0-2.0) % Neut # (Auto) 9.2 H (1.8-7.0) K/uL Lymph # (Auto) 0.4 L (1.0-4.3) K/uL Bent # (Auto) 0.6 (0.0-0.8) K/uL Eos # (Auto) 0.0 (0.0-0.7) K/uL Baso # (Auto) 0.1 (0.0-0.2) K/uL Neutrophils % (Manual) 93 H (50-75) % Lymphocytes % (Manual) 2 L (20-40) % Monocytes % (Manual) 5 (0-10) % Platelet Estimate Normal (NORMAL) Hypochromasia (manual) Slight Anisocytosis (manual) Moderate Puncture Site pCO2 (35-45) mm/Hg pO2 (80-100) mm/Hg HCO3 (21-28) mmol/L ABG pH (7.35-7.45) ABG Total CO2 (22-28) mmol/L ABG O2 Saturation (95-98) % ABG Base Excess (-2.0-3.0) mmol/L ABG Hemoglobin (11.7-17.4) g/dL ABG Carboxyhemoglobin (0.5-1.5) % POC ABG HHb (Measured) (0.0-5.0) % ABG Methemoglobin (0.0-3.0) % Robert Test A-a O2 Difference mm/Hg Respiratory Index Hgb O2 Saturation (95.0-98.0) % Vent Mode Mechanical Rate FiO2 % Tidal Volume PEEP Sodium 153 H (132-148) mmol/L Potassium 4.0 (3.6-5.2) mmol/L Chloride 105 (98-107) mmol/L Carbon Dioxide 39 H (22-30) mmol/L Anion Gap 13 (10-20) BUN 145 H* (9-20) mg/dL Creatinine 2.2 H (0.8-1.5) mg/dL Est GFR ( Amer) 36 Est GFR (Non-Af Amer) 30 Random Glucose 148 H (75-110) mg/dL Calcium 8.5 L (8.6-10.4) mg/dl Phosphorus 5.9 H (2.5-4.5) mg/dL Magnesium 2.7 H (1.6-2.3) mg/dL Total Bilirubin 0.9 (0.2-1.3) mg/dL AST 65 H D (17-59) U/L ALT 30 (21-72) U/L Alkaline Phosphatase 53 (38-126) U/L Total Protein 6.0 L (6.3-8.3) g/dL Albumin 3.0 L (3.5-5.0) g/dL Globulin 3.0 (2.2-3.9) gm/dL Albumin/Globulin Ratio 1.0 (1.0-2.1) Procalcitonin 0.18 L (0.19-0.49) NG/ML 11/25/18 Range/Units 05:20 WBC (4.8-10.8) K/uL RBC (4.40-5.90) Mil/uL Hgb (12.0-18.0) g/dL Hct (35.0-51.0) % MCV (80.0-94.0) fL MCH (27.0-31.0) pg MCHC (33.0-37.0) g/dL RDW (11.5-14.5) % Plt Count (130-400) K/uL MPV (7.2-11.7) fL Neut % (Auto) (50.0-75.0) % Lymph % (Auto) (20.0-40.0) % Bent % (Auto) (0.0-10.0) % Eos % (Auto) (0.0-4.0) % Baso % (Auto) (0.0-2.0) % Neut # (Auto) (1.8-7.0) K/uL Lymph # (Auto) (1.0-4.3) K/uL Bent # (Auto) (0.0-0.8) K/uL Eos # (Auto) (0.0-0.7) K/uL Baso # (Auto) (0.0-0.2) K/uL Neutrophils % (Manual) (50-75) % Lymphocytes % (Manual) (20-40) % Monocytes % (Manual) (0-10) % Platelet Estimate (NORMAL) Hypochromasia (manual) Anisocytosis (manual) Puncture Site Rr pCO2 68 H (35-45) mm/Hg pO2 50 L (80-100) mm/Hg HCO3 36.9 H (21-28) mmol/L ABG pH 7.41 (7.35-7.45) ABG Total CO2 45.2 H (22-28) mmol/L ABG O2 Saturation 87.5 L (95-98) % ABG Base Excess 15.7 H (-2.0-3.0) mmol/L ABG Hemoglobin 11.0 L (11.7-17.4) g/dL ABG Carboxyhemoglobin 2.5 H (0.5-1.5) % POC ABG HHb (Measured) 12.1 H (0.0-5.0) % ABG Methemoglobin 0.9 (0.0-3.0) % Robert Test Pos A-a O2 Difference 578.0 mm/Hg Respiratory Index 11.6 Hgb O2 Saturation 84.6 L (95.0-98.0) % Vent Mode Prvc Mechanical Rate 16 FiO2 100.0 % Tidal Volume 500 PEEP 12 Sodium (132-148) mmol/L Potassium (3.6-5.2) mmol/L Chloride (98-107) mmol/L Carbon Dioxide (22-30) mmol/L Anion Gap (10-20) BUN (9-20) mg/dL Creatinine (0.8-1.5) mg/dL Est GFR ( Amer) Est GFR (Non-Af Amer) Random Glucose (75-110) mg/dL Calcium (8.6-10.4) mg/dl Phosphorus (2.5-4.5) mg/dL Magnesium (1.6-2.3) mg/dL Total Bilirubin (0.2-1.3) mg/dL AST (17-59) U/L ALT (21-72) U/L Alkaline Phosphatase (38-126) U/L Total Protein (6.3-8.3) g/dL Albumin (3.5-5.0) g/dL Globulin (2.2-3.9) gm/dL Albumin/Globulin Ratio (1.0-2.1) Procalcitonin (0.19-0.49) NG/ML Laboratory Results - last 24 hr 11/25/18 11/25/18 11/25/18 05:20 05:48 05:48 WBC 10.3 RBC 5.13 Hgb 11.0 L Hct 38.9 MCV 75.9 L MCH 21.4 L MCHC 28.2 L RDW 20.5 H Plt Count 282 MPV 8.4 Neut % (Auto) 89.4 H Lymph % (Auto) 3.9 L Bent % (Auto) 5.6 Eos % (Auto) 0.0 Baso % (Auto) 1.1 Neut # (Auto) 9.2 H Lymph # (Auto) 0.4 L Bent # (Auto) 0.6 Eos # (Auto) 0.0 Baso # (Auto) 0.1 Neutrophils % (Manual) 93 H Lymphocytes % (Manual) 2 L Monocytes % (Manual) 5 Platelet Estimate Normal Hypochromasia (manual) Slight Anisocytosis (manual) Moderate Puncture Site Rr pCO2 68 H pO2 50 L HCO3 36.9 H ABG pH 7.41 ABG Total CO2 45.2 H ABG O2 Saturation 87.5 L ABG Base Excess 15.7 H ABG Hemoglobin 11.0 L ABG Carboxyhemoglobin 2.5 H POC ABG HHb (Measured) 12.1 H ABG Methemoglobin 0.9 Robert Test Pos A-a O2 Difference 578.0 Respiratory Index 11.6 Hgb O2 Saturation 84.6 L Vent Mode Prvc Mechanical Rate 16 FiO2 100.0 Tidal Volume 500 PEEP 12 Sodium 153 H Potassium 4.0 Chloride 105 Carbon Dioxide 39 H Anion Gap 13 BUN 145 H* Creatinine 2.2 H Est GFR ( Amer) 36 Est GFR (Non-Af Amer) 30 Random Glucose 148 H Calcium 8.5 L Phosphorus 5.9 H Magnesium 2.7 H Total Bilirubin 0.9 AST 65 H D ALT 30 Alkaline Phosphatase 53 Total Protein 6.0 L Albumin 3.0 L Globulin 3.0 Albumin/Globulin Ratio 1.0 Procalcitonin 11/25/18 10:31 WBC RBC Hgb Hct MCV MCH MCHC RDW Plt Count MPV Neut % (Auto) Lymph % (Auto) Bent % (Auto) Eos % (Auto) Baso % (Auto) Neut # (Auto) Lymph # (Auto) Bent # (Auto) Eos # (Auto) Baso # (Auto) Neutrophils % (Manual) Lymphocytes % (Manual) Monocytes % (Manual) Platelet Estimate Hypochromasia (manual) Anisocytosis (manual) Puncture Site pCO2 pO2 HCO3 ABG pH ABG Total CO2 ABG O2 Saturation ABG Base Excess ABG Hemoglobin ABG Carboxyhemoglobin POC ABG HHb (Measured) ABG Methemoglobin Robert Test A-a O2 Difference Respiratory Index Hgb O2 Saturation Vent Mode Mechanical Rate FiO2 Tidal Volume PEEP Sodium Potassium Chloride Carbon Dioxide Anion Gap BUN Creatinine Est GFR ( Amer) Est GFR (Non-Af Amer) Random Glucose Calcium Phosphorus Magnesium Total Bilirubin AST ALT Alkaline Phosphatase Total Protein Albumin Globulin Albumin/Globulin Ratio Procalcitonin 0.18 L Radiology Impressions: Radiology Impressions Chest X-Ray 11/25/18 07:00 Impression: Endotracheal tube extending into the midthoracic trachea. NG tube extending into the stomach. Moderate to severe venous congestion. Confluent consolidative opacification in the mid to lower lung zones with moderate right and small left pleural effusions. Bilateral hilar prominence. Cardiomegaly. Atherosclerotic calcification at the aortic knob. Critical Care Progress Note - Nutrition Nutrition: Nutrition Category Date Time Status NPO Diet [DIET] Diets 11/22/18 Dinner Active NPO Diet [DIET] Diets 11/26/18 Breakfast Active Assessment/Plan (1) Cardiac arrest Current Visit: Yes Status: Acute (2) COPD (chronic obstructive pulmonary disease) Current Visit: Yes Status: Acute (3) Ventricular tachycardia Current Visit: Yes Status: Acute (4) Congestive heart failure Current Visit: No Status: Acute (5) PHT (pulmonary hypertension) Current Visit: Yes Status: Acute Attending/Attestation - Attestation I have personally seen and examined this patient.: Yes I have fully participated in the care of the patient.: Yes I have reviewed all pertinent clinical information: Yes Notes (Text): 11/25/18 17:01 Patient seen and examined in the intensive care unit. On ventilatory support FiO2 100% and PEEP increased to 12 overnight For tracheostomy tomorrow Possible PEG insertion Continue present treatment Continue IV fluids Monitor renal function New right lower lung infiltrate and patient started on Zosyn and vancomycin
[2018-11-25] MEDS: Azithromycin 500 MG in Sodium Chloride 0.9% 250 ML IVPB SCH (12:00)
--- NOTE | 2018-11-25 15:37 | CP.PCM.PN ---
Subjective - Date & Time of Evaluation Date of Evaluation: 11/25/18 Time of Evaluation: 15:35 - Subjective Subjective: on respirator at [id number] unresponsive on IVGF for trach and peg planned unable to obtain ROS Objective - Vital Signs/Intake and Output Vital Signs (last 24 hours): Temp Pulse Resp BP Pulse Ox 98.1 F 79 16 96/48 L 91 L 11/25/18 08:00 11/25/18 15:00 11/25/18 15:00 11/25/18 15:00 11/25/18 15:00 Intake and Output: 11/25/18 11/25/18 06:59 18:59 Intake Total 2146.5 1798.2 Output Total 1235 500 Balance 911.5 1298.2 - Medications Medications: Current Medications Acetaminophen (Tylenol 650mg/20.3ml Solution Ud) 650 mg PO Q6 PRN PRN Reason: Temperature Last Admin: 11/24/18 23:39 Dose: 650 mg Albuterol/Ipratropium (Duoneb 3 Mg/0.5 Mg (3 Ml) Ud) 3 ml INH RQ4 [facility] Last Admin: 11/25/18 12:01 Dose: 3 ml Aspirin (Aspirin Chewable) 81 mg PO DAILY [facility] Last Admin: 11/25/18 09:46 Dose: 81 mg Clopidogrel Bisulfate (Plavix) 75 mg PO DAILY [facility] Last Admin: 11/25/18 09:46 Dose: 75 mg Enoxaparin Sodium (Lovenox) 40 mg SC DAILY [facility] Last Admin: 11/25/18 09:47 Dose: 40 mg Famotidine (Pepcid) 20 mg IVP DAILY [facility] Last Admin: 11/25/18 09:46 Dose: 20 mg Propofol (Diprivan) 1,000 mg in 100 mls @ 3.565 mls/hr IV .Q24H PRN; Protocol PRN Reason: TITRATE PER MD ORDER Last Admin: 11/25/18 11:28 Dose: 30 mcg/kg/min, 21.391 mls/hr Fentanyl Citrate 2,500 mcg/ (Sodium Chloride) 250 mls @ 23.52 mls/hr IV .[id number] PRN; Protocol PRN Reason: TITRATION Last Admin: 11/25/18 10:29 Dose: 0.69 mcg/kg/hr, 8.2 mls/hr Sodium Chloride (Sodium Chloride 0.45%) 1,000 mls @ 100 mls/hr IV .Q10H [facility] Last Admin: 11/25/18 09:00 Dose: 100 mls/hr Piperacillin Sod/Tazobactam Sod (Zosyn 2.25 Gm Iv Premix) 2.25 gm in 50 mls @ 100 mls/hr IVPB Q6H [facility]; Protocol Last Admin: 11/25/18 10:00 Dose: 100 mls/hr Vancomycin HCl 1 gm/ Sodium (Chloride) 250 mls @ 166.7 mls/hr IVPB Q24H [facility]; Protocol Last Admin: 11/25/18 10:29 Dose: 166.7 mls/hr Azithromycin 500 mg/ Sodium (Chloride) 250 mls @ 250 mls/hr IVPB Q24H [facility]; Protocol Last Admin: 11/25/18 12:00 Dose: 250 mls/hr Lorazepam (Ativan) 2 mg IVP Q3H PRN PRN Reason: Anxiety Last Admin: 11/24/18 03:44 Dose: 2 mg Methylprednisolone (Solu-Medrol) 20 mg IVP Q8H [facility] Last Admin: 11/25/18 08:00 Dose: 20 mg Rosuvastatin Calcium (Crestor) 10 mg PO HS [facility] Last Admin: 11/24/18 21:08 Dose: 10 mg - Labs Labs: 11/25/18 05:48 11/25/18 05:48 PT 14.6 SECONDS (9.7-12.2) H 11/21/18 05:47 INR 1.3 11/21/18 05:47 APTT 31.0 SECONDS (21-34) 11/21/18 05:47 - Constitutional Appears: In Acute Distress - Head Exam Head Exam: ATRAUMATIC Additional comments: ET tube - Neck Exam Neck Exam: Full ROM. absent: Lymphadenopathy - Respiratory Exam Respiratory Exam: Clear to Ausculation Bilateral. absent: Wheezes - Cardiovascular Exam Cardiovascular Exam: REGULAR RHYTHM. absent: Rubs - GI/Abdominal Exam GI & Abdominal Exam: Soft. absent: Tenderness - Extremities Exam Extremities Exam: Pedal Edema - Neurological Exam Neurological Exam: absent: Alert, Awake Assessment and Plan - Assessment and Plan (Free Text) Assessment: nonoliguric JAREK, post cardiac arrest increasing BUN check stool guaiac continue IVF agree with reduction of steroids pt would be a poor dialysis candidate
--- NOTE | 2018-11-25 18:11 | CP.PCM.PN ---
Subjective - Date & Time of Evaluation Date of Evaluation: 11/25/18 Time of Evaluation: 18:08 - Subjective Subjective: Still intubated and sedated. No significant change cardiac in status. Objective - Vital Signs/Intake and Output Vital Signs (last 24 hours): Temp Pulse Resp BP Pulse Ox 98.8 F 72 16 110/48 L 85 L 11/25/18 16:00 11/25/18 17:44 11/25/18 17:44 11/25/18 17:44 11/25/18 17:44 Intake and Output: 11/25/18 11/25/18 06:59 18:59 Intake Total 2146.5 2197.8 Output Total 1235 810 Balance 911.5 1387.8 - Medications Medications: Current Medications Acetaminophen (Tylenol 650mg/20.3ml Solution Ud) 650 mg PO Q6 PRN PRN Reason: Temperature Last Admin: 11/24/18 23:39 Dose: 650 mg Albuterol/Ipratropium (Duoneb 3 Mg/0.5 Mg (3 Ml) Ud) 3 ml INH RQ4 [facility] Last Admin: 11/25/18 15:57 Dose: 3 ml Aspirin (Aspirin Chewable) 81 mg PO DAILY [facility] Last Admin: 11/25/18 09:46 Dose: 81 mg Clopidogrel Bisulfate (Plavix) 75 mg PO DAILY [facility] Last Admin: 11/25/18 09:46 Dose: 75 mg Enoxaparin Sodium (Lovenox) 40 mg SC DAILY [facility] Last Admin: 11/25/18 09:47 Dose: 40 mg Famotidine (Pepcid) 20 mg IVP DAILY [facility] Last Admin: 11/25/18 09:46 Dose: 20 mg Propofol (Diprivan) 1,000 mg in 100 mls @ 3.565 mls/hr IV .Q24H PRN; Protocol PRN Reason: TITRATE PER MD ORDER Last Admin: 11/25/18 16:12 Dose: 30 mcg/kg/min, 21.391 mls/hr Fentanyl Citrate 2,500 mcg/ (Sodium Chloride) 250 mls @ 23.52 mls/hr IV .[id number] PRN; Protocol PRN Reason: TITRATION Last Admin: 11/25/18 10:29 Dose: 0.69 mcg/kg/hr, 8.2 mls/hr Sodium Chloride (Sodium Chloride 0.45%) 1,000 mls @ 100 mls/hr IV .Q10H [facility] Last Admin: 11/25/18 16:13 Dose: Not Given Piperacillin Sod/Tazobactam Sod (Zosyn 2.25 Gm Iv Premix) 2.25 gm in 50 mls @ 100 mls/hr IVPB Q6H [facility]; Protocol Last Admin: 11/25/18 16:00 Dose: 100 mls/hr Vancomycin HCl 1 gm/ Sodium (Chloride) 250 mls @ 166.7 mls/hr IVPB Q24H [facility]; Protocol Last Admin: 11/25/18 10:29 Dose: 166.7 mls/hr Azithromycin 500 mg/ Sodium (Chloride) 250 mls @ 250 mls/hr IVPB Q24H [facility]; Protocol Last Admin: 11/25/18 12:00 Dose: 250 mls/hr Lorazepam (Ativan) 2 mg IVP Q3H PRN PRN Reason: Anxiety Last Admin: 11/24/18 03:44 Dose: 2 mg Methylprednisolone (Solu-Medrol) 20 mg IVP Q8H [facility] Last Admin: 11/25/18 08:00 Dose: 20 mg Rosuvastatin Calcium (Crestor) 10 mg PO HS [facility] Last Admin: 11/24/18 21:08 Dose: 10 mg - Labs Labs: 11/25/18 05:48 11/25/18 05:48 PT 14.6 SECONDS (9.7-12.2) H 11/21/18 05:47 INR 1.3 11/21/18 05:47 APTT 31.0 SECONDS (21-34) 11/21/18 05:47 - Head Exam Head Exam: NORMOCEPHALIC - Neck Exam Neck Exam: Normal Inspection - Respiratory Exam Additional comments: Intubated and sedated. - Cardiovascular Exam Cardiovascular Exam: REGULAR RHYTHM - Extremities Exam Extremities Exam: Normal Inspection - Neurological Exam Additional comments: Sedated. Assessment and Plan (1) Cardiac arrest Assessment & Plan: In sinus rhythm. Cardiac colón no new issues. In sinus rhythm with no new arrhythmia. Continue DAPT. Maintain electrolyte balance. Status: Acute (2) Ventricular tachycardia Assessment & Plan: In sinus rhythm now. Continue current care. Status: Acute (3) Congestive heart failure Assessment & Plan: CXR, worsening. Fluid management as per nephrology. Status: Acute
--- NOTE | 2018-11-25 19:13 | PN ---
DATE: 11/25/2018 LOCATION: ICU 17. SUBJECTIVE: This 72-year-old male seen and examined in rounds without significant clinical changes. He is still amputated to vent. The entire chart is reviewed including but not limited to the most recent lab and radiology study results, current and previous medication list, current and previous medical events. Case discussed with the staff at length. The most recently done chest x-ray today, official report is seen. Today's lab results showed normal white blood cells, hemoglobin of 11 with low indices, but normal platelet count with abnormal ABGs. Sodium 153, CO2 content 39, BUN 145, creatinine 2.2, blood glucose level 148, calcium 8.5, phosphorus 5.9, magnesium 2.7, AST 65 with low albumin of 3. PHYSICAL EXAMINATION: GENERAL: A 72-year-old male orally intubated and somewhat sedated. VITAL SIGNS: Afebrile with pulse of 72, blood pressure of 110/56. HEENT: Showed pale, dry oral mucous membrane. Nonicteric sclerae. LUNGS: Few scattered bilateral crepitation with bilateral rales and decreased air entry at bases. HEART: Positive S1 and S2. ABDOMEN: Mildly distended, mildly obese. Bowel sounds are hypoactive. No mass or organomegaly. No rebound tenderness or guarding. EXTREMITIES: With lower extremity edematous changes. No clubbing or cyanosis. No reported new neurological deficits, sensory or motor. No new focal deficits reported. IMPRESSION: 1. Dysphagia. 2. Malnutrition with hypoalbuminemia. hypoproteinemia. 3. Respiratory failure. The patient is intubated, to vent and sedated. 4. Mild anemia secondary to above. 5. Status post with coronary artery disease and electrolyte imbalance, known history of hypertension, acute renal failure. SUGGESTIONS: 1. Continue current management. 2. The patient is a candidate for PEG insertion only post tracheostomy due to its large size of the T-tube preventing PEG insertion to be performed at this point. 3. Further recommendation to follow. Dakota Mercado MD
[2018-11-26] MEDS: Albuterol-Ipratrop 3 mg / 0.5 (3 ml) UD INH SCH ×7 (00:06→19:58)
[2018-11-26] MEDS: Sodium Chloride 0.45% 1,000 ML IV SCH (02:00)
[2018-11-26] MEDS: Propofol 10 mg/ml 1,000 MG/100 ML VIAL IV PRN ×4 (02:00→17:20)
[2018-11-26] MEDS: Piperacill/Tazo 2.25gm in Dex 2.25 GM/50 ML BAG IVPB SCH ×4 (04:15→21:07)
[2018-11-26 06:02] LABS: ARTERIAL BLOOD GAS HCO3 37.4 mmol/L (21-28); ARTERIAL BLOOD GAS HEMOGLOBIN 10.6 g/dL (11.7-17.4); ARTERIAL BLOOD GAS O2 SAT 89.3 % (95-98); ARTERIAL BLOOD GAS PCO2 73 mm/Hg (35-45); ARTERIAL BLOOD GAS PH 7.39 (7.35-7.45); ARTERIAL BLOOD GAS PO2 53 mm/Hg (80-100); ARTERIAL BLOOD GAS TCO2 46.4 mmol/L (22-28)
[2018-11-26 07:00] LABS: INR 1.3; PROTHROMBIN TIME 14.7 SECONDS (9.7-12.2)
[2018-11-26 07:01] LABS: BASO % 0.1 % (0.0-2.0); EOS % 0.1 % (0.0-4.0); LYMPH # 0.3 K/uL (1.0-4.3); LYMPH % 2.8 % (20.0-40.0); MEAN CELL VOLUME 76.7 fL (80.0-94.0); MEAN CORPUSCULAR HEMOGLOBIN 21.9 pg (27.0-31.0); MEAN CORPUSCULAR HGB CONC 28.6 g/dL (33.0-37.0); MONO # 0.4 K/uL (0.0-0.8); MONO % 3.4 % (0.0-10.0); NEUT # 10.1 K/uL (1.8-7.0); NEUT % 93.6 % (50.0-75.0); PLATELET COUNT 265 K/uL (130-400); RBC 5.13 Mil/uL (4.40-5.90); RED CELL DISTRIBUTION WIDTH 20.3 % (11.5-14.5); WHITE BLOOD COUNT 10.8 K/uL (4.8-10.8)
[2018-11-26 07:04] LABS: HEMOGLOBIN 11.3 g/dL (12.0-18.0)
[2018-11-26 08:09] LABS: ALBUMIN 2.8 g/dL (3.5-5.0); CALCIUM 8.3 mg/dl (8.6-10.4)
[2018-11-26 08:19] LABS: BANDS 3 % (0-2); LYMPHOCYTE 3 % (20-40); MONOCYTE 3 % (0-10); NEUTROPHIL 91 % (50-75); PLATELET ESTIMATE NORMAL (NORMAL); TOTAL CELLS COUNTED 100
[2018-11-26 08:20] LABS: ANISOCYTOSIS MODERATE; HYPOCHROMIC MODERATE; LARGE PLATELETS PRESENT
[2018-11-26] MEDS: MethylPREDNISolone 40 mg Vial IVP SCH ×2 (09:00→16:00)
--- NOTE | 2018-11-26 09:19 | RAD ---
Chest x-ray single frontal view HISTORY: Intubated. COMPARISON: 11/25/2018 FINDINGS: Lines and tubes in stable position with the distal tip of the NG tube not well visualized. Prominent diffuse increased reticular opacities throughout the bilateral lung oakes; right greater than left with more confluent consolidative opacification in the right mid to lower lung zone. A significant portion of the left hemithorax and left lung base is excluded from this study. Repeat study recommended. Cardiomegaly. Atherosclerotic calcification at the aortic knob. Degenerative changes in the spine and shoulders. Impression: Lines and tubes in stable position with the distal tip of the NG tube not well visualized. Prominent diffuse increased reticular opacities throughout the bilateral lung oakes; right greater than left with more confluent consolidative opacification in the right mid to lower lung zone. A significant portion of the left hemithorax and left lung base is excluded from this study. Repeat study recommended. Cardiomegaly. Atherosclerotic calcification at the aortic knob.
[2018-11-26] MEDS: Enoxaparin 40 mg Syringe SC SCH (09:28)
[2018-11-26] MEDS ORDERED: Lidocaine/Epinephrine 1% 1:100000 10 ML IJ ONE (10:17)
[2018-11-26] MEDS: Azithromycin 500 MG in Sodium Chloride 0.9% 250 ML IVPB SCH (11:00)
[2018-11-26] MEDS ORDERED: Rocuronium 10 mg/ml (5 ml) ONE (11:38)
[2018-11-26] MEDS ORDERED: Etomidate 20 mg/10ml Inj IV ONE (11:40)
--- NOTE | 2018-11-26 12:19 | CP.CCUPN ---
<Alexander Weinstein - Last Filed: 11/26/18 12:16> CCU Subjective - Physician Review Subjective (Free Text): 11/26/18 12:16 PGY-1 Critical Care Progress Note for Dr. Crenshaw Seen and examined at bedside this AM on mechanical ventilation, FIO2 100%, PEEP 12, RR increased to 18 mixed metabolic alkalosis and respiratory acidosis Plans for bedside trach and G tube placement this AM D5W @100 cc/hr free H20 flushes 150 cc q8h New right lower lung infiltrate on cxr; pt on vanc/zosyn, zithro CCU Objective - Vital Signs / Intake & Output Vital Signs (Last 4 hours): Vital Signs Pulse Resp BP Pulse Ox 11/26/18 09:23 72 16 84/50 L 93 L 11/26/18 08:34 76 16 93/55 L 82 L 11/26/18 08:30 73 13 90/52 L 88 L 11/26/18 08:28 72 16 90/53 L 88 L Intake and Output (Last 8hrs): Intake & Output 11/25/18 11/26/18 11/26/18 22:59 06:59 14:59 Intake Total 1498.0 1277.6 500.2 Output Total 450 800 320 Balance 1048.0 477.6 180.2 Weight 114.362 kg 114.362 kg Intake: IV 340 200 110 Intake, IV Amount 998.0 1057.6 390.2 R FA 2 Y Port 75.2 84.8 25.4 Right Forearm #1 172.8 172.8 64.8 Right Forearm #2 750 800 300 Tube Feeding 160 20 0 Output: Urine 450 800 320 Urethral (Tabor) 450 800 320 Stool 0 0 - Physical Exam Head: Positive for: Atraumatic, Normocephalic Pupils: Positive for: PERRL Extroacular Muscles: Positive for: EOMI Conjunctiva: Positive for: Normal Ears: Positive for: Normal Mouth: Positive for: Moist Mucous Membranes Respiratory/Chest: Positive for: Good Air Exchange, Decreased Breath Sounds (on left lung oakes), Other (intubated, on vent) Cardiovascular: Positive for: Regular Rate and Rhythm Abdomen: Positive for: Normal Bowel Sounds. Negative for: Tenderness, Distention Upper Extremity: Positive for: Normal Inspection Lower Extremity: Positive for: Normal Inspection Neurological: Positive for: Other (sedated, on vent) Skin: Positive for: Dry, Normal Color Psychiatric: Positive for: Alert - Medications Active Medications: Active Medications Generic Name Dose Route Start Last Admin Trade Name Barryq PRN Reason Stop Dose Admin Acetaminophen 650 mg 11/19/18 15:49 11/24/18 23:39 Tylenol 650mg/20.3ml Solution Ud PO 650 mg Q6 PRN Administration Temperature Albuterol/Ipratropium 3 ml 11/23/18 12:00 11/26/18 11:34 Duoneb 3 Mg/0.5 Mg (3 Ml) Ud INH Not Given RQ4 DAMION Aspirin 81 mg 11/22/18 10:00 11/26/18 09:27 Aspirin Chewable PO 81 mg DAILY DAMION Administration Clopidogrel Bisulfate 75 mg 11/18/18 10:00 11/26/18 09:28 Plavix PO Not Given DAILY DAMION Enoxaparin Sodium 40 mg 11/22/18 10:00 11/26/18 09:28 Lovenox SC Not Given DAILY DAMION Famotidine 20 mg 11/24/18 10:00 11/26/18 09:22 Pepcid IVP 20 mg DAILY DAMION Administration Propofol 1,000 mg in 100 mls @ 3.565 mls/hr 11/21/18 15:30 11/26/18 06:50 Diprivan IV 30 mcg/kg/min .Q24H PRN 21.391 mls/hr TITRATE PER MD ORDER Administration Protocol 5 MCG/KG/MIN Fentanyl Citrate 2,500 mcg/ 250 mls @ 23.52 mls/hr 11/22/18 09:45 11/26/18 10:00 Sodium Chloride IV Infused .[id number] PRN Titration TITRATION Protocol 2 MCG/KG/HR Piperacillin Sod/Tazobactam Sod 2.25 gm in 50 mls @ 100 mls/hr 11/25/18 10:00 11/26/18 09:00 Zosyn 2.25 Gm Iv Premix IVPB 100 mls/hr Q6H DAMION Administration Protocol Vancomycin HCl 1 gm/ Sodium 250 mls @ 166.7 mls/hr 11/25/18 10:30 11/26/18 09:29 Chloride IVPB 166.7 mls/hr Q24H DAMION Administration Protocol Azithromycin 500 mg/ Sodium 250 mls @ 250 mls/hr 11/25/18 12:00 11/26/18 11:00 Chloride IVPB 250 mls/hr Q24H DAMION Administration Protocol Dextrose 1,000 mls @ 100 mls/hr 11/26/18 12:00 Dextrose 5% In Water 1000 Ml IV .Q10H DAMION Lorazepam 2 mg 11/17/18 17:40 11/24/18 03:44 Ativan IVP 2 mg Q3H PRN Administration Anxiety Methylprednisolone 20 mg 11/24/18 08:00 11/26/18 09:00 Solu-Medrol IVP 20 mg Q8H DAMION Administration Rosuvastatin Calcium 10 mg 11/19/18 22:00 11/25/18 22:50 Crestor PO 10 mg HS DAMION Administration - Patient Studies Lab Studies: Microbiology Studies 11/25/18 10:00 Blood Culture - Preliminary Blood NO GROWTH AFTER 24 HOURS 11/25/18 10:30 Blood Culture - Preliminary Blood NO GROWTH AFTER 24 HOURS 11/25/18 16:30 Gram Stain - Final Trachasp Lab Studies 11/26/18 11/26/18 11/26/18 Range/Units 06:48 06:47 06:46 WBC 10.8 (4.8-10.8) K/uL RBC 5.13 (4.40-5.90) Mil/uL Hgb 11.3 L (12.0-18.0) g/dL Hct 39.4 (35.0-51.0) % MCV 76.7 L (80.0-94.0) fL MCH 21.9 L (27.0-31.0) pg MCHC 28.6 L (33.0-37.0) g/dL RDW 20.3 H (11.5-14.5) % Plt Count 265 (130-400) K/uL MPV 9.0 (7.2-11.7) fL Neut % (Auto) 93.6 H (50.0-75.0) % Lymph % (Auto) 2.8 L (20.0-40.0) % Divide % (Auto) 3.4 (0.0-10.0) % Eos % (Auto) 0.1 (0.0-4.0) % Baso % (Auto) 0.1 (0.0-2.0) % Neut # (Auto) 10.1 H (1.8-7.0) K/uL Lymph # (Auto) 0.3 L (1.0-4.3) K/uL Divide # (Auto) 0.4 (0.0-0.8) K/uL Eos # (Auto) 0.0 (0.0-0.7) K/uL Baso # (Auto) 0.0 (0.0-0.2) K/uL Neutrophils % (Manual) 91 H (50-75) % Band Neutrophils % 3 H (0-2) % Lymphocytes % (Manual) 3 L (20-40) % Monocytes % (Manual) 3 (0-10) % Platelet Estimate Normal (NORMAL) Large Platelets Present Hypochromasia (manual) Moderate Anisocytosis (manual) Moderate PT 14.7 H (9.7-12.2) SECONDS INR 1.3 APTT 28.0 (21-34) SECONDS Puncture Site pCO2 (35-45) mm/Hg pO2 (80-100) mm/Hg HCO3 (21-28) mmol/L ABG pH (7.35-7.45) ABG Total CO2 (22-28) mmol/L ABG O2 Saturation (95-98) % ABG Base Excess (-2.0-3.0) mmol/L ABG Hemoglobin (11.7-17.4) g/dL ABG Carboxyhemoglobin (0.5-1.5) % POC ABG HHb (Measured) (0.0-5.0) % ABG Methemoglobin (0.0-3.0) % Robert Test A-a O2 Difference mm/Hg Respiratory Index Hgb O2 Saturation (95.0-98.0) % Vent Mode Mechanical Rate FiO2 % Tidal Volume PEEP Crit Value Called To Crit Value Called By Crit Value Read Back Blood Gas Notified Time Sodium 153 H (132-148) mmol/L Potassium 4.1 (3.6-5.2) mmol/L Chloride 108 H (98-107) mmol/L Carbon Dioxide 40 H* (22-30) mmol/L Anion Gap 9 L (10-20) BUN 140 H* (9-20) mg/dL Creatinine 1.6 H (0.8-1.5) mg/dL Est GFR ( Amer) 52 Est GFR (Non-Af Amer) 43 Random Glucose 111 H D (75-110) mg/dL Calcium 8.3 L (8.6-10.4) mg/dl Phosphorus 5.6 H (2.5-4.5) mg/dL Magnesium 2.8 H (1.6-2.3) mg/dL Total Bilirubin 0.8 (0.2-1.3) mg/dL AST 40 (17-59) U/L ALT 31 (21-72) U/L Alkaline Phosphatase 47 (38-126) U/L Total Protein 5.5 L (6.3-8.3) g/dL Albumin 2.8 L (3.5-5.0) g/dL Globulin 2.7 (2.2-3.9) gm/dL Albumin/Globulin Ratio 1.0 (1.0-2.1) Procalcitonin (0.19-0.49) NG/ML 11/26/18 11/25/18 Range/Units 05:58 10:31 WBC (4.8-10.8) K/uL RBC (4.40-5.90) Mil/uL Hgb (12.0-18.0) g/dL Hct (35.0-51.0) % MCV (80.0-94.0) fL MCH (27.0-31.0) pg MCHC (33.0-37.0) g/dL RDW (11.5-14.5) % Plt Count (130-400) K/uL MPV (7.2-11.7) fL Neut % (Auto) (50.0-75.0) % Lymph % (Auto) (20.0-40.0) % Divide % (Auto) (0.0-10.0) % Eos % (Auto) (0.0-4.0) % Baso % (Auto) (0.0-2.0) % Neut # (Auto) (1.8-7.0) K/uL Lymph # (Auto) (1.0-4.3) K/uL Divide # (Auto) (0.0-0.8) K/uL Eos # (Auto) (0.0-0.7) K/uL Baso # (Auto) (0.0-0.2) K/uL Neutrophils % (Manual) (50-75) % Band Neutrophils % (0-2) % Lymphocytes % (Manual) (20-40) % Monocytes % (Manual) (0-10) % Platelet Estimate (NORMAL) Large Platelets Hypochromasia (manual) Anisocytosis (manual) PT (9.7-12.2) SECONDS INR APTT (21-34) SECONDS Puncture Site Rba pCO2 73 H* (35-45) mm/Hg pO2 53 L (80-100) mm/Hg HCO3 37.4 H (21-28) mmol/L ABG pH 7.39 (7.35-7.45) ABG Total CO2 46.4 H (22-28) mmol/L ABG O2 Saturation 89.3 L (95-98) % ABG Base Excess 16.3 H (-2.0-3.0) mmol/L ABG Hemoglobin 10.6 L (11.7-17.4) g/dL ABG Carboxyhemoglobin 3.3 H (0.5-1.5) % POC ABG HHb (Measured) 10.3 H (0.0-5.0) % ABG Methemoglobin 0.4 (0.0-3.0) % Robert Test Na A-a O2 Difference 569.0 mm/Hg Respiratory Index 10.7 Hgb O2 Saturation 86.0 L (95.0-98.0) % Vent Mode Prvc Mechanical Rate 16 FiO2 100.0 % Tidal Volume 500 PEEP 12 Crit Value Called To Icu nurse sp Crit Value Called By Ana Rosa rt Crit Value Read Back Y Blood Gas Notified Time 602 Sodium (132-148) mmol/L Potassium (3.6-5.2) mmol/L Chloride (98-107) mmol/L Carbon Dioxide (22-30) mmol/L Anion Gap (10-20) BUN (9-20) mg/dL Creatinine (0.8-1.5) mg/dL Est GFR ( Amer) Est GFR (Non-Af Amer) Random Glucose (75-110) mg/dL Calcium (8.6-10.4) mg/dl Phosphorus (2.5-4.5) mg/dL Magnesium (1.6-2.3) mg/dL Total Bilirubin (0.2-1.3) mg/dL AST (17-59) U/L ALT (21-72) U/L Alkaline Phosphatase (38-126) U/L Total Protein (6.3-8.3) g/dL Albumin (3.5-5.0) g/dL Globulin (2.2-3.9) gm/dL Albumin/Globulin Ratio (1.0-2.1) Procalcitonin 0.18 L (0.19-0.49) NG/ML Laboratory Results - last 24 hr 11/25/18 11/26/18 11/26/18 10:31 05:58 06:46 WBC RBC Hgb Hct MCV MCH MCHC RDW Plt Count MPV Neut % (Auto) Lymph % (Auto) Divide % (Auto) Eos % (Auto) Baso % (Auto) Neut # (Auto) Lymph # (Auto) Divide # (Auto) Eos # (Auto) Baso # (Auto) Neutrophils % (Manual) Band Neutrophils % Lymphocytes % (Manual) Monocytes % (Manual) Platelet Estimate Large Platelets Hypochromasia (manual) Anisocytosis (manual) PT INR APTT Puncture Site Rba pCO2 73 H* pO2 53 L HCO3 37.4 H ABG pH 7.39 ABG Total CO2 46.4 H ABG O2 Saturation 89.3 L ABG Base Excess 16.3 H ABG Hemoglobin 10.6 L ABG Carboxyhemoglobin 3.3 H POC ABG HHb (Measured) 10.3 H ABG Methemoglobin 0.4 Robert Test Na A-a O2 Difference 569.0 Respiratory Index 10.7 Hgb O2 Saturation 86.0 L Vent Mode Prvc Mechanical Rate 16 FiO2 100.0 Tidal Volume 500 PEEP 12 Crit Value Called To Icu nurse sp Crit Value Called By Ana Rosa rt Crit Value Read Back Y Blood Gas Notified Time 602 Sodium 153 H Potassium 4.1 Chloride 108 H Carbon Dioxide 40 H* Anion Gap 9 L BUN 140 H* Creatinine 1.6 H Est GFR ( Amer) 52 Est GFR (Non-Af Amer) 43 Random Glucose 111 H D Calcium 8.3 L Phosphorus 5.6 H Magnesium 2.8 H Total Bilirubin 0.8 AST 40 ALT 31 Alkaline Phosphatase 47 Total Protein 5.5 L Albumin 2.8 L Globulin 2.7 Albumin/Globulin Ratio 1.0 Procalcitonin 0.18 L 11/26/18 11/26/18 06:47 06:48 WBC 10.8 RBC 5.13 Hgb 11.3 L Hct 39.4 MCV 76.7 L MCH 21.9 L MCHC 28.6 L RDW 20.3 H Plt Count 265 MPV 9.0 Neut % (Auto) 93.6 H Lymph % (Auto) 2.8 L Divide % (Auto) 3.4 Eos % (Auto) 0.1 Baso % (Auto) 0.1 Neut # (Auto) 10.1 H Lymph # (Auto) 0.3 L Divide # (Auto) 0.4 Eos # (Auto) 0.0 Baso # (Auto) 0.0 Neutrophils % (Manual) 91 H Band Neutrophils % 3 H Lymphocytes % (Manual) 3 L Monocytes % (Manual) 3 Platelet Estimate Normal Large Platelets Present Hypochromasia (manual) Moderate Anisocytosis (manual) Moderate PT 14.7 H INR 1.3 APTT 28.0 Puncture Site pCO2 pO2 HCO3 ABG pH ABG Total CO2 ABG O2 Saturation ABG Base Excess ABG Hemoglobin ABG Carboxyhemoglobin POC ABG HHb (Measured) ABG Methemoglobin Robert Test A-a O2 Difference Respiratory Index Hgb O2 Saturation Vent Mode Mechanical Rate FiO2 Tidal Volume PEEP Crit Value Called To Crit Value Called By Crit Value Read Back Blood Gas Notified Time Sodium Potassium Chloride Carbon Dioxide Anion Gap BUN Creatinine Est GFR ( Amer) Est GFR (Non-Af Amer) Random Glucose Calcium Phosphorus Magnesium Total Bilirubin AST ALT Alkaline Phosphatase Total Protein Albumin Globulin Albumin/Globulin Ratio Procalcitonin Radiology Impressions: Radiology Impressions Chest X-Ray 11/26/18 07:00 Impression: Lines and tubes in stable position with the distal tip of the NG tube not well visualized. Prominent diffuse increased reticular opacities throughout the bilateral lung oakes; right greater than left with more confluent consolidative opacification in the right mid to lower lung zone. A significant portion of the left hemithorax and left lung base is excluded from this study. Repeat study recommended. Cardiomegaly. Atherosclerotic calcification at the aortic knob. Review of Systems - Review of Systems All systems: reviewed and no additional remarkable complaints except Review of Systems: as per HPI Critical Care Progress Note - Nutrition Nutrition: Nutrition Category Date Time Status NPO Diet [DIET] Diets 11/26/18 Breakfast Active Assessment/Plan - Assessment and Plan (Free Text) Assessment: 72 year old male presenting to ED in cardiac arrest, s/p cardiac cath (Dr. Valencia) with clean coronaries. Patient remains unresponsive, on mechanical vent with high FIO2. 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 Waters) appreciated -plans for bedside trach this AM -Imaging -CTA (11/18): Moderately large pericardial effusion. No PE. Extensive L pulmonary atelectasis. Possible R lung nodule. Dilated main pulmonary artery may indicate pulmonary HTN. CV -Cardiac arrest/v tach/v fib -R Ventricular Hypertrophy, cor pulmonale -Cardiac recs (Dr. Valencia) appreciated -s/p cath with no acute findings, clean coronary arteries -Imaging -ECHO (11/17): EF 45-50%. LV systolic function mildly impaired. Small-moderate pericardial effusion. Significant R ventricular hypertrophy. -repeat ECHO (11/20): no noted enlargement, f/u official reported -Meds -DAPT: ASA 81 mg PO daily, Plavix 75 mg PO daily Heme -no acute issues Renal -acute renal failure -BUN/Cr increasing -Nephrology (Dr. Stephens) recs appreciated -D5W @ 100cc/hr -free water flushes 150q8 -solumedrol 20 mg IVP q8 GI -Coffee ground emesis noted 11/17 in NGT -GI recs (Dr. Wei) appreciated -s/p EGD (11/19): gastritis and diffuse duodenitis -PEG unsuccessful to due to difficulty advancing scope during intubation -Meds -Pepcid 20 mg PO BID -Reglan 5 mg IVP q8 ID -worsening CXR -begin vanc/zosynrodgerithro for atypical coverage -f/u sputum cultures PPx, Diet, Disposition -DVT ppx: lovenox -GI ppx: pepcid 20 mg IVP q12 -Diet: tube feeds Case discussed with Dr. Flower Weinstein DO, PGY-1 <Joao Crenshaw M - Last Filed: 11/26/18 15:25> CCU Objective - Vital Signs / Intake & Output Vital Signs (Last 4 hours): Vital Signs Temp Pulse Resp BP Pulse Ox 11/26/18 14:40 103 H 17 103/61 83 L 11/26/18 14:25 103 H 29 H 105/58 L 82 L 11/26/18 14:10 102 H 31 H 105/58 L 80 L 11/26/18 14:00 103 H 33 H 79 L 11/26/18 13:55 102 H 28 H 107/60 78 L 11/26/18 13:40 104 H 26 H 112/60 78 L 11/26/18 13:25 102 H 23 107/57 L 78 L 11/26/18 13:10 101 H 20 100/56 L 80 L 11/26/18 13:00 103 H 18 82 L 11/26/18 12:55 103 H 19 100/56 L 82 L 11/26/18 12:40 102 H 15 113/62 82 L 11/26/18 12:23 103 H 22 112/62 84 L 11/26/18 12:18 100 H 20 112/63 87 L 11/26/18 12:13 99 H 105/64 96 11/26/18 12:08 118 H 127/73 53 L 11/26/18 12:03 97 H 115/63 87 L 11/26/18 12:00 97.6 F 111 H 64 L 11/26/18 11:58 104 H 131/76 77 L 11/26/18 11:52 98 H 122/73 82 L 11/26/18 11:51 95 H 112/68 84 L 11/26/18 11:50 92 H 110/67 87 L 11/26/18 11:29 86 22 110/65 89 L Intake and Output (Last 8hrs): Intake & Output 11/26/18 11/26/18 11/26/18 06:59 14:59 22:59 Intake Total 1277.6 600.2 Output Total 800 320 Balance 477.6 280.2 Weight 252 lb 2 oz Intake: IV 200 210 Intake, IV Amount 1057.6 390.2 R FA 2 Y Port 84.8 25.4 Right Forearm #1 172.8 64.8 Right Forearm #2 800 300 Tube Feeding 20 0 Output: Urine 800 320 Urethral (Tabor) 800 320 Stool 0 0 - Medications Active Medications: Active Medications Generic Name Dose Route Start Last Admin Trade Name Freq PRN Reason Stop Dose Admin Acetaminophen 650 mg 11/19/18 15:49 11/24/18 23:39 Tylenol 650mg/20.3ml Solution Ud PO 650 mg Q6 PRN Administration Temperature Albuterol/Ipratropium 3 ml 11/23/18 12:00 11/26/18 12:38 Duoneb 3 Mg/0.5 Mg (3 Ml) Ud INH 3 ml RQ4 DAMION Administration Aspirin 81 mg 11/22/18 10:00 11/26/18 09:27 Aspirin Chewable PO 81 mg DAILY DAMION Administration Clopidogrel Bisulfate 75 mg 11/18/18 10:00 11/26/18 09:28 Plavix PO Not Given DAILY DAMION Enoxaparin Sodium 40 mg 11/22/18 10:00 11/26/18 09:28 Lovenox SC Not Given DAILY DAMION Famotidine 20 mg 11/24/18 10:00 11/26/18 09:22 Pepcid IVP 20 mg DAILY DAMION Administration Propofol 1,000 mg in 100 mls @ 3.565 mls/hr 11/21/18 15:30 11/26/18 12:35 Diprivan IV 30 mcg/kg/min .Q24H PRN 21.391 mls/hr TITRATE PER MD ORDER Administration Protocol 5 MCG/KG/MIN Fentanyl Citrate 2,500 mcg/ 250 mls @ 23.52 mls/hr 11/22/18 09:45 11/26/18 12:59 Sodium Chloride IV 0.7 mcg/kg/hr .[id number] PRN 8.23 mls/hr TITRATION Administration Protocol 2 MCG/KG/HR Piperacillin Sod/Tazobactam Sod 2.25 gm in 50 mls @ 100 mls/hr 11/25/18 10:00 11/26/18 09:00 Zosyn 2.25 Gm Iv Premix IVPB 100 mls/hr Q6H DAMION Administration Protocol Vancomycin HCl 1 gm/ Sodium 250 mls @ 166.7 mls/hr 11/25/18 10:30 11/26/18 09:29 Chloride IVPB 166.7 mls/hr Q24H DAMION Administration Protocol Azithromycin 500 mg/ Sodium 250 mls @ 250 mls/hr 11/25/18 12:00 11/26/18 11:00 Chloride IVPB 250 mls/hr Q24H DAMION Administration Protocol Dextrose 1,000 mls @ 100 mls/hr 11/26/18 12:00 11/26/18 12:00 Dextrose 5% In Water 1000 Ml IV 100 mls/hr .Q10H DAMION Administration Lorazepam 2 mg 11/17/18 17:40 11/24/18 03:44 Ativan IVP 2 mg Q3H PRN Administration Anxiety Methylprednisolone 20 mg 11/24/18 08:00 11/26/18 09:00 Solu-Medrol IVP 20 mg Q8H DAMION Administration Rosuvastatin Calcium 10 mg 11/19/18 22:00 11/25/18 22:50 Crestor PO 10 mg HS DAMION Administration - Patient Studies Lab Studies: Microbiology Studies 11/25/18 10:30 Blood Culture - Preliminary Blood Gram Positive Cocci Gram Stain - Final 11/25/18 10:00 Blood Culture - Preliminary Blood NO GROWTH AFTER 24 HOURS 11/25/18 16:30 Gram Stain - Final Trachasp Lab Studies 11/26/18 11/26/18 11/26/18 Range/Units 06:48 06:47 06:46 WBC 10.8 (4.8-10.8) K/uL RBC 5.13 (4.40-5.90) Mil/uL Hgb 11.3 L (12.0-18.0) g/dL Hct 39.4 (35.0-51.0) % MCV 76.7 L (80.0-94.0) fL MCH 21.9 L (27.0-31.0) pg MCHC 28.6 L (33.0-37.0) g/dL RDW 20.3 H (11.5-14.5) % Plt Count 265 (130-400) K/uL MPV 9.0 (7.2-11.7) fL Neut % (Auto) 93.6 H (50.0-75.0) % Lymph % (Auto) 2.8 L (20.0-40.0) % Divide % (Auto) 3.4 (0.0-10.0) % Eos % (Auto) 0.1 (0.0-4.0) % Baso % (Auto) 0.1 (0.0-2.0) % Neut # (Auto) 10.1 H (1.8-7.0) K/uL Lymph # (Auto) 0.3 L (1.0-4.3) K/uL Divide # (Auto) 0.4 (0.0-0.8) K/uL Eos # (Auto) 0.0 (0.0-0.7) K/uL Baso # (Auto) 0.0 (0.0-0.2) K/uL Neutrophils % (Manual) 91 H (50-75) % Band Neutrophils % 3 H (0-2) % Lymphocytes % (Manual) 3 L (20-40) % Monocytes % (Manual) 3 (0-10) % Platelet Estimate Normal (NORMAL) Large Platelets Present Hypochromasia (manual) Moderate Anisocytosis (manual) Moderate PT 14.7 H (9.7-12.2) SECONDS INR 1.3 APTT 28.0 (21-34) SECONDS Puncture Site pCO2 (35-45) mm/Hg pO2 (80-100) mm/Hg HCO3 (21-28) mmol/L ABG pH (7.35-7.45) ABG Total CO2 (22-28) mmol/L ABG O2 Saturation (95-98) % ABG Base Excess (-2.0-3.0) mmol/L ABG Hemoglobin (11.7-17.4) g/dL ABG Carboxyhemoglobin (0.5-1.5) % POC ABG HHb (Measured) (0.0-5.0) % ABG Methemoglobin (0.0-3.0) % Robert Test A-a O2 Difference mm/Hg Respiratory Index Hgb O2 Saturation (95.0-98.0) % Vent Mode Mechanical Rate FiO2 % Tidal Volume PEEP Crit Value Called To Crit Value Called By Crit Value Read Back Blood Gas Notified Time Sodium 153 H (132-148) mmol/L Potassium 4.1 (3.6-5.2) mmol/L Chloride 108 H (98-107) mmol/L Carbon Dioxide 40 H* (22-30) mmol/L Anion Gap 9 L (10-20) BUN 140 H* (9-20) mg/dL Creatinine 1.6 H (0.8-1.5) mg/dL Est GFR ( Amer) 52 Est GFR (Non-Af Amer) 43 Random Glucose 111 H D (75-110) mg/dL Calcium 8.3 L (8.6-10.4) mg/dl Phosphorus 5.6 H (2.5-4.5) mg/dL Magnesium 2.8 H (1.6-2.3) mg/dL Total Bilirubin 0.8 (0.2-1.3) mg/dL AST 40 (17-59) U/L ALT 31 (21-72) U/L Alkaline Phosphatase 47 (38-126) U/L Total Protein 5.5 L (6.3-8.3) g/dL Albumin 2.8 L (3.5-5.0) g/dL Globulin 2.7 (2.2-3.9) gm/dL Albumin/Globulin Ratio 1.0 (1.0-2.1) /04/08 Range/Units 05:58 WBC (4.8-10.8) K/uL RBC (4.40-5.90) Mil/uL Hgb (12.0-18.0) g/dL Hct (35.0-51.0) % MCV (80.0-94.0) fL MCH (27.0-31.0) pg MCHC (33.0-37.0) g/dL RDW (11.5-14.5) % Plt Count (130-400) K/uL MPV (7.2-11.7) fL Neut % (Auto) (50.0-75.0) % Lymph % (Auto) (20.0-40.0) % Divide % (Auto) (0.0-10.0) % Eos % (Auto) (0.0-4.0) % Baso % (Auto) (0.0-2.0) % Neut # (Auto) (1.8-7.0) K/uL Lymph # (Auto) (1.0-4.3) K/uL Divide # (Auto) (0.0-0.8) K/uL Eos # (Auto) (0.0-0.7) K/uL Baso # (Auto) (0.0-0.2) K/uL Neutrophils % (Manual) (50-75) % Band Neutrophils % (0-2) % Lymphocytes % (Manual) (20-40) % Monocytes % (Manual) (0-10) % Platelet Estimate (NORMAL) Large Platelets Hypochromasia (manual) Anisocytosis (manual) PT (9.7-12.2) SECONDS INR APTT (21-34) SECONDS Puncture Site Rba pCO2 73 H* (35-45) mm/Hg pO2 53 L (80-100) mm/Hg HCO3 37.4 H (21-28) mmol/L ABG pH 7.39 (7.35-7.45) ABG Total CO2 46.4 H (22-28) mmol/L ABG O2 Saturation 89.3 L (95-98) % ABG Base Excess 16.3 H (-2.0-3.0) mmol/L ABG Hemoglobin 10.6 L (11.7-17.4) g/dL ABG Carboxyhemoglobin 3.3 H (0.5-1.5) % POC ABG HHb (Measured) 10.3 H (0.0-5.0) % ABG Methemoglobin 0.4 (0.0-3.0) % Robert Test Na A-a O2 Difference 569.0 mm/Hg Respiratory Index 10.7 Hgb O2 Saturation 86.0 L (95.0-98.0) % Vent Mode Prvc Mechanical Rate 16 FiO2 100.0 % Tidal Volume 500 PEEP 12 Crit Value Called To [facility] nurse sp Crit Value Called By Ana Rosa coats Crit Value Read Back Y Blood Gas Notified Time 602 Sodium (132-148) mmol/L Potassium (3.6-5.2) mmol/L Chloride (98-107) mmol/L Carbon Dioxide (22-30) mmol/L Anion Gap (10-20) BUN (9-20) mg/dL Creatinine (0.8-1.5) mg/dL Est GFR ( Amer) Est GFR (Non-Af Amer) Random Glucose (75-110) mg/dL Calcium (8.6-10.4) mg/dl Phosphorus (2.5-4.5) mg/dL Magnesium (1.6-2.3) mg/dL Total Bilirubin (0.2-1.3) mg/dL AST (17-59) U/L ALT (21-72) U/L Alkaline Phosphatase (38-126) U/L Total Protein (6.3-8.3) g/dL Albumin (3.5-5.0) g/dL Globulin (2.2-3.9) gm/dL Albumin/Globulin Ratio (1.0-2.1) Laboratory Results - last 24 hr 11/26/18 11/26/18 11/26/18 05:58 06:46 06:47 WBC 10.8 RBC 5.13 Hgb 11.3 L Hct 39.4 MCV 76.7 L MCH 21.9 L MCHC 28.6 L RDW 20.3 H Plt Count 265 MPV 9.0 Neut % (Auto) 93.6 H Lymph % (Auto) 2.8 L Divide % (Auto) 3.4 Eos % (Auto) 0.1 Baso % (Auto) 0.1 Neut # (Auto) 10.1 H Lymph # (Auto) 0.3 L Divide # (Auto) 0.4 Eos # (Auto) 0.0 Baso # (Auto) 0.0 Neutrophils % (Manual) 91 H Band Neutrophils % 3 H Lymphocytes % (Manual) 3 L Monocytes % (Manual) 3 Platelet Estimate Normal Large Platelets Present Hypochromasia (manual) Moderate Anisocytosis (manual) Moderate PT INR APTT Puncture Site Rba pCO2 73 H* pO2 53 L HCO3 37.4 H ABG pH 7.39 ABG Total CO2 46.4 H ABG O2 Saturation 89.3 L ABG Base Excess 16.3 H ABG Hemoglobin 10.6 L ABG Carboxyhemoglobin 3.3 H POC ABG HHb (Measured) 10.3 H ABG Methemoglobin 0.4 Robert Test Na A-a O2 Difference 569.0 Respiratory Index 10.7 Hgb O2 Saturation 86.0 L Vent Mode Prvc Mechanical Rate 16 FiO2 100.0 Tidal Volume 500 PEEP 12 Crit Value Called To [facility] nurse sp Crit Value Called By Ana Rosa rt Crit Value Read Back Y Blood Gas Notified Time 602 Sodium 153 H Potassium 4.1 Chloride 108 H Carbon Dioxide 40 H* Anion Gap 9 L BUN 140 H* Creatinine 1.6 H Est GFR ( Amer) 52 Est GFR (Non-Af Amer) 43 Random Glucose 111 H D Calcium 8.3 L Phosphorus 5.6 H Magnesium 2.8 H Total Bilirubin 0.8 AST 40 ALT 31 Alkaline Phosphatase 47 Total Protein 5.5 L Albumin 2.8 L Globulin 2.7 Albumin/Globulin Ratio 1.0 11/26/18 06:48 WBC RBC Hgb Hct MCV MCH MCHC RDW Plt Count MPV Neut % (Auto) Lymph % (Auto) Divide % (Auto) Eos % (Auto) Baso % (Auto) Neut # (Auto) Lymph # (Auto) Divide # (Auto) Eos # (Auto) Baso # (Auto) Neutrophils % (Manual) Band Neutrophils % Lymphocytes % (Manual) Monocytes % (Manual) Platelet Estimate Large Platelets Hypochromasia (manual) Anisocytosis (manual) PT 14.7 H INR 1.3 APTT 28.0 Puncture Site pCO2 pO2 HCO3 ABG pH ABG Total CO2 ABG O2 Saturation ABG Base Excess ABG Hemoglobin ABG Carboxyhemoglobin POC ABG HHb (Measured) ABG Methemoglobin Robert Test A-a O2 Difference Respiratory Index Hgb O2 Saturation Vent Mode Mechanical Rate FiO2 Tidal Volume PEEP Crit Value Called To Crit Value Called By Crit Value Read Back Blood Gas Notified Time Sodium Potassium Chloride Carbon Dioxide Anion Gap BUN Creatinine Est GFR ( Amer) Est GFR (Non-Af Amer) Random Glucose Calcium Phosphorus Magnesium Total Bilirubin AST ALT Alkaline Phosphatase Total Protein Albumin Globulin Albumin/Globulin Ratio Radiology Impressions: Radiology Impressions Chest X-Ray 11/26/18 07:00 Impression: Lines and tubes in stable position with the distal tip of the NG tube not well visualized. Prominent diffuse increased reticular opacities throughout the bilateral lung oakes; right greater than left with more confluent consolidative opacification in the right mid to lower lung zone. A significant portion of the left hemithorax and left lung base is excluded from this study. Repeat study recommended. Cardiomegaly. Atherosclerotic calcification at the aortic knob. Chest X-Ray 11/26/18 12:24 IMPRESSION: Interval tracheostomy tube placement. No significant change in the right lung as referenced above. . Small left pleural effusion with probable left lung base compressive atelectasis Follow-up recommended. Chest X-Ray 11/26/18 14:08 IMPRESSION: Right PICC catheter terminates just above cavoatrial junction. Extensive diffuse right-sided pulmonary infiltrate. Critical Care Progress Note - Nutrition Nutrition: Nutrition Category Date Time Status NPO Diet [DIET] Diets 11/26/18 Breakfast Active Assessment/Plan (1) COPD (chronic obstructive pulmonary disease) Current Visit: Yes Status: Acute (2) Cardiac arrest Current Visit: Yes Status: Acute (3) PHT (pulmonary hypertension) Current Visit: Yes Status: Acute (4) Ventricular tachycardia Current Visit: Yes Status: Acute (5) Congestive heart failure Current Visit: No Status: Acute (6) Respiratory distress Current Visit: No Status: Acute Attending/Attestation - Attestation I have personally seen and examined this patient.: Yes I have fully participated in the care of the patient.: Yes I have reviewed all pertinent clinical information: Yes Notes (Text): 11/26/18 15:25 Today: November The Patient was seen and examined at the bedside, Medical records reviewed, and management issues were discussed and formulated with the house staff. I have reviewed all the relevant clinical, laboratory, hemodynamic, radiographic data and medications Events reviewed Pain issues, skin care, head of the bed elevation, glycemic control were addressed. Agree with above resident's assessment and treatment plans of care as transcribed in Dr. Weinstein's note.
--- NOTE | 2018-11-26 12:34 | PCM.SURG1 ---
Surgeon's Initial Post Op Note - Surgeon's Notes Surgeon: Dr. Waters Round Up Ring Hand: Cruz PGY2, Nestor PGY2 Type of Anesthesia: General Endo Anesthesia Administered By: Dr. Hewitt Pre-Operative Diagnosis: Respiratory failure, failure to wean from vent, ARDS, penumonia Operative Findings: thick tracheal and supraglottic secretions, direct visulaization of insertion of perc trach Post-Operative Diagnosis: Respiratory failure, failure to wean from vent, ARDS, penumonia Operation Performed: Percutaneous Tracheostomy insertion with bronchoscopy Specimen/Specimens Removed: N/A Estimated Blood Loss: EBL {In ML}: 5 Blood Products Given: N/A Drains Used: No Drains Post-Op Condition: Good Date of Surgery/Procedure: 11/26/18 Time of Surgery/Procedure: 12:33
--- NOTE | 2018-11-26 13:07 | RAD ---
Date of service: 11/26/2018 HISTORY: s/p tracheostomy COMPARISON: 11/26/2018 at 0708 hr TECHNIQUE: 1 view obtained. FINDINGS: LUNGS: Lung volumes slightly increased. The interstitial markings appear abnormally prominent especially in the right lung. There is mostly diffuse homogeneous interstitial abnormal lung markings with superimposed diffuse ground-glass opacity in this superior right hemithorax. Is denser more patchy coalescent interstitial and airspace opacity bordering the right hilum and below the right hilum. This appearance is similar. Interstitial lung markings in left lung less accentuated compared to right. Left hemidiaphragm not clearly depicted-cardiomegaly noted. Concomitant left pleural effusion with left basal compressive atelectasis and/or left basal infiltrate here are considerations. This obscuration is similar. Left costophrenic angle is visually included on this exam-previously this was excluded. Interval tracheostomy tube placement. Tip clavicle level. PLEURA: Small left pleural effusion suspect. No pneumothorax apparent. CARDIOVASCULAR: There is presence of aortic atherosclerotic calcification on x-ray. Cardiomegaly. Concomitant pulmonary venous congestion suspect this is in addition to possible interstitial pulmonary edema and/or other extensive interstitial lung pathology changes. OSSEOUS STRUCTURES: No significant abnormalities. VISUALIZED UPPER ABDOMEN: Nasogastric tubing inserted-tip extends beyond the inferior edge of this image-at least its course is beyond the gastric cardia. OTHER FINDINGS: None. IMPRESSION: Interval tracheostomy tube placement. No significant change in the right lung as referenced above. . Small left pleural effusion with probable left lung base compressive atelectasis Follow-up recommended.
--- NOTE | 2018-11-26 14:00 | CP.PCM.PN ---
Subjective - Date & Time of Evaluation Date of Evaluation: 11/26/18 Time of Evaluation: 13:57 - Subjective Subjective: pt seen and examined s/p trach , on 100 % Fio2 at present on hypotonic fluids cr down to 1.6 UOP 2.4 L yesterday remains on steroids ROS- unable to obtain as intubated and sedated Objective - Vital Signs/Intake and Output Vital Signs (last 24 hours): Temp Pulse Resp BP Pulse Ox 98.9 F 72 16 84/50 L 93 L 11/26/18 04:00 11/26/18 09:23 11/26/18 09:23 11/26/18 09:23 11/26/18 09:23 Intake and Output: 11/26/18 11/26/18 06:59 18:59 Intake Total 2076.4 600.2 Output Total 1050 320 Balance 1026.4 280.2 - Medications Medications: Current Medications Acetaminophen (Tylenol 650mg/20.3ml Solution Ud) 650 mg PO Q6 PRN PRN Reason: Temperature Last Admin: 11/24/18 23:39 Dose: 650 mg Albuterol/Ipratropium (Duoneb 3 Mg/0.5 Mg (3 Ml) Ud) 3 ml INH RQ4 [facility] Last Admin: 11/26/18 12:38 Dose: 3 ml Aspirin (Aspirin Chewable) 81 mg PO DAILY [facility] Last Admin: 11/26/18 09:27 Dose: 81 mg Clopidogrel Bisulfate (Plavix) 75 mg PO DAILY [facility] Last Admin: 11/26/18 09:28 Dose: Not Given Enoxaparin Sodium (Lovenox) 40 mg SC DAILY [facility] Last Admin: 11/26/18 09:28 Dose: Not Given Famotidine (Pepcid) 20 mg IVP DAILY [facility] Last Admin: 11/26/18 09:22 Dose: 20 mg Propofol (Diprivan) 1,000 mg in 100 mls @ 3.565 mls/hr IV .Q24H PRN; Protocol PRN Reason: TITRATE PER MD ORDER Last Admin: 11/26/18 12:35 Dose: 30 mcg/kg/min, 21.391 mls/hr Fentanyl Citrate 2,500 mcg/ (Sodium Chloride) 250 mls @ 23.52 mls/hr IV .[id number] PRN; Protocol PRN Reason: TITRATION Last Admin: 11/26/18 12:59 Dose: 0.7 mcg/kg/hr, 8.23 mls/hr Piperacillin Sod/Tazobactam Sod (Zosyn 2.25 Gm Iv Premix) 2.25 gm in 50 mls @ 100 mls/hr IVPB Q6H [facility]; Protocol Last Admin: 11/26/18 09:00 Dose: 100 mls/hr Vancomycin HCl 1 gm/ Sodium (Chloride) 250 mls @ 166.7 mls/hr IVPB Q24H [facility]; Protocol Last Admin: 11/26/18 09:29 Dose: 166.7 mls/hr Azithromycin 500 mg/ Sodium (Chloride) 250 mls @ 250 mls/hr IVPB Q24H [facility]; Protocol Last Admin: 11/26/18 11:00 Dose: 250 mls/hr Dextrose (Dextrose 5% In Water 1000 Ml) 1,000 mls @ 100 mls/hr IV .Q10H [facility] Last Admin: 11/26/18 12:00 Dose: 100 mls/hr Lorazepam (Ativan) 2 mg IVP Q3H PRN PRN Reason: Anxiety Last Admin: 11/24/18 03:44 Dose: 2 mg Methylprednisolone (Solu-Medrol) 20 mg IVP Q8H [facility] Last Admin: 11/26/18 09:00 Dose: 20 mg Rosuvastatin Calcium (Crestor) 10 mg PO HS [facility] Last Admin: 11/25/18 22:50 Dose: 10 mg - Labs Labs: 11/26/18 06:47 11/26/18 06:46 PT 14.7 SECONDS (9.7-12.2) H 11/26/18 06:48 INR 1.3 11/26/18 06:48 APTT 28.0 SECONDS (21-34) 11/26/18 06:48 - Constitutional Appears: Non-toxic, No Acute Distress - Head Exam Head Exam: ATRAUMATIC, NORMOCEPHALIC - Eye Exam Eye Exam: Normal appearance, PERRL - ENT Exam ENT Exam: Mucous Membranes Moist Additional comments: trach - Respiratory Exam Respiratory Exam: Clear to Ausculation Bilateral. absent: Rhonchi, Wheezes - Cardiovascular Exam Cardiovascular Exam: REGULAR RHYTHM, +S1, +S2 - GI/Abdominal Exam GI & Abdominal Exam: Soft. absent: Tenderness - Extremities Exam Extremities Exam: absent: Pedal Edema - Neurological Exam Neurological Exam: absent: Alert, Awake - Skin Skin Exam: Normal Color, Warm Assessment and Plan (1) Acute renal failure due to tubular necrosis Status: Acute (2) CAD (coronary artery disease) Status: Acute (3) COPD (chronic obstructive pulmonary disease) Status: Acute (4) Cardiac arrest Status: Acute (5) PHT (pulmonary hypertension) Status: Acute (6) Congestive heart failure Status: Acute (7) Respiratory distress Status: Acute (8) Acute hypernatremia Status: Acute - Assessment and Plan (Free Text) Plan: Cr improving maintain hypotonic fluids azotemia started to improve as well s/p trach today adjust vent settings for hypercarbia monitor UOP
--- NOTE | 2018-11-26 14:52 | RAD ---
Date of service: 11/26/2018 HISTORY: PICC INSERTION COMPARISON: 11/26/2018 at 12:24 p.m. TECHNIQUE: 1 view obtained. FINDINGS: LUNGS: Extensive diffuse right-sided pulmonary opacity consistent with pneumonia, grossly unchanged from prior examination. No abnormal left-sided opacity. PLEURA: No significant pleural effusion identified, no pneumothorax apparent. CARDIOVASCULAR: No aortic atherosclerotic calcification present. Tracheostomy tube unchanged. New right PICC catheter terminates at a level just above the cavoatrial junction. OSSEOUS STRUCTURES: No significant abnormalities. VISUALIZED UPPER ABDOMEN: Normal. OTHER FINDINGS: None. IMPRESSION: Right PICC catheter terminates just above cavoatrial junction. Extensive diffuse right-sided pulmonary infiltrate.
[2018-11-26] MEDS ORDERED: Phytonadione 10 mg/ml Inj (Adult) SC STA (16:25)
--- NOTE | 2018-11-26 16:28 | CP.PCM.PN ---
Subjective - Date & Time of Evaluation Date of Evaluation: 11/26/18 Time of Evaluation: 11:00 - Subjective Subjective: Patient seen and examined Status post tracheostomy On ventilatory support with 100% FiO2 Saturation in the mid 90s Objective - Vital Signs/Intake and Output Vital Signs (last 24 hours): Temp Pulse Resp BP Pulse Ox 97.6 F 103 H 17 103/61 83 L 11/26/18 12:00 11/26/18 14:40 11/26/18 14:40 11/26/18 14:40 11/26/18 14:40 Intake and Output: 11/26/18 11/26/18 06:59 18:59 Intake Total 2076.4 600.2 Output Total 1050 320 Balance 1026.4 280.2 - Medications Medications: Current Medications Acetaminophen (Tylenol 650mg/20.3ml Solution Ud) 650 mg PO Q6 PRN PRN Reason: Temperature Last Admin: 11/24/18 23:39 Dose: 650 mg Albuterol/Ipratropium (Duoneb 3 Mg/0.5 Mg (3 Ml) Ud) 3 ml INH RQ4 [facility] Last Admin: 11/26/18 16:11 Dose: 3 ml Aspirin (Aspirin Chewable) 81 mg PO DAILY [facility] Last Admin: 11/26/18 09:27 Dose: 81 mg Clopidogrel Bisulfate (Plavix) 75 mg PO DAILY [facility] Last Admin: 11/26/18 09:28 Dose: Not Given Enoxaparin Sodium (Lovenox) 40 mg SC DAILY [facility] Last Admin: 11/26/18 09:28 Dose: Not Given Famotidine (Pepcid) 20 mg IVP DAILY [facility] Last Admin: 11/26/18 09:22 Dose: 20 mg Propofol (Diprivan) 1,000 mg in 100 mls @ 3.565 mls/hr IV .Q24H PRN; Protocol PRN Reason: TITRATE PER MD ORDER Last Admin: 11/26/18 12:35 Dose: 30 mcg/kg/min, 21.391 mls/hr Fentanyl Citrate 2,500 mcg/ (Sodium Chloride) 250 mls @ 23.52 mls/hr IV .[id number] PRN; Protocol PRN Reason: TITRATION Last Admin: 11/26/18 12:59 Dose: 0.7 mcg/kg/hr, 8.23 mls/hr Piperacillin Sod/Tazobactam Sod (Zosyn 2.25 Gm Iv Premix) 2.25 gm in 50 mls @ 100 mls/hr IVPB Q6H [facility]; Protocol Last Admin: 11/26/18 09:00 Dose: 100 mls/hr Vancomycin HCl 1 gm/ Sodium (Chloride) 250 mls @ 166.7 mls/hr IVPB Q24H [facility]; Protocol Last Admin: 11/26/18 09:29 Dose: 166.7 mls/hr Azithromycin 500 mg/ Sodium (Chloride) 250 mls @ 250 mls/hr IVPB Q24H [facility]; Protocol Last Admin: 11/26/18 11:00 Dose: 250 mls/hr Dextrose (Dextrose 5% In Water 1000 Ml) 1,000 mls @ 100 mls/hr IV .Q10H [facility] Last Admin: 11/26/18 12:00 Dose: 100 mls/hr Lorazepam (Ativan) 2 mg IVP Q3H PRN PRN Reason: Anxiety Last Admin: 11/24/18 03:44 Dose: 2 mg Methylprednisolone (Solu-Medrol) 20 mg IVP Q8H [facility] Last Admin: 11/26/18 09:00 Dose: 20 mg Rosuvastatin Calcium (Crestor) 10 mg PO HS [facility] Last Admin: 11/25/18 22:50 Dose: 10 mg - Labs Labs: 11/26/18 06:47 11/26/18 06:46 PT 14.7 SECONDS (9.7-12.2) H 11/26/18 06:48 INR 1.3 11/26/18 06:48 APTT 28.0 SECONDS (21-34) 11/26/18 06:48 - Head Exam Head Exam: ATRAUMATIC, NORMOCEPHALIC - ENT Exam ENT Exam: Mucous Membranes Moist - Neck Exam Neck Exam: Normal Inspection - Respiratory Exam Respiratory Exam: Decreased Breath Sounds Assessment and Plan (1) Cardiac arrest Assessment & Plan: Reduce FiO2 as tolerated Continue IV fluids Reduce steroids Status post tracheostomy Status: Acute (2) COPD (chronic obstructive pulmonary disease) Status: Acute (3) Ventricular tachycardia Status: Acute (4) Congestive heart failure Status: Acute (5) PHT (pulmonary hypertension) Status: Acute
[2018-11-26] MEDS ORDERED: Phytonadione 1 mg/0.5 ml Inj (Neonatal) IM ONE (17:38)
[2018-11-26] MEDS ORDERED: Phytonadione 10 mg/ml Inj (Adult) IM ONE (18:00)
[2018-11-26 20:55] LABS: BASO % 0.4 % (0.0-2.0); EOS % 0.1 % (0.0-4.0); HEMOGLOBIN 11.1 g/dL (12.0-18.0); LYMPH # 0.8 K/uL (1.0-4.3); LYMPH % 7.6 % (20.0-40.0); MEAN CELL VOLUME 76.2 fL (80.0-94.0); MEAN CORPUSCULAR HEMOGLOBIN 21.3 pg (27.0-31.0); MEAN CORPUSCULAR HGB CONC 27.9 g/dL (33.0-37.0); MEAN PLATELET VOLUME 9.2 fL (7.2-11.7); MONO # 0.6 K/uL (0.0-0.8); MONO % 5.4 % (0.0-10.0); NEUT # 9.3 K/uL (1.8-7.0); NEUT % 86.5 % (50.0-75.0); PLATELET COUNT 241 K/uL (130-400); RBC 5.19 Mil/uL (4.40-5.90); RED CELL DISTRIBUTION WIDTH 19.9 % (11.5-14.5); WHITE BLOOD COUNT 10.8 K/uL (4.8-10.8)
--- NOTE | 2018-11-26 21:14 | PN ---
DATE: 11/26/2018 LOCATION: ICU, 17. SUBJECTIVE: This 72-year-old male is seen and examined in rounds post tracheostomy, sedated, was scheduled initially for also PEG insertion. However, due to his tracheostomy today the PEG insertion has to be rescheduled for tomorrow morning. The entire chart is reviewed including but not limited to the most recent lab and radiology study results, current and the previous medication list, and today's white blood cells is 10.8, hemoglobin 11.3 with hematocrit 39.4 with low indices highly suggestive of hypochromic microcytic anemia. PT is 14.7, elevated with abnormal ABGs. Sodium 153, BUN is 140 with creatinine 1.6, glucose 111, calcium 8.3 with increased phosphorus and magnesium due to his renal failure but albumin 2.3, total protein 5.5 with CO2 content of 40 indicative of respiratory alkalosis. Due to the patient's clinical presentation and unstable clinically so far, the PEG tube is to be rescheduled for tomorrow morning. PHYSICAL EXAMINATION: GENERAL: A 72-year-old male. VITAL SIGNS: Afebrile with pulse of 100, blood pressure of 110/64. HEENT: Showed pale, dry oral mucous membrane. The patient is post tracheostomy. LUNGS: Scattered crepitation. Decreased air entry at bases. HEART: Positive S1 and S2. ABDOMEN: Soft with mild distention with mild generalized tenderness. No mass or organomegaly. No rebound tenderness or guarding. EXTREMITIES: Lower extremity edematous changes. No clubbing or cyanosis. NEUROLOGIC: No reported new neurological deficits, sensory or motor. LABORATORY DATA: It has to be mentioned that most recently done chest x-ray showed extensive diffuse right-sided pulmonary infiltrate. IMPRESSION: 1. Respiratory failure, status post tracheostomy, to vent and sedated. 2. Pneumonia. 3. Malnutrition with hypoalbuminemia and hypoproteinemia. 4. Hypochromic microcytic anemia secondary to above, with chronic disease. 5. Dysphagia. The patient is a candidate for percutaneous endoscopic gastrostomy tube insertion. 6. Status post code with known history of coronary artery disease. 7. Electrolyte imbalance. 8. Renal failure, hypertension by history. SUGGESTIONS: 1. Continue current management. 2. Correct any underlying electrolyte imbalance and coagulopathy. 3. The patient is for PEG insertion at a.m. Dakota Mercado MD [facility] # [id number]
--- NOTE | 2018-11-26 22:48 | OP ---
PROCEDURE DATE: 11/26/2018 PREOPERATIVE DIAGNOSIS: Respiratory failure. POSTOPERATIVE DIAGNOSIS: Respiratory failure. PROCEDURE CARRIED OUT: Percutaneous tracheostomy, #8 Shiley. SURGEON: Goyo Waters Jr., MD ASSISTANTS: Carmine Arroyo DO and Dr. Lambert Baez DO ANESTHESIOLOGIST: Ashvin Hewitt MD INDICATION: The patient is a 72-year-old man with multiple medical problems, respiratory failure cannot be weaned. The patient was taken to the operative room with high dose of PEEP which was required to maintain his oxygenation. After discussion with the chicken stuffer, I was requested to carry out the tracheostomy at bedside. OPERATIVE FINDINGS: Tracheostomy tube #8 Shiley was inserted. DESCRIPTION OF PROCEDURE: The patient was given sedation and local anesthesia locally in the neck. Bronchoscopy was carried out by the anesthesia team, and the tube was withdrawn to the appropriate level. We then placed a guiding needle in wire sheath dilator and eventually deployed the trach in the appropriate location. This was flushed with air and was achieved. The patient tolerated the procedure uneventfully. Blood loss is less than 20 mL. Operation carried out is pecutaneous tracheostomy. After completion of the procedure, the catheter was secured to the skin with the sutures and with a trach collar. Goyo Waters Jr., MD
[2018-11-26 22:55] LABS: BANDS 1 % (0-2); LYMPHOCYTE 8 % (20-40); MONOCYTE 6 % (0-10); NEUTROPHIL 85 % (50-75); TOTAL CELLS COUNTED 100
[2018-11-26 22:56] LABS: ANISOCYTOSIS SLIGHT; HYPOCHROMIC SLIGHT; MICROCYTOSIS SLIGHT; PLATELET ESTIMATE NORMAL (NORMAL); POIKILOCYTOSIS SLIGHT
[2018-11-27] MEDS: Albuterol-Ipratrop 3 mg / 0.5 (3 ml) UD INH SCH ×6 (00:06→19:24)
[2018-11-27] MEDS: MethylPREDNISolone 40 mg Vial IVP SCH ×3 (00:11→17:00)
[2018-11-27 02:03] LABS: ALBUMIN 2.8 g/dL (3.5-5.0); CALCIUM 8.6 mg/dl (8.6-10.4)
[2018-11-27] MEDS: Propofol 10 mg/ml 1,000 MG/100 ML VIAL IV PRN ×2 (02:57→17:13)
[2018-11-27] MEDS: Piperacill/Tazo 2.25gm in Dex 2.25 GM/50 ML BAG IVPB SCH ×4 (03:09→21:44)
[2018-11-27 05:31] LABS: ABG ALLEN TEST POS; ARTERIAL BLOOD GAS HCO3 32.8 mmol/L (21-28); ARTERIAL BLOOD GAS HEMOGLOBIN 11.2 g/dL (11.7-17.4); ARTERIAL BLOOD GAS O2 SAT 93.9 % (95-98); ARTERIAL BLOOD GAS PCO2 58 mm/Hg (35-45); ARTERIAL BLOOD GAS PH 7.41 (7.35-7.45); ARTERIAL BLOOD GAS PO2 63 mm/Hg (80-100); ARTERIAL BLOOD GAS TCO2 38.6 mmol/L (22-28)
[2018-11-27 06:14] LABS: BASO # 0.1 K/uL (0.0-0.2); BASO % 0.5 % (0.0-2.0); HEMOGLOBIN 11.3 g/dL (12.0-18.0); LYMPH # 0.3 K/uL (1.0-4.3); LYMPH % 2.1 % (20.0-40.0); MEAN CELL VOLUME 76.1 fL (80.0-94.0); MEAN CORPUSCULAR HEMOGLOBIN 21.4 pg (27.0-31.0); MEAN CORPUSCULAR HGB CONC 28.1 g/dL (33.0-37.0); MEAN PLATELET VOLUME 9.3 fL (7.2-11.7); MONO # 0.4 K/uL (0.0-0.8); MONO % 2.8 % (0.0-10.0); NEUT # 13.4 K/uL (1.8-7.0); NEUT % 94.6 % (50.0-75.0); PLATELET COUNT 259 K/uL (130-400); RBC 5.25 Mil/uL (4.40-5.90); RED CELL DISTRIBUTION WIDTH 20.9 % (11.5-14.5); WHITE BLOOD COUNT 14.1 K/uL (4.8-10.8)
[2018-11-27 07:07] LABS: ALBUMIN 2.9 g/dL (3.5-5.0); CALCIUM 8.1 mg/dl (8.6-10.4)
[2018-11-27 08:14] LABS: ANISOCYTOSIS MODERATE; BURR CELLS SLIGHT; LYMPHOCYTE 2 % (20-40); MONOCYTE 3 % (0-10); NEUTROPHIL 95 % (50-75); PLATELET ESTIMATE NORMAL (NORMAL); TOTAL CELLS COUNTED 100
--- NOTE | 2018-11-27 08:48 | RAD ---
Date of service: 11/27/2018 HISTORY: on vent COMPARISON: 11/26/2018 FINDINGS: Stable position of tracheostomy tube. The nasogastric tube terminates the stomach. The right PICC line terminates in the. LUNGS: The lungs are well inflated. There is worsening confluent airspace disease in the diffusely involving the right lung. There is patchy airspace disease in the left upper and lower lobes. PLEURA: No pleural effusions or pneumothorax. CARDIOVASCULAR: The heart is normal in size. No aortic atherosclerotic calcifications present. OSSEOUS STRUCTURES: Within normal limits for the patient's age. VISUALIZED UPPER ABDOMEN: Normal. OTHER FINDINGS: None. IMPRESSION: Worsening multifocal pneumonia with near complete involvement of the right lung. Stable position of support line and tubes.
[2018-11-27] MEDS: Enoxaparin 40 mg Syringe SC SCH (09:46)
--- NOTE | 2018-11-27 10:46 | CP.PCM.PN ---
Subjective - Date & Time of Evaluation Date of Evaluation: 11/27/18 Time of Evaluation: 07:15 - Subjective Subjective: Surgery Progress note. Dr. Waters Pt seen and examined at bedside. Still on High PEEP (12) and FiO2 (90%) requirements. Trach site clean and dry. No adverse events reported by staff. On Levophed for pressor support. Objective - Vital Signs/Intake and Output Vital Signs (last 24 hours): Temp Pulse Resp BP Pulse Ox 99.2 F 91 H 20 113/63 88 L 11/27/18 08:00 11/27/18 10:00 11/27/18 10:00 11/27/18 09:59 11/27/18 10:00 Intake and Output: 11/27/18 11/27/18 06:59 18:59 Intake Total 1867.6 491.7 Output Total 945 210 Balance 922.6 281.7 - Medications Medications: Current Medications Acetaminophen (Tylenol 650mg/20.3ml Solution Ud) 650 mg PO Q6 PRN PRN Reason: Temperature Last Admin: 11/24/18 23:39 Dose: 650 mg Albuterol/Ipratropium (Duoneb 3 Mg/0.5 Mg (3 Ml) Ud) 3 ml INH RQ4 [facility] Last Admin: 11/27/18 08:20 Dose: 3 ml Aspirin (Aspirin Chewable) 81 mg PO DAILY [facility] Last Admin: 11/27/18 10:32 Dose: Not Given Clopidogrel Bisulfate (Plavix) 75 mg PO DAILY [facility] Last Admin: 11/27/18 10:31 Dose: Not Given Enoxaparin Sodium (Lovenox) 40 mg SC DAILY [facility] Last Admin: 11/27/18 09:46 Dose: 40 mg Famotidine (Pepcid) 20 mg IVP DAILY [facility] Last Admin: 11/27/18 09:46 Dose: 20 mg Propofol (Diprivan) 1,000 mg in 100 mls @ 3.565 mls/hr IV .Q24H PRN; Protocol PRN Reason: TITRATE PER MD ORDER Last Admin: 11/27/18 02:57 Dose: 10 mcg/kg/min, 7.13 mls/hr Fentanyl Citrate 2,500 mcg/ (Sodium Chloride) 250 mls @ 23.52 mls/hr IV .[id number] PRN; Protocol PRN Reason: TITRATION Last Titration: 11/27/18 06:00 Dose: 1.27 mcg/kg/hr, 15 mls/hr Piperacillin Sod/Tazobactam Sod (Zosyn 2.25 Gm Iv Premix) 2.25 gm in 50 mls @ 100 mls/hr IVPB Q6H [facility]; Protocol Last Admin: 11/27/18 09:47 Dose: 100 mls/hr Vancomycin HCl 1 gm/ Sodium (Chloride) 250 mls @ 166.7 mls/hr IVPB Q24H [facility]; Protocol Last Admin: 11/27/18 09:47 Dose: 166.7 mls/hr Azithromycin 500 mg/ Sodium (Chloride) 250 mls @ 250 mls/hr IVPB Q24H [facility]; Protocol Last Admin: 11/26/18 11:00 Dose: 250 mls/hr Dextrose (Dextrose 5% In Water 1000 Ml) 1,000 mls @ 100 mls/hr IV .Q10H [facility] Last Admin: 11/27/18 10:32 Dose: Not Given Norepinephrine Bitartrate 4 mg (/ Sodium Chloride) 254 mls @ 15.24 mls/hr IV .[id number] PRN; Protocol PRN Reason: TITRATE PER MD ORDER Last Titration: 11/27/18 05:00 Dose: 4 mcg/min, 15.24 mls/hr Lorazepam (Ativan) 2 mg IVP Q3H PRN PRN Reason: Anxiety Last Admin: 11/24/18 03:44 Dose: 2 mg Methylprednisolone (Solu-Medrol) 20 mg IVP Q8H [facility] Last Admin: 11/27/18 08:20 Dose: 20 mg Rosuvastatin Calcium (Crestor) 10 mg PO HS [facility] Last Admin: 11/26/18 21:07 Dose: 10 mg - Labs Labs: 11/27/18 06:02 11/27/18 06:02 PT 14.7 SECONDS (9.7-12.2) H 11/26/18 06:48 INR 1.3 11/26/18 06:48 APTT 28.0 SECONDS (21-34) 11/26/18 06:48 - Head Exam Head Exam: ATRAUMATIC, NORMAL INSPECTION, NORMOCEPHALIC - ENT Exam Additional comments: Trach site clean and dry. On Vent with no issues. - Cardiovascular Exam Cardiovascular Exam: Tachycardia - Neurological Exam Additional comments: Trached and sedated - Skin Skin Exam: Dry, Intact, Warm Assessment and Plan - Assessment and Plan (Free Text) Assessment: 72yo M with Ventilator Dependent Respiratory Failure. s/p Tracheostomy 11/26/18. POD 1 Plan: - Trach site clean and dry. - Vent management as per ICU team - Tracheostomy sutures out on 12/10 - No further surgical intervention warranted Further recs as per Dr. Jt Baez PGY2 surgery
--- NOTE | 2018-11-27 11:27 | CP.PCM.PN ---
Subjective - Date & Time of Evaluation Date of Evaluation: 11/27/18 Time of Evaluation: 11:24 - Subjective Subjective: Notes reviewed pt seen and examined s/p trach , on 100 % Fio2 hypotonic fluids - held cr down to 1.6 UOP approx 1.9 L yesterday remains on steroids ROS- unable to obtain as intubated and sedated Objective - Vital Signs/Intake and Output Vital Signs (last 24 hours): Temp Pulse Resp BP Pulse Ox 99.2 F 91 H 20 113/63 88 L 11/27/18 08:00 11/27/18 10:00 11/27/18 10:00 11/27/18 09:59 11/27/18 10:00 Intake and Output: 11/27/18 11/27/18 06:59 18:59 Intake Total 1867.6 491.7 Output Total 945 210 Balance 922.6 281.7 - Medications Medications: Current Medications Acetaminophen (Tylenol 650mg/20.3ml Solution Ud) 650 mg PO Q6 PRN PRN Reason: Temperature Last Admin: 11/24/18 23:39 Dose: 650 mg Albuterol/Ipratropium (Duoneb 3 Mg/0.5 Mg (3 Ml) Ud) 3 ml INH RQ4 [facility] Last Admin: 11/27/18 08:20 Dose: 3 ml Aspirin (Aspirin Chewable) 81 mg PO DAILY [facility] Last Admin: 11/27/18 10:32 Dose: Not Given Clopidogrel Bisulfate (Plavix) 75 mg PO DAILY [facility] Last Admin: 11/27/18 10:31 Dose: Not Given Enoxaparin Sodium (Lovenox) 40 mg SC DAILY [facility] Last Admin: 11/27/18 09:46 Dose: 40 mg Famotidine (Pepcid) 20 mg IVP DAILY [facility] Last Admin: 11/27/18 09:46 Dose: 20 mg Propofol (Diprivan) 1,000 mg in 100 mls @ 3.565 mls/hr IV .Q24H PRN; Protocol PRN Reason: TITRATE PER MD ORDER Last Admin: 11/27/18 02:57 Dose: 10 mcg/kg/min, 7.13 mls/hr Fentanyl Citrate 2,500 mcg/ (Sodium Chloride) 250 mls @ 23.52 mls/hr IV .[id number] PRN; Protocol PRN Reason: TITRATION Last Titration: 11/27/18 06:00 Dose: 1.27 mcg/kg/hr, 15 mls/hr Piperacillin Sod/Tazobactam Sod (Zosyn 2.25 Gm Iv Premix) 2.25 gm in 50 mls @ 100 mls/hr IVPB Q6H [facility]; Protocol Last Admin: 11/27/18 09:47 Dose: 100 mls/hr Vancomycin HCl 1 gm/ Sodium (Chloride) 250 mls @ 166.7 mls/hr IVPB Q24H [facility]; Protocol Last Admin: 11/27/18 09:47 Dose: 166.7 mls/hr Azithromycin 500 mg/ Sodium (Chloride) 250 mls @ 250 mls/hr IVPB Q24H [facility]; Protocol Last Admin: 11/26/18 11:00 Dose: 250 mls/hr Dextrose (Dextrose 5% In Water 1000 Ml) 1,000 mls @ 100 mls/hr IV .Q10H [facility] Last Admin: 11/27/18 10:32 Dose: Not Given Norepinephrine Bitartrate 4 mg (/ Sodium Chloride) 254 mls @ 15.24 mls/hr IV .[id number] PRN; Protocol PRN Reason: TITRATE PER MD ORDER Last Titration: 11/27/18 05:00 Dose: 4 mcg/min, 15.24 mls/hr Lorazepam (Ativan) 2 mg IVP Q3H PRN PRN Reason: Anxiety Last Admin: 11/24/18 03:44 Dose: 2 mg Methylprednisolone (Solu-Medrol) 20 mg IVP Q8H [facility] Last Admin: 11/27/18 08:20 Dose: 20 mg Rosuvastatin Calcium (Crestor) 10 mg PO HS [facility] Last Admin: 11/26/18 21:07 Dose: 10 mg - Labs Labs: 11/27/18 06:02 11/27/18 06:02 PT 14.7 SECONDS (9.7-12.2) H 11/26/18 06:48 INR 1.3 11/26/18 06:48 APTT 28.0 SECONDS (21-34) 11/26/18 06:48 - Constitutional Appears: Chronically Ill - Head Exam Head Exam: ATRAUMATIC, NORMAL INSPECTION - Eye Exam Eye Exam: Normal appearance. absent: Conjunctival injection - ENT Exam ENT Exam: Mucous Membranes Moist - Neck Exam Neck Exam: absent: Lymphadenopathy Additional comments: Trach in place - Respiratory Exam Respiratory Exam: Rhonchi, NORMAL BREATHING PATTERN. absent: Rales - Cardiovascular Exam Cardiovascular Exam: +S1, +S2, Murmur - GI/Abdominal Exam GI & Abdominal Exam: Soft, Normal Bowel Sounds - Extremities Exam Extremities Exam: Pedal Edema. absent: Joint Swelling - Neurological Exam Neurological Exam: absent: Alert, Awake, Oriented x3 - Skin Skin Exam: Dry. absent: Rash Assessment and Plan (1) Acute hypernatremia Status: Acute (2) Acute renal failure due to tubular necrosis Status: Acute (3) COPD (chronic obstructive pulmonary disease) Status: Acute (4) Cardiac arrest Status: Acute (5) PHT (pulmonary hypertension) Status: Acute - Assessment and Plan (Free Text) Assessment: Renal function stabilizing Azotemia remains elevated - reduce steroids if possible, restart hypotonic IVF Abx as ordered Electrolytes acceptable Vent management Continue ICU care
--- NOTE | 2018-11-27 11:38 | CP.PCM.PN ---
Subjective - Date & Time of Evaluation Date of Evaluation: 11/27/18 Time of Evaluation: 10:00 - Subjective Subjective: PGY5 GI Follow-up for Dr. Wei Pt seen and examined bedside On norepi since last night PEG postponed still pt more stable ROS: could not be conducted 2/2 intubation Objective - Vital Signs/Intake and Output Vital Signs (last 24 hours): Temp Pulse Resp BP Pulse Ox 99.2 F 82 20 105/57 L 91 L 11/27/18 08:00 11/27/18 11:29 11/27/18 11:29 11/27/18 11:29 11/27/18 11:29 Intake and Output: 11/27/18 11/27/18 06:59 18:59 Intake Total 1867.6 491.7 Output Total 945 210 Balance 922.6 281.7 - Medications Medications: Current Medications Acetaminophen (Tylenol 650mg/20.3ml Solution Ud) 650 mg PO Q6 PRN PRN Reason: Temperature Last Admin: 11/24/18 23:39 Dose: 650 mg Albuterol/Ipratropium (Duoneb 3 Mg/0.5 Mg (3 Ml) Ud) 3 ml INH RQ4 [facility] Last Admin: 11/27/18 08:20 Dose: 3 ml Aspirin (Aspirin Chewable) 81 mg PO DAILY [facility] Last Admin: 11/27/18 10:32 Dose: Not Given Clopidogrel Bisulfate (Plavix) 75 mg PO DAILY [facility] Last Admin: 11/27/18 10:31 Dose: Not Given Enoxaparin Sodium (Lovenox) 40 mg SC DAILY [facility] Last Admin: 11/27/18 09:46 Dose: 40 mg Famotidine (Pepcid) 20 mg IVP DAILY [facility] Last Admin: 11/27/18 09:46 Dose: 20 mg Propofol (Diprivan) 1,000 mg in 100 mls @ 3.565 mls/hr IV .Q24H PRN; Protocol PRN Reason: TITRATE PER MD ORDER Last Admin: 11/27/18 02:57 Dose: 10 mcg/kg/min, 7.13 mls/hr Fentanyl Citrate 2,500 mcg/ (Sodium Chloride) 250 mls @ 23.52 mls/hr IV .[id number] PRN; Protocol PRN Reason: TITRATION Last Titration: 11/27/18 06:00 Dose: 1.27 mcg/kg/hr, 15 mls/hr Piperacillin Sod/Tazobactam Sod (Zosyn 2.25 Gm Iv Premix) 2.25 gm in 50 mls @ 100 mls/hr IVPB Q6H [facility]; Protocol Last Admin: 11/27/18 09:47 Dose: 100 mls/hr Vancomycin HCl 1 gm/ Sodium (Chloride) 250 mls @ 166.7 mls/hr IVPB Q24H [facility]; Protocol Last Admin: 11/27/18 09:47 Dose: 166.7 mls/hr Azithromycin 500 mg/ Sodium (Chloride) 250 mls @ 250 mls/hr IVPB Q24H [facility]; Protocol Last Admin: 11/26/18 11:00 Dose: 250 mls/hr Dextrose (Dextrose 5% In Water 1000 Ml) 1,000 mls @ 100 mls/hr IV .Q10H [facility] Last Admin: 11/27/18 10:32 Dose: Not Given Norepinephrine Bitartrate 4 mg (/ Sodium Chloride) 254 mls @ 15.24 mls/hr IV .[id number] PRN; Protocol PRN Reason: TITRATE PER MD ORDER Last Titration: 11/27/18 05:00 Dose: 4 mcg/min, 15.24 mls/hr Lorazepam (Ativan) 2 mg IVP Q3H PRN PRN Reason: Anxiety Last Admin: 11/24/18 03:44 Dose: 2 mg Methylprednisolone (Solu-Medrol) 20 mg IVP Q8H [facility] Last Admin: 11/27/18 08:20 Dose: 20 mg Rosuvastatin Calcium (Crestor) 10 mg PO HS [facility] Last Admin: 11/26/18 21:07 Dose: 10 mg - Labs Labs: 11/27/18 06:02 11/27/18 06:02 PT 14.7 SECONDS (9.7-12.2) H 11/26/18 06:48 INR 1.3 11/26/18 06:48 APTT 28.0 SECONDS (21-34) 11/26/18 06:48 - Constitutional Appears: No Acute Distress - Head Exam Head Exam: ATRAUMATIC, NORMOCEPHALIC - Eye Exam Eye Exam: Normal appearance - ENT Exam ENT Exam: Mucous Membranes Moist Additional comments: OG and ET tube in place - Neck Exam Neck Exam: Normal Inspection - Respiratory Exam Respiratory Exam: Clear to Ausculation Bilateral, NORMAL BREATHING PATTERN. absent: Rales, Rhonchi, Wheezes, Respiratory Distress - Cardiovascular Exam Cardiovascular Exam: REGULAR RHYTHM, +S1, +S2 - GI/Abdominal Exam GI & Abdominal Exam: Soft, Normal Bowel Sounds. absent: Distended, Firm, Guarding, Rigid, Tenderness, Organomegaly - Extremities Exam Extremities Exam: absent: Joint Swelling, Pedal Edema - Neurological Exam Neurological Exam: Alert, Awake, Oriented x3 - Psychiatric Exam Psychiatric exam: Normal Affect, Normal Mood - Skin Skin Exam: Dry, Intact, Normal Color, Warm Assessment and Plan - Assessment and Plan (Free Text) Assessment: Assessment: 1. s/p Tach POD#1 2. Coffee ground emesis, hgb stable 3. Cardiac Arrest with ROSC s/p cardiac catherization 4. Hx of UGIB 5. PUD-gastric and duodenal ulcers 6. VDRF 7. CAD s/p PCI Plan: -Continue supportive care with ICU team -Monitor hgb and transfuse with goal 9 if needed -Monitor for melena or hemotcheiza -Recent EGD with PUD -s/p tach POD#1 -will post pone case when pt is more stable D/W Dr. Wei
[2018-11-27] MEDS: Azithromycin 500 MG in Sodium Chloride 0.9% 250 ML IVPB SCH (12:08)
--- NOTE | 2018-11-27 15:09 | PN ---
DATE: 11/27/2018 LOCATION: ICU 17. SUBJECTIVE: This 72-year-old male was scheduled initially for PEG insertion today; however, due to the patient's unstable blood pressure and due to his clinical presentation, case discussed with the ICU staff as well as anesthesia staff and it was decided to hold on the PEG insertion for now until the patient is more stable clinically. The most recent lab result as well as all the available medical records seen and the patient still has leukocytes of 14.1 with low hemoglobin and low indices highly suggestive of hypochromic microcytic anemia with abnormal ABGs. Sodium 149, BUN 150 with creatinine 1.6 with blood glucose level 189, low calcium with increased phosphorus and magnesium with low albumin as well as low total protein. The most recent official chest x-ray report done today showed worsening of multifocal pneumonia with near complete involvement of the right lung. Due to the patient's clinical presentation and unstable blood pressure report and due to his hypoxia, it was decided to cancel PEG insertion for now and to be rescheduled later on when the patient is more stable clinically. to be considered in the meantime. Further recommendation to follow. Dakota Mercado MD
--- NOTE | 2018-11-27 16:14 | CP.CCUPN ---
CCU Subjective - Physician Review Subjective (Free Text): 11/27/18 16:22 PGY-1 Critical Care Progress Note for Dr. Crenshaw Patient seen and examined at bedside this AM Remains on mechanical ventilation FIO2 100%, PEEP 12 propofol, fentanyl gtt Patient s/p tracheostomy (11/26) PEG insertion on hold until pt more clinically stable, per GI PICC line inserted (11/26), on pressors: NE IV antibiotics Continue to monitor renal function CCU Objective - Vital Signs / Intake & Output Vital Signs (Last 4 hours): Vital Signs Pulse Resp BP Pulse Ox 11/27/18 15:29 78 18 99/52 L 94 L 11/27/18 15:00 84 21 112/55 L 95 11/27/18 14:29 82 21 101/53 L 94 L 11/27/18 14:00 83 20 94 L 11/27/18 13:59 81 20 103/53 L 93 L 11/27/18 13:29 79 19 100/52 L 92 L 11/27/18 13:00 78 20 92 L 11/27/18 12:59 77 20 104/57 L 93 L 11/27/18 12:30 20 100/52 L 93 L 11/27/18 12:29 80 20 100/52 L 93 L Intake and Output (Last 8hrs): Intake & Output 11/27/18 11/27/18 11/27/18 06:59 14:59 22:59 Intake Total 1214.9 1197.8 Output Total 545 250 Balance 669.9 947.8 Weight 115 kg Intake: IV 100 504 Intake, IV Amount 1094.9 693.8 R FA 2 Y Port 103.8 30 Right Forearm #1 51.2 11.5 Right Forearm #2 800 517 Right PICC 139.9 75 Right PICC 1 45 Right PICC 2 15.3 Oral 0 Tube Feeding 20 Output: Urine 545 250 Urethral ([place]) 545 250 Other: # Bowel Movements 0 - Physical Exam Head: Positive for: Atraumatic, Normocephalic Pupils: Positive for: PERRL Extroacular Muscles: Positive for: EOMI Conjunctiva: Positive for: Normal Ears: Positive for: Normal Mouth: Positive for: Moist Mucous Membranes Respiratory/Chest: Positive for: Good Air Exchange, Decreased Breath Sounds (on left lung oakes), Other (intubated, on vent) Cardiovascular: Positive for: Regular Rate and Rhythm Abdomen: Positive for: Normal Bowel Sounds. Negative for: Tenderness, Distention Upper Extremity: Positive for: Normal Inspection Lower Extremity: Positive for: Normal Inspection Neurological: Positive for: Other (sedated, on vent) Skin: Positive for: Dry, Normal Color Psychiatric: Positive for: Alert - Medications Active Medications: Active Medications Generic Name Dose Route Start Last Admin Trade Name Freq PRN Reason Stop Dose Admin Acetaminophen 650 mg 11/19/18 15:49 11/24/18 23:39 Tylenol 650mg/20.3ml Solution Ud PO 650 mg Q6 PRN Administration Temperature Albuterol/Ipratropium 3 ml 11/23/18 12:00 11/27/18 15:45 Duoneb 3 Mg/0.5 Mg (3 Ml) Ud INH 3 ml RQ4 [facility] Administration Aspirin 81 mg 11/22/18 10:00 11/27/18 10:32 Aspirin Chewable PO Not Given DAILY [facility] Clopidogrel Bisulfate 75 mg 11/18/18 10:00 11/27/18 10:31 Plavix PO Not Given DAILY [facility] Enoxaparin Sodium 40 mg 11/22/18 10:00 11/27/18 09:46 Lovenox SC 40 mg DAILY [facility] Administration Famotidine 20 mg 11/24/18 10:00 11/27/18 09:46 Pepcid IVP 20 mg DAILY [facility] Administration Propofol 1,000 mg in 100 mls @ 3.565 mls/hr 11/21/18 15:30 11/27/18 02:57 Diprivan IV 10 mcg/kg/min .Q24H PRN 7.13 mls/hr TITRATE PER MD ORDER Administration Protocol 5 MCG/KG/MIN Fentanyl Citrate 2,500 mcg/ 250 mls @ 23.52 mls/hr 11/22/18 09:45 11/27/18 12:40 Sodium Chloride IV 1.27 mcg/kg/hr .[id number] PRN 15 mls/hr TITRATION Administration Protocol 2 MCG/KG/HR Piperacillin Sod/Tazobactam Sod 2.25 gm in 50 mls @ 100 mls/hr 11/25/18 10:00 11/27/18 15:48 Zosyn 2.25 Gm Iv Premix IVPB 100 mls/hr Q6H [facility] Administration Protocol Vancomycin HCl 1 gm/ Sodium 250 mls @ 166.7 mls/hr 11/25/18 10:30 11/27/18 09:47 Chloride IVPB 166.7 mls/hr Q24H [facility] Administration Protocol Azithromycin 500 mg/ Sodium 250 mls @ 250 mls/hr 11/25/18 12:00 11/27/18 12:08 Chloride IVPB 250 mls/hr Q24H [facility] Administration Protocol Dextrose 1,000 mls @ 100 mls/hr 11/26/18 12:00 11/27/18 10:32 Dextrose 5% In Water 1000 Ml IV Not Given .Q10H [facility] Norepinephrine Bitartrate 4 mg 254 mls @ 15.24 mls/hr 11/26/18 20:35 11/27/18 12:30 / Sodium Chloride IV 4 mcg/min .[id number] PRN 15.24 mls/hr TITRATE PER MD ORDER Administration Protocol 4 MCG/MIN Lorazepam 2 mg 11/17/18 17:40 11/24/18 03:44 Ativan IVP 2 mg Q3H PRN Administration Anxiety Methylprednisolone 20 mg 11/24/18 08:00 11/27/18 08:20 Solu-Medrol IVP 20 mg Q8H [facility] Administration Rosuvastatin Calcium 10 mg 11/19/18 22:00 11/26/18 21:07 Crestor PO 10 mg HS [facility] Administration - Patient Studies Lab Studies: Microbiology Studies 11/25/18 10:00 Blood Culture - Preliminary Blood NO GROWTH AFTER 48 HOURS 11/25/18 16:30 Gram Stain - Final Trachasp Sputum Culture - Final Acinetobacter Baumannii 11/25/18 10:30 Blood Culture - Preliminary Blood Gram Positive Cocci Gram Stain - Final Lab Studies 11/27/18 11/27/18 11/27/18 Range/Units 06:02 06:02 05:22 WBC 14.1 H (4.8-10.8) K/uL RBC 5.25 (4.40-5.90) Mil/uL Hgb 11.3 L (12.0-18.0) g/dL Hct 40.0 (35.0-51.0) % MCV 76.1 L (80.0-94.0) fL MCH 21.4 L (27.0-31.0) pg MCHC 28.1 L (33.0-37.0) g/dL RDW 20.9 H (11.5-14.5) % Plt Count 259 (130-400) K/uL MPV 9.3 (7.2-11.7) fL Neut % (Auto) 94.6 H (50.0-75.0) % Lymph % (Auto) 2.1 L (20.0-40.0) % [place] % (Auto) 2.8 (0.0-10.0) % Eos % (Auto) 0.0 (0.0-4.0) % Baso % (Auto) 0.5 (0.0-2.0) % Neut # (Auto) 13.4 H (1.8-7.0) K/uL Lymph # (Auto) 0.3 L (1.0-4.3) K/uL [place] # (Auto) 0.4 (0.0-0.8) K/uL Eos # (Auto) 0.0 (0.0-0.7) K/uL Baso # (Auto) 0.1 (0.0-0.2) K/uL Neutrophils % (Manual) 95 H (50-75) % Band Neutrophils % (0-2) % Lymphocytes % (Manual) 2 L (20-40) % Monocytes % (Manual) 3 (0-10) % Platelet Estimate Normal (NORMAL) Hypochromasia (manual) Poikilocytosis (manual Anisocytosis (manual) Moderate Microcytosis (manual) Jemal Cells Slight Puncture Site Rr pCO2 58 H (35-45) mm/Hg pO2 63 L (80-100) mm/Hg HCO3 32.8 H (21-28) mmol/L ABG pH 7.41 (7.35-7.45) ABG Total CO2 38.6 H (22-28) mmol/L ABG O2 Saturation 93.9 L (95-98) % ABG Base Excess 10.3 H (-2.0-3.0) mmol/L ABG Hemoglobin 11.2 L (11.7-17.4) g/dL ABG Carboxyhemoglobin 2.4 H (0.5-1.5) % POC ABG HHb (Measured) 5.9 H (0.0-5.0) % ABG Methemoglobin 1.3 (0.0-3.0) % Robert Test Pos A-a O2 Difference 506.0 mm/Hg Respiratory Index 8.0 Hgb O2 Saturation 90.4 L (95.0-98.0) % Vent Mode Prvc Mechanical Rate 20 FiO2 90.0 % Tidal Volume 500 PEEP 12 Sodium 149 H (132-148) mmol/L Potassium 4.3 (3.6-5.2) mmol/L Chloride 106 (98-107) mmol/L Carbon Dioxide 35 H (22-30) mmol/L Anion Gap 12 (10-20) BUN 150 H* (9-20) mg/dL Creatinine 1.6 H (0.8-1.5) mg/dL Est GFR ( Amer) 52 Est GFR (Non-Af Amer) 43 Random Glucose 189 H D (75-110) mg/dL Calcium 8.1 L (8.6-10.4) mg/dl Phosphorus 4.7 H (2.5-4.5) mg/dL Magnesium 2.7 H (1.6-2.3) mg/dL Total Bilirubin 0.9 (0.2-1.3) mg/dL AST 30 (17-59) U/L ALT 25 (21-72) U/L Alkaline Phosphatase 49 (38-126) U/L Total Protein 5.7 L (6.3-8.3) g/dL Albumin 2.9 L (3.5-5.0) g/dL Globulin 2.8 (2.2-3.9) gm/dL Albumin/Globulin Ratio 1.0 (1.0-2.1) 11/27/18 11/26/18 Range/Units 01:36 20:49 WBC 10.8 (4.8-10.8) K/uL RBC 5.19 (4.40-5.90) Mil/uL Hgb 11.1 L (12.0-18.0) g/dL Hct 39.0 (35.0-51.0) % MCV 76.2 L (80.0-94.0) fL MCH 21.3 L (27.0-31.0) pg MCHC 27.9 L (33.0-37.0) g/dL RDW 19.9 H (11.5-14.5) % Plt Count 241 (130-400) K/uL MPV 9.2 (7.2-11.7) fL Neut % (Auto) 86.5 H (50.0-75.0) % Lymph % (Auto) 7.6 L (20.0-40.0) % [place] % (Auto) 5.4 (0.0-10.0) % Eos % (Auto) 0.1 (0.0-4.0) % Baso % (Auto) 0.4 (0.0-2.0) % Neut # (Auto) 9.3 H (1.8-7.0) K/uL Lymph # (Auto) 0.8 L (1.0-4.3) K/uL [place] # (Auto) 0.6 (0.0-0.8) K/uL Eos # (Auto) 0.0 (0.0-0.7) K/uL Baso # (Auto) 0.0 (0.0-0.2) K/uL Neutrophils % (Manual) 85 H (50-75) % Band Neutrophils % 1 (0-2) % Lymphocytes % (Manual) 8 L (20-40) % Monocytes % (Manual) 6 (0-10) % Platelet Estimate Normal (NORMAL) Hypochromasia (manual) Slight Poikilocytosis (manual Slight Anisocytosis (manual) Slight Microcytosis (manual) Slight Jemal Cells Puncture Site pCO2 (35-45) mm/Hg pO2 (80-100) mm/Hg HCO3 (21-28) mmol/L ABG pH (7.35-7.45) ABG Total CO2 (22-28) mmol/L ABG O2 Saturation (95-98) % ABG Base Excess (-2.0-3.0) mmol/L ABG Hemoglobin (11.7-17.4) g/dL ABG Carboxyhemoglobin (0.5-1.5) % POC ABG HHb (Measured) (0.0-5.0) % ABG Methemoglobin (0.0-3.0) % Robert Test A-a O2 Difference mm/Hg Respiratory Index Hgb O2 Saturation (95.0-98.0) % Vent Mode Mechanical Rate FiO2 % Tidal Volume PEEP Sodium 150 H (132-148) mmol/L Potassium 4.1 (3.6-5.2) mmol/L Chloride 109 H (98-107) mmol/L Carbon Dioxide 35 H (22-30) mmol/L Anion Gap 11 (10-20) BUN 145 H* (9-20) mg/dL Creatinine 1.7 H (0.8-1.5) mg/dL Est GFR ( Amer) 48 Est GFR (Non-Af Amer) 40 Random Glucose 154 H D (75-110) mg/dL Calcium 8.6 (8.6-10.4) mg/dl Phosphorus 4.7 H (2.5-4.5) mg/dL Magnesium 2.6 H (1.6-2.3) mg/dL Total Bilirubin 1.0 (0.2-1.3) mg/dL AST 38 (17-59) U/L ALT 24 (21-72) U/L Alkaline Phosphatase 53 (38-126) U/L Total Protein 5.6 L (6.3-8.3) g/dL Albumin 2.8 L (3.5-5.0) g/dL Globulin 2.8 (2.2-3.9) gm/dL Albumin/Globulin Ratio 1.0 (1.0-2.1) Laboratory Results - last 24 hr 11/26/18 11/27/18 11/27/18 20:49 01:36 05:22 WBC 10.8 RBC 5.19 Hgb 11.1 L Hct 39.0 MCV 76.2 L MCH 21.3 L MCHC 27.9 L RDW 19.9 H Plt Count 241 MPV 9.2 Neut % (Auto) 86.5 H Lymph % (Auto) 7.6 L [place] % (Auto) 5.4 Eos % (Auto) 0.1 Baso % (Auto) 0.4 Neut # (Auto) 9.3 H Lymph # (Auto) 0.8 L [place] # (Auto) 0.6 Eos # (Auto) 0.0 Baso # (Auto) 0.0 Neutrophils % (Manual) 85 H Band Neutrophils % 1 Lymphocytes % (Manual) 8 L Monocytes % (Manual) 6 Platelet Estimate Normal Hypochromasia (manual) Slight Poikilocytosis (manual Slight Anisocytosis (manual) Slight Microcytosis (manual) Slight Jemal Cells Puncture Site Rr pCO2 58 H pO2 63 L HCO3 32.8 H ABG pH 7.41 ABG Total CO2 38.6 H ABG O2 Saturation 93.9 L ABG Base Excess 10.3 H ABG Hemoglobin 11.2 L ABG Carboxyhemoglobin 2.4 H POC ABG HHb (Measured) 5.9 H ABG Methemoglobin 1.3 Robert Test Pos A-a O2 Difference 506.0 Respiratory Index 8.0 Hgb O2 Saturation 90.4 L Vent Mode Prvc Mechanical Rate 20 FiO2 90.0 Tidal Volume 500 PEEP 12 Sodium 150 H Potassium 4.1 Chloride 109 H Carbon Dioxide 35 H Anion Gap 11 BUN 145 H* Creatinine 1.7 H Est GFR ( Amer) 48 Est GFR (Non-Af Amer) 40 Random Glucose 154 H D Calcium 8.6 Phosphorus 4.7 H Magnesium 2.6 H Total Bilirubin 1.0 AST 38 ALT 24 Alkaline Phosphatase 53 Total Protein 5.6 L Albumin 2.8 L Globulin 2.8 Albumin/Globulin Ratio 1.0 11/27/18 11/27/18 06:02 06:02 WBC 14.1 H RBC 5.25 Hgb 11.3 L Hct 40.0 MCV 76.1 L MCH 21.4 L MCHC 28.1 L RDW 20.9 H Plt Count 259 MPV 9.3 Neut % (Auto) 94.6 H Lymph % (Auto) 2.1 L [place] % (Auto) 2.8 Eos % (Auto) 0.0 Baso % (Auto) 0.5 Neut # (Auto) 13.4 H Lymph # (Auto) 0.3 L [place] # (Auto) 0.4 Eos # (Auto) 0.0 Baso # (Auto) 0.1 Neutrophils % (Manual) 95 H Band Neutrophils % Lymphocytes % (Manual) 2 L Monocytes % (Manual) 3 Platelet Estimate Normal Hypochromasia (manual) Poikilocytosis (manual Anisocytosis (manual) Moderate Microcytosis (manual) [place] Cells Slight Puncture Site pCO2 pO2 HCO3 ABG pH ABG Total CO2 ABG O2 Saturation ABG Base Excess ABG Hemoglobin ABG Carboxyhemoglobin POC ABG HHb (Measured) ABG Methemoglobin Robert Test A-a O2 Difference Respiratory Index Hgb O2 Saturation Vent Mode Mechanical Rate FiO2 Tidal Volume PEEP Sodium 149 H Potassium 4.3 Chloride 106 Carbon Dioxide 35 H Anion Gap 12 BUN 150 H* Creatinine 1.6 H Est GFR ( Amer) 52 Est GFR (Non-Af Amer) 43 Random Glucose 189 H D Calcium 8.1 L Phosphorus 4.7 H Magnesium 2.7 H Total Bilirubin 0.9 AST 30 ALT 25 Alkaline Phosphatase 49 Total Protein 5.7 L Albumin 2.9 L Globulin 2.8 Albumin/Globulin Ratio 1.0 Radiology Impressions: Radiology Impressions Chest X-Ray 11/27/18 07:00 IMPRESSION: Worsening multifocal pneumonia with near complete involvement of the right lung. Stable position of support line and tubes. Review of Systems - Review of Systems All systems: reviewed and no additional remarkable complaints except Review of Systems: as per HPI Critical Care Progress Note - Nutrition Nutrition: Nutrition Category Date Time Status NPO Diet [DIET] Diets 11/26/18 Dinner Active
[2018-11-28] MEDS: MethylPREDNISolone 40 mg Vial IVP SCH ×4 (00:04→23:48)
[2018-11-28] MEDS: Albuterol-Ipratrop 3 mg / 0.5 (3 ml) UD INH SCH ×6 (00:22→19:20)
[2018-11-28] MEDS: Piperacill/Tazo 2.25gm in Dex 2.25 GM/50 ML BAG IVPB SCH ×4 (03:08→21:13)
[2018-11-28 05:09] LABS: ABG ALLEN TEST POS; ARTERIAL BLOOD GAS HEMOGLOBIN 10.5 g/dL (11.7-17.4); ARTERIAL BLOOD GAS O2 SAT 97.3 % (95-98); ARTERIAL BLOOD GAS PCO2 66 mm/Hg (35-45); ARTERIAL BLOOD GAS PH 7.38 (7.35-7.45); ARTERIAL BLOOD GAS PO2 80 mm/Hg (80-100)
[2018-11-28 06:03] LABS: BASO % 0.2 % (0.0-2.0); LYMPH # 0.2 K/uL (1.0-4.3); LYMPH % 2.3 % (20.0-40.0); MEAN CELL VOLUME 76.8 fL (80.0-94.0); MEAN CORPUSCULAR HEMOGLOBIN 21.6 pg (27.0-31.0); MEAN CORPUSCULAR HGB CONC 28.2 g/dL (33.0-37.0); MEAN PLATELET VOLUME 9.7 fL (7.2-11.7); MONO # 0.3 K/uL (0.0-0.8); MONO % 2.7 % (0.0-10.0); NEUT # 9.5 K/uL (1.8-7.0); NEUT % 94.8 % (50.0-75.0); PLATELET COUNT 249 K/uL (130-400); RBC 4.83 Mil/uL (4.40-5.90); RED CELL DISTRIBUTION WIDTH 20.7 % (11.5-14.5)
[2018-11-28 06:11] LABS: HEMOGLOBIN 10.4 g/dL (12.0-18.0)
[2018-11-28 06:35] LABS: ALBUMIN 2.8 g/dL (3.5-5.0); CALCIUM 8.5 mg/dl (8.6-10.4)
[2018-11-28] MEDS ORDERED: Phytonadione 10 mg/ml Inj (Adult) SC ONE (07:15)
--- NOTE | 2018-11-28 08:08 | PN ---
DATE: 11/28/2018 LOCATION: ICU 17. SUBJECTIVE: This is a 72-year-old male, seen and examined in rounds. The patient had been on mechanical ventilation with status post tracheostomy. No reported recent episodes of active bleeding. Most recent lab results showed hemoglobin of 10.4 with low indices highly suggestive of hypochromic microcytic anemia with normal white blood cells and normal platelet count with abnormal ABGs with sodium 153, CO2 content 36 and BUN of 138 but normal creatinine 1.5, blood glucose level 142, calcium 8.5 with magnesium 2.9, albumin 2.8, total protein 5.6. Most recently done chest x-ray yesterday showed worsening of multifocal pneumonia. PHYSICAL EXAMINATION: GENERAL: A 72-year-old male. VITAL SIGNS: Low-grade temperature, pulse of 92, and blood pressure of 108/64. HEENT: Showed pale, dry oral mucous membrane. Nonicteric sclerae. The patient on trach vent. EXTREMITIES: Without significant clubbing, cyanosis or edema. LUNGS: Scattered bilateral crepitation with excessive decrease of air entry. HEART: Positive S1 and S2 with increased rate. ABDOMEN: Soft. Mildly obese, mildly distended. Bowel sounds are hypoactive. NEUROLOGIC: No new reported neurological deficits, sensory or motor. IMPRESSION: 1. Respiratory failure, extensive multifocal pneumonia, status post tracheostomy, to vent. 2. Dysphagia malnutrition, hypoalbuminemia, hypoproteinemia. 3. The patient is a candidate for percutaneous endoscopic gastrostomy insertion. 4. Hypochromic microcytic anemia, most likely secondary to gastrointestinal blood loss and chronic disease. 5. Severe prerenal azotemia with dehydration. 6. Electrolyte imbalance. 7. Known history of coronary artery disease with status post cardiac code. SUGGESTIONS: 1. Continue current management. 2. Peripheral hyperalimentation. 3. Reschedule the patient for PEG insertion when he is more stable clinically. 4. Further recommendation to follow. Dakota Mercado MD
[2018-11-28 09:12] LABS: BANDS 3 % (0-2); LYMPHOCYTE 2 % (20-40); MONOCYTE 3 % (0-10); NEUTROPHIL 92 % (50-75); PLATELET ESTIMATE NORMAL (NORMAL); TOTAL CELLS COUNTED 100
[2018-11-28 09:13] LABS: ANISOCYTOSIS MODERATE; HYPOCHROMIC MODERATE; POLYCHROMIC SLIGHT
[2018-11-28 09:15] LABS: LARGE PLATELETS PRESENT; TOXIC GRANULATION PRESENT
[2018-11-28 09:16] LABS: GIANT PLATELETS PRESENT; MICROCYTOSIS MODERATE
[2018-11-28] MEDS: Enoxaparin 40 mg Syringe SC SCH (09:29)
[2018-11-28] MEDS: Propofol 10 mg/ml 1,000 MG/100 ML VIAL IV PRN (09:52)
--- NOTE | 2018-11-28 09:57 | CP.CCUPN ---
CCU Subjective - Physician Review Events Since Last Encounter (Free Text): 11/28/18 09:57 Patient is a 72-year-old male with a history of hypertension hyperlipidemia COPD, congestive heart failure admitted to the hospital following cardiac arrest, underwent angiogram code heart. Patient had a multiple cardiac arrest and CPR. After that initial insult, patient developed ARDS, ventilator dependent respiratory failure Status post tracheostomy. Still severely hypoxic. On full support ventilation with sedation at this time. Patient underwent tracheostomy on 11/26/2018 Patient is currently being seen by tire rebuilder for the worsening renal failure Also seen by manager transportation planning On examination: Currently patient sedated well. But he is arousable. Chest bilateral diffuse wheezing and rhonchi noted. Thick secretions present. Patient needs a frequent ambo bagging to clear the secretions, and also to improve the oxygen. Regular heart sounds. Abdominal tenderness negative Bilateral leg swelling and edema noted Labs CBC is nonspecific ABG showing hypercapnia Oxygen some improvement minimally noted Chemistry elevated sodium level Elevated creatinine and BUN but compared to previous values somewhat stable. Sputum culture is positive for Acinetobacter. But sensitive bacteria at this time Chest x-ray showing tracheostomy But the diffuse bilateral infiltrate to groundglass changes noted, ARDS pattern Assessment and recommendation: 72-year-old male with a history of hypertension, hyperlipidemia, CAD, status p ost stent, admitted with a cardiac arrest and respiratory failure. Patient developing ARDS. Ventilator associated pneumonia Associated aspiration pneumonia now having Acinetobacter in the sputum culture. Infectious disease follow-up necessary at this time. Antibiotic as per ID. We will continue the supportive treatment. Overall prognosis is guarded. Patient will need the PEG tube. Patient condition is very critical. CCU Objective - Vital Signs / Intake & Output Vital Signs (Last 4 hours): Vital Signs Temp Pulse Resp BP Pulse Ox 11/28/18 09:46 18 90/62 L 92 L 11/28/18 08:00 99.6 F 84 18 118/64 91 L 11/28/18 07:00 82 20 116/65 91 L 11/28/18 06:59 83 18 92 L 11/28/18 06:00 91 H 12 111/62 87 L Intake and Output (Last 8hrs): Intake & Output 11/27/18 11/28/18 11/28/18 22:59 06:59 14:59 Intake Total 1142.4 888.7 225.5 Output Total 833 970 150 Balance 309.4 -81.3 75.5 Weight 256 lb 13.416 oz Intake: IV 100 481.3 122.7 Intake, IV Amount 832.4 247.4 62.8 Right Forearm #1 50 Right Forearm #2 500 Right PICC 121.6 86.6 22.6 Right PICC 1 120 120 30 Right PICC 2 40.8 40.8 10.2 Tube Feeding 60 160 40 Other 150 Output: Urine 833 970 150 Urethral ([place]) 833 970 150 Other: # Bowel Movements 0 0 0 - Physical Exam Head: Positive for: Atraumatic, Normocephalic Pupils: Positive for: PERRL Extroacular Muscles: Positive for: EOMI Conjunctiva: Positive for: Normal Ears: Positive for: Normal Mouth: Positive for: Moist Mucous Membranes Respiratory/Chest: Positive for: Good Air Exchange, Decreased Breath Sounds (on left lung oakes), Other (intubated, on vent) Cardiovascular: Positive for: Regular Rate and Rhythm Abdomen: Positive for: Normal Bowel Sounds. Negative for: Tenderness, Distention Upper Extremity: Positive for: Normal Inspection Lower Extremity: Positive for: Normal Inspection Neurological: Positive for: Other (sedated, on vent) Skin: Positive for: Dry, Normal Color Psychiatric: Positive for: Alert - Medications Active Medications: Active Medications Generic Name Dose Route Start Last Admin Trade Name Freq PRN Reason Stop Dose Admin Acetaminophen 650 mg 11/19/18 15:49 11/24/18 23:39 Tylenol 650mg/20.3ml Solution Ud PO 650 mg Q6 PRN Administration Temperature Albuterol/Ipratropium 3 ml 11/23/18 12:00 11/28/18 08:01 Duoneb 3 Mg/0.5 Mg (3 Ml) Ud INH 3 ml RQ4 DAMION Administration Aspirin 81 mg 11/22/18 10:00 11/28/18 09:29 Aspirin Chewable PO 81 mg DAILY DAMION Administration Enoxaparin Sodium 40 mg 11/22/18 10:00 11/28/18 09:29 Lovenox SC 40 mg DAILY DAMION Administration Famotidine 20 mg 11/24/18 10:00 11/28/18 09:30 Pepcid IVP 20 mg DAILY DAMION Administration Propofol 1,000 mg in 100 mls @ 3.565 mls/hr 11/21/18 15:30 11/28/18 09:52 Diprivan IV 7.15 mcg/kg/min .Q24H PRN 5.1 mls/hr TITRATE PER MD ORDER Administration Protocol 5 MCG/KG/MIN Fentanyl Citrate 2,500 mcg/ 250 mls @ 23.52 mls/hr 11/22/18 09:45 11/28/18 04:32 Sodium Chloride IV 1.27 mcg/kg/hr .[id number] PRN 15 mls/hr TITRATION Administration Protocol 2 MCG/KG/HR Piperacillin Sod/Tazobactam Sod 2.25 gm in 50 mls @ 100 mls/hr 11/25/18 10:00 11/28/18 09:27 Zosyn 2.25 Gm Iv Premix IVPB 100 mls/hr Q6H DAMION Administration Protocol Vancomycin HCl 1 gm/ Sodium 250 mls @ 166.7 mls/hr 11/25/18 10:30 11/28/18 09:50 Chloride IVPB 166.7 mls/hr Q24H DAMION Administration Protocol Azithromycin 500 mg/ Sodium 250 mls @ 250 mls/hr 11/25/18 12:00 11/27/18 12:08 Chloride IVPB 250 mls/hr Q24H DAMION Administration Protocol Norepinephrine Bitartrate 4 mg 254 mls @ 15.24 mls/hr 11/26/18 20:35 11/28/18 09:46 / Sodium Chloride IV 2.96 mcg/min .[id number] PRN 11.3 mls/hr TITRATE PER MD ORDER Administration Protocol 4 MCG/MIN Lorazepam 2 mg 11/17/18 17:40 11/24/18 03:44 Ativan IVP 2 mg Q3H PRN Administration Anxiety Methylprednisolone 20 mg 11/24/18 08:00 11/28/18 09:28 Solu-Medrol IVP 20 mg Q8H DAMION Administration Rosuvastatin Calcium 10 mg 11/19/18 22:00 11/27/18 21:44 Crestor PO 10 mg HS DAMION Administration - Patient Studies Lab Studies: Microbiology Studies 11/25/18 10:30 Blood Culture - Final Blood Coagulase Neg Staphylococcus Gram Stain - Final 11/25/18 10:00 Blood Culture - Preliminary Blood NO GROWTH AFTER 48 HOURS 11/25/18 16:30 Gram Stain - Final Trachasp Sputum Culture - Final Acinetobacter Baumannii Lab Studies 11/28/18 11/28/18 11/28/18 Range/Units 05:52 05:47 05:47 WBC 10.0 (4.8-10.8) K/uL RBC 4.83 (4.40-5.90) Mil/uL Hgb 10.4 L (12.0-18.0) g/dL Hct 37.1 (35.0-51.0) % MCV 76.8 L (80.0-94.0) fL MCH 21.6 L (27.0-31.0) pg MCHC 28.2 L (33.0-37.0) g/dL RDW 20.7 H (11.5-14.5) % Plt Count 249 (130-400) K/uL MPV 9.7 (7.2-11.7) fL Neut % (Auto) 94.8 H (50.0-75.0) % Lymph % (Auto) 2.3 L (20.0-40.0) % [place] % (Auto) 2.7 (0.0-10.0) % Eos % (Auto) 0.0 (0.0-4.0) % Baso % (Auto) 0.2 (0.0-2.0) % Neut # (Auto) 9.5 H (1.8-7.0) K/uL Lymph # (Auto) 0.2 L (1.0-4.3) K/uL [place] # (Auto) 0.3 (0.0-0.8) K/uL Eos # (Auto) 0.0 (0.0-0.7) K/uL Baso # (Auto) 0.0 (0.0-0.2) K/uL Neutrophils % (Manual) 92 H (50-75) % Band Neutrophils % 3 H (0-2) % Lymphocytes % (Manual) 2 L (20-40) % Monocytes % (Manual) 3 (0-10) % Toxic Granulation Present Platelet Estimate Normal (NORMAL) Large Platelets Present Giant Platelets Present Polychromasia Slight Hypochromasia (manual) Moderate Anisocytosis (manual) Moderate Microcytosis (manual) Moderate Puncture Site pCO2 (35-45) mm/Hg pO2 (80-100) mm/Hg HCO3 (21-28) mmol/L ABG pH (7.35-7.45) ABG Total CO2 (22-28) mmol/L ABG O2 Saturation (95-98) % ABG Base Excess (-2.0-3.0) mmol/L ABG Hemoglobin (11.7-17.4) g/dL ABG Carboxyhemoglobin (0.5-1.5) % POC ABG HHb (Measured) (0.0-5.0) % ABG Methemoglobin (0.0-3.0) % Robert Test A-a O2 Difference mm/Hg Respiratory Index Hgb O2 Saturation (95.0-98.0) % Vent Mode Mechanical Rate FiO2 % Tidal Volume PEEP Sodium 153 H (132-148) mmol/L Potassium 4.4 (3.6-5.2) mmol/L Chloride 108 H (98-107) mmol/L Carbon Dioxide 36 H (22-30) mmol/L Anion Gap 14 (10-20) BUN 138 H* (9-20) mg/dL Creatinine 1.5 (0.8-1.5) mg/dL Est GFR ( Amer) 56 Est GFR (Non-Af Amer) 46 Random Glucose 142 H D (75-110) mg/dL Calcium 8.5 L (8.6-10.4) mg/dl Phosphorus 4.2 (2.5-4.5) mg/dL Magnesium 2.9 H (1.6-2.3) mg/dL Total Bilirubin 0.8 (0.2-1.3) mg/dL AST 28 (17-59) U/L ALT 27 (21-72) U/L Alkaline Phosphatase 52 (38-126) U/L Total Protein 5.6 L (6.3-8.3) g/dL Albumin 2.8 L (3.5-5.0) g/dL Globulin 2.8 (2.2-3.9) gm/dL Albumin/Globulin Ratio 1.0 (1.0-2.1) Vancomycin Trough 10.1 H (5.0-10.0) ug/mL 11/28/18 Range/Units 04:55 WBC (4.8-10.8) K/uL RBC (4.40-5.90) Mil/uL Hgb (12.0-18.0) g/dL Hct (35.0-51.0) % MCV (80.0-94.0) fL MCH (27.0-31.0) pg MCHC (33.0-37.0) g/dL RDW (11.5-14.5) % Plt Count (130-400) K/uL MPV (7.2-11.7) fL Neut % (Auto) (50.0-75.0) % Lymph % (Auto) (20.0-40.0) % [place] % (Auto) (0.0-10.0) % Eos % (Auto) (0.0-4.0) % Baso % (Auto) (0.0-2.0) % Neut # (Auto) (1.8-7.0) K/uL Lymph # (Auto) (1.0-4.3) K/uL [place] # (Auto) (0.0-0.8) K/uL Eos # (Auto) (0.0-0.7) K/uL Baso # (Auto) (0.0-0.2) K/uL Neutrophils % (Manual) (50-75) % Band Neutrophils % (0-2) % Lymphocytes % (Manual) (20-40) % Monocytes % (Manual) (0-10) % Toxic Granulation Platelet Estimate (NORMAL) Large Platelets Giant Platelets Polychromasia Hypochromasia (manual) Anisocytosis (manual) Microcytosis (manual) Puncture Site Rr pCO2 66 H (35-45) mm/Hg pO2 80 (80-100) mm/Hg HCO3 34.0 H (21-28) mmol/L ABG pH 7.38 (7.35-7.45) ABG Total CO2 41.0 H (22-28) mmol/L ABG O2 Saturation 97.3 (95-98) % ABG Base Excess 11.7 H (-2.0-3.0) mmol/L ABG Hemoglobin 10.5 L (11.7-17.4) g/dL ABG Carboxyhemoglobin 2.0 H (0.5-1.5) % POC ABG HHb (Measured) 2.6 (0.0-5.0) % ABG Methemoglobin 1.5 (0.0-3.0) % Robert Test Pos A-a O2 Difference 551.0 mm/Hg Respiratory Index 6.9 Hgb O2 Saturation 93.9 L (95.0-98.0) % Vent Mode Prvc Mechanical Rate 18 FiO2 100.0 % Tidal Volume 500 PEEP 12 Sodium (132-148) mmol/L Potassium (3.6-5.2) mmol/L Chloride (98-107) mmol/L Carbon Dioxide (22-30) mmol/L Anion Gap (10-20) BUN (9-20) mg/dL Creatinine (0.8-1.5) mg/dL Est GFR ( Amer) Est GFR (Non-Af Amer) Random Glucose (75-110) mg/dL Calcium (8.6-10.4) mg/dl Phosphorus (2.5-4.5) mg/dL Magnesium (1.6-2.3) mg/dL Total Bilirubin (0.2-1.3) mg/dL AST (17-59) U/L ALT (21-72) U/L Alkaline Phosphatase (38-126) U/L Total Protein (6.3-8.3) g/dL Albumin (3.5-5.0) g/dL Globulin (2.2-3.9) gm/dL Albumin/Globulin Ratio (1.0-2.1) Vancomycin Trough (5.0-10.0) ug/mL Laboratory Results - last 24 hr 11/28/18 11/28/18 11/28/18 04:55 05:47 05:47 WBC RBC Hgb Hct MCV MCH MCHC RDW Plt Count MPV Neut % (Auto) Lymph % (Auto) [place] % (Auto) Eos % (Auto) Baso % (Auto) Neut # (Auto) Lymph # (Auto) [place] # (Auto) Eos # (Auto) Baso # (Auto) Neutrophils % (Manual) Band Neutrophils % Lymphocytes % (Manual) Monocytes % (Manual) Toxic Granulation Platelet Estimate Large Platelets Giant Platelets Polychromasia Hypochromasia (manual) Anisocytosis (manual) Microcytosis (manual) Puncture Site Rr pCO2 66 H pO2 80 HCO3 34.0 H ABG pH 7.38 ABG Total CO2 41.0 H ABG O2 Saturation 97.3 ABG Base Excess 11.7 H ABG Hemoglobin 10.5 L ABG Carboxyhemoglobin 2.0 H POC ABG HHb (Measured) 2.6 ABG Methemoglobin 1.5 Robert Test Pos A-a O2 Difference 551.0 Respiratory Index 6.9 Hgb O2 Saturation 93.9 L Vent Mode Prvc Mechanical Rate 18 FiO2 100.0 Tidal Volume 500 PEEP 12 Sodium 153 H Potassium 4.4 Chloride 108 H Carbon Dioxide 36 H Anion Gap 14 BUN 138 H* Creatinine 1.5 Est GFR ( Amer) 56 Est GFR (Non-Af Amer) 46 Random Glucose 142 H D Calcium 8.5 L Phosphorus 4.2 Magnesium 2.9 H Total Bilirubin 0.8 AST 28 ALT 27 Alkaline Phosphatase 52 Total Protein 5.6 L Albumin 2.8 L Globulin 2.8 Albumin/Globulin Ratio 1.0 Vancomycin Trough 10.1 H 11/28/18 05:52 WBC 10.0 RBC 4.83 Hgb 10.4 L Hct 37.1 MCV 76.8 L MCH 21.6 L MCHC 28.2 L RDW 20.7 H Plt Count 249 MPV 9.7 Neut % (Auto) 94.8 H Lymph % (Auto) 2.3 L [place] % (Auto) 2.7 Eos % (Auto) 0.0 Baso % (Auto) 0.2 Neut # (Auto) 9.5 H Lymph # (Auto) 0.2 L [place] # (Auto) 0.3 Eos # (Auto) 0.0 Baso # (Auto) 0.0 Neutrophils % (Manual) 92 H Band Neutrophils % 3 H Lymphocytes % (Manual) 2 L Monocytes % (Manual) 3 Toxic Granulation Present Platelet Estimate Normal Large Platelets Present Giant Platelets Present Polychromasia Slight Hypochromasia (manual) Moderate Anisocytosis (manual) Moderate Microcytosis (manual) Moderate Puncture Site pCO2 pO2 HCO3 ABG pH ABG Total CO2 ABG O2 Saturation ABG Base Excess ABG Hemoglobin ABG Carboxyhemoglobin POC ABG HHb (Measured) ABG Methemoglobin Robert Test A-a O2 Difference Respiratory Index Hgb O2 Saturation Vent Mode Mechanical Rate FiO2 Tidal Volume PEEP Sodium Potassium Chloride Carbon Dioxide Anion Gap BUN Creatinine Est GFR ( Amer) Est GFR (Non-Af Amer) Random Glucose Calcium Phosphorus Magnesium Total Bilirubin AST ALT Alkaline Phosphatase Total Protein Albumin Globulin Albumin/Globulin Ratio Vancomycin Trough Critical Care Progress Note - Nutrition Nutrition: Nutrition Category Date Time Status NPO Diet [DIET] Diets 11/26/18 Dinner Active
--- NOTE | 2018-11-28 12:11 | CP.PCM.PN ---
Subjective - Date & Time of Evaluation Date of Evaluation: 11/28/18 Time of Evaluation: 12:08 - Subjective Subjective: on respirator opens eyes to name 100%fio2 urine 2300 cc unable to obtain ROS due to clinical status Labs and medicines reviewed Objective - Vital Signs/Intake and Output Vital Signs (last 24 hours): Temp Pulse Resp BP Pulse Ox 99.6 F 78 18 90/62 L 92 L 11/28/18 08:00 11/28/18 09:00 11/28/18 09:46 11/28/18 09:46 11/28/18 09:46 Intake and Output: 11/28/18 11/28/18 06:59 18:59 Intake Total 1339.9 276.9 Output Total 1803 225 Balance -463.1 51.9 - Medications Medications: Current Medications Acetaminophen (Tylenol 650mg/20.3ml Solution Ud) 650 mg PO Q6 PRN PRN Reason: Temperature Last Admin: 11/24/18 23:39 Dose: 650 mg Albuterol/Ipratropium (Duoneb 3 Mg/0.5 Mg (3 Ml) Ud) 3 ml INH RQ4 DAMION Last Admin: 11/28/18 11:10 Dose: 3 ml Aspirin (Aspirin Chewable) 81 mg PO DAILY DAMION Last Admin: 11/28/18 09:29 Dose: 81 mg Enoxaparin Sodium (Lovenox) 40 mg SC DAILY DAMION Last Admin: 11/28/18 09:29 Dose: 40 mg Famotidine (Pepcid) 20 mg IVP DAILY DAMION Last Admin: 11/28/18 09:30 Dose: 20 mg Propofol (Diprivan) 1,000 mg in 100 mls @ 3.565 mls/hr IV .Q24H PRN; Protocol PRN Reason: TITRATE PER MD ORDER Last Admin: 11/28/18 09:52 Dose: 7.15 mcg/kg/min, 5.1 mls/hr Fentanyl Citrate 2,500 mcg/ (Sodium Chloride) 250 mls @ 23.52 mls/hr IV .[id number] PRN; Protocol PRN Reason: TITRATION Last Admin: 11/28/18 04:32 Dose: 1.27 mcg/kg/hr, 15 mls/hr Piperacillin Sod/Tazobactam Sod (Zosyn 2.25 Gm Iv Premix) 2.25 gm in 50 mls @ 100 mls/hr IVPB Q6H DAMION; Protocol Last Admin: 11/28/18 09:27 Dose: 100 mls/hr Vancomycin HCl 1 gm/ Sodium (Chloride) 250 mls @ 166.7 mls/hr IVPB Q24H DAMION; Protocol Last Admin: 11/28/18 09:50 Dose: 166.7 mls/hr Azithromycin 500 mg/ Sodium (Chloride) 250 mls @ 250 mls/hr IVPB Q24H DAMION; Protocol Last Admin: 11/27/18 12:08 Dose: 250 mls/hr Norepinephrine Bitartrate 4 mg (/ Sodium Chloride) 254 mls @ 15.24 mls/hr IV .[id number] PRN; Protocol PRN Reason: TITRATE PER MD ORDER Last Admin: 11/28/18 09:46 Dose: 2.96 mcg/min, 11.3 mls/hr Lorazepam (Ativan) 2 mg IVP Q3H PRN PRN Reason: Anxiety Last Admin: 11/24/18 03:44 Dose: 2 mg Methylprednisolone (Solu-Medrol) 20 mg IVP Q8H DAMION Last Admin: 11/28/18 09:28 Dose: 20 mg Rosuvastatin Calcium (Crestor) 10 mg PO HS DAMION Last Admin: 11/27/18 21:44 Dose: 10 mg - Labs Labs: 11/28/18 05:52 11/28/18 05:47 PT 14.7 SECONDS (9.7-12.2) H 11/26/18 06:48 INR 1.3 11/26/18 06:48 APTT 28.0 SECONDS (21-34) 11/26/18 06:48 - Constitutional Appears: Confused, Chronically Ill - Head Exam Head Exam: ATRAUMATIC, NORMAL INSPECTION Additional comments: trachesostomy - ENT Exam ENT Exam: Mucous Membranes Moist - Neck Exam Neck Exam: Full ROM. absent: Lymphadenopathy - Respiratory Exam Respiratory Exam: Decreased Breath Sounds. absent: Accessory Muscle Use - Cardiovascular Exam Cardiovascular Exam: REGULAR RHYTHM. absent: Rubs - GI/Abdominal Exam GI & Abdominal Exam: Distended, Soft, Normal Bowel Sounds - Extremities Exam Extremities Exam: Pedal Edema Assessment and Plan - Assessment and Plan (Free Text) Assessment: high bun high Na appearing more edematouos check urine and serum osmolarity to evaluate for DI decrease protein intake, if possible decrease steroids if possible ARDS status at present
[2018-11-28] MEDS: Azithromycin 500 MG in Sodium Chloride 0.9% 250 ML IVPB SCH (13:00)
--- NOTE | 2018-11-28 13:56 | RAD ---
Date of service: 11/28/2018 HISTORY: ff up/vent COMPARISON: Comparison chest 11/27/2018 TECHNIQUE: 1 view obtained. FINDINGS: In situ tracheostomy tube in good position. No change right sided PICC line with tip in the SVC. In situ NGT, the tip of which has not been included on this film though distal aspect does lie well below EG junction. LUNGS: Diffuse bilateral infiltrates again noted. PLEURA: No significant pleural effusion identified, no pneumothorax apparent. CARDIOVASCULAR: No aortic atherosclerotic calcification present. Normal cardiac size. No pulmonary vascular congestion. OSSEOUS STRUCTURES: No significant abnormalities. VISUALIZED UPPER ABDOMEN: Normal. OTHER FINDINGS: None. IMPRESSION: Support lines and tubes as above. Diffuse bilateral infiltrates with suspected bilateral effusions..
--- NOTE | 2018-11-28 16:48 | CP.PCM.PN ---
Subjective - Date & Time of Evaluation Date of Evaluation: 11/28/18 Time of Evaluation: 16:47 - Subjective Subjective: Patient with cardiac arrest, still intubated and sedated. Objective - Vital Signs/Intake and Output Vital Signs (last 24 hours): Temp Pulse Resp BP Pulse Ox 99.5 F 80 18 116/58 L 89 L 11/28/18 12:00 11/28/18 14:00 11/28/18 14:00 11/28/18 13:00 11/28/18 14:00 Intake and Output: 11/28/18 11/28/18 06:59 18:59 Intake Total 1339.9 482.5 Output Total 1803 1290 Balance -463.1 -807.5 - Medications Medications: Current Medications Acetaminophen (Tylenol 650mg/20.3ml Solution Ud) 650 mg PO Q6 PRN PRN Reason: Temperature Last Admin: 11/24/18 23:39 Dose: 650 mg Albuterol/Ipratropium (Duoneb 3 Mg/0.5 Mg (3 Ml) Ud) 3 ml INH RQ4 DAMION Last Admin: 11/28/18 16:00 Dose: 3 ml Aspirin (Aspirin Chewable) 81 mg PO DAILY DAMION Last Admin: 11/28/18 09:29 Dose: 81 mg Enoxaparin Sodium (Lovenox) 40 mg SC DAILY DAMION Last Admin: 11/28/18 09:29 Dose: 40 mg Famotidine (Pepcid) 20 mg IVP DAILY DAMION Last Admin: 11/28/18 09:30 Dose: 20 mg Propofol (Diprivan) 1,000 mg in 100 mls @ 3.565 mls/hr IV .Q24H PRN; Protocol PRN Reason: TITRATE PER MD ORDER Last Admin: 11/28/18 09:52 Dose: 7.15 mcg/kg/min, 5.1 mls/hr Fentanyl Citrate 2,500 mcg/ (Sodium Chloride) 250 mls @ 23.52 mls/hr IV .[id number] PRN; Protocol PRN Reason: TITRATION Last Admin: 11/28/18 04:32 Dose: 1.27 mcg/kg/hr, 15 mls/hr Piperacillin Sod/Tazobactam Sod (Zosyn 2.25 Gm Iv Premix) 2.25 gm in 50 mls @ 100 mls/hr IVPB Q6H DAMION; Protocol Last Admin: 11/28/18 09:27 Dose: 100 mls/hr Vancomycin HCl 1 gm/ Sodium (Chloride) 250 mls @ 166.7 mls/hr IVPB Q24H DAMION; Protocol Last Admin: 11/28/18 09:50 Dose: 166.7 mls/hr Azithromycin 500 mg/ Sodium (Chloride) 250 mls @ 250 mls/hr IVPB Q24H DAMION; Prot ocol Last Admin: 11/28/18 13:00 Dose: 250 mls/hr Norepinephrine Bitartrate 4 mg (/ Sodium Chloride) 254 mls @ 15.24 mls/hr IV .[id number] PRN; Protocol PRN Reason: TITRATE PER MD ORDER Last Admin: 11/28/18 09:46 Dose: 2.96 mcg/min, 11.3 mls/hr Lorazepam (Ativan) 2 mg IVP Q3H PRN PRN Reason: Anxiety Last Admin: 11/24/18 03:44 Dose: 2 mg Methylprednisolone (Solu-Medrol) 20 mg IVP Q8H DAMION Last Admin: 11/28/18 09:28 Dose: 20 mg Rosuvastatin Calcium (Crestor) 10 mg PO HS DAMION Last Admin: 11/27/18 21:44 Dose: 10 mg - Labs Labs: 11/28/18 05:52 11/28/18 05:47 PT 14.7 SECONDS (9.7-12.2) H 11/26/18 06:48 INR 1.3 11/26/18 06:48 APTT 28.0 SECONDS (21-34) 11/26/18 06:48 - Head Exam Head Exam: NORMOCEPHALIC - Neck Exam Additional comments: S/P Tracheostomy. - Respiratory Exam Additional comments: On ventilator support. Assessment and Plan (1) Cardiac arrest Assessment & Plan: Now in sinus rhythm Maintain electrolyte balance. Status: Acute (2) Ventricular tachycardia Assessment & Plan: Continue current care with prognosis guarded. Status: Acute (3) Congestive heart failure Assessment & Plan: Right sided failure, Fluid restriction Status: Acute
--- NOTE | 2018-11-28 17:08 | CP.PCM.PN ---
Subjective - Date & Time of Evaluation Date of Evaluation: 11/28/18 Time of Evaluation: 16:00 - Subjective Subjective: Patient seen and examined Status post tracheostomy On 100% FiO2 with saturation in the low 90s Sedated Tolerating feeding On pressors Low-grade fever Objective - Vital Signs/Intake and Output Vital Signs (last 24 hours): Temp Pulse Resp BP Pulse Ox 99.5 F 80 18 116/58 L 89 L 11/28/18 12:00 11/28/18 14:00 11/28/18 14:00 11/28/18 13:00 11/28/18 14:00 Intake and Output: 11/28/18 11/28/18 06:59 18:59 Intake Total 1339.9 482.5 Output Total 1803 1290 Balance -463.1 -807.5 - Medications Medications: Current Medications Acetaminophen (Tylenol 650mg/20.3ml Solution Ud) 650 mg PO Q6 PRN PRN Reason: Temperature Last Admin: 11/24/18 23:39 Dose: 650 mg Albuterol/Ipratropium (Duoneb 3 Mg/0.5 Mg (3 Ml) Ud) 3 ml INH RQ4 DAMION Last Admin: 11/28/18 16:00 Dose: 3 ml Aspirin (Aspirin Chewable) 81 mg PO DAILY DAMION Last Admin: 11/28/18 09:29 Dose: 81 mg Enoxaparin Sodium (Lovenox) 40 mg SC DAILY DAMION Last Admin: 11/28/18 09:29 Dose: 40 mg Famotidine (Pepcid) 20 mg IVP DAILY [facility] Last Admin: 11/28/18 09:30 Dose: 20 mg Propofol (Diprivan) 1,000 mg in 100 mls @ 3.565 mls/hr IV .Q24H PRN; Protocol PRN Reason: TITRATE PER MD ORDER Last Admin: 11/28/18 09:52 Dose: 7.15 mcg/kg/min, 5.1 mls/hr Fentanyl Citrate 2,500 mcg/ (Sodium Chloride) 250 mls @ 23.52 mls/hr IV .[id number] PRN; Protocol PRN Reason: TITRATION Last Admin: 11/28/18 04:32 Dose: 1.27 mcg/kg/hr, 15 mls/hr Piperacillin Sod/Tazobactam Sod (Zosyn 2.25 Gm Iv Premix) 2.25 gm in 50 mls @ 100 mls/hr IVPB Q6H DAMION; Protocol Last Admin: 11/28/18 09:27 Dose: 100 mls/hr Vancomycin HCl 1 gm/ Sodium (Chloride) 250 mls @ 166.7 mls/hr IVPB Q24H DAMION; Protocol Last Admin: 11/28/18 09:50 Dose: 166.7 mls/hr Azithromycin 500 mg/ Sodium (Chloride) 250 mls @ 250 mls/hr IVPB Q24H DAMION; Protocol Last Admin: 11/28/18 13:00 Dose: 250 mls/hr Norepinephrine Bitartrate 4 mg (/ Sodium Chloride) 254 mls @ 15.24 mls/hr IV .[id number] PRN; Protocol PRN Reason: TITRATE PER MD ORDER Last Admin: 11/28/18 09:46 Dose: 2.96 mcg/min, 11.3 mls/hr Lorazepam (Ativan) 2 mg IVP Q3H PRN PRN Reason: Anxiety Last Admin: 11/24/18 03:44 Dose: 2 mg Methylprednisolone (Solu-Medrol) 20 mg IVP Q8H DAMION Last Admin: 11/28/18 09:28 Dose: 20 mg Rosuvastatin Calcium (Crestor) 10 mg PO HS DAMION Last Admin: 11/27/18 21:44 Dose: 10 mg - Labs Labs: 11/28/18 05:52 11/28/18 05:47 PT 14.7 SECONDS (9.7-12.2) H 11/26/18 06:48 INR 1.3 11/26/18 06:48 APTT 28.0 SECONDS (21-34) 11/26/18 06:48 - Head Exam Head Exam: ATRAUMATIC, NORMOCEPHALIC - ENT Exam ENT Exam: Mucous Membranes Moist - Neck Exam Neck Exam: Normal Inspection - Respiratory Exam Respiratory Exam: Decreased Breath Sounds - Cardiovascular Exam Cardiovascular Exam: REGULAR RHYTHM - GI/Abdominal Exam GI & Abdominal Exam: Soft, Normal Bowel Sounds Assessment and Plan (1) Cardiac arrest Assessment & Plan: Clinically same Remain 100% FiO2 Status post tracheostomy Possible PEG next week Taper off pressors as tolerated Status: Acute (2) COPD (chronic obstructive pulmonary disease) Status: Acute (3) Ventricular tachycardia Status: Acute (4) Congestive heart failure Status: Acute (5) PHT (pulmonary hypertension) Status: Acute
--- NOTE | 2018-11-28 18:44 | CP.PCM.PN ---
Subjective - Date & Time of Evaluation Date of Evaluation: 11/28/18 Time of Evaluation: 07:00 - Subjective Subjective: Progress note for Dr. Leon. Patient seen and examined at bedside. Patient is on mechanical ventilator and sedated. Unable to obtain ROS due to clinical condition. Objective - Vital Signs/Intake and Output Vital Signs (last 24 hours): Temp Pulse Resp BP Pulse Ox 98.3 F 70 18 113/60 90 L 11/28/18 16:00 11/28/18 17:00 11/28/18 17:00 11/28/18 17:00 11/28/18 17:00 Intake and Output: 11/28/18 11/28/18 06:59 18:59 Intake Total 1339.9 636.7 Output Total 1803 2310 Balance -463.1 -1673.3 - Medications Medications: Current Medications Acetaminophen (Tylenol 650mg/20.3ml Solution Ud) 650 mg PO Q6 PRN PRN Reason: Temperature Last Admin: 11/24/18 23:39 Dose: 650 mg Albuterol/Ipratropium (Duoneb 3 Mg/0.5 Mg (3 Ml) Ud) 3 ml INH RQ4 [facility] Last Admin: 11/28/18 16:00 Dose: 3 ml Aspirin (Aspirin Chewable) 81 mg PO DAILY [facility] Last Admin: 11/28/18 09:29 Dose: 81 mg Clopidogrel Bisulfate (Plavix) 75 mg PO DAILY [facility] Enoxaparin Sodium (Lovenox) 40 mg SC DAILY [facility] Last Admin: 11/28/18 09:29 Dose: 40 mg Famotidine (Pepcid) 20 mg IVP DAILY [facility] Last Admin: 11/28/18 09:30 Dose: 20 mg Propofol (Diprivan) 1,000 mg in 100 mls @ 3.565 mls/hr IV .Q24H PRN; Protocol PRN Reason: TITRATE PER MD ORDER Last Admin: 11/28/18 09:52 Dose: 7.15 mcg/kg/min, 5.1 mls/hr Fentanyl Citrate 2,500 mcg/ (Sodium Chloride) 250 mls @ 23.52 mls/hr IV .[id number] PRN; Protocol PRN Reason: TITRATION Last Admin: 11/28/18 04:32 Dose: 1.27 mcg/kg/hr, 15 mls/hr Piperacillin Sod/Tazobactam Sod (Zosyn 2.25 Gm Iv Premix) 2.25 gm in 50 mls @ 100 mls/hr IVPB Q6H [facility]; Protocol Last Admin: 11/28/18 09:27 Dose: 100 mls/hr Vancomycin HCl 1 gm/ Sodium (Chloride) 250 mls @ 166.7 mls/hr IVPB Q24H [facility]; Protocol Last Admin: 11/28/18 09:50 Dose: 166.7 mls/hr Azithromycin 500 mg/ Sodium (Chloride) 250 mls @ 250 mls/hr IVPB Q24H [facility]; Protocol Last Admin: 11/28/18 13:00 Dose: 250 mls/hr Norepinephrine Bitartrate 4 mg (/ Sodium Chloride) 254 mls @ 15.24 mls/hr IV .[id number] PRN; Protocol PRN Reason: TITRATE PER MD ORDER Last Admin: 11/28/18 09:46 Dose: 2.96 mcg/min, 11.3 mls/hr Lorazepam (Ativan) 2 mg IVP Q3H PRN PRN Reason: Anxiety Last Admin: 11/24/18 03:44 Dose: 2 mg Methylprednisolone (Solu-Medrol) 20 mg IVP Q8H [facility] Last Admin: 11/28/18 15:00 Dose: 20 mg Rosuvastatin Calcium (Crestor) 10 mg PO HS [facility] Last Admin: 11/27/18 21:44 Dose: 10 mg - Labs Labs: 11/28/18 05:52 11/28/18 05:47 PT 14.7 SECONDS (9.7-12.2) H 11/26/18 06:48 INR 1.3 11/26/18 06:48 APTT 28.0 SECONDS (21-34) 11/26/18 06:48 - Constitutional Appears: No Acute Distress - Head Exam Head Exam: ATRAUMATIC - Eye Exam Eye Exam: EOMI, Normal appearance - ENT Exam ENT Exam: Mucous Membranes Dry Additional comments: tracheostomy - Neck Exam Neck Exam: Normal Inspection - Respiratory Exam Respiratory Exam: Decreased Breath Sounds. absent: Rhonchi, Wheezes Additional comments: on Ventilator. Settings: Rate 18, volume 0.5, peep 12, FiO2 100% - Cardiovascular Exam Cardiovascular Exam: REGULAR RHYTHM, +S1, +S2 - GI/Abdominal Exam GI & Abdominal Exam: Soft. absent: Distended, Firm, Guarding, Rigid, Tenderness - Extremities Exam Extremities Exam: Pedal Edema (trace pitting edema L ankle) - Neurological Exam Additional comments: Sedated, PERRL, +corneal reflex - Skin Skin Exam: Dry, Normal Color, Warm Assessment and Plan - Assessment and Plan (Free Text) Plan: 72 year old male presenting to ED in cardiac arrest, s/p cardiac cath (Dr. Valencia) with clean coronaries. Patient remains unresponsive, on mechanical vent with high FIO2. 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 Waters) appreciated -s/p trach -Imaging -CTA (11/18): Moderately large pericardial effusion. No PE. Extensive L pulmonary atelectasis. Possible R lung nodule. Dilated main pulmonary artery may indicate pulmonary HTN. CV -Cardiac arrest/v tach/v fib -R Ventricular Hypertrophy, cor pulmonale -Cardiac recs (Dr. Valencia) appreciated -s/p cath with no acute findings, clean coronary arteries -Imaging -ECHO (11/17): EF 45-50%. LV systolic function mildly impaired. Small-moderate pericardial effusion. Significant R ventricular hypertrophy. -repeat ECHO (11/20): no noted enlargement, f/u official reported -Meds -DAPT: ASA 81 mg PO daily, Plavix 75 mg PO daily Heme -no acute issues Renal -acute renal failure -BUN/Cr increasing -Nephrology (Dr. Stephens) recs appreciated -D5W @ 100cc/hr -free water flushes 150q8 -solumedrol 20 mg IVP q8 GI -Coffee ground emesis noted 11/17 in NGT -GI recs (Dr. Wei) appreciated -s/p EGD (11/19): gastritis and diffuse duodenitis -PEG unsuccessful to due to difficulty advancing scope during intubation -Meds -Pepcid 20 mg PO BID -Reglan 5 mg IVP q8 ID -worsening CXR -begin vanc/zosyn, azithro for atypical coverage -f/u sputum cultures PPx, Diet, Disposition -DVT ppx: lovenox -GI ppx: pepcid 20 mg IVP q12 -Diet: tube feeds
[2018-11-29] MEDS: Albuterol-Ipratrop 3 mg / 0.5 (3 ml) UD INH SCH ×6 (00:35→19:18)
[2018-11-29] MEDS: Propofol 10 mg/ml 1,000 MG/100 ML VIAL IV PRN ×2 (03:05→18:09)
[2018-11-29] MEDS: Piperacill/Tazo 2.25gm in Dex 2.25 GM/50 ML BAG IVPB SCH ×3 (04:33→16:37)
[2018-11-29 05:46] LABS: BASO % 0.1 % (0.0-2.0); MONO # 0.2 K/uL (0.0-0.8); MONO % 2.4 % (0.0-10.0); RBC 4.86 Mil/uL (4.40-5.90)
[2018-11-29 05:47] LABS: ARTERIAL BLOOD GAS HEMOGLOBIN 10.6 g/dL (11.7-17.4); ARTERIAL BLOOD GAS O2 SAT 91.1 % (95-98); ARTERIAL BLOOD GAS PCO2 60 mm/Hg (35-45); ARTERIAL BLOOD GAS PH 7.44 (7.35-7.45); ARTERIAL BLOOD GAS PO2 55 mm/Hg (80-100); ARTERIAL BLOOD GAS TCO2 42.6 mmol/L (22-28)
[2018-11-29 06:04] LABS: LYMPH # 0.2 K/uL (1.0-4.3); LYMPH % 2.4 % (20.0-40.0); MEAN CELL VOLUME 75.8 fL (80.0-94.0); MEAN CORPUSCULAR HEMOGLOBIN 21.5 pg (27.0-31.0); MEAN CORPUSCULAR HGB CONC 28.3 g/dL (33.0-37.0); MEAN PLATELET VOLUME 9.7 fL (7.2-11.7); NEUT # 9.4 K/uL (1.8-7.0); NEUT % 95.1 % (50.0-75.0); PLATELET COUNT 268 K/uL (130-400); RED CELL DISTRIBUTION WIDTH 20.3 % (11.5-14.5); WHITE BLOOD COUNT 9.8 K/uL (4.8-10.8)
[2018-11-29 06:08] LABS: HEMOGLOBIN 10.4 g/dL (12.0-18.0)
[2018-11-29 06:16] LABS: ALBUMIN 2.9 g/dL (3.5-5.0); ALT/SGPT 30 U/L (21-72); AST/SGOT 38 U/L (17-59); CALCIUM 8.4 mg/dl (8.6-10.4); GFR NON-AFRICAN AMERICAN 60
[2018-11-29 06:34] LABS: BLOOD UREA NITROGEN 130 mg/dL (9-20)
--- NOTE | 2018-11-29 07:54 | CP.PCM.PN ---
Subjective - Date & Time of Evaluation Date of Evaluation: 11/29/18 Time of Evaluation: 07:54 - Subjective Subjective: Progress Note for Dr. Leon Patient seen and examined at bedside. Patient is trached and vented. Unable to provide history, but patient's eyes are open. Objective - Vital Signs/Intake and Output Vital Signs (last 24 hours): Temp Pulse Resp BP Pulse Ox 99.2 F 88 18 111/58 L 89 L 11/29/18 04:00 11/29/18 07:00 11/29/18 07:00 11/29/18 07:00 11/29/18 05:00 Intake and Output: 11/29/18 11/29/18 06:59 18:59 Intake Total 1404.4 43.9 Output Total 1100 Balance 304.4 43.9 - Medications Medications: Current Medications Acetaminophen (Tylenol 650mg/20.3ml Solution Ud) 650 mg PO Q6 PRN PRN Reason: Temperature Last Admin: 11/24/18 23:39 Dose: 650 mg Albuterol/Ipratropium (Duoneb 3 Mg/0.5 Mg (3 Ml) Ud) 3 ml INH RQ4 [facility] Last Admin: 11/29/18 07:33 Dose: 3 ml Aspirin (Aspirin Chewable) 81 mg PO DAILY [facility] Last Admin: 11/28/18 09:29 Dose: 81 mg Clopidogrel Bisulfate (Plavix) 75 mg PO DAILY [facility] Enoxaparin Sodium (Lovenox) 40 mg SC DAILY [facility] Last Admin: 11/28/18 09:29 Dose: 40 mg Famotidine (Pepcid) 20 mg IVP DAILY [facility] Last Admin: 11/28/18 09:30 Dose: 20 mg Propofol (Diprivan) 1,000 mg in 100 mls @ 3.565 mls/hr IV .Q24H PRN; Protocol PRN Reason: TITRATE PER MD ORDER Last Admin: 11/29/18 03:05 Dose: 7.15 mcg/kg/min, 5.1 mls/hr Fentanyl Citrate 2,500 mcg/ (Sodium Chloride) 250 mls @ 23.52 mls/hr IV .[id number] PRN; Protocol PRN Reason: TITRATION Last Admin: 11/28/18 21:13 Dose: 1.27 mcg/kg/hr, 15 mls/hr Piperacillin Sod/Tazobactam Sod (Zosyn 2.25 Gm Iv Premix) 2.25 gm in 50 mls @ 100 mls/hr IVPB Q6H [facility]; Protocol Last Admin: 11/29/18 04:33 Dose: 100 mls/hr Vancomycin HCl 1 gm/ Sodium (Chloride) 250 mls @ 166.7 mls/hr IVPB Q24H [facility]; Protocol Last Admin: 11/28/18 09:50 Dose: 166.7 mls/hr Azithromycin 500 mg/ Sodium (Chloride) 250 mls @ 250 mls/hr IVPB Q24H [facility]; Protocol Last Admin: 11/28/18 13:00 Dose: 250 mls/hr Norepinephrine Bitartrate 4 mg (/ Sodium Chloride) 254 mls @ 15.24 mls/hr IV .[id number] PRN; Protocol PRN Reason: TITRATE PER MD ORDER Last Titration: 11/29/18 04:34 Dose: 1 mcg/min, 3.81 mls/hr Lorazepam (Ativan) 2 mg IVP Q3H PRN PRN Reason: Anxiety Last Admin: 11/24/18 03:44 Dose: 2 mg Methylprednisolone (Solu-Medrol) 20 mg IVP Q8H [facility] Last Admin: 11/28/18 23:48 Dose: 20 mg Rosuvastatin Calcium (Crestor) 10 mg PO HS [facility] Last Admin: 11/28/18 21:13 Dose: 10 mg - Labs Labs: 11/29/18 05:37 11/29/18 05:37 PT 14.7 SECONDS (9.7-12.2) H 11/26/18 06:48 INR 1.3 11/26/18 06:48 APTT 28.0 SECONDS (21-34) 11/26/18 06:48 - Constitutional Appears: No Acute Distress, Other (Sedated but arousable, not agitated. ) - Head Exam Head Exam: ATRAUMATIC, NORMOCEPHALIC - Eye Exam Eye Exam: EOMI, PERRL - ENT Exam ENT Exam: Mucous Membranes Moist Additional comments: NG tube with feeds - Neck Exam Additional comments: Tracheostomy - Respiratory Exam Respiratory Exam: Rhonchi, Wheezes. absent: Respiratory Distress, Stridor Additional comments: On vent with PEEP of 12 and FiO2 100% - Cardiovascular Exam Cardiovascular Exam: REGULAR RHYTHM, +S1, +S2. absent: Gallop, Rubs, Murmur - GI/Abdominal Exam GI & Abdominal Exam: Soft, Normal Bowel Sounds. absent: Guarding, Rigid, Tenderness - Extremities Exam Extremities Exam: Pedal Edema - Neurological Exam Additional comments: Sedated on Propofol - Skin Skin Exam: Dry, Intact, Warm Assessment and Plan - Assessment and Plan (Free Text) Assessment: 72-year-old male with a history of hypertension, hyperlipidemia, CAD, status post stent, admitted with a cardiac arrest and respiratory failure, developing ARDS. Plan: Neuro -patient awake on mechanical vent -FIO2 100%, PEEP 12, RR 18 Pulm Ventilator associated pneumonia, associated aspiration pneumonia -on vent s/p trach -severe pulmonary HTN type II secondary COPD with cor pulmonale -Surgical recs (Dr. Waters) appreciated -Status post trach -Imaging -CTA (11/18): Moderately large pericardial effusion. No PE. Extensive L pulmonary atelectasis. Possible R lung nodule. Dilated main pulmonary artery may indicate pulmonary HTN. - Sputum culture positive to Acinetobacter CV -Cardiac arrest/v tach/v fib -R Ventricular Hypertrophy, cor pulmonale -Cardiac recs (Dr. Valencia) appreciated -s/p cath with no acute findings, clean coronary arteries -Imaging -ECHO (11/17): EF 45-50%. LV systolic function mildly impaired. Small-moderate pericardial effusion. Significant R ventricular hypertrophy. -repeat ECHO (11/20): no noted enlargement, f/u official reported -Meds -DAPT: ASA 81 mg PO daily, Plavix 75 mg PO daily Heme -no acute issues Renal -acute renal failure -BUN/Cr 130/1.2 -Nephrology (Dr. Stephens) recs appreciated -D5W @ 100cc/hr -free water flushes 150q8 -solumedrol 20 mg IVP q8 GI -Coffee ground emesis noted 11/17 in NGT -GI recs (Dr. Wei) appreciated -s/p EGD (11/19): gastritis and diffuse duodenitis -PEG unsuccessful to due to difficulty advancing scope during intubation -Meds -Pepcid 20 mg PO BID -Fleet enema x1 ordered ID -Ventilator associated pneumonia -begin vanc 1g IV Q24 /zosyn 2.25GQ6, azithro 250mg Q24 for atypical coverage -f/u sputum cultures PPx, Diet, Disposition -DVT ppx: lovenox -GI ppx: pepcid 20 mg IVP q12 -Diet: tube feeds Case dsicussed with Dr. Edward Iverson, PGY1
--- NOTE | 2018-11-29 08:16 | PN ---
DATE: 11/29/2018 LOCATION: ICU 17. SUBJECTIVE: This 72-year-old male seen and examined in rounds without significant clinical changes or reported active bleeding on NG tube feeding. The patient is still on trach to vent. No reported actual chest pain, palpitation or active GI bleeding. The entire chart is reviewed including but not limited to the most recent lab results and today's ABG is still abnormal, and the patient is here reported to have elevated BUN but normal creatinine with increased sodium chloride and CO2 content with low albumin and low total protein with magnesium of 2.9, calcium 8.5 as per yesterday. The most recent chest x-ray done yesterday, official report is seen with again evidence of diffuse bilateral infiltrate with possible bilateral effusion. PHYSICAL EXAMINATION: GENERAL: A 72-year-old male, on trach to vent. VITAL SIGNS: Low-grade temperature of 99.9, heart rate of 68, blood pressure of 124/62. HEENT: Pale, dry oral mucous membrane. Nonicteric sclerae. LUNGS: Few scattered crepitation. Decreased air entry at bases. HEART: Positive S1 and S2. ABDOMEN: Soft with [id number] distention, mildly obese. Bowel sounds are hypoactive. No mass or organomegaly. EXTREMITIES: With lower extremity edematous changes. No clubbing or cyanosis. NEUROLOGIC: No reported new neurological deficits, sensory or motor. IMPRESSION: 1. Malnutrition, hypoalbuminemia hypoproteinemia. 2. The patient is a candidate for percutaneous endoscopic gastrostomy insertion, scheduled for a.m. when he is more stable. 3. Respiratory failure, status post tracheostomy with bilateral pneumonia, connected to vent. 4. Status post cardiac arrest with atrial fibrillation by recent history. 5. Prerenal azotemia with severe dehydration. 6. Dysphagia by recent history. 7. Known history of coronary artery disease. 8. Electrolyte imbalance. 9. Hypochromic microcytic anemia. 10. Recent history of gastrointestinal blood loss. SUGGESTIONS: 1. Agree with your plan. 2. Reschedule the patient for PEG insertion at a.m. when he is more stable clinically. 3. Further recommendation to follow. Dakota Mercado MD [facility] # [id number]
[2018-11-29 08:34] LABS: EOSINOPHIL 1 % (0-4); LYMPHOCYTE 2 % (20-40); MONOCYTE 2 % (0-10); NEUTROPHIL 95 % (50-75); PLATELET ESTIMATE NORMAL (NORMAL); TOTAL CELLS COUNTED 100
[2018-11-29 08:35] LABS: ANISOCYTOSIS MODERATE
[2018-11-29 08:36] LABS: HYPOCHROMIC MODERATE; LARGE PLATELETS PRESENT; MICROCYTOSIS SLIGHT; POLYCHROMIC SLIGHT
[2018-11-29 08:37] LABS: GIANT PLATELETS PRESENT
--- NOTE | 2018-11-29 09:34 | CP.CCUPN ---
CCU Subjective - Physician Review Events Since Last Encounter (Free Text): 11/29/18 09:33 Patient is a 72-year-old male with a history of hypertension hyperlipidemia COPD, congestive heart failure admitted to the hospital following cardiac arrest, underwent angiogram code heart. Patient had a multiple cardiac arrest and CPR. After that initial insult, patient developed ARDS, ventilator dependent respiratory failure Status post tracheostomy. Patient has a worsening pneumonia Bilateral infiltration. Acinetobacter in the sputum culture positive Patient underwent tracheostomy on 11/26/2018 Patient is currently being seen by boom boss for the worsening renal failure On examination: Currently patient sedated well. But he is arousable. Chest bilateral diffuse wheezing and rhonchi noted. Very mild secretions noted Regular heart sounds. Abdominal tenderness negative Bilateral leg swelling and edema noted Labs reviewed Elevated creatinine, and BUN noted. Elevated sodium level noted, mild intravascular dehydration present Chest x-ray showing bilateral diffuse infiltrative changes Tracheostomy in good position. Assessment and recommendation: 72-year-old male with a history of hypertension, hyperlipidemia, CAD, status post stent, admitted with a cardiac arrest and respiratory failure. Patient developing ARDS. Ventilator associated pneumonia Associated aspiration pneumonia now having Acinetobacter in the sputum culture. Infectious disease follow-up necessary at this time. Will get infectious disease evaluation. We will continue the current treatment. Overall prognosis very poor condition critical CCU Objective - Vital Signs / Intake & Output Vital Signs (Last 4 hours): Vital Signs Temp Pulse Resp BP Pulse Ox 11/29/18 09:00 94 H 18 112/56 L 89 L 11/29/18 08:00 99.3 F 93 H 20 103/56 L 89 L 11/29/18 07:00 88 18 111/58 L 11/29/18 06:00 99 H 21 115/57 L Intake and Output (Last 8hrs): Intake & Output 11/28/18 11/29/18 11/29/18 22:59 06:59 14:59 Intake Total 811.2 850.2 124.1 Output Total 2415 725 45 Balance -1603.8 125.2 79.1 Weight 256 lb 8 oz Intake: IV 250 323 Intake, IV Amount 251.2 217.2 64.1 Right PICC 90.4 56.4 3.8 Right PICC 1 120 120 45 Right PICC 2 40.8 40.8 15.3 Tube Feeding 160 160 60 Other 150 150 Output: Gastric Amount 80 Right Nares 80 Urine 1235 725 45 Urethral ([place]) 1235 725 45 Other 1100 Other: # Bowel Movements 0 - Physical Exam Head: Positive for: Atraumatic, Normocephalic Pupils: Positive for: PERRL Extroacular Muscles: Positive for: EOMI Conjunctiva: Positive for: Normal Ears: Positive for: Normal Mouth: Positive for: Moist Mucous Membranes Respiratory/Chest: Positive for: Good Air Exchange, Decreased Breath Sounds (on left lung oakes), Other (intubated, on vent) Cardiovascular: Positive for: Regular Rate and Rhythm Abdomen: Positive for: Normal Bowel Sounds. Negative for: Tenderness, Distention Upper Extremity: Positive for: Normal Inspection Lower Extremity: Positive for: Normal Inspection Neurological: Positive for: Other (sedated, on vent) Skin: Positive for: Dry, Normal Color Psychiatric: Positive for: Alert - Medications Active Medications: Active Medications Generic Name Dose Route Start Last Admin Trade Name Freq PRN Reason Stop Dose Admin Acetaminophen 650 mg 11/19/18 15:49 11/24/18 23:39 Tylenol 650mg/20.3ml Solution Ud PO 650 mg Q6 PRN Administration Temperature Albuterol/Ipratropium 3 ml 11/23/18 12:00 11/29/18 07:33 Duoneb 3 Mg/0.5 Mg (3 Ml) Ud INH 3 ml RQ4 DAMION Administration Aspirin 81 mg 11/22/18 10:00 11/28/18 09:29 Aspirin Chewable PO 81 mg DAILY DAMION Administration Clopidogrel Bisulfate 75 mg 11/29/18 10:00 Plavix PO DAILY DAMION Enoxaparin Sodium 40 mg 11/22/18 10:00 11/28/18 09:29 Lovenox SC 40 mg DAILY DAMION Administration Famotidine 20 mg 11/24/18 10:00 11/28/18 09:30 Pepcid IVP 20 mg DAILY DAMION Administration Propofol 1,000 mg in 100 mls @ 3.565 mls/hr 11/21/18 15:30 11/29/18 03:05 Diprivan IV 7.15 mcg/kg/min .Q24H PRN 5.1 mls/hr TITRATE PER MD ORDER Administration Protocol 5 MCG/KG/MIN Fentanyl Citrate 2,500 mcg/ 250 mls @ 23.52 mls/hr 11/22/18 09:45 11/28/18 21:13 Sodium Chloride IV 1.27 mcg/kg/hr .[id number] PRN 15 mls/hr TITRATION Administration Protocol 2 MCG/KG/HR Piperacillin Sod/Tazobactam Sod 2.25 gm in 50 mls @ 100 mls/hr 11/25/18 10:00 11/29/18 04:33 Zosyn 2.25 Gm Iv Premix IVPB 100 mls/hr Q6H DAMION Administration Protocol Vancomycin HCl 1 gm/ Sodium 250 mls @ 166.7 mls/hr 11/25/18 10:30 11/28/18 09:50 Chloride IVPB 166.7 mls/hr Q24H DAMION Administration Protocol Norepinephrine Bitartrate 4 mg 254 mls @ 15.24 mls/hr 11/26/18 20:35 11/29/18 04:34 / Sodium Chloride IV 1 mcg/min .[id number] PRN 3.81 mls/hr TITRATE PER MD ORDER Titration Protocol 4 MCG/MIN Lorazepam 2 mg 11/17/18 17:40 11/24/18 03:44 Ativan IVP 2 mg Q3H PRN Administration Anxiety Methylprednisolone 20 mg 11/24/18 08:00 11/28/18 23:48 Solu-Medrol IVP 20 mg Q8H DAMION Administration Rosuvastatin Calcium 10 mg 11/19/18 22:00 11/28/18 21:13 Crestor PO 10 mg HS DAMION Administration - Patient Studies Lab Studies: Microbiology Studies 11/25/18 10:30 S.aureus & Coag-Neg Staph PNA FISH - Final Blood Blood Culture - Final Coagulase Neg Staphylococcus Gram Stain - Final 11/25/18 10:00 Blood Culture - Preliminary Blood NO GROWTH AFTER 3 DAYS Lab Studies 11/29/18 11/29/18 11/29/18 Range/Units 05:37 05:37 05:15 WBC 9.8 (4.8-10.8) K/uL RBC 4.86 (4.40-5.90) Mil/uL Hgb 10.4 L (12.0-18.0) g/dL Hct 36.8 (35.0-51.0) % MCV 75.8 L (80.0-94.0) fL MCH 21.5 L (27.0-31.0) pg MCHC 28.3 L (33.0-37.0) g/dL RDW 20.3 H (11.5-14.5) % Plt Count 268 (130-400) K/uL MPV 9.7 (7.2-11.7) fL Neut % (Auto) 95.1 H (50.0-75.0) % Lymph % (Auto) 2.4 L (20.0-40.0) % [place] % (Auto) 2.4 (0.0-10.0) % Eos % (Auto) 0.0 (0.0-4.0) % Baso % (Auto) 0.1 (0.0-2.0) % Neut # (Auto) 9.4 H (1.8-7.0) K/uL Lymph # (Auto) 0.2 L (1.0-4.3) K/uL [place] # (Auto) 0.2 (0.0-0.8) K/uL Eos # (Auto) 0.0 (0.0-0.7) K/uL Baso # (Auto) 0.0 (0.0-0.2) K/uL Neutrophils % (Manual) 95 H (50-75) % Lymphocytes % (Manual) 2 L (20-40) % Monocytes % (Manual) 2 (0-10) % Eosinophils % (Manual) 1 (0-4) % Platelet Estimate Normal (NORMAL) Large Platelets Present Giant Platelets Present Polychromasia Slight Hypochromasia (manual) Moderate Anisocytosis (manual) Moderate Microcytosis (manual) Slight Puncture Site Lb pCO2 60 H (35-45) mm/Hg pO2 55 L (80-100) mm/Hg HCO3 36.0 H (21-28) mmol/L ABG pH 7.44 (7.35-7.45) ABG Total CO2 42.6 H (22-28) mmol/L ABG O2 Saturation 91.1 L (95-98) % ABG Base Excess 14.4 H (-2.0-3.0) mmol/L ABG Hemoglobin 10.6 L (11.7-17.4) g/dL ABG Carboxyhemoglobin 2.2 H (0.5-1.5) % POC ABG HHb (Measured) 8.6 H (0.0-5.0) % ABG Methemoglobin 0.9 (0.0-3.0) % Robert Test Na A-a O2 Difference 583.0 mm/Hg Respiratory Index 10.6 Hgb O2 Saturation 88.3 L (95.0-98.0) % Vent Mode Prvc Mechanical Rate 18 FiO2 100.0 % Tidal Volume 500 PEEP 12 Sodium 153 H (132-148) mmol/L Potassium 4.3 (3.6-5.2) mmol/L Chloride 111 H (98-107) mmol/L Carbon Dioxide 38 H (22-30) mmol/L Anion Gap 9 L (10-20) BUN 130 H* (9-20) mg/dL Creatinine 1.2 (0.8-1.5) mg/dL Est GFR ( Amer) > 60 Est GFR (Non-Af Amer) 60 Random Glucose 134 H (75-110) mg/dL Serum Osmolality (272-300) mosm/kg Calcium 8.4 L (8.6-10.4) mg/dl Phosphorus 3.6 (2.5-4.5) mg/dL Magnesium 3.1 H (1.6-2.3) mg/dL Total Bilirubin 0.7 (0.2-1.3) mg/dL AST 38 (17-59) U/L ALT 30 (21-72) U/L Alkaline Phosphatase 66 (38-126) U/L Total Protein 5.7 L (6.3-8.3) g/dL Albumin 2.9 L (3.5-5.0) g/dL Globulin 2.8 (2.2-3.9) gm/dL Albumin/Globulin Ratio 1.0 (1.0-2.1) Urine Osmolality (300-1000) mosm/kg 11/28/18 11/28/18 Range/Units 17:07 17:07 WBC (4.8-10.8) K/uL RBC (4.40-5.90) Mil/uL Hgb (12.0-18.0) g/dL Hct (35.0-51.0) % MCV (80.0-94.0) fL MCH (27.0-31.0) pg MCHC (33.0-37.0) g/dL RDW (11.5-14.5) % Plt Count (130-400) K/uL MPV (7.2-11.7) fL Neut % (Auto) (50.0-75.0) % Lymph % (Auto) (20.0-40.0) % [place] % (Auto) (0.0-10.0) % Eos % (Auto) (0.0-4.0) % Baso % (Auto) (0.0-2.0) % Neut # (Auto) (1.8-7.0) K/uL Lymph # (Auto) (1.0-4.3) K/uL [place] # (Auto) (0.0-0.8) K/uL Eos # (Auto) (0.0-0.7) K/uL Baso # (Auto) (0.0-0.2) K/uL Neutrophils % (Manual) (50-75) % Lymphocytes % (Manual) (20-40) % Monocytes % (Manual) (0-10) % Eosinophils % (Manual) (0-4) % Platelet Estimate (NORMAL) Large Platelets Giant Platelets Polychromasia Hypochromasia (manual) Anisocytosis (manual) Microcytosis (manual) Puncture Site pCO2 (35-45) mm/Hg pO2 (80-100) mm/Hg HCO3 (21-28) mmol/L ABG pH (7.35-7.45) ABG Total CO2 (22-28) mmol/L ABG O2 Saturation (95-98) % ABG Base Excess (-2.0-3.0) mmol/L ABG Hemoglobin (11.7-17.4) g/dL ABG Carboxyhemoglobin (0.5-1.5) % POC ABG HHb (Measured) (0.0-5.0) % ABG Methemoglobin (0.0-3.0) % Robert Test A-a O2 Difference mm/Hg Respiratory Index Hgb O2 Saturation (95.0-98.0) % Vent Mode Mechanical Rate FiO2 % Tidal Volume PEEP Sodium (132-148) mmol/L Potassium (3.6-5.2) mmol/L Chloride (98-107) mmol/L Carbon Dioxide (22-30) mmol/L Anion Gap (10-20) BUN (9-20) mg/dL Creatinine (0.8-1.5) mg/dL Est GFR ( Amer) Est GFR (Non-Af Amer) Random Glucose (75-110) mg/dL Serum Osmolality 367 H (272-300) mosm/kg Calcium (8.6-10.4) mg/dl Phosphorus (2.5-4.5) mg/dL Magnesium (1.6-2.3) mg/dL Total Bilirubin (0.2-1.3) mg/dL AST (17-59) U/L ALT (21-72) U/L Alkaline Phosphatase (38-126) U/L Total Protein (6.3-8.3) g/dL Albumin (3.5-5.0) g/dL Globulin (2.2-3.9) gm/dL Albumin/Globulin Ratio (1.0-2.1) Urine Osmolality 564 (300-1000) mosm/kg Laboratory Results - last 24 hr 11/28/18 11/28/18 11/29/18 17:07 17:07 05:15 WBC RBC Hgb Hct MCV MCH MCHC RDW Plt Count MPV Neut % (Auto) Lymph % (Auto) [place] % (Auto) Eos % (Auto) Baso % (Auto) Neut # (Auto) Lymph # (Auto) [place] # (Auto) Eos # (Auto) Baso # (Auto) Neutrophils % (Manual) Lymphocytes % (Manual) Monocytes % (Manual) Eosinophils % (Manual) Platelet Estimate Large Platelets Giant Platelets Polychromasia Hypochromasia (manual) Anisocytosis (manual) Microcytosis (manual) Puncture Site Lb pCO2 60 H pO2 55 L HCO3 36.0 H ABG pH 7.44 ABG Total CO2 42.6 H ABG O2 Saturation 91.1 L ABG Base Excess 14.4 H ABG Hemoglobin 10.6 L ABG Carboxyhemoglobin 2.2 H POC ABG HHb (Measured) 8.6 H ABG Methemoglobin 0.9 Robert Test Na A-a O2 Difference 583.0 Respiratory Index 10.6 Hgb O2 Saturation 88.3 L Vent Mode Prvc Mechanical Rate 18 FiO2 100.0 Tidal Volume 500 PEEP 12 Sodium Potassium Chloride Carbon Dioxide Anion Gap BUN Creatinine Est GFR ( Amer) Est GFR (Non-Af Amer) Random Glucose Serum Osmolality 367 H Calcium Phosphorus Magnesium Total Bilirubin AST ALT Alkaline Phosphatase Total Protein Albumin Globulin Albumin/Globulin Ratio Urine Osmolality 564 11/29/18 11/29/18 05:37 05:37 WBC 9.8 RBC 4.86 Hgb 10.4 L Hct 36.8 MCV 75.8 L MCH 21.5 L MCHC 28.3 L RDW 20.3 H Plt Count 268 MPV 9.7 Neut % (Auto) 95.1 H Lymph % (Auto) 2.4 L [place] % (Auto) 2.4 Eos % (Auto) 0.0 Baso % (Auto) 0.1 Neut # (Auto) 9.4 H Lymph # (Auto) 0.2 L [place] # (Auto) 0.2 Eos # (Auto) 0.0 Baso # (Auto) 0.0 Neutrophils % (Manual) 95 H Lymphocytes % (Manual) 2 L Monocytes % (Manual) 2 Eosinophils % (Manual) 1 Platelet Estimate Normal Large Platelets Present Giant Platelets Present Polychromasia Slight Hypochromasia (manual) Moderate Anisocytosis (manual) Moderate Microcytosis (manual) Slight Puncture Site pCO2 pO2 HCO3 ABG pH ABG Total CO2 ABG O2 Saturation ABG Base Excess ABG Hemoglobin ABG Carboxyhemoglobin POC ABG HHb (Measured) ABG Methemoglobin Robert Test A-a O2 Difference Respiratory Index Hgb O2 Saturation Vent Mode Mechanical Rate FiO2 Tidal Volume PEEP Sodium 153 H Potassium 4.3 Chloride 111 H Carbon Dioxide 38 H Anion Gap 9 L BUN 130 H* Creatinine 1.2 Est GFR ( Amer) > 60 Est GFR (Non-Af Amer) 60 Random Glucose 134 H Serum Osmolality Calcium 8.4 L Phosphorus 3.6 Magnesium 3.1 H Total Bilirubin 0.7 AST 38 ALT 30 Alkaline Phosphatase 66 Total Protein 5.7 L Albumin 2.9 L Globulin 2.8 Albumin/Globulin Ratio 1.0 Urine Osmolality Radiology Impressions: Radiology Impressions Chest X-Ray 11/28/18 06:00 IMPRESSION: Support lines and tubes as above. Diffuse bilateral infiltrates with suspected bilateral effusions.. Critical Care Progress Note - Nutrition Nutrition: Nutrition Category Date Time Status NPO Diet [DIET] Diets 11/26/18 Dinner Active
[2018-11-29] MEDS: MethylPREDNISolone 40 mg Vial IVP SCH ×3 (09:48→23:10)
[2018-11-29] MEDS: Enoxaparin 40 mg Syringe SC SCH (09:49)
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
--- NOTE | 2018-11-29 15:14 | RAD ---
Date of service: 11/29/2018 HISTORY: Follow up on intubated patient COMPARISON: Comparison made with prior chest radiograph 11/28/2018. TECHNIQUE: 1 view obtained. FINDINGS: Tracheostomy remains in good position. No change right sided PICC line. Note that the NGT has not been included on this exam though does lie below EG junction. LUNGS: Chronic changes of COPD with what could represent superimposed diffuse bilateral infiltrates. Left-sided effusion not excluded PLEURA: As above. No pneumothorax apparent. CARDIOVASCULAR: Aortic atherosclerotic calcification present. Cardiomegaly. OSSEOUS STRUCTURES: No significant abnormalities. VISUALIZED UPPER ABDOMEN: Normal. OTHER FINDINGS: None. IMPRESSION: Support lines and tubes as above. Chronic changes of COPD with what could represent superimposed bilateral diffuse bilateral infiltrates. Left-sided effusion not excluded.
[2018-11-29] MEDS: Meropenem 500 MG in Sodium Chloride 0.9% 100 ML IVPB SCH (20:46)
[2018-11-30] MEDS: Albuterol-Ipratrop 3 mg / 0.5 (3 ml) UD INH SCH ×6 (00:38→20:09)
[2018-11-30] MEDS: Meropenem 500 MG in Sodium Chloride 0.9% 100 ML IVPB SCH ×4 (03:29→20:58)
[2018-11-30 05:47] LABS: BASO % 0.2 % (0.0-2.0); HEMOGLOBIN 10.1 g/dL (12.0-18.0); LYMPH # 0.2 K/uL (1.0-4.3); LYMPH % 2.1 % (20.0-40.0); MEAN CELL VOLUME 76.4 fL (80.0-94.0); MEAN CORPUSCULAR HEMOGLOBIN 21.6 pg (27.0-31.0); MEAN CORPUSCULAR HGB CONC 28.3 g/dL (33.0-37.0); MEAN PLATELET VOLUME 9.8 fL (7.2-11.7); MONO # 0.4 K/uL (0.0-0.8); NEUT # 11.5 K/uL (1.8-7.0); NEUT % 94.7 % (50.0-75.0); PLATELET COUNT 258 K/uL (130-400); RBC 4.68 Mil/uL (4.40-5.90); RED CELL DISTRIBUTION WIDTH 20.4 % (11.5-14.5); WHITE BLOOD COUNT 12.1 K/uL (4.8-10.8)
[2018-11-30 05:56] LABS: ARTERIAL BLOOD GAS HCO3 36.3 mmol/L (21-28); ARTERIAL BLOOD GAS HEMOGLOBIN 10.7 g/dL (11.7-17.4); ARTERIAL BLOOD GAS O2 SAT 93.7 % (95-98); ARTERIAL BLOOD GAS PCO2 68 mm/Hg (35-45); ARTERIAL BLOOD GAS PO2 65 mm/Hg (80-100); ARTERIAL BLOOD GAS TCO2 44.2 mmol/L (22-28)
[2018-11-30] MEDS: Propofol 10 mg/ml 1,000 MG/100 ML VIAL IV PRN ×3 (06:22→20:30)
[2018-11-30 06:35] LABS: BLOOD UREA NITROGEN 123 mg/dL (9-20)
[2018-11-30 06:36] LABS: ALBUMIN 2.8 g/dL (3.5-5.0); ALT/SGPT 34 U/L (21-72); AST/SGOT 41 U/L (17-59); CALCIUM 8.8 mg/dl (8.6-10.4); GFR NON-AFRICAN AMERICAN > 60
[2018-11-30 08:20] LABS: ANISOCYTOSIS MODERATE; BANDS 3 % (0-2); LYMPHOCYTE 4 % (20-40); MONOCYTE 1 % (0-10); NEUTROPHIL 92 % (50-75); PLATELET ESTIMATE NORMAL (NORMAL); TOTAL CELLS COUNTED 100
[2018-11-30 08:21] LABS: HYPOCHROMIC SLIGHT; OVALOCYTES SLIGHT; STOMATOCYTES SLIGHT
[2018-11-30] MEDS: MethylPREDNISolone 40 mg Vial IVP SCH ×2 (08:57→17:14)
--- NOTE | 2018-11-30 09:38 | RAD ---
Chest x-ray single frontal view HISTORY: Follow-up. COMPARISON: 11/29/2018 FINDINGS: Dense worsening masslike consolidative opacification seen within the right hilar and infrahilar region. Diffuse prominent increased bilateral airspace opacities. Left pleural effusion. Chronic interstitial lung markings. Lines and tubes in stable position. Cardiomegaly. Degenerative changes in the spine and shoulders. Impression: Dense worsening masslike consolidative opacification seen within the right hilar and infrahilar region. Diffuse prominent increased bilateral airspace opacities. Left pleural effusion. Chronic interstitial lung markings. Lines and tubes in stable position. Cardiomegaly.
[2018-11-30] MEDS ORDERED: Etomidate 20 mg/10ml Inj IV ONE (10:24)
--- NOTE | 2018-11-30 10:27 | CP.PCM.PN ---
Subjective - Date & Time of Evaluation Date of Evaluation: 11/30/18 Time of Evaluation: 09:00 - Subjective Subjective: 72-year-old male with a history of hypertension hyperlipidemia COPD, congestive heart failure admitted to the hospital following cardiac arrest, underwent angiogram code heart. Patient had a multiple cardiac arrest and CPR then patient developed ARDS, ventilator dependent respiratory failure Status post tracheostomy. Patient has a worsening pneumonia Bilateral infiltration. Acinetobacter in the sputum culture positive and worsening renal failure Objective - Vital Signs/Intake and Output Vital Signs (last 24 hours): Temp Pulse Resp BP Pulse Ox 98.1 F 89 21 115/59 L 91 L 11/30/18 08:00 11/30/18 09:00 11/30/18 09:00 11/30/18 09:00 11/30/18 09:00 Intake and Output: 11/30/18 11/30/18 06:59 18:59 Intake Total 1269.7 61.6 Output Total 1200 300 Balance 69.7 -238.4 - Medications Medications: Current Medications Acetaminophen (Tylenol 650mg/20.3ml Solution Ud) 650 mg PO Q6 PRN PRN Reason: Temperature Last Admin: 11/24/18 23:39 Dose: 650 mg Albuterol/Ipratropium (Duoneb 3 Mg/0.5 Mg (3 Ml) Ud) 3 ml INH RQ4 [facility] Last Admin: 11/30/18 07:38 Dose: 3 ml Artificial Tears (Artificial Tears Refresh Celluvisc) 0.4 ml OU Q4H [facility] Aspirin (Aspirin Chewable) 81 mg PO DAILY [facility] Last Admin: 11/29/18 09:45 Dose: 81 mg Bisacodyl (Dulcolax) 10 mg PA ONCE ONE Stop: 11/30/18 09:51 Clopidogrel Bisulfate (Plavix) 75 mg PO DAILY [facility] Last Admin: 11/29/18 09:48 Dose: 75 mg Emollient Ointment (Vaseline Oint) 5 gm TOP DAILY [facility] Enoxaparin Sodium (Lovenox) 40 mg SC DAILY [facility] Last Admin: 11/29/18 09:49 Dose: 40 mg Famotidine (Pepcid) 20 mg IVP DAILY [facility] Last Admin: 11/29/18 09:49 Dose: 20 mg Propofol (Diprivan) 1,000 mg in 100 mls @ 3.565 mls/hr IV .Q24H PRN; Protocol PRN Reason: TITRATE PER MD ORDER Last Admin: 11/30/18 06:22 Dose: 5 mcg/kg/min, 3.565 mls/hr Vancomycin HCl 1 gm/ Sodium (Chloride) 250 mls @ 166.7 mls/hr IVPB Q24H [facility]; Protocol Last Admin: 11/30/18 09:53 Dose: 166.7 mls/hr Meropenem 500 mg/ Sodium (Chloride) 100 mls @ 100 mls/hr IVPB Q6H [facility]; Protocol Last Admin: 11/30/18 08:56 Dose: 100 mls/hr Lorazepam (Ativan) 2 mg IVP Q3H PRN PRN Reason: Anxiety Last Admin: 11/24/18 03:44 Dose: 2 mg Methylprednisolone (Solu-Medrol) 20 mg IVP Q8H [facility] Last Admin: 11/30/18 08:57 Dose: 20 mg Rosuvastatin Calcium (Crestor) 10 mg PO HS [facility] Last Admin: 11/29/18 22:03 Dose: 10 mg - Labs Labs: 11/30/18 05:36 11/30/18 05:36 PT 14.7 SECONDS (9.7-12.2) H 11/26/18 06:48 INR 1.3 11/26/18 06:48 APTT 28.0 SECONDS (21-34) 11/26/18 06:48 - Constitutional Appears: Confused, Chronically Ill - Head Exam Head Exam: NORMOCEPHALIC - Eye Exam Eye Exam: absent: Scleral icterus - ENT Exam ENT Exam: Mucous Membranes Dry - Neck Exam Neck Exam: absent: Lymphadenopathy Additional comments: Trach + - Respiratory Exam Respiratory Exam: Decreased Breath Sounds, Prolonged Expiratory Phase, Rhonchi - Cardiovascular Exam Cardiovascular Exam: REGULAR RHYTHM, +S1, +S2 - GI/Abdominal Exam GI & Abdominal Exam: Distended, Soft. absent: Tenderness - Rectal Exam Rectal Exam: Deferred - Exam Exam: NORMAL INSPECTION - Extremities Exam Extremities Exam: Pedal Edema. absent: Calf Tenderness - Back Exam Back Exam: absent: CVA tenderness (L), CVA tenderness (R) - Neurological Exam Neurological Exam: Altered, CN II-XII Intact, Motor Sensory Deficit. absent: Oriented x3 - Psychiatric Exam Psychiatric exam: Depressed - Skin Skin Exam: Dry Assessment and Plan (1) Acute hypernatremia Status: Acute (2) Acute renal failure due to tubular necrosis Status: Acute (3) CAD (coronary artery disease) Status: Acute (4) COPD (chronic obstructive pulmonary disease) Status: Acute (5) Cardiac arrest Status: Acute (6) PHT (pulmonary hypertension) Status: Acute (7) Ventricular tachycardia Status: Acute (8) Congestive heart failure Status: Acute (9) COPD exacerbation Status: Resolved (10) Pneumonia Status: Acute - Assessment and Plan (Free Text) Assessment: 72-year-old male with a history of hypertension hyperlipidemia COPD, congestive heart failure admitted to the hospital following cardiac arrest, underwent angiogram code heart. Patient had a multiple cardiac arrest and CPR. After that initial insult, patient developed ARDS, ventilator dependent respiratory failure Status post tracheostomy. Patient has a worsening pneumonia Bilateral infiltration. Acinetobacter in the sputum culture positive Continue Vanco / Merrem IV
[2018-11-30] MEDS: Enoxaparin 40 mg Syringe SC SCH (11:03)
[2018-11-30] MEDS: Petrolatum Oint Foilpak (5 gm) TOP SCH (11:06)
[2018-11-30] MEDS: Aritificial Tears (15ml) OU SCH ×4 (11:25→21:21)
--- NOTE | 2018-11-30 11:43 | CP.PCM.PN ---
Subjective - Date & Time of Evaluation Date of Evaluation: 11/30/18 Time of Evaluation: 11:40 - Subjective Subjective: Patient is a 72-year-old male with a history of hypertension hyperlipidemia COPD, congestive heart failure admitted to the hospital following cardiac arrest, underwent angiogram code heart. Patient had a multiple cardiac arrest and CPR. After that initial insult, patient developed ARDS, ventilator dependent respiratory failure Status post tracheostomy. Patient has a worsening pneumonia Bilateral infiltration. Acinetobacter in the sputum culture positive Patient underwent tracheostomy on 11/26/2018 Now s/p peg placement Remains unresponsive from sedation ROS unobtainable due to mental status Objective - Vital Signs/Intake and Output Vital Signs (last 24 hours): Temp Pulse Resp BP Pulse Ox 98.1 F 89 21 115/59 L 91 L 11/30/18 08:00 11/30/18 09:00 11/30/18 09:00 11/30/18 09:00 11/30/18 09:00 Intake and Output: 11/30/18 11/30/18 06:59 18:59 Intake Total 1269.7 81.6 Output Total 1200 300 Balance 69.7 -218.4 - Medications Medications: Current Medications Acetaminophen (Tylenol 650mg/20.3ml Solution Ud) 650 mg PO Q6 PRN PRN Reason: Temperature Last Admin: 11/24/18 23:39 Dose: 650 mg Albuterol/Ipratropium (Duoneb 3 Mg/0.5 Mg (3 Ml) Ud) 3 ml INH RQ4 [facility] Last Admin: 11/30/18 11:07 Dose: Not Given Artificial Tears (Artificial Tears) 0.4 ml OU Q4H [facility] Last Admin: 11/30/18 11:25 Dose: 0.4 ml Aspirin (Aspirin Chewable) 81 mg PO DAILY [facility] Last Admin: 11/30/18 11:09 Dose: 81 mg Clopidogrel Bisulfate (Plavix) 75 mg PO DAILY [facility] Last Admin: 11/30/18 11:10 Dose: 75 mg Emollient Ointment (Vaseline Oint) 5 gm TOP DAILY [facility] Last Admin: 11/30/18 11:06 Dose: 5 gm Enoxaparin Sodium (Lovenox) 40 mg SC DAILY [facility] Last Admin: 11/30/18 11:03 Dose: 40 mg Famotidine (Pepcid) 20 mg IVP DAILY [facility] Last Admin: 11/30/18 11:03 Dose: 20 mg Propofol (Diprivan) 1,000 mg in 100 mls @ 3.565 mls/hr IV .Q24H [facility]; Protocol PRN Reason: TITRATE PER MD ORDER Last Titration: 11/30/18 11:00 Dose: 20 mcg/kg/min, 14.261 mls/hr Vancomycin HCl 1 gm/ Sodium (Chloride) 250 mls @ 166.7 mls/hr IVPB Q24H [facility]; Protocol Last Admin: 11/30/18 09:53 Dose: 166.7 mls/hr Meropenem 500 mg/ Sodium (Chloride) 100 mls @ 100 mls/hr IVPB Q6H [facility]; Protocol Last Admin: 11/30/18 08:56 Dose: 100 mls/hr Lorazepam (Ativan) 2 mg IVP Q3H PRN PRN Reason: Anxiety Last Admin: 11/24/18 03:44 Dose: 2 mg Methylprednisolone (Solu-Medrol) 20 mg IVP Q8H [facility] Last Admin: 11/30/18 08:57 Dose: 20 mg Rosuvastatin Calcium (Crestor) 10 mg PO HS [facility] Last Admin: 11/29/18 22:03 Dose: 10 mg - Labs Labs: 11/30/18 05:36 11/30/18 05:36 PT 14.7 SECONDS (9.7-12.2) H 11/26/18 06:48 INR 1.3 11/26/18 06:48 APTT 28.0 SECONDS (21-34) 11/26/18 06:48 - Constitutional Appears: Chronically Ill - Head Exam Head Exam: ATRAUMATIC, NORMAL INSPECTION - Eye Exam Eye Exam: absent: Conjunctival injection, Scleral icterus - ENT Exam ENT Exam: Mucous Membranes Moist Additional comments: s/p trach - Neck Exam Neck Exam: absent: Lymphadenopathy Additional comments: s/p trach - Respiratory Exam Respiratory Exam: Rhonchi. absent: Rales, Wheezes - Cardiovascular Exam Cardiovascular Exam: +S1, +S2. absent: Rubs - GI/Abdominal Exam GI & Abdominal Exam: Distended, Soft Additional comments: peg - Extremities Exam Extremities Exam: Pedal Edema. absent: Joint Swelling - Neurological Exam Neurological Exam: absent: Alert, Awake - Skin Skin Exam: Dry, Warm Assessment and Plan (1) Acute hypernatremia Status: Acute (2) Acute renal failure due to tubular necrosis Status: Acute (3) COPD (chronic obstructive pulmonary disease) Status: Acute (4) Cardiac arrest Status: Acute (5) PHT (pulmonary hypertension) Status: Acute - Assessment and Plan (Free Text) Assessment: Renal function slowly recovering Add water flushes to peg when possible for hypernatremia and azotemia Electrolytes acceptable otherwise Supportive care , prognosis poor Continue ICU care
--- NOTE | 2018-11-30 12:09 | CP.CCUPN ---
CCU Subjective - Physician Review Subjective (Free Text): 11/30/18 11:58 PGY-1 Critical Care Progress Note for Dr. Hi Patient seen and examined at bedside this AM 72 yo male with pmhx of HTN, HLD, COPD, CHF admitted to the hospital following cardiac arrest, [facility] Underwent cardiac angiogram (clean coronaries), had multiple cardiac arrest and CPR Developed ARDS post-cardiac insult, ventilator dependent respiratory failure Status post tracheostomy (11/26/18) Worsening pneumonia, b/l infiltration Acinetobacter positive in the sputum culture IV Vanco/meropenem, f/u further ID recs Remains on mechanical ventilation: 500/100/18/8 On propofol gtt Renal function slowly recovering, continue to monitor NPO for PEG Add water flushes to peg when possible for hypernatremia, azotemia Follow up further Nephro recs Continue to monitor CCU Objective - Vital Signs / Intake & Output Vital Signs (Last 4 hours): Vital Signs Temp Pulse Resp BP Pulse Ox 11/30/18 09:00 89 21 115/59 L 91 L 11/30/18 08:01 100 H 25 H 152/85 H 88 L 11/30/18 08:00 98.1 F 103 H 21 89 L Intake and Output (Last 8hrs): Intake & Output 11/29/18 11/30/18 11/30/18 22:59 06:59 14:59 Intake Total 670.8 859.3 81.6 Output Total 900 1000 300 Balance -229.2 -140.7 -218.4 Weight 116.346 kg Intake: IV 100 350 35 Intake, IV Amount 260.8 259.3 46.6 Right PICC 100 100 Right PICC 1 120 120 35.8 Right PICC 2 40.8 39.3 10.8 Tube Feeding 160 100 0 Other 150 150 Output: Urine 900 1000 300 Urethral (Tabor) 900 1000 300 Other: # Bowel Movements 0 - Physical Exam Head: Positive for: Atraumatic, Normocephalic Pupils: Positive for: PERRL Extroacular Muscles: Positive for: EOMI Conjunctiva: Positive for: Normal Ears: Positive for: Normal Mouth: Positive for: Moist Mucous Membranes Respiratory/Chest: Positive for: Good Air Exchange, Decreased Breath Sounds (on left lung oakes), Other (intubated, on vent) Cardiovascular: Positive for: Regular Rate and Rhythm Abdomen: Positive for: Normal Bowel Sounds. Negative for: Tenderness, Distention Upper Extremity: Positive for: Normal Inspection Lower Extremity: Positive for: Normal Inspection Neurological: Positive for: Other (sedated, on vent) Skin: Positive for: Dry, Normal Color Psychiatric: Positive for: Alert - Medications Active Medications: Active Medications Generic Name Dose Route Start Last Admin Trade Name Freq PRN Reason Stop Dose Admin Acetaminophen 650 mg 11/19/18 15:49 11/24/18 23:39 Tylenol 650mg/20.3ml Solution Ud PO 650 mg Q6 PRN Administration Temperature Albuterol/Ipratropium 3 ml 11/23/18 12:00 11/30/18 11:07 Duoneb 3 Mg/0.5 Mg (3 Ml) Ud INH Not Given RQ4 [facility] Artificial Tears 0.4 ml 11/30/18 10:00 11/30/18 11:25 Artificial Tears OU 0.4 ml Q4H [facility] Administration Aspirin 81 mg 11/22/18 10:00 11/30/18 11:09 Aspirin Chewable PO 81 mg DAILY [facility] Administration Clopidogrel Bisulfate 75 mg 11/29/18 10:00 11/30/18 11:10 Plavix PO 75 mg DAILY [facility] Administration Emollient Ointment 5 gm 11/30/18 10:00 11/30/18 11:06 Vaseline Oint TOP 5 gm DAILY [facility] Administration Enoxaparin Sodium 40 mg 11/22/18 10:00 11/30/18 11:03 Lovenox SC 40 mg DAILY [facility] Administration Famotidine 20 mg 11/24/18 10:00 11/30/18 11:03 Pepcid IVP 20 mg DAILY [facility] Administration Propofol 1,000 mg in 100 mls @ 3.565 mls/hr 11/21/18 15:30 11/30/18 11:00 Diprivan IV 20 mcg/kg/min .Q24H PRN 14.261 mls/hr TITRATE PER MD ORDER Titration Protocol 5 MCG/KG/MIN Vancomycin HCl 1 gm/ Sodium 250 mls @ 166.7 mls/hr 11/25/18 10:30 11/30/18 09:53 Chloride IVPB 166.7 mls/hr Q24H [facility] Administration Protocol Meropenem 500 mg/ Sodium 100 mls @ 100 mls/hr 11/29/18 21:00 11/30/18 08:56 Chloride IVPB 100 mls/hr Q6H [facility] Administration Protocol Lorazepam 2 mg 11/17/18 17:40 11/24/18 03:44 Ativan IVP 2 mg Q3H PRN Administration Anxiety Methylprednisolone 20 mg 11/24/18 08:00 11/30/18 08:57 Solu-Medrol IVP 20 mg Q8H [facility] Administration Rosuvastatin Calcium 10 mg 11/19/18 22:00 11/29/18 22:03 Crestor PO 10 mg HS [facility] Administration - Patient Studies Lab Studies: Microbiology Studies 11/25/18 10:00 Blood Culture - Final Blood NO GROWTH AFTER 5 DAYS Gram Stain - Final TEST NOT PERFORMED Lab Studies 11/30/18 11/30/18 11/30/18 Range/Units 05:36 05:36 05:28 WBC 12.1 H (4.8-10.8) K/uL RBC 4.68 (4.40-5.90) Mil/uL Hgb 10.1 L (12.0-18.0) g/dL Hct 35.8 (35.0-51.0) % MCV 76.4 L (80.0-94.0) fL MCH 21.6 L (27.0-31.0) pg MCHC 28.3 L (33.0-37.0) g/dL RDW 20.4 H (11.5-14.5) % Plt Count 258 (130-400) K/uL MPV 9.8 (7.2-11.7) fL Neut % (Auto) 94.7 H (50.0-75.0) % Lymph % (Auto) 2.1 L (20.0-40.0) % Reeves % (Auto) 3.0 (0.0-10.0) % Eos % (Auto) 0.0 (0.0-4.0) % Baso % (Auto) 0.2 (0.0-2.0) % Neut # (Auto) 11.5 H (1.8-7.0) K/uL Lymph # (Auto) 0.2 L (1.0-4.3) K/uL Reeves # (Auto) 0.4 (0.0-0.8) K/uL Eos # (Auto) 0.0 (0.0-0.7) K/uL Baso # (Auto) 0.0 (0.0-0.2) K/uL Neutrophils % (Manual) 92 H (50-75) % Band Neutrophils % 3 H (0-2) % Lymphocytes % (Manual) 4 L (20-40) % Monocytes % (Manual) 1 (0-10) % Platelet Estimate Normal (NORMAL) Hypochromasia (manual) Slight Anisocytosis (manual) Moderate Ovalocytes Slight Stomatocytes Slight Puncture Site R bra pCO2 68 H (35-45) mm/Hg pO2 65 L (80-100) mm/Hg HCO3 36.3 H (21-28) mmol/L ABG pH 7.40 (7.35-7.45) ABG Total CO2 44.2 H (22-28) mmol/L ABG O2 Saturation 93.7 L (95-98) % ABG Base Excess 14.7 H (-2.0-3.0) mmol/L ABG Hemoglobin 10.7 L (11.7-17.4) g/dL ABG Carboxyhemoglobin 2.3 H (0.5-1.5) % POC ABG HHb (Measured) 6.1 H (0.0-5.0) % ABG Methemoglobin 0.9 (0.0-3.0) % Robert Test Na A-a O2 Difference 563.0 mm/Hg Respiratory Index 8.7 Hgb O2 Saturation 90.7 L (95.0-98.0) % Vent Mode Prvc Mechanical Rate 18 FiO2 100.0 % Tidal Volume 500 PEEP 12 Sodium 158 H (132-148) mmol/L Potassium 4.2 (3.6-5.2) mmol/L Chloride 116 H (98-107) mmol/L Carbon Dioxide 38 H (22-30) mmol/L Anion Gap 9 L (10-20) BUN 123 H* (9-20) mg/dL Creatinine 1.1 (0.8-1.5) mg/dL Est GFR ( Amer) > 60 Est GFR (Non-Af Amer) > 60 Random Glucose 126 H (75-110) mg/dL Calcium 8.8 (8.6-10.4) mg/dl Phosphorus 4.1 (2.5-4.5) mg/dL Magnesium 3.2 H (1.6-2.3) mg/dL Total Bilirubin 0.7 (0.2-1.3) mg/dL AST 41 (17-59) U/L ALT 34 (21-72) U/L Alkaline Phosphatase 71 (38-126) U/L Total Protein 5.7 L (6.3-8.3) g/dL Albumin 2.8 L (3.5-5.0) g/dL Globulin 2.8 (2.2-3.9) gm/dL Albumin/Globulin Ratio 1.0 (1.0-2.1) Laboratory Results - last 24 hr 11/30/18 11/30/18 11/30/18 05:28 05:36 05:36 WBC 12.1 H RBC 4.68 Hgb 10.1 L Hct 35.8 MCV 76.4 L MCH 21.6 L MCHC 28.3 L RDW 20.4 H Plt Count 258 MPV 9.8 Neut % (Auto) 94.7 H Lymph % (Auto) 2.1 L Reeves % (Auto) 3.0 Eos % (Auto) 0.0 Baso % (Auto) 0.2 Neut # (Auto) 11.5 H Lymph # (Auto) 0.2 L Reeves # (Auto) 0.4 Eos # (Auto) 0.0 Baso # (Auto) 0.0 Neutrophils % (Manual) 92 H Band Neutrophils % 3 H Lymphocytes % (Manual) 4 L Monocytes % (Manual) 1 Platelet Estimate Normal Hypochromasia (manual) Slight Anisocytosis (manual) Moderate Ovalocytes Slight Stomatocytes Slight Puncture Site R bra pCO2 68 H pO2 65 L HCO3 36.3 H ABG pH 7.40 ABG Total CO2 44.2 H ABG O2 Saturation 93.7 L ABG Base Excess 14.7 H ABG Hemoglobin 10.7 L ABG Carboxyhemoglobin 2.3 H POC ABG HHb (Measured) 6.1 H ABG Methemoglobin 0.9 Robert Test Na A-a O2 Difference 563.0 Respiratory Index 8.7 Hgb O2 Saturation 90.7 L Vent Mode Prvc Mechanical Rate 18 FiO2 100.0 Tidal Volume 500 PEEP 12 Sodium 158 H Potassium 4.2 Chloride 116 H Carbon Dioxide 38 H Anion Gap 9 L BUN 123 H* Creatinine 1.1 Est GFR ( Amer) > 60 Est GFR (Non-Af Amer) > 60 Random Glucose 126 H Calcium 8.8 Phosphorus 4.1 Magnesium 3.2 H Total Bilirubin 0.7 AST 41 ALT 34 Alkaline Phosphatase 71 Total Protein 5.7 L Albumin 2.8 L Globulin 2.8 Albumin/Globulin Ratio 1.0 Radiology Impressions: Radiology Impressions Chest X-Ray 11/29/18 06:00 IMPRESSION: Support lines and tubes as above. Chronic changes of COPD with what could represent superimposed bilateral diffuse bilateral infiltrates. Left-sided effusion not excluded. Chest X-Ray 11/30/18 07:00 Impression: Dense worsening masslike consolidative opacification seen within the right hilar and infrahilar region. Diffuse prominent increased bilateral airspace opacities. Left pleural effusion. Chronic interstitial lung markings. Lines and tubes in stable position. Cardiomegaly. Review of Systems - Review of Systems Systems not reviewed;Unavailable: Intubated Critical Care Progress Note - Nutrition Nutrition: Nutrition Category Date Time Status NPO Diet [DIET] Diets 11/26/18 Dinner Active
--- NOTE | 2018-11-30 16:24 | CP.PCM.PN ---
Subjective - Date & Time of Evaluation Date of Evaluation: 11/30/18 Time of Evaluation: 16:22 - Subjective Subjective: Patient with CAD, S/P PCI in the past now with cardiac arrest and severe Pulmonary hypertension. S/P TRACH and had PEG today. Objective - Vital Signs/Intake and Output Vital Signs (last 24 hours): Temp Pulse Resp BP Pulse Ox 98.3 F 101 H 19 131/72 94 L 11/30/18 12:00 11/30/18 14:30 11/30/18 14:30 11/30/18 14:21 11/30/18 14:30 Intake and Output: 11/30/18 11/30/18 06:59 18:59 Intake Total 1269.7 614.8 Output Total 1200 725 Balance 69.7 -110.2 - Medications Medications: Current Medications Acetaminophen (Tylenol 650mg/20.3ml Solution Ud) 650 mg PO Q6 PRN PRN Reason: Temperature Last Admin: 11/24/18 23:39 Dose: 650 mg Albuterol/Ipratropium (Duoneb 3 Mg/0.5 Mg (3 Ml) Ud) 3 ml INH RQ4 [facility] Last Admin: 11/30/18 15:33 Dose: 3 ml Artificial Tears (Artificial Tears) 0.4 ml OU Q4H [facility] Last Admin: 11/30/18 15:10 Dose: 0.4 ml Aspirin (Aspirin Chewable) 81 mg PO DAILY [facility] Last Admin: 11/30/18 11:09 Dose: 81 mg Clopidogrel Bisulfate (Plavix) 75 mg PO DAILY [facility] Last Admin: 11/30/18 11:10 Dose: 75 mg Emollient Ointment (Vaseline Oint) 5 gm TOP DAILY [facility] Last Admin: 11/30/18 11:06 Dose: 5 gm Enoxaparin Sodium (Lovenox) 40 mg SC DAILY [facility] Last Admin: 11/30/18 11:03 Dose: 40 mg Famotidine (Pepcid) 20 mg IVP DAILY [facility] Last Admin: 11/30/18 11:03 Dose: 20 mg Propofol (Diprivan) 1,000 mg in 100 mls @ 3.565 mls/hr IV .Q24H PRN; Protocol PRN Reason: TITRATE PER MD ORDER Last Admin: 11/30/18 13:15 Dose: 20 mcg/kg/min, 14.261 mls/hr Vancomycin HCl 1 gm/ Sodium (Chloride) 250 mls @ 166.7 mls/hr IVPB Q24H [facility]; Protocol Last Admin: 11/30/18 09:53 Dose: 166.7 mls/hr Meropenem 500 mg/ Sodium (Chloride) 100 mls @ 100 mls/hr IVPB Q6H [facility]; Protocol Last Admin: 11/30/18 15:09 Dose: 100 mls/hr Lorazepam (Ativan) 2 mg IVP Q3H PRN PRN Reason: Anxiety Last Admin: 11/24/18 03:44 Dose: 2 mg Methylprednisolone (Solu-Medrol) 20 mg IVP Q8H [facility] Last Admin: 11/30/18 08:57 Dose: 20 mg Rosuvastatin Calcium (Crestor) 10 mg PO HS [facility] Last Admin: 11/29/18 22:03 Dose: 10 mg - Labs Labs: 11/30/18 05:36 11/30/18 05:36 PT 14.7 SECONDS (9.7-12.2) H 11/26/18 06:48 INR 1.3 11/26/18 06:48 APTT 28.0 SECONDS (21-34) 11/26/18 06:48 - Neck Exam Additional comments: S/P TRCAH., - Cardiovascular Exam Cardiovascular Exam: REGULAR RHYTHM (Sinus tachycardia.) Additional comments: PEG placed today. - Neurological Exam Neurological Exam: Awake Assessment and Plan (1) Cardiac arrest Assessment & Plan: No new episodes of arrhythmia, Monitor. Resume DAPT. Lipid lowering agents. Status: Acute (2) Ventricular tachycardia Assessment & Plan: Maintain electrolyte balance. Status: Acute (3) Congestive heart failure Assessment & Plan: Right sided failure. Fluid restriction with diuresis. Status: Acute
--- NOTE | 2018-11-30 18:39 | CP.PCM.PN ---
Subjective - Date & Time of Evaluation Date of Evaluation: 11/30/18 Time of Evaluation: 11:00 - Subjective Subjective: Patient seen and examined Status post tracheostomy and PEG insertion On ventilatory support FiO2 100% and saturation in the upper 80s Objective - Vital Signs/Intake and Output Vital Signs (last 24 hours): Temp Pulse Resp BP Pulse Ox 99.1 F 103 H 22 129/78 86 L 11/30/18 16:00 11/30/18 17:21 11/30/18 17:21 11/30/18 17:21 11/30/18 17:21 Intake and Output: 11/30/18 11/30/18 06:59 18:59 Intake Total 1269.7 838.4 Output Total 1200 1175 Balance 69.7 -336.6 - Medications Medications: Current Medications Acetaminophen (Tylenol 650mg/20.3ml Solution Ud) 650 mg PO Q6 PRN PRN Reason: Temperature Last Admin: 11/24/18 23:39 Dose: 650 mg Albuterol/Ipratropium (Duoneb 3 Mg/0.5 Mg (3 Ml) Ud) 3 ml INH RQ4 [facility] Last Admin: 11/30/18 15:33 Dose: 3 ml Artificial Tears (Artificial Tears) 0.4 ml OU Q4H [facility] Last Admin: 11/30/18 15:10 Dose: 0.4 ml Aspirin (Aspirin Chewable) 81 mg PO DAILY [facility] Last Admin: 11/30/18 11:09 Dose: 81 mg Clopidogrel Bisulfate (Plavix) 75 mg PO DAILY [facility] Last Admin: 11/30/18 11:10 Dose: 75 mg Emollient Ointment (Vaseline Oint) 5 gm TOP DAILY [facility] Last Admin: 11/30/18 11:06 Dose: 5 gm Enoxaparin Sodium (Lovenox) 40 mg SC DAILY [facility] Last Admin: 11/30/18 11:03 Dose: 40 mg Famotidine (Pepcid) 20 mg IVP DAILY [facility] Last Admin: 11/30/18 11:03 Dose: 20 mg Propofol (Diprivan) 1,000 mg in 100 mls @ 3.565 mls/hr IV .Q24H PRN; Protocol PRN Reason: TITRATE PER MD ORDER Last Admin: 11/30/18 13:15 Dose: 20 mcg/kg/min, 14.261 mls/hr Vancomycin HCl 1 gm/ Sodium (Chloride) 250 mls @ 166.7 mls/hr IVPB Q24H [facility]; Protocol Last Admin: 11/30/18 09:53 Dose: 166.7 mls/hr Meropenem 500 mg/ Sodium (Chloride) 100 mls @ 100 mls/hr IVPB Q6H [facility]; Protocol Last Admin: 11/30/18 15:09 Dose: 100 mls/hr Lorazepam (Ativan) 2 mg IVP Q3H PRN PRN Reason: Anxiety Last Admin: 11/24/18 03:44 Dose: 2 mg Methylprednisolone (Solu-Medrol) 20 mg IVP Q8H [facility] Last Admin: 11/30/18 17:14 Dose: 20 mg Rosuvastatin Calcium (Crestor) 10 mg PO HS [facility] Last Admin: 11/29/18 22:03 Dose: 10 mg - Labs Labs: 11/30/18 05:36 11/30/18 05:36 PT 14.7 SECONDS (9.7-12.2) H 11/26/18 06:48 INR 1.3 11/26/18 06:48 APTT 28.0 SECONDS (21-34) 11/26/18 06:48 - Head Exam Head Exam: ATRAUMATIC, NORMOCEPHALIC - ENT Exam ENT Exam: Mucous Membranes Moist - Neck Exam Neck Exam: Normal Inspection - Respiratory Exam Respiratory Exam: Decreased Breath Sounds - Cardiovascular Exam Cardiovascular Exam: REGULAR RHYTHM - GI/Abdominal Exam GI & Abdominal Exam: Soft, Normal Bowel Sounds Assessment and Plan (1) Cardiac arrest Assessment & Plan: Status post tracheostomy and PEG Taper steroids Gentle hydration PEG feeding LTAC Status: Acute (2) COPD (chronic obstructive pulmonary disease) Status: Acute (3) Ventricular tachycardia Status: Acute (4) Congestive heart failure Status: Acute (5) PHT (pulmonary hypertension) Status: Acute
[2018-11-30] MEDS ORDERED: Digoxin 500 mcg/2ml (0.5 mg/2ml) Inj IVP ONE (22:33)
[2018-12-01] MEDS: Acetaminophen 650mg/20.3ml solution UD PO PRN ×2 (00:10→16:26)
[2018-12-01] MEDS ORDERED: Sodium Chloride 0.9% 500 ML IV ONE (00:12)
[2018-12-01] MEDS: MethylPREDNISolone 40 mg Vial IVP SCH ×3 (00:30→16:26)
[2018-12-01] MEDS: Albuterol-Ipratrop 3 mg / 0.5 (3 ml) UD INH SCH ×6 (01:29→19:17)
[2018-12-01] MEDS: Aritificial Tears (15ml) OU SCH ×6 (02:15→21:15)
[2018-12-01] MEDS: Meropenem 500 MG in Sodium Chloride 0.9% 100 ML IVPB SCH ×4 (03:10→21:15)
[2018-12-01] MEDS: Propofol 10 mg/ml 1,000 MG/100 ML VIAL IV PRN ×3 (03:30→18:07)
[2018-12-01 06:09] VITALS: PULSE 140
[2018-12-01 06:26] LABS: ALB/GLOB RATIO 1.2 (1.0-2.1); ALBUMIN 3.1 g/dL (3.5-5.0); ALT/SGPT 49 U/L (21-72); AST/SGOT 64 U/L (17-59); BLOOD UREA NITROGEN 104 mg/dL (9-20); CALCIUM 8.6 mg/dl (8.6-10.4); GFR NON-AFRICAN AMERICAN > 60
[2018-12-01 06:37] LABS: BASO # 0.1 K/uL (0.0-0.2); BASO % 0.6 % (0.0-2.0); HEMOGLOBIN 10.6 g/dL (12.0-18.0); LYMPH # 0.5 K/uL (1.0-4.3); LYMPH % 3.6 % (20.0-40.0); MEAN CELL VOLUME 76.9 fL (80.0-94.0); MEAN CORPUSCULAR HEMOGLOBIN 21.4 pg (27.0-31.0); MEAN CORPUSCULAR HGB CONC 27.8 g/dL (33.0-37.0); MEAN PLATELET VOLUME 9.6 fL (7.2-11.7); MONO # 0.4 K/uL (0.0-0.8); NEUT # 13.5 K/uL (1.8-7.0); NEUT % 92.8 % (50.0-75.0); PLATELET COUNT 244 K/uL (130-400); RBC 4.97 Mil/uL (4.40-5.90); RED CELL DISTRIBUTION WIDTH 20.7 % (11.5-14.5); WHITE BLOOD COUNT 14.5 K/uL (4.8-10.8)
[2018-12-01 06:38] LABS: ARTERIAL BLOOD GAS HCO3 33.2 mmol/L (21-28); ARTERIAL BLOOD GAS HEMOGLOBIN 10.7 g/dL (11.7-17.4); ARTERIAL BLOOD GAS O2 SAT 92.6 % (95-98); ARTERIAL BLOOD GAS PCO2 57 mm/Hg (35-45); ARTERIAL BLOOD GAS PH 7.42 (7.35-7.45); ARTERIAL BLOOD GAS PO2 61 mm/Hg (80-100); ARTERIAL BLOOD GAS TCO2 38.7 mmol/L (22-28)
--- NOTE | 2018-12-01 07:39 | CP.PCM.PN ---
Subjective - Date & Time of Evaluation Date of Evaluation: 12/01/18 Time of Evaluation: 07:00 - Subjective Subjective: GI Fellow PGY5 Progress Note Pt seen and evaluated at bedside, pt with low grade temp overnight and tachycardia. Pt did well post PEG with no complications, no bleeding at site, no issues with meds and water via PEG. ROS: A 12pt ROS was negative except as above Objective - Vital Signs/Intake and Output Vital Signs (last 24 hours): Temp Pulse Resp BP Pulse Ox 99.9 F H 142 H 25 H 105/71 89 L 12/01/18 01:10 12/01/18 07:21 12/01/18 07:21 12/01/18 07:21 12/01/18 07:21 Intake and Output: 12/01/18 12/01/18 06:59 18:59 Intake Total 1212.1 131.4 Output Total 1200 100 Balance 12.1 31.4 - Medications Medications: Current Medications Acetaminophen (Tylenol 650mg/20.3ml Solution Ud) 650 mg PO Q6 PRN PRN Reason: Temperature Last Admin: 12/01/18 00:10 Dose: 650 mg Albuterol/Ipratropium (Duoneb 3 Mg/0.5 Mg (3 Ml) Ud) 3 ml INH RQ4 [facility] Last Admin: 12/01/18 04:26 Dose: Not Given Artificial Tears (Artificial Tears) 0.4 ml OU Q4H [facility] Last Admin: 12/01/18 06:01 Dose: 0.4 ml Aspirin (Aspirin Chewable) 81 mg PO DAILY [facility] Last Admin: 11/30/18 11:09 Dose: 81 mg Clopidogrel Bisulfate (Plavix) 75 mg PO DAILY [facility] Last Admin: 11/30/18 11:10 Dose: 75 mg Emollient Ointment (Vaseline Oint) 5 gm TOP DAILY [facility] Last Admin: 11/30/18 11:06 Dose: 5 gm Enoxaparin Sodium (Lovenox) 40 mg SC DAILY [facility] Last Admin: 11/30/18 11:03 Dose: 40 mg Famotidine (Pepcid) 20 mg IVP DAILY [facility] Last Admin: 11/30/18 11:03 Dose: 20 mg Propofol (Diprivan) 1,000 mg in 100 mls @ 3.565 mls/hr IV .Q24H PRN; Protocol PRN Reason: TITRATE PER MD ORDER Last Admin: 12/01/18 07:20 Dose: 30 mcg/kg/min, 21.391 mls/hr Vancomycin HCl 1 gm/ Sodium (Chloride) 250 mls @ 166.7 mls/hr IVPB Q24H [facility]; Protocol Last Admin: 11/30/18 09:53 Dose: 166.7 mls/hr Meropenem 500 mg/ Sodium (Chloride) 100 mls @ 100 mls/hr IVPB Q6H [facility]; Protocol Last Admin: 12/01/18 03:10 Dose: 100 mls/hr Diltiazem HCl 125 mg/ Dextrose 125 mls @ 5 mls/hr IV .Q24H [facility]; Protocol Last Titration: 11/30/18 22:00 Dose: 10 mg/hr, 10 mls/hr Sodium Chloride (Sodium Chloride 0.45%) 1,000 mls @ 80 mls/hr IV .[id number] [facility] Lorazepam (Ativan) 2 mg IVP Q3H PRN PRN Reason: Anxiety Last Admin: 11/24/18 03:44 Dose: 2 mg Methylprednisolone (Solu-Medrol) 20 mg IVP Q8H [facility] Last Admin: 12/01/18 00:30 Dose: 20 mg Rosuvastatin Calcium (Crestor) 10 mg PO HS [facility] Last Admin: 11/30/18 21:21 Dose: 10 mg - Labs Labs: 12/01/18 05:58 12/01/18 05:58 PT 14.7 SECONDS (9.7-12.2) H 11/26/18 06:48 INR 1.3 11/26/18 06:48 APTT 28.0 SECONDS (21-34) 11/26/18 06:48 - Constitutional Appears: Non-toxic, No Acute Distress, Agitated, Chronically Ill - Head Exam Head Exam: ATRAUMATIC, NORMAL INSPECTION, NORMOCEPHALIC - Eye Exam Eye Exam: EOMI, Normal appearance, PERRL Pupil Exam: PERRL - ENT Exam ENT Exam: Mucous Membranes Dry - Neck Exam Neck Exam: Full ROM, Normal Inspection - Respiratory Exam Respiratory Exam: Rhonchi, Respiratory Distress - Cardiovascular Exam Cardiovascular Exam: Tachycardia, +S1, +S2 - GI/Abdominal Exam GI & Abdominal Exam: Soft, Normal Bowel Sounds. absent: Distended, Firm, Guarding, Tenderness Additional comments: +PEG - Extremities Exam Extremities Exam: Full ROM, Normal Inspection - Psychiatric Exam Psychiatric exam: Agitated - Skin Skin Exam: Dry, Intact, Normal Color, Warm Assessment and Plan - Assessment and Plan (Free Text) Assessment: 1. s/p Tach 2. Coffee ground emesis, hgb stable 3. Cardiac Arrest with ROSC s/p cardiac catherization 4. Hx of UGIB 5. PUD-gastric and duodenal ulcers 6. VDRF 7. CAD s/p PCI 8. s/p PEG Plan: -Continue supportive care with ICU team -Monitor hgb and transfuse with goal 9 if needed -Monitor for melena or hemotcheiza -Recent EGD with PUD -IV PPI -s/p tach -s/p PEG POD#1, bumper loosened, okay to start TF today -Please call with any questions or concerns
[2018-12-01] MEDS: Sodium Chloride 0.45% 1,000 ML IV SCH ×2 (08:19→20:09)
[2018-12-01 08:32] LABS: ANISOCYTOSIS MODERATE; BANDS 1 % (0-2); LYMPHOCYTE 2 % (20-40); MONOCYTE 2 % (0-10); NEUTROPHIL 94 % (50-75); PLATELET ESTIMATE NORMAL (NORMAL); REACTIVE LYMPHOCYTES 1 % (0-0); TOTAL CELLS COUNTED 100
[2018-12-01 08:33] LABS: HYPOCHROMIC MODERATE; LARGE PLATELETS PRESENT
--- NOTE | 2018-12-01 08:37 | CP.PCM.PN ---
Subjective - Date & Time of Evaluation Date of Evaluation: 12/01/18 Time of Evaluation: 08:30 - Subjective Subjective: afebrile bp low output about 2300cc in negative water balanc on normal saline iv's sodium unchanged at 169 creatinine stable at 1.1 bun down to 104 sedated trach on respirator comfortafortable in bed not responding ROS unable to obtain,unresponsive Objective - Vital Signs/Intake and Output Vital Signs (last 24 hours): Temp Pulse Resp BP Pulse Ox 99.7 F H 142 H 25 H 105/71 89 L 12/01/18 04:00 12/01/18 07:21 12/01/18 07:21 12/01/18 07:21 12/01/18 07:21 Intake and Output: 12/01/18 12/01/18 06:59 18:59 Intake Total 1212.1 206.4 Output Total 1200 100 Balance 12.1 106.4 - Medications Medications: Current Medications Acetaminophen (Tylenol 650mg/20.3ml Solution Ud) 650 mg PO Q6 PRN PRN Reason: Temperature Last Admin: 12/01/18 00:10 Dose: 650 mg Albuterol/Ipratropium (Duoneb 3 Mg/0.5 Mg (3 Ml) Ud) 3 ml INH RQ4 [facility] Last Admin: 12/01/18 07:40 Dose: Not Given Artificial Tears (Artificial Tears) 0.4 ml OU Q4H [facility] Last Admin: 12/01/18 06:01 Dose: 0.4 ml Aspirin (Aspirin Chewable) 81 mg PO DAILY [facility] Last Admin: 11/30/18 11:09 Dose: 81 mg Clopidogrel Bisulfate (Plavix) 75 mg PO DAILY [facility] Last Admin: 11/30/18 11:10 Dose: 75 mg Emollient Ointment (Vaseline Oint) 5 gm TOP DAILY [facility] Last Admin: 11/30/18 11:06 Dose: 5 gm Enoxaparin Sodium (Lovenox) 40 mg SC DAILY [facility] Last Admin: 11/30/18 11:03 Dose: 40 mg Famotidine (Pepcid) 20 mg IVP DAILY [facility] Last Admin: 11/30/18 11:03 Dose: 20 mg Propofol (Diprivan) 1,000 mg in 100 mls @ 3.565 mls/hr IV .Q24H PRN; Protocol PRN Reason: TITRATE PER MD ORDER Last Admin: 12/01/18 07:20 Dose: 30 mcg/kg/min, 21.391 mls/hr Vancomycin HCl 1 gm/ Sodium (Chloride) 250 mls @ 166.7 mls/hr IVPB Q24H [facility]; Protocol Last Admin: 11/30/18 09:53 Dose: 166.7 mls/hr Meropenem 500 mg/ Sodium (Chloride) 100 mls @ 100 mls/hr IVPB Q6H [facility]; Protocol Last Admin: 12/01/18 08:20 Dose: 100 mls/hr Diltiazem HCl 125 mg/ Dextrose 125 mls @ 5 mls/hr IV .Q24H [facility]; Protocol Last Titration: 12/01/18 08:27 Dose: 15 mg/hr, 15 mls/hr Sodium Chloride (Sodium Chloride 0.45%) 1,000 mls @ 80 mls/hr IV .[id number] [facility] Last Admin: 12/01/18 08:19 Dose: 80 mls/hr Lorazepam (Ativan) 2 mg IVP Q3H PRN PRN Reason: Anxiety Last Admin: 11/24/18 03:44 Dose: 2 mg Methylprednisolone (Solu-Medrol) 20 mg IVP Q8H [facility] Last Admin: 12/01/18 08:20 Dose: 20 mg Rosuvastatin Calcium (Crestor) 10 mg PO HS [facility] Last Admin: 11/30/18 21:21 Dose: 10 mg - Labs Labs: 12/01/18 05:58 12/01/18 05:58 PT 14.7 SECONDS (9.7-12.2) H 11/26/18 06:48 INR 1.3 11/26/18 06:48 APTT 28.0 SECONDS (21-34) 11/26/18 06:48 - Constitutional Appears: No Acute Distress - Head Exam Head Exam: ATRAUMATIC Additional comments: unresponsive trach on respirator - ENT Exam ENT Exam: Mucous Membranes Dry - Respiratory Exam Respiratory Exam: Clear to Ausculation Bilateral - Cardiovascular Exam Cardiovascular Exam: REGULAR RHYTHM - GI/Abdominal Exam GI & Abdominal Exam: Soft. absent: Distended, Tenderness Additional comments: binder over abd - Exam Additional comments: bruner in place - Extremities Exam Extremities Exam: absent: Pedal Edema - Neurological Exam Neurological Exam: absent: Alert, Awake Assessment and Plan (1) Acute hypernatremia Status: Acute (2) CAD (coronary artery disease) Status: Acute (3) COPD (chronic obstructive pulmonary disease) Status: Acute (4) Cardiac arrest Status: Acute (5) Congestive heart failure Status: Acute (6) Respiratory distress Status: Acute - Assessment and Plan (Free Text) Plan: agtree with hypotonic fluids to increase peg water to 200 q4h follow chems closely contniue supportive care
[2018-12-01] MEDS ORDERED: Metoprolol 1 mg/ml Inj IVP ONE (09:40)
[2018-12-01] MEDS: Enoxaparin 40 mg Syringe SC SCH (09:57)
[2018-12-01] MEDS: Petrolatum Oint Foilpak (5 gm) TOP SCH (09:57)
--- NOTE | 2018-12-01 10:55 | CP.CCUPN ---
<Alexander Weinstein - Last Filed: 12/01/18 10:41> CCU Subjective - Physician Review Subjective (Free Text): 12/01/18 10:41 PGY-1 Critical Care Progress Note for Dr. Summers Patient seen and examined at bedside this AM 72 yo male with pmhx of HTN, HLD, COPD, CHF admitted to the hospital following cardiac arrest, CODE HEART Underwent cardiac angiogram (clean coronaries), had multiple cardiac arrest and CPR Developed ARDS post-cardiac insult, ventilator dependent respiratory failure Status post tracheostomy (11/26/18), status post PEG placement (11/30/18) Worsening pneumonia, b/l infiltration Acinetobacter positive in the sputum culture on IV Vanco/meropenem Remains on mechanical ventilation: 500/100/18/8 On propofol gtt Renal function slowly recovering, continue to monitor Na 160, to add gentle hydration with 1/2 NS increase peg water to 200 q4h per GI recs Continue to monitor CCU Objective - Vital Signs / Intake & Output Vital Signs (Last 4 hours): Vital Signs Temp Pulse Resp BP Pulse Ox 12/01/18 09:00 112 H 16 94 L 12/01/18 08:22 115 H 23 100/73 92 L 12/01/18 08:00 98.7 F 123 H 18 91 L 12/01/18 07:21 142 H 25 H 105/71 89 L 12/01/18 07:00 146 H 23 90 L Intake and Output (Last 8hrs): Intake & Output 11/30/18 12/01/18 12/01/18 22:59 06:59 14:59 Intake Total 514.4 929.9 744.2 Output Total 850 800 300 Balance -335.6 129.9 444.2 Weight 112 kg Intake: IV 110 100 215 Intake, IV Amount 229.4 829.9 289.2 R FA 2 Y Port 100 600 Right Forearm #1 180 Right PICC 1 15 80 45 Right PICC 2 114.4 149.9 64.2 Tube Feeding 0 240 Albumin 25 Other 150 Output: Urine 850 800 300 Urethral (Tabor) 850 800 300 Stool 0 0 Other: # Bowel Movements 1 - Physical Exam Head: Positive for: Atraumatic, Normocephalic Pupils: Positive for: PERRL Extroacular Muscles: Positive for: EOMI Conjunctiva: Positive for: Normal Ears: Positive for: Normal Mouth: Positive for: Moist Mucous Membranes Respiratory/Chest: Positive for: Good Air Exchange, Decreased Breath Sounds (on left lung oakes), Other (intubated, on vent) Cardiovascular: Positive for: Regular Rate and Rhythm Abdomen: Positive for: Normal Bowel Sounds. Negative for: Tenderness, Distention Upper Extremity: Positive for: Normal Inspection Lower Extremity: Positive for: Normal Inspection Neurological: Positive for: Other (sedated, on vent) Skin: Positive for: Dry, Normal Color Psychiatric: Positive for: Alert - Medications Active Medications: Active Medications Generic Name Dose Route Start Last Admin Trade Name Freq PRN Reason Stop Dose Admin Acetaminophen 650 mg 11/19/18 15:49 12/01/18 00:10 Tylenol 650mg/20.3ml Solution Ud PO 650 mg Q6 PRN Administration Temperature Albuterol/Ipratropium 3 ml 11/23/18 12:00 12/01/18 07:40 Duoneb 3 Mg/0.5 Mg (3 Ml) Ud INH Not Given RQ4 DAMION Artificial Tears 0.4 ml 11/30/18 10:00 12/01/18 09:58 Artificial Tears OU 0.4 ml Q4H DAMION Administration Aspirin 81 mg 11/22/18 10:00 12/01/18 09:56 Aspirin Chewable PO 81 mg DAILY DAMION Administration Clopidogrel Bisulfate 75 mg 11/29/18 10:00 12/01/18 09:59 Plavix PO 75 mg DAILY DAMION Administration Emollient Ointment 5 gm 11/30/18 10:00 12/01/18 09:57 Vaseline Oint TOP 5 gm DAILY DAMION Administration Enoxaparin Sodium 40 mg 11/22/18 10:00 12/01/18 09:57 Lovenox SC 40 mg DAILY DAMION Administration Famotidine 20 mg 12/01/18 10:00 12/01/18 09:57 Pepcid GT 20 mg DAILY DAMION Administration Propofol 1,000 mg in 100 mls @ 3.565 mls/hr 11/21/18 15:30 12/01/18 07:20 Diprivan IV 30 mcg/kg/min .Q24H PRN 21.391 mls/hr TITRATE PER MD ORDER Administration Protocol 5 MCG/KG/MIN Vancomycin HCl 1 gm/ Sodium 250 mls @ 166.7 mls/hr 11/25/18 10:30 12/01/18 09:57 Chloride IVPB 166.7 mls/hr Q24H DAMION Administration Protocol Meropenem 500 mg/ Sodium 100 mls @ 100 mls/hr 11/29/18 21:00 12/01/18 08:20 Chloride IVPB 100 mls/hr Q6H DAMION Administration Protocol Diltiazem HCl 125 mg/ Dextrose 125 mls @ 5 mls/hr 11/30/18 21:15 12/01/18 09:57 IV 15 mg/hr .Q24H DAMION 15 mls/hr Administration Protocol 5 MG/HR Sodium Chloride 1,000 mls @ 80 mls/hr 12/01/18 07:30 12/01/18 08:19 Sodium Chloride 0.45% IV 80 mls/hr .[id number] DAMION Administration Lorazepam 2 mg 11/17/18 17:40 11/24/18 03:44 Ativan IVP 2 mg Q3H PRN Administration Anxiety Methylprednisolone 20 mg 11/24/18 08:00 12/01/18 08:20 Solu-Medrol IVP 20 mg Q8H DAMION Administration Rosuvastatin Calcium 10 mg 11/19/18 22:00 11/30/18 21:21 Crestor PO 10 mg HS DAMION Administration - Patient Studies Lab Studies: Microbiology Studies 11/25/18 10:00 Blood Culture - Final Blood NO GROWTH AFTER 5 DAYS Gram Stain - Final TEST NOT PERFORMED Lab Studies 12/01/18 12/01/18 12/01/18 Range/Units 05:58 05:58 05:46 WBC 14.5 H (4.8-10.8) K/uL RBC 4.97 (4.40-5.90) Mil/uL Hgb 10.6 L (12.0-18.0) g/dL Hct 38.3 (35.0-51.0) % MCV 76.9 L (80.0-94.0) fL MCH 21.4 L (27.0-31.0) pg MCHC 27.8 L (33.0-37.0) g/dL RDW 20.7 H (11.5-14.5) % Plt Count 244 (130-400) K/uL MPV 9.6 (7.2-11.7) fL Neut % (Auto) 92.8 H (50.0-75.0) % Lymph % (Auto) 3.6 L (20.0-40.0) % Keith % (Auto) 3.0 (0.0-10.0) % Eos % (Auto) 0.0 (0.0-4.0) % Baso % (Auto) 0.6 (0.0-2.0) % Neut # (Auto) 13.5 H (1.8-7.0) K/uL Lymph # (Auto) 0.5 L (1.0-4.3) K/uL Keith # (Auto) 0.4 (0.0-0.8) K/uL Eos # (Auto) 0.0 (0.0-0.7) K/uL Baso # (Auto) 0.1 (0.0-0.2) K/uL Neutrophils % (Manual) 94 H (50-75) % Band Neutrophils % 1 (0-2) % Lymphocytes % (Manual) 2 L (20-40) % Reactive Lymphs % 1 H (0-0) % Monocytes % (Manual) 2 (0-10) % Platelet Estimate Normal (NORMAL) Large Platelets Present Hypochromasia (manual) Moderate Anisocytosis (manual) Moderate Puncture Site R bra pCO2 57 H (35-45) mm/Hg pO2 61 L (80-100) mm/Hg HCO3 33.2 H (21-28) mmol/L ABG pH 7.42 (7.35-7.45) ABG Total CO2 38.7 H (22-28) mmol/L ABG O2 Saturation 92.6 L (95-98) % ABG Base Excess 10.8 H (-2.0-3.0) mmol/L ABG Hemoglobin 10.7 L (11.7-17.4) g/dL ABG Carboxyhemoglobin 2.3 H (0.5-1.5) % POC ABG HHb (Measured) 7.2 H (0.0-5.0) % ABG Methemoglobin 0.7 (0.0-3.0) % Robert Test Na A-a O2 Difference 581.0 mm/Hg Respiratory Index 9.5 Hgb O2 Saturation 89.8 L (95.0-98.0) % Vent Mode Prvc Mechanical Rate 18 FiO2 100.0 % Tidal Volume 500 PEEP 8 Sodium 160 H* (132-148) mmol/L Potassium 4.4 (3.6-5.2) mmol/L Chloride 122 H (98-107) mmol/L Carbon Dioxide 36 H (22-30) mmol/L Anion Gap 7 L (10-20) BUN 104 H* (9-20) mg/dL Creatinine 1.1 (0.8-1.5) mg/dL Est GFR ( Amer) > 60 Est GFR (Non-Af Amer) > 60 Random Glucose 121 H (75-110) mg/dL Calcium 8.6 (8.6-10.4) mg/dl Phosphorus 4.4 (2.5-4.5) mg/dL Magnesium 3.0 H (1.6-2.3) mg/dL Total Bilirubin 0.7 (0.2-1.3) mg/dL AST 64 H D (17-59) U/L ALT 49 (21-72) U/L Alkaline Phosphatase 95 (38-126) U/L Total Protein 5.6 L (6.3-8.3) g/dL Albumin 3.1 L (3.5-5.0) g/dL Globulin 2.6 (2.2-3.9) gm/dL Albumin/Globulin Ratio 1.2 (1.0-2.1) Procalcitonin (0.19-0.49) NG/ML Vancomycin Trough (5.0-10.0) ug/mL 12/01/18 11/30/18 Range/Units 05:21 05:36 WBC (4.8-10.8) K/uL RBC (4.40-5.90) Mil/uL Hgb (12.0-18.0) g/dL Hct (35.0-51.0) % MCV (80.0-94.0) fL MCH (27.0-31.0) pg MCHC (33.0-37.0) g/dL RDW (11.5-14.5) % Plt Count (130-400) K/uL MPV (7.2-11.7) fL Neut % (Auto) (50.0-75.0) % Lymph % (Auto) (20.0-40.0) % Keith % (Auto) (0.0-10.0) % Eos % (Auto) (0.0-4.0) % Baso % (Auto) (0.0-2.0) % Neut # (Auto) (1.8-7.0) K/uL Lymph # (Auto) (1.0-4.3) K/uL Keith # (Auto) (0.0-0.8) K/uL Eos # (Auto) (0.0-0.7) K/uL Baso # (Auto) (0.0-0.2) K/uL Neutrophils % (Manual) (50-75) % Band Neutrophils % (0-2) % Lymphocytes % (Manual) (20-40) % Reactive Lymphs % (0-0) % Monocytes % (Manual) (0-10) % Platelet Estimate (NORMAL) Large Platelets Hypochromasia (manual) Anisocytosis (manual) Puncture Site pCO2 (35-45) mm/Hg pO2 (80-100) mm/Hg HCO3 (21-28) mmol/L ABG pH (7.35-7.45) ABG Total CO2 (22-28) mmol/L ABG O2 Saturation (95-98) % ABG Base Excess (-2.0-3.0) mmol/L ABG Hemoglobin (11.7-17.4) g/dL ABG Carboxyhemoglobin (0.5-1.5) % POC ABG HHb (Measured) (0.0-5.0) % ABG Methemoglobin (0.0-3.0) % Robert Test A-a O2 Difference mm/Hg Respiratory Index Hgb O2 Saturation (95.0-98.0) % Vent Mode Mechanical Rate FiO2 % Tidal Volume PEEP Sodium (132-148) mmol/L Potassium (3.6-5.2) mmol/L Chloride (98-107) mmol/L Carbon Dioxide (22-30) mmol/L Anion Gap (10-20) BUN (9-20) mg/dL Creatinine (0.8-1.5) mg/dL Est GFR ( Amer) Est GFR (Non-Af Amer) Random Glucose (75-110) mg/dL Calcium (8.6-10.4) mg/dl Phosphorus (2.5-4.5) mg/dL Magnesium (1.6-2.3) mg/dL Total Bilirubin (0.2-1.3) mg/dL AST (17-59) U/L ALT (21-72) U/L Alkaline Phosphatase (38-126) U/L Total Protein (6.3-8.3) g/dL Albumin (3.5-5.0) g/dL Globulin (2.2-3.9) gm/dL Albumin/Globulin Ratio (1.0-2.1) Procalcitonin 0.18 L (0.19-0.49) NG/ML Vancomycin Trough 9.2 (5.0-10.0) ug/mL Laboratory Results - last 24 hr 11/30/18 12/01/18 12/01/18 05:36 05:21 05:46 WBC RBC Hgb Hct MCV MCH MCHC RDW Plt Count MPV Neut % (Auto) Lymph % (Auto) Keith % (Auto) Eos % (Auto) Baso % (Auto) Neut # (Auto) Lymph # (Auto) Keith # (Auto) Eos # (Auto) Baso # (Auto) Neutrophils % (Manual) Band Neutrophils % Lymphocytes % (Manual) Reactive Lymphs % Monocytes % (Manual) Platelet Estimate Large Platelets Hypochromasia (manual) Anisocytosis (manual) Puncture Site R bra pCO2 57 H pO2 61 L HCO3 33.2 H ABG pH 7.42 ABG Total CO2 38.7 H ABG O2 Saturation 92.6 L ABG Base Excess 10.8 H ABG Hemoglobin 10.7 L ABG Carboxyhemoglobin 2.3 H POC ABG HHb (Measured) 7.2 H ABG Methemoglobin 0.7 Robert Test Na A-a O2 Difference 581.0 Respiratory Index 9.5 Hgb O2 Saturation 89.8 L Vent Mode Prvc Mechanical Rate 18 FiO2 100.0 Tidal Volume 500 PEEP 8 Sodium Potassium Chloride Carbon Dioxide Anion Gap BUN Creatinine Est GFR ( Amer) Est GFR (Non-Af Amer) Random Glucose Calcium Phosphorus Magnesium Total Bilirubin AST ALT Alkaline Phosphatase Total Protein Albumin Globulin Albumin/Globulin Ratio Procalcitonin 0.18 L Vancomycin Trough 9.2 12/01/18 12/01/18 05:58 05:58 WBC 14.5 H RBC 4.97 Hgb 10.6 L Hct 38.3 MCV 76.9 L MCH 21.4 L MCHC 27.8 L RDW 20.7 H Plt Count 244 MPV 9.6 Neut % (Auto) 92.8 H Lymph % (Auto) 3.6 L Keith % (Auto) 3.0 Eos % (Auto) 0.0 Baso % (Auto) 0.6 Neut # (Auto) 13.5 H Lymph # (Auto) 0.5 L Keith # (Auto) 0.4 Eos # (Auto) 0.0 Baso # (Auto) 0.1 Neutrophils % (Manual) 94 H Band Neutrophils % 1 Lymphocytes % (Manual) 2 L Reactive Lymphs % 1 H Monocytes % (Manual) 2 Platelet Estimate Normal Large Platelets Present Hypochromasia (manual) Moderate Anisocytosis (manual) Moderate Puncture Site pCO2 pO2 HCO3 ABG pH ABG Total CO2 ABG O2 Saturation ABG Base Excess ABG Hemoglobin ABG Carboxyhemoglobin POC ABG HHb (Measured) ABG Methemoglobin Robert Test A-a O2 Difference Respiratory Index Hgb O2 Saturation Vent Mode Mechanical Rate FiO2 Tidal Volume PEEP Sodium 160 H* Potassium 4.4 Chloride 122 H Carbon Dioxide 36 H Anion Gap 7 L BUN 104 H* Creatinine 1.1 Est GFR ( Amer) > 60 Est GFR (Non-Af Amer) > 60 Random Glucose 121 H Calcium 8.6 Phosphorus 4.4 Magnesium 3.0 H Total Bilirubin 0.7 AST 64 H D ALT 49 Alkaline Phosphatase 95 Total Protein 5.6 L Albumin 3.1 L Globulin 2.6 Albumin/Globulin Ratio 1.2 Procalcitonin Vancomycin Trough EKG/Cardiology Studies: Cardiology / EKG Studies 11/30/18 18:40 EKG [ELECTROCARDIOGRAM] Stat Comment: Mode Of Transportation: Reason For Exam: HR 140s Critical Care Progress Note - Nutrition Nutrition: Nutrition Category Date Time Status NPO Diet [DIET] Diets 11/26/18 Dinner Active <Jr Summers S - Last Filed: 12/01/18 18:35> CCU Subjective - Physician Review Critical Care Time Spent (in minutes): 40 CCU Objective - Vital Signs / Intake & Output Vital Signs (Last 4 hours): Vital Signs Pulse Resp BP Pulse Ox 12/01/18 18:21 114 H 27 H 108/64 85 L 12/01/18 18:00 123 H 28 H 76 L 12/01/18 17:21 111 H 20 111/67 97 12/01/18 17:00 116 H 16 95 12/01/18 16:21 110 H 24 109/64 94 L 12/01/18 16:00 84 18 97 12/01/18 15:21 106 H 22 102/63 95 12/01/18 15:00 112 H 19 95 Intake and Output (Last 8hrs): Intake & Output 12/01/18 12/01/18 12/01/18 06:59 14:59 22:59 Intake Total 929.9 1640.4 869.2 Output Total 800 725 300 Balance 129.9 915.4 569.2 Weight 246 lb 14.684 oz Intake: IV 100 315 125 Intake, IV Amount 829.9 1025.4 464.2 R FA 2 Y Port 600 Right Forearm #1 750 340 Right PICC 1 80 115 60 Right PICC 2 149.9 160.4 64.2 Tube Feeding 300 280 Output: Urine 800 725 300 Urethral (Tabor) 800 725 300 Stool 0 - Medications Active Medications: Active Medications Generic Name Dose Route Start Last Admin Trade Name Freq PRN Reason Stop Dose Admin Acetaminophen 650 mg 11/19/18 15:49 12/01/18 16:26 Tylenol 650mg/20.3ml Solution Ud PO 650 mg Q6 PRN Administration Temperature Albuterol/Ipratropium 3 ml 11/23/18 12:00 12/01/18 15:42 Duoneb 3 Mg/0.5 Mg (3 Ml) Ud INH 3 ml RQ4 DAMION Administration Artificial Tears 0.4 ml 11/30/18 10:00 12/01/18 18:08 Artificial Tears OU 0.4 ml Q4H DAMION Administration Aspirin 81 mg 11/22/18 10:00 12/01/18 09:56 Aspirin Chewable PO 81 mg DAILY DAMION Administration Clopidogrel Bisulfate 75 mg 11/29/18 10:00 12/01/18 09:59 Plavix PO 75 mg DAILY DAMION Administration Emollient Ointment 5 gm 11/30/18 10:00 12/01/18 09:57 Vaseline Oint TOP 5 gm DAILY DAMION Administration Enoxaparin Sodium 40 mg 11/22/18 10:00 12/01/18 09:57 Lovenox SC 40 mg DAILY DAMION Administration Famotidine 20 mg 12/01/18 10:00 12/01/18 09:57 Pepcid GT 20 mg DAILY DAMION Administration Propofol 1,000 mg in 100 mls @ 3.565 mls/hr 11/21/18 15:30 12/01/18 18:07 Diprivan IV 20 mcg/kg/min .Q24H PRN 14.261 mls/hr TITRATE PER MD ORDER Administration Protocol 5 MCG/KG/MIN Vancomycin HCl 1 gm/ Sodium 250 mls @ 166.7 mls/hr 11/25/18 10:30 12/01/18 09:57 Chloride IVPB 166.7 mls/hr Q24H DAMION Administration Protocol Meropenem 500 mg/ Sodium 100 mls @ 100 mls/hr 11/29/18 21:00 12/01/18 15:26 Chloride IVPB 100 mls/hr Q6H DAMION Administration Protocol Diltiazem HCl 125 mg/ Dextrose 125 mls @ 5 mls/hr 11/30/18 21:15 12/01/18 18:07 IV 15 mg/hr .Q24H DAMION 15 mls/hr Administration Protocol 5 MG/HR Sodium Chloride 1,000 mls @ 80 mls/hr 12/01/18 07:30 12/01/18 08:19 Sodium Chloride 0.45% IV 80 mls/hr .[id number] DAMION Administration Lorazepam 2 mg 11/17/18 17:40 11/24/18 03:44 Ativan IVP 2 mg Q3H PRN Administration Anxiety Methylprednisolone 20 mg 11/24/18 08:00 12/01/18 16:26 Solu-Medrol IVP 20 mg Q8H DAMION Administration Rosuvastatin Calcium 10 mg 11/19/18 22:00 11/30/18 21:21 Crestor PO 10 mg HS DAMION Administration - Patient Studies Lab Studies: Lab Studies 12/01/18 12/01/18 12/01/18 Range/Units 05:58 05:58 05:46 WBC 14.5 H (4.8-10.8) K/uL RBC 4.97 (4.40-5.90) Mil/uL Hgb 10.6 L (12.0-18.0) g/dL Hct 38.3 (35.0-51.0) % MCV 76.9 L (80.0-94.0) fL MCH 21.4 L (27.0-31.0) pg MCHC 27.8 L (33.0-37.0) g/dL RDW 20.7 H (11.5-14.5) % Plt Count 244 (130-400) K/uL MPV 9.6 (7.2-11.7) fL Neut % (Auto) 92.8 H (50.0-75.0) % Lymph % (Auto) 3.6 L (20.0-40.0) % Keith % (Auto) 3.0 (0.0-10.0) % Eos % (Auto) 0.0 (0.0-4.0) % Baso % (Auto) 0.6 (0.0-2.0) % Neut # (Auto) 13.5 H (1.8-7.0) K/uL Lymph # (Auto) 0.5 L (1.0-4.3) K/uL Keith # (Auto) 0.4 (0.0-0.8) K/uL Eos # (Auto) 0.0 (0.0-0.7) K/uL Baso # (Auto) 0.1 (0.0-0.2) K/uL Neutrophils % (Manual) 94 H (50-75) % Band Neutrophils % 1 (0-2) % Lymphocytes % (Manual) 2 L (20-40) % Reactive Lymphs % 1 H (0-0) % Monocytes % (Manual) 2 (0-10) % Platelet Estimate Normal (NORMAL) Large Platelets Present Hypochromasia (manual) Moderate Anisocytosis (manual) Moderate Puncture Site R bra pCO2 57 H (35-45) mm/Hg pO2 61 L (80-100) mm/Hg HCO3 33.2 H (21-28) mmol/L ABG pH 7.42 (7.35-7.45) ABG Total CO2 38.7 H (22-28) mmol/L ABG O2 Saturation 92.6 L (95-98) % ABG Base Excess 10.8 H (-2.0-3.0) mmol/L ABG Hemoglobin 10.7 L (11.7-17.4) g/dL ABG Carboxyhemoglobin 2.3 H (0.5-1.5) % POC ABG HHb (Measured) 7.2 H (0.0-5.0) % ABG Methemoglobin 0.7 (0.0-3.0) % Robert Test Na A-a O2 Difference 581.0 mm/Hg Respiratory Index 9.5 Hgb O2 Saturation 89.8 L (95.0-98.0) % Vent Mode Prvc Mechanical Rate 18 FiO2 100.0 % Tidal Volume 500 PEEP 8 Sodium 160 H* (132-148) mmol/L Potassium 4.4 (3.6-5.2) mmol/L Chloride 122 H (98-107) mmol/L Carbon Dioxide 36 H (22-30) mmol/L Anion Gap 7 L (10-20) BUN 104 H* (9-20) mg/dL Creatinine 1.1 (0.8-1.5) mg/dL Est GFR ( Amer) > 60 Est GFR (Non-Af Amer) > 60 Random Glucose 121 H (75-110) mg/dL Calcium 8.6 (8.6-10.4) mg/dl Phosphorus 4.4 (2.5-4.5) mg/dL Magnesium 3.0 H (1.6-2.3) mg/dL Total Bilirubin 0.7 (0.2-1.3) mg/dL AST 64 H D (17-59) U/L ALT 49 (21-72) U/L Alkaline Phosphatase 95 (38-126) U/L Total Protein 5.6 L (6.3-8.3) g/dL Albumin 3.1 L (3.5-5.0) g/dL Globulin 2.6 (2.2-3.9) gm/dL Albumin/Globulin Ratio 1.2 (1.0-2.1) Vancomycin Trough (5.0-10.0) ug/mL 12/01/18 Range/Units 05:21 WBC (4.8-10.8) K/uL RBC (4.40-5.90) Mil/uL Hgb (12.0-18.0) g/dL Hct (35.0-51.0) % MCV (80.0-94.0) fL MCH (27.0-31.0) pg MCHC (33.0-37.0) g/dL RDW (11.5-14.5) % Plt Count (130-400) K/uL MPV (7.2-11.7) fL Neut % (Auto) (50.0-75.0) % Lymph % (Auto) (20.0-40.0) % Keith % (Auto) (0.0-10.0) % Eos % (Auto) (0.0-4.0) % Baso % (Auto) (0.0-2.0) % Neut # (Auto) (1.8-7.0) K/uL Lymph # (Auto) (1.0-4.3) K/uL Keith # (Auto) (0.0-0.8) K/uL Eos # (Auto) (0.0-0.7) K/uL Baso # (Auto) (0.0-0.2) K/uL Neutrophils % (Manual) (50-75) % Band Neutrophils % (0-2) % Lymphocytes % (Manual) (20-40) % Reactive Lymphs % (0-0) % Monocytes % (Manual) (0-10) % Platelet Estimate (NORMAL) Large Platelets Hypochromasia (manual) Anisocytosis (manual) Puncture Site pCO2 (35-45) mm/Hg pO2 (80-100) mm/Hg HCO3 (21-28) mmol/L ABG pH (7.35-7.45) ABG Total CO2 (22-28) mmol/L ABG O2 Saturation (95-98) % ABG Base Excess (-2.0-3.0) mmol/L ABG Hemoglobin (11.7-17.4) g/dL ABG Carboxyhemoglobin (0.5-1.5) % POC ABG HHb (Measured) (0.0-5.0) % ABG Methemoglobin (0.0-3.0) % Robert Test A-a O2 Difference mm/Hg Respiratory Index Hgb O2 Saturation (95.0-98.0) % Vent Mode Mechanical Rate FiO2 % Tidal Volume PEEP Sodium (132-148) mmol/L Potassium (3.6-5.2) mmol/L Chloride (98-107) mmol/L Carbon Dioxide (22-30) mmol/L Anion Gap (10-20) BUN (9-20) mg/dL Creatinine (0.8-1.5) mg/dL Est GFR ( Amer) Est GFR (Non-Af Amer) Random Glucose (75-110) mg/dL Calcium (8.6-10.4) mg/dl Phosphorus (2.5-4.5) mg/dL Magnesium (1.6-2.3) mg/dL Total Bilirubin (0.2-1.3) mg/dL AST (17-59) U/L ALT (21-72) U/L Alkaline Phosphatase (38-126) U/L Total Protein (6.3-8.3) g/dL Albumin (3.5-5.0) g/dL Globulin (2.2-3.9) gm/dL Albumin/Globulin Ratio (1.0-2.1) Vancomycin Trough 9.2 (5.0-10.0) ug/mL Laboratory Results - last 24 hr 12/01/18 12/01/18 12/01/18 05:21 05:46 05:58 WBC 14.5 H RBC 4.97 Hgb 10.6 L Hct 38.3 MCV 76.9 L MCH 21.4 L MCHC 27.8 L RDW 20.7 H Plt Count 244 MPV 9.6 Neut % (Auto) 92.8 H Lymph % (Auto) 3.6 L Keith % (Auto) 3.0 Eos % (Auto) 0.0 Baso % (Auto) 0.6 Neut # (Auto) 13.5 H Lymph # (Auto) 0.5 L Keith # (Auto) 0.4 Eos # (Auto) 0.0 Baso # (Auto) 0.1 Neutrophils % (Manual) 94 H Band Neutrophils % 1 Lymphocytes % (Manual) 2 L Reactive Lymphs % 1 H Monocytes % (Manual) 2 Platelet Estimate Normal Large Platelets Present Hypochromasia (manual) Moderate Anisocytosis (manual) Moderate Puncture Site R bra pCO2 57 H pO2 61 L HCO3 33.2 H ABG pH 7.42 ABG Total CO2 38.7 H ABG O2 Saturation 92.6 L ABG Base Excess 10.8 H ABG Hemoglobin 10.7 L ABG Carboxyhemoglobin 2.3 H POC ABG HHb (Measured) 7.2 H ABG Methemoglobin 0.7 Robert Test Na A-a O2 Difference 581.0 Respiratory Index 9.5 Hgb O2 Saturation 89.8 L Vent Mode Prvc Mechanical Rate 18 FiO2 100.0 Tidal Volume 500 PEEP 8 Sodium Potassium Chloride Carbon Dioxide Anion Gap BUN Creatinine Est GFR ( Amer) Est GFR (Non-Af Amer) Random Glucose Calcium Phosphorus Magnesium Total Bilirubin AST ALT Alkaline Phosphatase Total Protein Albumin Globulin Albumin/Globulin Ratio Vancomycin Trough 9.2 12/01/18 05:58 WBC RBC Hgb Hct MCV MCH MCHC RDW Plt Count MPV Neut % (Auto) Lymph % (Auto) Keith % (Auto) Eos % (Auto) Baso % (Auto) Neut # (Auto) Lymph # (Auto) Keith # (Auto) Eos # (Auto) Baso # (Auto) Neutrophils % (Manual) Band Neutrophils % Lymphocytes % (Manual) Reactive Lymphs % Monocytes % (Manual) Platelet Estimate Large Platelets Hypochromasia (manual) Anisocytosis (manual) Puncture Site pCO2 pO2 HCO3 ABG pH ABG Total CO2 ABG O2 Saturation ABG Base Excess ABG Hemoglobin ABG Carboxyhemoglobin POC ABG HHb (Measured) ABG Methemoglobin Robert Test A-a O2 Difference Respiratory Index Hgb O2 Saturation Vent Mode Mechanical Rate FiO2 Tidal Volume PEEP Sodium 160 H* Potassium 4.4 Chloride 122 H Carbon Dioxide 36 H Anion Gap 7 L BUN 104 H* Creatinine 1.1 Est GFR ( Amer) > 60 Est GFR (Non-Af Amer) > 60 Random Glucose 121 H Calcium 8.6 Phosphorus 4.4 Magnesium 3.0 H Total Bilirubin 0.7 AST 64 H D ALT 49 Alkaline Phosphatase 95 Total Protein 5.6 L Albumin 3.1 L Globulin 2.6 Albumin/Globulin Ratio 1.2 Vancomycin Trough Radiology Impressions: Radiology Impressions Chest X-Ray 12/01/18 07:00 IMPRESSION: Interval patchy areas improved aeration around the coalescent masslike opacity in the right hilum-some improved aeration regarding prior consolidative/coalescent atelectatic changes here are a consideration. Persistent bilateral diffuse interstitial and low-density coalescent opacities interstitial pulmonary edema and/or interstitial infiltrates with concomitant airspace infiltrates and/or atelectasis are compatible with this appearance. Correlate clinically. Follow-up is advised. No mass was referenced on the angio chest PE protocol study from 11/17/2018.. Pericardial effusion noted on the prior CT angio chest PE study. Cardiomegaly, probable pulmonary venous congestion. Pulmonary interstitial edema and or other interstitial pulmonary pathology also needs to be considered. Similar small left pleural effusion. Probable concomitant compressive atelectasis here. Other findings as above. EKG/Cardiology Studies: Cardiology / EKG Studies 11/30/18 18:40 EKG [ELECTROCARDIOGRAM] Stat Comment: Mode Of Transportation: Reason For Exam: HR 140s Critical Care Progress Note - Nutrition Nutrition: Nutrition Category Date Time Status NPO Diet [DIET] Diets 11/26/18 Dinner Active Assessment/Plan (1) Cardiac arrest Current Visit: Yes Status: Acute (2) COPD (chronic obstructive pulmonary disease) Current Visit: Yes Status: Acute (3) Ventricular tachycardia Current Visit: Yes Status: Acute (4) Congestive heart failure Current Visit: No Status: Acute (5) PHT (pulmonary hypertension) Current Visit: Yes Status: Acute Attending/Attestation - Attestation I have personally seen and examined this patient.: Yes I have fully participated in the care of the patient.: Yes I have reviewed all pertinent clinical information: Yes Notes (Text): 12/01/18 18:34 Patient seen and examined in the intensive care unit. No change in patient condition requiring very high FiO2 Being treated for pneumonia Cecile for hyponatremia For LTAC Started on Cardizem for atrial flutter with rapid ventricular rate
--- NOTE | 2018-12-01 12:22 | CP.PCM.PN ---
Subjective - Date & Time of Evaluation Date of Evaluation: 12/01/18 Time of Evaluation: 08:00 - Subjective Subjective: remains obtunded intubated via trach Objective - Vital Signs/Intake and Output Vital Signs (last 24 hours): Temp Pulse Resp BP Pulse Ox 98.7 F 76 20 95/56 L 89 L 12/01/18 08:00 12/01/18 10:21 12/01/18 10:21 12/01/18 10:21 12/01/18 10:21 Intake and Output: 12/01/18 12/01/18 06:59 18:59 Intake Total 1212.1 1045.6 Output Total 1200 410 Balance 12.1 635.6 - Medications Medications: Current Medications Acetaminophen (Tylenol 650mg/20.3ml Solution Ud) 650 mg PO Q6 PRN PRN Reason: Temperature Last Admin: 12/01/18 00:10 Dose: 650 mg Albuterol/Ipratropium (Duoneb 3 Mg/0.5 Mg (3 Ml) Ud) 3 ml INH RQ4 [facility] Last Admin: 12/01/18 11:46 Dose: 3 ml Artificial Tears (Artificial Tears) 0.4 ml OU Q4H [facility] Last Admin: 12/01/18 09:58 Dose: 0.4 ml Aspirin (Aspirin Chewable) 81 mg PO DAILY [facility] Last Admin: 12/01/18 09:56 Dose: 81 mg Clopidogrel Bisulfate (Plavix) 75 mg PO DAILY [facility] Last Admin: 12/01/18 09:59 Dose: 75 mg Emollient Ointment (Vaseline Oint) 5 gm TOP DAILY [facility] Last Admin: 12/01/18 09:57 Dose: 5 gm Enoxaparin Sodium (Lovenox) 40 mg SC DAILY [facility] Last Admin: 12/01/18 09:57 Dose: 40 mg Famotidine (Pepcid) 20 mg GT DAILY [facility] Last Admin: 12/01/18 09:57 Dose: 20 mg Propofol (Diprivan) 1,000 mg in 100 mls @ 3.565 mls/hr IV .Q24H PRN; Protocol PRN Reason: TITRATE PER MD ORDER Last Admin: 12/01/18 07:20 Dose: 30 mcg/kg/min, 21.391 mls/hr Vancomycin HCl 1 gm/ Sodium (Chloride) 250 mls @ 166.7 mls/hr IVPB Q24H [facility]; Protocol Last Admin: 12/01/18 09:57 Dose: 166.7 mls/hr Meropenem 500 mg/ Sodium (Chloride) 100 mls @ 100 mls/hr IVPB Q6H [facility]; Protocol Last Admin: 12/01/18 08:20 Dose: 100 mls/hr Diltiazem HCl 125 mg/ Dextrose 125 mls @ 5 mls/hr IV .Q24H [facility]; Protocol Last Admin: 12/01/18 09:57 Dose: 15 mg/hr, 15 mls/hr Sodium Chloride (Sodium Chloride 0.45%) 1,000 mls @ 80 mls/hr IV .[id number] [facility] Last Admin: 12/01/18 08:19 Dose: 80 mls/hr Lorazepam (Ativan) 2 mg IVP Q3H PRN PRN Reason: Anxiety Last Admin: 11/24/18 03:44 Dose: 2 mg Methylprednisolone (Solu-Medrol) 20 mg IVP Q8H [facility] Last Admin: 12/01/18 08:20 Dose: 20 mg Rosuvastatin Calcium (Crestor) 10 mg PO HS [facility] Last Admin: 11/30/18 21:21 Dose: 10 mg - Labs Labs: 12/01/18 05:58 12/01/18 05:58 PT 14.7 SECONDS (9.7-12.2) H 11/26/18 06:48 INR 1.3 11/26/18 06:48 APTT 28.0 SECONDS (21-34) 11/26/18 06:48 - Constitutional Appears: No Acute Distress, Confused, Chronically Ill - Head Exam Head Exam: ATRAUMATIC, NORMAL INSPECTION, NORMOCEPHALIC - Eye Exam Eye Exam: EOMI, Normal appearance, PERRL Pupil Exam: NORMAL ACCOMODATION, PERRL - ENT Exam ENT Exam: Mucous Membranes Moist, Normal Exam - Neck Exam Neck Exam: Full ROM, Normal Inspection. absent: Lymphadenopathy - Respiratory Exam Respiratory Exam: Clear to Ausculation Bilateral, NORMAL BREATHING PATTERN - Cardiovascular Exam Cardiovascular Exam: Irregular Rhythm, +S1, +S2. absent: Murmur - GI/Abdominal Exam GI & Abdominal Exam: Soft, Diminished Bowel Sounds. absent: Tenderness - Rectal Exam Rectal Exam: Deferred - Extremities Exam Extremities Exam: Full ROM, Normal Capillary Refill, Normal Inspection. absent: Joint Swelling, Pedal Edema - Back Exam Back Exam: NORMAL INSPECTION - Neurological Exam Neurological Exam: Alert, Awake, CN II-XII Intact, Normal Gait, Oriented x3 - Psychiatric Exam Psychiatric exam: Normal Affect, Normal Mood - Skin Skin Exam: Dry, Normal Color, Warm Assessment and Plan (1) Acute hypernatremia Status: Acute (2) Acute renal failure due to tubular necrosis Status: Acute (3) CAD (coronary artery disease) Status: Acute (4) COPD (chronic obstructive pulmonary disease) Status: Acute (5) Cardiac arrest Status: Acute (6) PHT (pulmonary hypertension) Status: Acute (7) Ventricular tachycardia Status: Acute (8) Congestive heart failure Status: Acute (9) COPD exacerbation Status: Resolved (10) Pneumonia Status: Acute - Assessment and Plan (Free Text) Assessment: cont IV rx for acinetobacter 'vanco added 'will repeat blood c/s- jairley a contaminant
--- NOTE | 2018-12-01 16:16 | RAD ---
Date of service: 12/01/2018 PROCEDURE: CHEST RADIOGRAPH, 1 VIEW HISTORY: vented COMPARISON: 11/30/2018 chest x-ray. Angio chest PE protocol study report dated 11/17/2018 noted. FINDINGS: LUNGS: Lung volumes top-normal. Tracheostomy tube in place as before. Right perihilar subsegmental discoid atelectasis. The prior masslike opacity right perihilar location shows some partial interspersed areas of improved aeration. Persistent residual soft tissue fullness here suggested. The interstitial and superimposed ground-glass opacity in the left mid to upper lung zone appears slightly more patchy in appearance this could be technical. Findings in the right superior 1/2 hemithorax are probably similar allowing for differences in technique here the interstitial lung markings again are abnormally prominent along with concomitant low-density ground-glass opacities more patchy than those suggested in the upper lung zone on the prior study. Persistent left hemidiaphragmatic obscuration-left pleural effusion with compressive atelectasis left lung base and or infiltrate here needs to be considered. This appearance is similar. PLEURA: No pneumothorax appreciated. Small left pleural effusion likely. CARDIOVASCULAR: There is presence of aortic atherosclerotic calcification on x-ray. Cardiomegaly. Concomitant pulmonary venous congestion interstitial pulmonary edema or and/or other concomitant interstitial lung disease/pathology needs to be considered. OSSEOUS STRUCTURES: Thoraco lumbar spondylosis. Right shoulder arthrosis. VISUALIZED UPPER ABDOMEN: Prior nasogastric tube is been removed. OTHER FINDINGS: None. IMPRESSION: Interval patchy areas improved aeration around the coalescent masslike opacity in the right hilum-some improved aeration regarding prior consolidative/coalescent atelectatic changes here are a consideration. Persistent bilateral diffuse interstitial and low-density coalescent opacities interstitial pulmonary edema and/or interstitial infiltrates with concomitant airspace infiltrates and/or atelectasis are compatible with this appearance. Correlate clinically. Follow-up is advised. No mass was referenced on the angio chest PE protocol study from 11/17/2018.. Pericardial effusion noted on the prior CT angio chest PE study. Cardiomegaly, probable pulmonary venous congestion. Pulmonary interstitial edema and or other interstitial pulmonary pathology also needs to be considered. Similar small left pleural effusion. Probable concomitant compressive atelectasis here. Other findings as above.
[2018-12-01] MEDS: Metoprolol 1 mg/ml Inj IVP SCH (21:15)
[2018-12-02] MEDS: Albuterol-Ipratrop 3 mg / 0.5 (3 ml) UD INH SCH ×5 (00:16→15:39)
[2018-12-02] MEDS: MethylPREDNISolone 40 mg Vial IVP SCH ×3 (00:32→15:42)
[2018-12-02] MEDS: Propofol 10 mg/ml 1,000 MG/100 ML VIAL IV PRN ×2 (01:35→11:01)
[2018-12-02] MEDS: Metoprolol 1 mg/ml Inj IVP SCH ×3 (03:10→15:43)
[2018-12-02] MEDS: Meropenem 500 MG in Sodium Chloride 0.9% 100 ML IVPB SCH ×3 (03:10→15:42)
[2018-12-02] MEDS: Sodium Chloride 0.45% 1,000 ML IV SCH ×2 (03:11→08:06)
[2018-12-02] MEDS: Aritificial Tears (15ml) OU SCH ×4 (03:11→15:44)
[2018-12-02 04:55] VITALS: TEMP 97.7
[2018-12-02 05:32] LABS: ABG ALLEN TEST POS; ARTERIAL BLOOD GAS HCO3 33.4 mmol/L (21-28); ARTERIAL BLOOD GAS HEMOGLOBIN 10.6 g/dL (11.7-17.4); ARTERIAL BLOOD GAS O2 SAT 88.4 % (95-98); ARTERIAL BLOOD GAS PCO2 47 mm/Hg (35-45); ARTERIAL BLOOD GAS PH 7.49 (7.35-7.45); ARTERIAL BLOOD GAS PO2 51 mm/Hg (80-100); ARTERIAL BLOOD GAS TCO2 37.2 mmol/L (22-28)
[2018-12-02 06:32] LABS: BASO % 0.2 % (0.0-2.0); HEMOGLOBIN 10.7 g/dL (12.0-18.0); LYMPH # 0.3 K/uL (1.0-4.3); LYMPH % 2.3 % (20.0-40.0); MEAN CELL VOLUME 76.8 fL (80.0-94.0); MEAN CORPUSCULAR HEMOGLOBIN 21.6 pg (27.0-31.0); MEAN CORPUSCULAR HGB CONC 28.1 g/dL (33.0-37.0); MONO # 0.3 K/uL (0.0-0.8); MONO % 2.5 % (0.0-10.0); NEUT # 12.8 K/uL (1.8-7.0); PLATELET COUNT 232 K/uL (130-400); RBC 4.95 Mil/uL (4.40-5.90); RED CELL DISTRIBUTION WIDTH 20.6 % (11.5-14.5); WHITE BLOOD COUNT 13.5 K/uL (4.8-10.8)
[2018-12-02 06:53] LABS: ALB/GLOB RATIO 1.1 (1.0-2.1); ALT/SGPT 51 U/L (21-72); AST/SGOT 47 U/L (17-59); BLOOD UREA NITROGEN 91 mg/dL (9-20); CALCIUM 8.8 mg/dl (8.6-10.4); GFR NON-AFRICAN AMERICAN > 60
[2018-12-02 08:36] LABS: ANISOCYTOSIS MODERATE; BANDS 1 % (0-2); LYMPHOCYTE 1 % (20-40); MONOCYTE 3 % (0-10); NEUTROPHIL 95 % (50-75); PLATELET ESTIMATE NORMAL (NORMAL); TOTAL CELLS COUNTED 100
[2018-12-02 08:37] LABS: GIANT PLATELETS PRESENT; LARGE PLATELETS PRESENT
[2018-12-02 08:38] LABS: HYPOCHROMIC MODERATE
--- NOTE | 2018-12-02 10:52 | CP.CCUPN ---
<Alexander Weinstein - Last Filed: 12/02/18 10:46> CCU Subjective - Physician Review Subjective (Free Text): 12/02/18 10:46 PGY-1 Critical Care Progress Note for Dr. Summers Patient seen and examined at bedside this AM 72 yo male with pmhx of HTN, HLD, COPD, CHF admitted to the hospital following cardiac arrest, CODE HEART Underwent cardiac angiogram (clean coronaries), had multiple cardiac arrest and CPR Developed ARDS post-cardiac insult, ventilator dependent respiratory failure Status post tracheostomy (11/26/18), status post PEG placement (11/30/18) No change in patient condition, requiring very high FIO2 Being treated for pneumonia, b/l infiltrates Acinetobacter positive in the sputum culture IV vanco/meropenem gentle hydration with 1/2 NS for hypernatremia on cardizem for A flutter with RVR Patient for LTAC, needs to be medically optimized CCU Objective - Vital Signs / Intake & Output Vital Signs (Last 4 hours): Vital Signs Pulse Resp BP Pulse Ox 12/02/18 07:00 107 H 22 129/76 87 L Intake and Output (Last 8hrs): Intake & Output 12/01/18 12/02/18 12/02/18 22:59 06:59 14:59 Intake Total 1306.4 1154.4 104.3 Output Total 620 775 150 Balance 686.4 379.4 -45.7 Weight 51.846 kg Intake: IV 170 180 Intake, IV Amount 816.4 854.4 104.3 Right Forearm #1 580 660 80 Right PICC 1 115 80 10 Right PICC 2 121.4 114.4 14.3 Tube Feeding 320 120 Output: Urine 620 775 150 Urethral (Tabor) 620 775 150 Other: # Bowel Movements 0 0 0 - Physical Exam Head: Positive for: Atraumatic, Normocephalic Pupils: Positive for: PERRL Extroacular Muscles: Positive for: EOMI Conjunctiva: Positive for: Normal Ears: Positive for: Normal Mouth: Positive for: Moist Mucous Membranes Respiratory/Chest: Positive for: Good Air Exchange, Decreased Breath Sounds (on left lung oakes), Other (intubated, on vent) Cardiovascular: Positive for: Regular Rate and Rhythm Abdomen: Positive for: Normal Bowel Sounds. Negative for: Tenderness, Distention Upper Extremity: Positive for: Normal Inspection Lower Extremity: Positive for: Normal Inspection Neurological: Positive for: Other (sedated, on vent) Skin: Positive for: Dry, Normal Color Psychiatric: Positive for: Alert - Medications Active Medications: Active Medications Generic Name Dose Route Start Last Admin Trade Name Freq PRN Reason Stop Dose Admin Acetaminophen 650 mg 11/19/18 15:49 12/01/18 16:26 Tylenol 650mg/20.3ml Solution Ud PO 650 mg Q6 PRN Administration Temperature Albuterol/Ipratropium 3 ml 11/23/18 12:00 12/02/18 07:30 Duoneb 3 Mg/0.5 Mg (3 Ml) Ud INH 3 ml RQ4 DAMION Administration Artificial Tears 0.4 ml 11/30/18 10:00 12/02/18 05:53 Artificial Tears OU 0.4 ml Q4H DAMION Administration Aspirin 81 mg 11/22/18 10:00 12/01/18 09:56 Aspirin Chewable PO 81 mg DAILY DAMION Administration Clopidogrel Bisulfate 75 mg 11/29/18 10:00 12/01/18 09:59 Plavix PO 75 mg DAILY DAMION Administration Emollient Ointment 5 gm 11/30/18 10:00 12/01/18 09:57 Vaseline Oint TOP 5 gm DAILY DAMION Administration Enoxaparin Sodium 40 mg 11/22/18 10:00 12/01/18 09:57 Lovenox SC 40 mg DAILY DAMION Administration Famotidine 20 mg 12/01/18 10:00 12/01/18 09:57 Pepcid GT 20 mg DAILY DAMION Administration Propofol 1,000 mg in 100 mls @ 3.565 mls/hr 11/21/18 15:30 12/02/18 01:35 Diprivan IV 20 mcg/kg/min .Q24H PRN 14.261 mls/hr TITRATE PER MD ORDER Administration Protocol 5 MCG/KG/MIN Vancomycin HCl 1 gm/ Sodium 250 mls @ 166.7 mls/hr 11/25/18 10:30 12/01/18 09:57 Chloride IVPB 166.7 mls/hr Q24H DAMION Administration Protocol Meropenem 500 mg/ Sodium 100 mls @ 100 mls/hr 11/29/18 21:00 12/02/18 08:06 Chloride IVPB 100 mls/hr Q6H DAMION Administration Protocol Diltiazem HCl 125 mg/ Dextrose 125 mls @ 5 mls/hr 11/30/18 21:15 12/02/18 04:02 IV 10 mg/hr .Q24H DAMION 10 mls/hr Administration Protocol 5 MG/HR Sodium Chloride 1,000 mls @ 80 mls/hr 12/01/18 07:30 12/02/18 08:06 Sodium Chloride 0.45% IV Not Given .[id number] DAMION Lorazepam 2 mg 11/17/18 17:40 11/24/18 03:44 Ativan IVP 2 mg Q3H PRN Administration Anxiety Methylprednisolone 20 mg 11/24/18 08:00 12/02/18 08:06 Solu-Medrol IVP 20 mg Q8H DAMION Administration Metoprolol Tartrate 5 mg 12/01/18 21:00 12/02/18 08:06 Lopressor IVP 5 mg Q6H DAMION Administration Rosuvastatin Calcium 10 mg 11/19/18 22:00 12/01/18 21:15 Crestor PO 10 mg HS DAMION Administration - Patient Studies Lab Studies: Lab Studies 12/02/18 12/02/18 12/02/18 Range/Units 06:28 06:28 05:25 WBC 13.5 H (4.8-10.8) K/uL RBC 4.95 (4.40-5.90) Mil/uL Hgb 10.7 L (12.0-18.0) g/dL Hct 38.0 (35.0-51.0) % MCV 76.8 L (80.0-94.0) fL MCH 21.6 L (27.0-31.0) pg MCHC 28.1 L (33.0-37.0) g/dL RDW 20.6 H (11.5-14.5) % Plt Count 232 (130-400) K/uL MPV 10.0 (7.2-11.7) fL Neut % (Auto) 95.0 H (50.0-75.0) % Lymph % (Auto) 2.3 L (20.0-40.0) % [place] % (Auto) 2.5 (0.0-10.0) % Eos % (Auto) 0.0 (0.0-4.0) % Baso % (Auto) 0.2 (0.0-2.0) % Neut # (Auto) 12.8 H (1.8-7.0) K/uL Lymph # (Auto) 0.3 L (1.0-4.3) K/uL [place] # (Auto) 0.3 (0.0-0.8) K/uL Eos # (Auto) 0.0 (0.0-0.7) K/uL Baso # (Auto) 0.0 (0.0-0.2) K/uL Neutrophils % (Manual) 95 H (50-75) % Band Neutrophils % 1 (0-2) % Lymphocytes % (Manual) 1 L (20-40) % Monocytes % (Manual) 3 (0-10) % Platelet Estimate Normal (NORMAL) Large Platelets Present Giant Platelets Present Hypochromasia (manual) Moderate Anisocytosis (manual) Moderate Puncture Site Rr pCO2 47 H (35-45) mm/Hg pO2 51 L (80-100) mm/Hg HCO3 33.4 H (21-28) mmol/L ABG pH 7.49 H (7.35-7.45) ABG Total CO2 37.2 H (22-28) mmol/L ABG O2 Saturation 88.4 L (95-98) % ABG Base Excess 11.1 H (-2.0-3.0) mmol/L ABG Hemoglobin 10.6 L (11.7-17.4) g/dL ABG Carboxyhemoglobin 2.4 H (0.5-1.5) % POC ABG HHb (Measured) 11.2 H (0.0-5.0) % ABG Methemoglobin 0.8 (0.0-3.0) % Robert Test Pos A-a O2 Difference 603.0 mm/Hg Respiratory Index 11.8 Hgb O2 Saturation 85.6 L (95.0-98.0) % Vent Mode Prvc Mechanical Rate 18 FiO2 100.0 % Tidal Volume 500 PEEP 8 Sodium 155 H (132-148) mmol/L Potassium 4.0 (3.6-5.2) mmol/L Chloride 119 H (98-107) mmol/L Carbon Dioxide 33 H (22-30) mmol/L Anion Gap 7 L (10-20) BUN 91 H (9-20) mg/dL Creatinine 1.0 (0.8-1.5) mg/dL Est GFR ( Amer) > 60 Est GFR (Non-Af Amer) > 60 Random Glucose 148 H D (75-110) mg/dL Calcium 8.8 (8.6-10.4) mg/dl Phosphorus 4.1 (2.5-4.5) mg/dL Magnesium 2.9 H (1.6-2.3) mg/dL Total Bilirubin 0.9 (0.2-1.3) mg/dL AST 47 (17-59) U/L ALT 51 (21-72) U/L Alkaline Phosphatase 96 (38-126) U/L Total Protein 5.8 L (6.3-8.3) g/dL Albumin 3.0 L (3.5-5.0) g/dL Globulin 2.8 (2.2-3.9) gm/dL Albumin/Globulin Ratio 1.1 (1.0-2.1) Laboratory Results - last 24 hr 12/02/18 12/02/18 12/02/18 05:25 06:28 06:28 WBC 13.5 H RBC 4.95 Hgb 10.7 L Hct 38.0 MCV 76.8 L MCH 21.6 L MCHC 28.1 L RDW 20.6 H Plt Count 232 MPV 10.0 Neut % (Auto) 95.0 H Lymph % (Auto) 2.3 L [place] % (Auto) 2.5 Eos % (Auto) 0.0 Baso % (Auto) 0.2 Neut # (Auto) 12.8 H Lymph # (Auto) 0.3 L [place] # (Auto) 0.3 Eos # (Auto) 0.0 Baso # (Auto) 0.0 Neutrophils % (Manual) 95 H Band Neutrophils % 1 Lymphocytes % (Manual) 1 L Monocytes % (Manual) 3 Platelet Estimate Normal Large Platelets Present Giant Platelets Present Hypochromasia (manual) Moderate Anisocytosis (manual) Moderate Puncture Site Rr pCO2 47 H pO2 51 L HCO3 33.4 H ABG pH 7.49 H ABG Total CO2 37.2 H ABG O2 Saturation 88.4 L ABG Base Excess 11.1 H ABG Hemoglobin 10.6 L ABG Carboxyhemoglobin 2.4 H POC ABG HHb (Measured) 11.2 H ABG Methemoglobin 0.8 Robert Test Pos A-a O2 Difference 603.0 Respiratory Index 11.8 Hgb O2 Saturation 85.6 L Vent Mode Prvc Mechanical Rate 18 FiO2 100.0 Tidal Volume 500 PEEP 8 Sodium 155 H Potassium 4.0 Chloride 119 H Carbon Dioxide 33 H Anion Gap 7 L BUN 91 H Creatinine 1.0 Est GFR ( Amer) > 60 Est GFR (Non-Af Amer) > 60 Random Glucose 148 H D Calcium 8.8 Phosphorus 4.1 Magnesium 2.9 H Total Bilirubin 0.9 AST 47 ALT 51 Alkaline Phosphatase 96 Total Protein 5.8 L Albumin 3.0 L Globulin 2.8 Albumin/Globulin Ratio 1.1 Radiology Impressions: Radiology Impressions Chest X-Ray 12/01/18 07:00 IMPRESSION: Interval patchy areas improved aeration around the coalescent masslike opacity in the right hilum-some improved aeration regarding prior consolidative/coalescent atelectatic changes here are a consideration. Persistent bilateral diffuse interstitial and low-density coalescent opacities interstitial pulmonary edema and/or interstitial infiltrates with concomitant airspace infiltrates and/or atelectasis are compatible with this appearance. Correlate clinically. Follow-up is advised. No mass was referenced on the angio chest PE protocol study from 11/17/2018.. Pericardial effusion noted on the prior CT angio chest PE study. Cardiomegaly, probable pulmonary venous congestion. Pulmonary interstitial edema and or other interstitial pulmonary pathology also needs to be considered. Similar small left pleural effusion. Probable concomitant compressive atelectasis here. Other findings as above. Critical Care Progress Note - Nutrition Nutrition: Nutrition Category Date Time Status NPO Diet [DIET] Diets 11/26/18 Dinner Active <Jr Summers S - Last Filed: 12/02/18 16:27> CCU Subjective - Physician Review Critical Care Time Spent (in minutes): 45 CCU Objective - Vital Signs / Intake & Output Vital Signs (Last 4 hours): Vital Signs Temp Pulse Resp BP Pulse Ox 12/02/18 16:00 97.7 F 104 H 28 H 107/68 94 L 12/02/18 15:01 129 H 24 105/78 93 L 12/02/18 15:00 125 H 28 H 91 L 12/02/18 14:00 108 H 31 H 110/74 100 12/02/18 13:00 106 H 28 H 101/74 100 Intake and Output (Last 8hrs): Intake & Output 12/02/18 12/02/18 12/02/18 06:59 14:59 22:59 Intake Total 1154.4 1795.6 420 Output Total 775 840 130 Balance 379.4 955.6 290 Weight 114 lb 4.8 oz 253 lb 8.505 oz Intake: IV 180 225 Intake, IV Amount 854.4 1070.6 180 Right Forearm #1 660 1000 180 Right PICC 1 80 35 Right PICC 2 114.4 35.6 Tube Feeding 120 500 240 Output: Urine 775 840 130 Urethral (Tabor) 775 840 130 Other: # Bowel Movements 0 0 - Medications Active Medications: Active Medications Generic Name Dose Route Start Last Admin Trade Name Freq PRN Reason Stop Dose Admin Acetaminophen 650 mg 11/19/18 15:49 12/01/18 16:26 Tylenol 650mg/20.3ml Solution Ud PO 650 mg Q6 PRN Administration Temperature Albuterol/Ipratropium 3 ml 11/23/18 12:00 12/02/18 15:39 Duoneb 3 Mg/0.5 Mg (3 Ml) Ud INH 3 ml RQ4 DAMION Administration Artificial Tears 0.4 ml 11/30/18 10:00 12/02/18 15:44 Artificial Tears OU 0.4 ml Q4H DAMION Administration Aspirin 81 mg 11/22/18 10:00 12/02/18 10:59 Aspirin Chewable PO 81 mg DAILY DAMION Administration Clopidogrel Bisulfate 75 mg 11/29/18 10:00 12/02/18 11:00 Plavix PO 75 mg DAILY DAMION Administration Emollient Ointment 5 gm 11/30/18 10:00 12/02/18 10:58 Vaseline Oint TOP 5 gm DAILY DAMION Administration Enoxaparin Sodium 100 mg 12/02/18 22:00 Lovenox SC Q12 DAMION Famotidine 20 mg 12/01/18 10:00 12/02/18 11:00 Pepcid GT 20 mg DAILY DAMION Administration Propofol 1,000 mg in 100 mls @ 3.565 mls/hr 11/21/18 15:30 12/02/18 11:01 Diprivan IV 10 mcg/kg/min .Q24H PRN 7.13 mls/hr TITRATE PER MD ORDER Administration Protocol 5 MCG/KG/MIN Vancomycin HCl 1 gm/ Sodium 250 mls @ 166.7 mls/hr 11/25/18 10:30 12/02/18 11:00 Chloride IVPB 166.7 mls/hr Q24H DAMION Administration Protocol Meropenem 500 mg/ Sodium 100 mls @ 100 mls/hr 11/29/18 21:00 12/02/18 15:42 Chloride IVPB 100 mls/hr Q6H DAMION Administration Protocol Diltiazem HCl 125 mg/ Dextrose 125 mls @ 5 mls/hr 11/30/18 21:15 12/02/18 11:02 IV Infused .Q24H DAMION Titration Protocol 5 MG/HR Sodium Chloride 1,000 mls @ 80 mls/hr 12/01/18 07:30 12/02/18 08:06 Sodium Chloride 0.45% IV Not Given .[id number] DAMION Lorazepam 2 mg 11/17/18 17:40 11/24/18 03:44 Ativan IVP 2 mg Q3H PRN Administration Anxiety Methylprednisolone 20 mg 11/24/18 08:00 12/02/18 15:42 Solu-Medrol IVP 20 mg Q8H DAMION Administration Metoprolol Tartrate 5 mg 12/01/18 21:00 12/02/18 15:43 Lopressor IVP 5 mg Q6H DAMION Administration Rosuvastatin Calcium 10 mg 11/19/18 22:00 12/01/18 21:15 Crestor PO 10 mg HS DAMION Administration - Patient Studies Lab Studies: Lab Studies 12/02/18 12/02/18 12/02/18 Range/Units 06:28 06:28 05:25 WBC 13.5 H (4.8-10.8) K/uL RBC 4.95 (4.40-5.90) Mil/uL Hgb 10.7 L (12.0-18.0) g/dL Hct 38.0 (35.0-51.0) % MCV 76.8 L (80.0-94.0) fL MCH 21.6 L (27.0-31.0) pg MCHC 28.1 L (33.0-37.0) g/dL RDW 20.6 H (11.5-14.5) % Plt Count 232 (130-400) K/uL MPV 10.0 (7.2-11.7) fL Neut % (Auto) 95.0 H (50.0-75.0) % Lymph % (Auto) 2.3 L (20.0-40.0) % [place] % (Auto) 2.5 (0.0-10.0) % Eos % (Auto) 0.0 (0.0-4.0) % Baso % (Auto) 0.2 (0.0-2.0) % Neut # (Auto) 12.8 H (1.8-7.0) K/uL Lymph # (Auto) 0.3 L (1.0-4.3) K/uL [place] # (Auto) 0.3 (0.0-0.8) K/uL Eos # (Auto) 0.0 (0.0-0.7) K/uL Baso # (Auto) 0.0 (0.0-0.2) K/uL Neutrophils % (Manual) 95 H (50-75) % Band Neutrophils % 1 (0-2) % Lymphocytes % (Manual) 1 L (20-40) % Monocytes % (Manual) 3 (0-10) % Platelet Estimate Normal (NORMAL) Large Platelets Present Giant Platelets Present Hypochromasia (manual) Moderate Anisocytosis (manual) Moderate Puncture Site Rr pCO2 47 H (35-45) mm/Hg pO2 51 L (80-100) mm/Hg HCO3 33.4 H (21-28) mmol/L ABG pH 7.49 H (7.35-7.45) ABG Total CO2 37.2 H (22-28) mmol/L ABG O2 Saturation 88.4 L (95-98) % ABG Base Excess 11.1 H (-2.0-3.0) mmol/L ABG Hemoglobin 10.6 L (11.7-17.4) g/dL ABG Carboxyhemoglobin 2.4 H (0.5-1.5) % POC ABG HHb (Measured) 11.2 H (0.0-5.0) % ABG Methemoglobin 0.8 (0.0-3.0) % Robert Test Pos A-a O2 Difference 603.0 mm/Hg Respiratory Index 11.8 Hgb O2 Saturation 85.6 L (95.0-98.0) % Vent Mode Prvc Mechanical Rate 18 FiO2 100.0 % Tidal Volume 500 PEEP 8 Sodium 155 H (132-148) mmol/L Potassium 4.0 (3.6-5.2) mmol/L Chloride 119 H (98-107) mmol/L Carbon Dioxide 33 H (22-30) mmol/L Anion Gap 7 L (10-20) BUN 91 H (9-20) mg/dL Creatinine 1.0 (0.8-1.5) mg/dL Est GFR ( Amer) > 60 Est GFR (Non-Af Amer) > 60 Random Glucose 148 H D (75-110) mg/dL Calcium 8.8 (8.6-10.4) mg/dl Phosphorus 4.1 (2.5-4.5) mg/dL Magnesium 2.9 H (1.6-2.3) mg/dL Total Bilirubin 0.9 (0.2-1.3) mg/dL AST 47 (17-59) U/L ALT 51 (21-72) U/L Alkaline Phosphatase 96 (38-126) U/L Total Protein 5.8 L (6.3-8.3) g/dL Albumin 3.0 L (3.5-5.0) g/dL Globulin 2.8 (2.2-3.9) gm/dL Albumin/Globulin Ratio 1.1 (1.0-2.1) Laboratory Results - last 24 hr 12/02/18 12/02/18 12/02/18 05:25 06:28 06:28 WBC 13.5 H RBC 4.95 Hgb 10.7 L Hct 38.0 MCV 76.8 L MCH 21.6 L MCHC 28.1 L RDW 20.6 H Plt Count 232 MPV 10.0 Neut % (Auto) 95.0 H Lymph % (Auto) 2.3 L [place] % (Auto) 2.5 Eos % (Auto) 0.0 Baso % (Auto) 0.2 Neut # (Auto) 12.8 H Lymph # (Auto) 0.3 L [place] # (Auto) 0.3 Eos # (Auto) 0.0 Baso # (Auto) 0.0 Neutrophils % (Manual) 95 H Band Neutrophils % 1 Lymphocytes % (Manual) 1 L Monocytes % (Manual) 3 Platelet Estimate Normal Large Platelets Present Giant Platelets Present Hypochromasia (manual) Moderate Anisocytosis (manual) Moderate Puncture Site Rr pCO2 47 H pO2 51 L HCO3 33.4 H ABG pH 7.49 H ABG Total CO2 37.2 H ABG O2 Saturation 88.4 L ABG Base Excess 11.1 H ABG Hemoglobin 10.6 L ABG Carboxyhemoglobin 2.4 H POC ABG HHb (Measured) 11.2 H ABG Methemoglobin 0.8 Robert Test Pos A-a O2 Difference 603.0 Respiratory Index 11.8 Hgb O2 Saturation 85.6 L Vent Mode Prvc Mechanical Rate 18 FiO2 100.0 Tidal Volume 500 PEEP 8 Sodium 155 H Potassium 4.0 Chloride 119 H Carbon Dioxide 33 H Anion Gap 7 L BUN 91 H Creatinine 1.0 Est GFR ( Amer) > 60 Est GFR (Non-Af Amer) > 60 Random Glucose 148 H D Calcium 8.8 Phosphorus 4.1 Magnesium 2.9 H Total Bilirubin 0.9 AST 47 ALT 51 Alkaline Phosphatase 96 Total Protein 5.8 L Albumin 3.0 L Globulin 2.8 Albumin/Globulin Ratio 1.1 Radiology Impressions: Radiology Impressions Duplex Scan Upper Extremity Artery 12/02/18 09:36 IMPRESSION: Left: No evidence of DEEP vein thrombosis of the left upper extremity. Acute superficial phlebitis of the left upper arm cephalic vein. Kimberly Friedman was notified of the findings. Chest CT 12/02/18 09:37 IMPRESSION: 1. Asymmetrical (right greater than left) pulmonary edema likely cardiogenic. 2. Decrease in pericardial effusion. 3. Increasing bilateral pleural effusions and associated underlying compressive atelectasis. 4. Satisfactory position of tracheostomy device. 5. Incompletely visualized gallstones, a finding seen on prior CT 03/21/2017. Head CT 12/02/18 13:50 IMPRESSION: Unremarkable unenhanced head CT. 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 Critical Care Progress Note - Nutrition Nutrition: Nutrition Category Date Time Status NPO Diet [DIET] Diets 11/26/18 Dinner Active Assessment/Plan (1) Cardiac arrest Current Visit: Yes Status: Acute (2) COPD (chronic obstructive pulmonary disease) Current Visit: Yes Status: Acute (3) Ventricular tachycardia Current Visit: Yes Status: Acute (4) Congestive heart failure Current Visit: No Status: Acute (5) PHT (pulmonary hypertension) Current Visit: Yes Status: Acute Attending/Attestation - Attestation I have personally seen and examined this patient.: Yes I have fully participated in the care of the patient.: Yes I have reviewed all pertinent clinical information: Yes Notes (Text): 12/02/18 16:27 Patient seen and examined in the intensive care unit. Case discussed with housestaff in the morning rounds. Status post tracheostomy and PEG insertion On ventilatory support saturation in the mid 90s Superficial thrombophlebitis of left cephalic vein CAT scan of the head negative for CVA Transfer to LTAC Continue present treatment
[2018-12-02] MEDS: Petrolatum Oint Foilpak (5 gm) TOP SCH (10:58)
[2018-12-02] MEDS: Enoxaparin 40 mg Syringe SC SCH (11:00)
--- NOTE | 2018-12-02 12:05 | CT ---
Date of service: 12/02/2018 PROCEDURE: CT Chest without contrast HISTORY: Worsening congestion. COMPARISON: 11/17/2018. CT thorax TECHNIQUE: Contiguous axial images were obtained through the chest without intravenous contrast enhancement. Sagittal and coronal reconstructions were performed. Radiation dose: Total exam DLP = 949.17 mGy-cm. This CT exam was performed using one or more of the following dose reduction techniques: Automated exposure control, adjustment of the mA and/or kV according to patient size, and/or use of iterative reconstruction technique. FINDINGS: LUNGS: Partial re-expansion of the left lung compared to the prior CT 11/17/2018. Multifocal infiltrates right greater than left likely representing asymmetrical pulmonary edema. MEDIASTINUM: Unremarkable thoracic aorta. No aneurysm. Persistent cardiomegaly. Marked decrease in previously identified pericardial effusion. Main pulmonary artery unremarkable. No vascular congestion. No lymphadenopathy. No aortic atherosclerotic calcification. PLEURA: Bilateral pleural effusions which have increased compared to the prior study. BONES: No fracture. No destructive lesion. UPPER ABDOMEN: Gallstones, incompletely visualized. OTHER FINDINGS: Satisfactory position of tracheostomy device. IMPRESSION: 1. Asymmetrical (right greater than left) pulmonary edema likely cardiogenic. 2. Decrease in pericardial effusion. 3. Increasing bilateral pleural effusions and associated underlying compressive atelectasis. 4. Satisfactory position of tracheostomy device. 5. Incompletely visualized gallstones, a finding seen on prior CT 03/21/2017.
--- NOTE | 2018-12-02 13:00 | VASCLAB ---
Date of service: 12/02/2018 PROCEDURE: Left Upper Extremity Venous Duplex Exam HISTORY: Acute swelling PRIORS: None. TECHNIQUE: Left upper extremity, internal jugular, subclavian, axillary, brachial, ulnar, radial, basilic and upper cephalic veins were evaluated. Flow was assessed with color Doppler, compressibility, assessment of phasic flow and augmentation response. Report prepared by ANJU Liz, RVT FINDINGS: LEFT: 1. Internal Jugular: 1.1. Compressibility - Fully compressible: Thrombus - None : Flow - Phasic: Augmentation -Normal: Reflux - None. 2. Subclavian: 2.1. Compressibility - Fully compressible: Thrombus - None : Flow - Phasic: Augmentation -Normal: Reflux - None. 3. Axillary: 3.1. Compressibility - Fully compressible: Thrombus - None : Flow - Phasic: Augmentation -Normal: Reflux - None. 4. Brachial: 4.1. Compressibility - Fully compressible: Thrombus - None: Flow - Phasic: Augmentation -Normal: Reflux - None. 5. Ulnar: 5.1. Compressibility - Fully compressible: Thrombus - None: Flow - Phasic: Augmentation -Normal: Reflux - None. 6. Radial: 6.1. Compressibility - Fully compressible: Thrombus - None: Flow - Phasic: Augmentation - Normal: Reflux - None. 7. Cephalic: 7.1. Compressibility - Partial: Thrombus - Acute: Flow - Reduced 8. Basilic: 8.1. Compressibility - Fully compressible: Thrombus - None: Flow - Phasic: Augmentation -Normal: Reflux - None. OTHER FINDINGS: Normal venous flow noted in the right internal jugular and right subclavian veins. IMPRESSION: Left: No evidence of DEEP vein thrombosis of the left upper extremity. Acute superficial phlebitis of the left upper arm cephalic vein. Kimberly Friedman was notified of the findings.
--- NOTE | 2018-12-02 13:18 | CP.PCM.PN ---
Subjective - Date & Time of Evaluation Date of Evaluation: 12/02/18 Time of Evaluation: 13:14 - Subjective Subjective: remains sedated with PEG feeds, trached [id number] BP stable with IV fluids pre-renal azotemia improving hypernatremia improved Objective - Vital Signs/Intake and Output Vital Signs (last 24 hours): Temp Pulse Resp BP Pulse Ox 97.7 F 108 H 28 H 106/65 95 12/02/18 08:00 12/02/18 11:17 12/02/18 11:17 12/02/18 11:17 12/02/18 11:17 Intake and Output: 12/02/18 12/02/18 06:59 18:59 Intake Total 1591.6 1365.6 Output Total 1095 620 Balance 496.6 745.6 - Medications Medications: Current Medications Acetaminophen (Tylenol 650mg/20.3ml Solution Ud) 650 mg PO Q6 PRN PRN Reason: Temperature Last Admin: 12/01/18 16:26 Dose: 650 mg Albuterol/Ipratropium (Duoneb 3 Mg/0.5 Mg (3 Ml) Ud) 3 ml INH RQ4 [facility] Last Admin: 12/02/18 11:10 Dose: 3 ml Artificial Tears (Artificial Tears) 0.4 ml OU Q4H [facility] Last Admin: 12/02/18 10:57 Dose: 0.4 ml Aspirin (Aspirin Chewable) 81 mg PO DAILY [facility] Last Admin: 12/02/18 10:59 Dose: 81 mg Clopidogrel Bisulfate (Plavix) 75 mg PO DAILY [facility] Last Admin: 12/02/18 11:00 Dose: 75 mg Emollient Ointment (Vaseline Oint) 5 gm TOP DAILY [facility] Last Admin: 12/02/18 10:58 Dose: 5 gm Enoxaparin Sodium (Lovenox) 100 mg SC Q12 [facility] Famotidine (Pepcid) 20 mg GT DAILY [facility] Last Admin: 12/02/18 11:00 Dose: 20 mg Propofol (Diprivan) 1,000 mg in 100 mls @ 3.565 mls/hr IV .Q24H PRN; Protocol PRN Reason: TITRATE PER MD ORDER Last Admin: 12/02/18 11:01 Dose: 10 mcg/kg/min, 7.13 mls/hr Vancomycin HCl 1 gm/ Sodium (Chloride) 250 mls @ 166.7 mls/hr IVPB Q24H [facility]; Protocol Last Admin: 12/02/18 11:00 Dose: 166.7 mls/hr Meropenem 500 mg/ Sodium (Chloride) 100 mls @ 100 mls/hr IVPB Q6H [facility]; Protocol Last Admin: 12/02/18 08:06 Dose: 100 mls/hr Diltiazem HCl 125 mg/ Dextrose 125 mls @ 5 mls/hr IV .Q24H [facility]; Protocol Last Titration: 12/02/18 11:02 Dose: Infused Sodium Chloride (Sodium Chloride 0.45%) 1,000 mls @ 80 mls/hr IV .[id number] [facility] Last Admin: 12/02/18 08:06 Dose: Not Given Lorazepam (Ativan) 2 mg IVP Q3H PRN PRN Reason: Anxiety Last Admin: 11/24/18 03:44 Dose: 2 mg Methylprednisolone (Solu-Medrol) 20 mg IVP Q8H [facility] Last Admin: 12/02/18 08:06 Dose: 20 mg Metoprolol Tartrate (Lopressor) 5 mg IVP Q6H [facility] Last Admin: 12/02/18 08:06 Dose: 5 mg Rosuvastatin Calcium (Crestor) 10 mg PO HS [facility] Last Admin: 12/01/18 21:15 Dose: 10 mg - Labs Labs: 12/02/18 06:28 12/02/18 06:28 PT 14.7 SECONDS (9.7-12.2) H 11/26/18 06:48 INR 1.3 11/26/18 06:48 APTT 28.0 SECONDS (21-34) 11/26/18 06:48 - Constitutional Appears: In Acute Distress, Confused, Chronically Ill - Head Exam Head Exam: ATRAUMATIC, NORMAL INSPECTION - Neck Exam Neck Exam: Normal Inspection. absent: Tenderness - Respiratory Exam Respiratory Exam: Rhonchi, Respiratory Distress - Cardiovascular Exam Cardiovascular Exam: REGULAR RHYTHM, +S1 - GI/Abdominal Exam GI & Abdominal Exam: Distended, Soft - Extremities Exam Extremities Exam: Pedal Edema. absent: Tenderness - Neurological Exam Neurological Exam: Altered - Skin Skin Exam: Dry, Warm Assessment and Plan (1) Prerenal azotemia Status: Acute (2) Acute hypernatremia Status: Acute (3) Acute renal failure due to tubular necrosis Status: Acute (4) CAD (coronary artery disease) Status: Acute (5) Cardiac arrest Status: Acute - Assessment and Plan (Free Text) Plan: continue free water flushes monitor lytes closely vent management
--- NOTE | 2018-12-02 13:37 | CARD ---
APPROVED REPORT Date of service: 11/30/2018 EKG Measurement Heart [id number] <Conclusion> Atrial fibrillation Low voltage QRS Abnormal ECG
--- NOTE | 2018-12-02 15:29 | CT ---
Date of service: 12/02/2018 PROCEDURE: CT HEAD WITHOUT CONTRAST. HISTORY: SVT of L cephalic, r/o CVA COMPARISON: None available. TECHNIQUE: Axial computed tomography images were obtained through the head/brain without intravenous contrast. Radiation dose: Total exam DLP = 1456.44 mGy-cm. This CT exam was performed using one or more of the following dose reduction techniques: Automated exposure control, adjustment of the mA and/or kV according to patient size, and/or use of iterative reconstruction technique. FINDINGS: HEMORRHAGE: No intracranial hemorrhage. BRAIN: Normal palomino-white matter differentiation and density are appreciated throughout the cerebrum and cerebellum with the brainstem appearing unremarkable as well. There is no mass effect. There is no suspicious extra-axial fluid collection and the midline brain anatomy appears diffusely unremarkable. VENTRICLES: Unremarkable. No hydrocephalus. CALVARIUM: Probable small 1.5 cm osteoma related to the left parietal bone approaching the vertex laterally image 56 series 3. PARANASAL SINUSES: Unremarkable as visualized. No significant inflammatory changes. MASTOID AIR CELLS: Unremarkable as visualized. No inflammatory changes. OTHER FINDINGS: None. IMPRESSION: Unremarkable unenhanced head CT. 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
--- NOTE | 2018-12-02 17:57 | PN ---
DATE: 12/02/2018 LOCATION: ICU 17. SUBJECTIVE: This 72-year-old male post PEG insertion seen in rounds today with the intensive care staff, tolerating PEG feeding well without reported nausea or vomiting, still on trach to vent. No reported active bleeding recently. The entire chart is reviewed including the most recent lab and radiology study results and today's white blood cells is 13.5, hemoglobin 10.7 with normal hematocrit, but low indices, highly suggestive of hypochromic microcytic anemia with abnormal ABGs and sodium 155, CO2 content 33 indicative of respiratory alkalosis with BUN improved to 91 but normal creatinine, glucose 148 and magnesium 2.9 with normal liver function tests, but albumin 3, total protein 5.8. Today's chest x-ray performed. Official report is still pending. PHYSICAL EXAMINATION: GENERAL: A 72-year-old male on trach to vent. VITAL SIGNS: Afebrile with pulse of 106. HEENT: Showed pale, dry oral mucoid membrane. Nonicteric sclerae. Tracheostomy tube is intact in place connected to ventilator. LUNGS: Scattered crepitation. Decreased air entry at bases. HEART: Positive S1 and S2 with increased rate of 106. ABDOMEN: Soft, mildly distended, slightly obese. PEG tube is in place without reported residual, resistant or active bleeding. No evidence of anterior abdominal wall cellulitis. EXTREMITIES: With lower extremity edematous changes. No clubbing or cyanosis. NEUROLOGIC: No reported new neurological deficits, sensory or motor. IMPRESSION: 1. Dysphagia, malnutrition with hypoalbuminemia, hypoproteinemia. 2. Status post percutaneous endoscopic gastrostomy insertion, intact and functioning well. 3. Anemia most likely secondary to chronic disease. 4. Electrolyte imbalance with hypermagnesemia, hypernatremia with hypocalcemia. 5. Respiratory failure on tracheostomy to ventilator. 6. Status post code with cardiac arrest. 7. Recent history of gastrointestinal blood loss with reexacerbation of peptic ulcer disease. SUGGESTIONS: 1. Continue current management. 2. Subsequent increase of the rate of feeding as tolerated. 3. Further recommendation to follow. Thank you for letting me participate in your patient's case management. Dakota Mercado MD [facility] # [id number]
[2018-12-02 18:14] VITALS: BP 128/74; PULSE 114; RESP 22; O2SAT 95
[2018-12-02] MEDS ORDERED: Enoxaparin 100 mg Syringe SC SCH (22:00)
--- NOTE | 2018-12-02 22:02 | CP.PCM.PN ---
Subjective - Date & Time of Evaluation Date of Evaluation: 12/02/18 Time of Evaluation: 08:00 - Subjective Subjective: seen in ICU for d/c to LTAC confused arousable off sedation Objective - Vital Signs/Intake and Output Vital Signs (last 24 hours): Temp Pulse Resp BP Pulse Ox 97.7 F 104 H 28 H 107/68 94 L 12/02/18 16:00 12/02/18 16:00 12/02/18 16:00 12/02/18 16:00 12/02/18 16:00 Intake and Output: 12/02/18 12/02/18 06:59 18:59 Intake Total 1591.6 2215.6 Output Total 1095 970 Balance 496.6 1245.6 - Medications Medications: Current Medications Acetaminophen (Tylenol 650mg/20.3ml Solution Ud) 650 mg PO Q6 PRN PRN Reason: Temperature Last Admin: 12/01/18 16:26 Dose: 650 mg Albuterol/Ipratropium (Duoneb 3 Mg/0.5 Mg (3 Ml) Ud) 3 ml INH RQ4 [facility] Last Admin: 12/02/18 15:39 Dose: 3 ml Artificial Tears (Artificial Tears) 0.4 ml OU Q4H [facility] Last Admin: 12/02/18 15:44 Dose: 0.4 ml Aspirin (Aspirin Chewable) 81 mg PO DAILY [facility] Last Admin: 12/02/18 10:59 Dose: 81 mg Clopidogrel Bisulfate (Plavix) 75 mg PO DAILY [facility] Last Admin: 12/02/18 11:00 Dose: 75 mg Emollient Ointment (Vaseline Oint) 5 gm TOP DAILY [facility] Last Admin: 12/02/18 10:58 Dose: 5 gm Enoxaparin Sodium (Lovenox) 40 mg SC DAILY [facility] Famotidine (Pepcid) 20 mg GT DAILY [facility] Last Admin: 12/02/18 11:00 Dose: 20 mg Propofol (Diprivan) 1,000 mg in 100 mls @ 3.565 mls/hr IV .Q24H PRN; Protocol PRN Reason: TITRATE PER MD ORDER Last Admin: 12/02/18 11:01 Dose: 10 mcg/kg/min, 7.13 mls/hr Vancomycin HCl 1 gm/ Sodium (Chloride) 250 mls @ 166.7 mls/hr IVPB Q24H [facility]; Protocol Last Admin: 12/02/18 11:00 Dose: 166.7 mls/hr Meropenem 500 mg/ Sodium (Chloride) 100 mls @ 100 mls/hr IVPB Q6H [facility]; Protocol Last Admin: 12/02/18 15:42 Dose: 100 mls/hr Diltiazem HCl 125 mg/ Dextrose 125 mls @ 5 mls/hr IV .Q24H [facility]; Protocol Last Titration: 12/02/18 11:02 Dose: Infused Sodium Chloride (Sodium Chloride 0.45%) 1,000 mls @ 80 mls/hr IV .[id number] [facility] Last Admin: 12/02/18 08:06 Dose: Not Given Lorazepam (Ativan) 2 mg IVP Q3H PRN PRN Reason: Anxiety Last Admin: 11/24/18 03:44 Dose: 2 mg Methylprednisolone (Solu-Medrol) 20 mg IVP Q8H [facility] Last Admin: 12/02/18 15:42 Dose: 20 mg Metoprolol Tartrate (Lopressor) 5 mg IVP Q6H [facility] Last Admin: 12/02/18 15:43 Dose: 5 mg Rosuvastatin Calcium (Crestor) 10 mg PO HS [facility] Last Admin: 12/01/18 21:15 Dose: 10 mg - Labs Labs: 12/02/18 06:28 12/02/18 06:28 PT 14.7 SECONDS (9.7-12.2) H 11/26/18 06:48 INR 1.3 11/26/18 06:48 APTT 28.0 SECONDS (21-34) 11/26/18 06:48 - Constitutional Appears: Non-toxic, Chronically Ill - Head Exam Head Exam: NORMOCEPHALIC - Eye Exam Eye Exam: absent: Scleral icterus - ENT Exam ENT Exam: Mucous Membranes Dry Additional comments: TRach - Respiratory Exam Respiratory Exam: Decreased Breath Sounds - Cardiovascular Exam Cardiovascular Exam: REGULAR RHYTHM - GI/Abdominal Exam GI & Abdominal Exam: Distended - Rectal Exam Rectal Exam: Deferred - Exam Exam: NORMAL INSPECTION (x) - Extremities Exam Extremities Exam: Full ROM - Back Exam Back Exam: absent: CVA tenderness (L) (x), CVA tenderness (R) - Neurological Exam Neurological Exam: Altered Assessment and Plan (1) Acute hypernatremia Status: Acute (2) Acute renal failure due to tubular necrosis Status: Acute (3) CAD (coronary artery disease) Status: Acute (4) COPD (chronic obstructive pulmonary disease) Status: Acute (5) Cardiac arrest Status: Acute (6) PHT (pulmonary hypertension) Status: Acute (7) Ventricular tachycardia Status: Acute (8) Congestive heart failure Status: Acute (9) COPD exacerbation Status: Resolved (10) Pneumonia Status: Acute - Assessment and Plan (Free Text) Assessment: cont IV rx upon discharge for min 14 days
[2018-12-03] MEDS ORDERED: Enoxaparin 40 mg Syringe SC SCH (10:00)
--- NOTE | 2018-12-04 09:27 | CP.PCM.DIS ---
Provider - Provider Date of Admission: 11/17/18 08:26 Attending physician: Joshua Leon Jr, MD Consults: 11/17/18 10:06 Cardiology Consult Routine Comment: Consulting Provider: Sarah Valencia Consulting Physician: Sarah Valencia Reason for Consult: Code Heart s/p cath with Dr. Valencia 11/17/18 17:41 Gastroenterology Consult Routine Comment: Consulting Provider: Dakota Wei Consulting Physician: Dakota Wei Reason for Consult: Coffee ground emesis 11/20/18 11:58 Pulmonology Consult Routine Comment: Consulting Provider: Jr Summers Consulting Physician: Jr Summers Reason for Consult: b/l pleural effusions 11/20/18 16:53 General Surgery Consult Routine Comment: trach Consulting Provider: Goyo Waters Jr. Consulting Physician: Goyo Waters Jr. Reason for Consult: trach 11/20/18 16:57 Gastroenterology Consult Routine Comment: PEG Consulting Provider: Dakota Wei Consulting Physician: Dakota Wei Reason for Consult: PEG 11/23/18 09:30 Nephrology Consult Routine Comment: Consulting Provider: Munir Stephens Consulting Physician: Munir Stephens Reason for Consult: acute renal failure 11/27/18 22:21 Palliative Care [Nursing Referral for Palliative Care] Routine Comment: trach to vent, 100% FIO2,awaiting PEG, Physician Instructions: Reason For Exam: goals of care 11/27/18 22:53 Nursing Referral for Wound Care Routine Comment: Physician Instructions: Reason For Exam: blistering inner gluteal folds 11/29/18 09:31 Infectious Disease Consult Routine Comment: Consulting Provider: Josh Harmon Consulting Physician: Josh Harmon Reason for Consult: Acinetobacter pneumonia Time Spent in preparation of Discharge (in minutes): 40 Diagnosis - Discharge Diagnosis (1) Cardiac arrest Status: Acute (2) CAD (coronary artery disease) Status: Acute (3) Acute renal failure due to tubular necrosis Status: Acute (4) Acute hypernatremia Status: Acute (5) Prerenal azotemia Status: Acute Hospital Course - Lab Results Lab Results: Micro Results 12/02/18 05:50 Blood-Venous Blood Culture - Preliminary NO GROWTH AFTER 24 HOURS 12/02/18 05:20 Blood-Venous Blood Culture - Preliminary NO GROWTH AFTER 24 HOURS 11/25/18 10:00 Blood Blood Culture - Final NO GROWTH AFTER 5 DAYS 11/25/18 10:00 Blood Gram Stain - Final TEST NOT PERFORMED 11/25/18 10:30 Blood S.aureus & Coag-Neg Staph PNA FISH - Final 11/25/18 10:30 Blood Blood Culture - Final Coagulase Neg Staphylococcus 11/25/18 10:30 Blood Gram Stain - Final 11/25/18 16:30 Trachasp Gram Stain - Final 11/25/18 16:30 Trachasp Sputum Culture - Final Acinetobacter Baumannii 11/20/18 07:33 Trachasp Gram Stain - Final 11/20/18 07:33 Trachasp Sputum Culture - Final Yeast Species 11/22/18 13:01 Urine,Tabor Urine Culture - Final No Growth (<1,000 CFU/ML) 11/20/18 06:24 Urine,Tabor Urine Culture - Final No Growth (<1,000 CFU/ML) 11/17/18 11:29 Naris MRSA Culture (Admit) - Final MRSA NOT DETECTED Most Recent Lab Values WBC 13.5 K/uL (4.8-10.8) H 12/02/18 06:28 RBC 4.95 Mil/uL (4.40-5.90) 12/02/18 06:28 Hgb 10.7 g/dL (12.0-18.0) L 12/02/18 06:28 Hct 38.0 % (35.0-51.0) 12/02/18 06:28 MCV 76.8 fL (80.0-94.0) L 12/02/18 06:28 MCH 21.6 pg (27.0-31.0) L 12/02/18 06:28 MCHC 28.1 g/dL (33.0-37.0) L 12/02/18 06:28 RDW 20.6 % (11.5-14.5) H 12/02/18 06:28 Plt Count 232 K/uL (130-400) 12/02/18 06:28 MPV 10.0 fL (7.2-11.7) 12/02/18 06:28 Neut % (Auto) 95.0 % (50.0-75.0) H 12/02/18 06:28 Lymph % (Auto) 2.3 % (20.0-40.0) L 12/02/18 06:28 Pacific % (Auto) 2.5 % (0.0-10.0) 12/02/18 06:28 Eos % (Auto) 0.0 % (0.0-4.0) 12/02/18 06:28 Baso % (Auto) 0.2 % (0.0-2.0) 12/02/18 06:28 Neut # (Auto) 12.8 K/uL (1.8-7.0) H 12/02/18 06:28 Lymph # (Auto) 0.3 K/uL (1.0-4.3) L 12/02/18 06:28 Pacific # (Auto) 0.3 K/uL (0.0-0.8) 12/02/18 06:28 Eos # (Auto) 0.0 K/uL (0.0-0.7) 12/02/18 06:28 Baso # (Auto) 0.0 K/uL (0.0-0.2) 12/02/18 06:28 Neutrophils % (Manual) 95 % (50-75) H 12/02/18 06:28 Band Neutrophils % 1 % (0-2) 12/02/18 06:28 Lymphocytes % (Manual) 1 % (20-40) L 12/02/18 06:28 Reactive Lymphs % 1 % (0-0) H 12/01/18 05:58 Monocytes % (Manual) 3 % (0-10) 12/02/18 06:28 Eosinophils % (Manual) 1 % (0-4) 11/29/18 05:37 Basophils % (Manual) 1 % (0-2) 11/17/18 08:06 Myelocytes % 1 % (0-0) H 11/17/18 08:06 Nucleated RBC % 1 % (0-0) H 11/19/18 05:55 Toxic Granulation Present 11/28/18 05:52 Platelet Estimate Normal (NORMAL) 12/02/18 06:28 Large Platelets Present 12/02/18 06:28 Giant Platelets Present 12/02/18 06:28 Polychromasia Slight 11/29/18 05:37 Hypochromasia (manual) Moderate 12/02/18 06:28 Poikilocytosis (manual Slight 11/26/18 20:49 Anisocytosis (manual) Moderate 12/02/18 06:28 Microcytosis (manual) Slight 11/29/18 05:37 Target Cells Slight 11/17/18 08:06 Ovalocytes Slight 11/30/18 05:36 Stomatocytes Slight 11/30/18 05:36 Jemal Cells Slight 11/27/18 06:02 PT 14.7 SECONDS (9.7-12.2) H 11/26/18 06:48 INR 1.3 11/26/18 06:48 APTT 28.0 SECONDS (21-34) 11/26/18 06:48 Puncture Site Rr 12/02/18 05:25 pCO2 47 mm/Hg (35-45) H 12/02/18 05:25 pO2 51 mm/Hg (80-100) L 12/02/18 05:25 HCO3 33.4 mmol/L (21-28) H 12/02/18 05:25 ABG pH 7.49 (7.35-7.45) H 12/02/18 05:25 ABG Total CO2 37.2 mmol/L (22-28) H 12/02/18 05:25 ABG O2 Saturation 88.4 % (95-98) L 12/02/18 05:25 ABG Base Excess 11.1 mmol/L (-2.0-3.0) H 12/02/18 05:25 ABG Hemoglobin 10.6 g/dL (11.7-17.4) L 12/02/18 05:25 ABG Carboxyhemoglobin 2.4 % (0.5-1.5) H 12/02/18 05:25 POC ABG HHb (Measured) 11.2 % (0.0-5.0) H 12/02/18 05:25 ABG Methemoglobin 0.8 % (0.0-3.0) 12/02/18 05:25 Robert Test Pos 12/02/18 05:25 ABG Potassium 3.5 mmol/L (3.6-5.2) L 11/21/18 17:45 A-a O2 Difference 603.0 mm/Hg 12/02/18 05:25 Respiratory Index 11.8 12/02/18 05:25 Hgb O2 Saturation 85.6 % (95.0-98.0) L 12/02/18 05:25 Sodium 147.0 mmol/l (132-148) 11/21/18 17:45 Chloride 109.0 mmol/L (98-107) H 11/21/18 17:45 Glucose 119 mg/dl (75-110) H 11/21/18 17:45 Lactate 0.9 mmol/L (0.7-2.1) 11/21/18 17:45 Vent Mode Prvc 12/02/18 05:25 Mechanical Rate 18 12/02/18 05:25 FiO2 100.0 % 12/02/18 05:25 Tidal Volume 500 12/02/18 05:25 PEEP 8 12/02/18 05:25 Crit Value Called To [facility] nurse sp 11/26/18 05:58 Crit Value Called By Ana Rosa coats 11/26/18 05:58 Crit Value Read Back Y 11/26/18 05:58 Blood Gas Notified Time 602 11/26/18 05:58 Sodium 155 mmol/L (132-148) H 12/02/18 06:28 Potassium 4.0 mmol/L (3.6-5.2) 12/02/18 06:28 Chloride 119 mmol/L (98-107) H 12/02/18 06:28 Carbon Dioxide 33 mmol/L (22-30) H 12/02/18 06:28 Anion Gap 7 (10-20) L 12/02/18 06:28 BUN 91 mg/dL (9-20) H 12/02/18 06:28 Creatinine 1.0 mg/dL (0.8-1.5) 12/02/18 06:28 Est GFR ( Amer) > 60 12/02/18 06:28 Est GFR (Non-Af Amer) > 60 12/02/18 06:28 POC Glucose (mg/dL) 132 mg/dL (65-110) H 11/18/18 03:37 Random Glucose 148 mg/dL (75-110) H D 12/02/18 06:28 Serum Osmolality 367 mosm/kg (272-300) H 11/28/18 17:07 Calcium 8.8 mg/dl (8.6-10.4) 12/02/18 06:28 Phosphorus 4.1 mg/dL (2.5-4.5) 12/02/18 06:28 Magnesium 2.9 mg/dL (1.6-2.3) H 12/02/18 06:28 Total Bilirubin 0.9 mg/dL (0.2-1.3) 12/02/18 06:28 AST 47 U/L (17-59) 12/02/18 06:28 ALT 51 U/L (21-72) 12/02/18 06:28 Alkaline Phosphatase 96 U/L (38-126) 12/02/18 06:28 Troponin I 0.0500 ng/mL (0.00-0.120) 11/18/18 05:41 NT-Pro-B Natriuret Pep 71616 pg/mL (0-900) H 11/17/18 08:06 Total Protein 5.8 g/dL (6.3-8.3) L 12/02/18 06:28 Albumin 3.0 g/dL (3.5-5.0) L 12/02/18 06:28 Globulin 2.8 gm/dL (2.2-3.9) 12/02/18 06:28 Albumin/Globulin Ratio 1.1 (1.0-2.1) 12/02/18 06:28 Procalcitonin 0.18 NG/ML (0.19-0.49) L 11/30/18 05:36 Free T4 1.26 ng/dL (0.78-2.19) 11/20/18 13:45 TSH 3rd Generation 0.83 mIU/L (0.46-4.68) 11/20/18 06:24 Arterial Blood Potassium 3.5 mmol/L (3.6-5.2) L 11/21/18 17:45 Urine Color Yellow (YELLOW) 11/22/18 13:01 Urine Clarity Turbid (Clear) 11/22/18 13:01 Urine pH 5.0 (5.0-8.0) 11/22/18 13:01 Ur Specific Klemme 1.009 (1.003-1.030) 11/22/18 13:01 Urine Protein Negative mg/dL (NEGATIVE) 11/22/18 13:01 Urine Glucose (UA) Normal mg/dL (Normal) 11/22/18 13:01 Urine Ketones Negative mg/dL (NEGATIVE) 11/22/18 13:01 Urine Blood 3+ (NEGATIVE) H 11/22/18 13:01 Urine Nitrate Negative (NEGATIVE) 11/22/18 13:01 Urine Bilirubin Negative (NEGATIVE) 11/22/18 13:01 Urine Urobilinogen Normal mg/dL (0.2-1.0) 11/22/18 13:01 Ur Leukocyte Esterase Neg Diandra/uL (Negative) 11/22/18 13:01 Urine WBC (Auto) 2 /hpf (0-5) 11/22/18 13:01 Urine RBC (Auto) 98 /hpf (0-3) H 11/22/18 13:01 Ur Squamous Epith Cells 2 /hpf (0-5) 11/22/18 13:01 Uric Acid Crystals Mod /hpf (<OCC) H 11/22/18 13:01 Urine Bacteria Occ (<OCC) H 11/22/18 13:01 Hyaline Casts 11-20 /lpf (0-2) H 11/22/18 13:01 Urine Osmolality 564 mosm/kg (300-1000) 11/28/18 17:07 Vancomycin Trough 9.2 ug/mL (5.0-10.0) 12/01/18 05:21 Influenza Typ A,B (EIA) Negative for flu a/b (NEGATIVE) 11/20/18 04:26 Blood Type A POSITIVE 11/17/18 08:06 Antibody Screen Negative 11/17/18 08:06 - Hospital Course Hospital Course: HPI: Patient is a 72 year old male with PMHx PMH hypertension, hyperlipidemia, COPD, CHF, R ear deafness who came in as a code heart cardiac arrest this morning. 911 called for chest/back pain and ALS had assessed patient and left scene at the time and patient was awake and alert and so ALS left scene. BLS was still on scene at which point patient cardiac arrested and was found to have no pulse. CPR was initiated and ALS called back to scene. ACLS initiated and epi administered once at which point ROSC was achieved. Patient cardiac arrested again in the ED with patient unresponsive and CPR was initiated again with ROSC achieved. The following is a summary of hospital course. For full detail, please refer to EMR: Patient underwent cardiac angiogram which demonstrated clean coronaries, had multiple cardiac arrest and CPR prior to arrival. He developed ARDS post-cardiac insult, ventilator dependent respiratory failure. Patient is status post tracheostomy (11/26/18), status post PEG placement (11/30/18). There has been minimal daily change in patient condition, continuing to require very high FIO2. He is being treated for pneumonia with IV vancomycin and meropenem, with bilateral infiltrates present on Chest Xray. Acinetobacter positive in the sputum culture. Gentle hydration with 1/2 NS was initiated for hypernatremia, which steadily improved. Patient remained on cardizem for atrial flutter with rapid ventricular response. Rate remained controlled. Acute swelling of his left upper extremity was noted post PEG placement. Dopplers ordered noted superficial phlebitis of L cephalic vein, but no deep thrombosis. Patient was maintained on prophlyactic lovenox. He is medically stable for discharge to LTAC, with management to continue unchanged. - Date & Time of H&P Date of H&P: 12/02/18 Time of H&P: 09:29 Discharge Exam - Head Exam Head Exam: ATRAUMATIC, NORMAL INSPECTION, NORMOCEPHALIC - Eye Exam Eye Exam: EOMI, Normal appearance, PERRL Pupil Exam: NORMAL ACCOMODATION - ENT Exam ENT Exam: Normal Exam - Respiratory Exam Respiratory Exam: Decreased Breath Sounds Additional comments: on mechanical vent - Cardiovascular Exam Cardiovascular Exam: REGULAR RHYTHM, +S1, +S2 - GI/Abdominal Exam GI & Abdominal Exam: Normal Bowel Sounds, Soft, Unremarkable - Extremities Exam Extremities exam: normal capillary refill, pedal edema, pedal pulses present Additional comments: LUE swollen - Neurological Exam Neurological exam: Altered - Skin Skin Exam: Dry, Intact, Normal Color, Warm Discharge Plan - Follow Up Plan Condition: CRITICAL Disposition: [facility] Instructions: Sudden Cardiac Arrest, Pulmonary Hypertension in Adults Additional Instructions: Patient to LTAC. Continue present treatment.
== END 2018-12-02 19:04 | DRG 4 ==
LOC: C.ER 07:51 → C.9I 08:26 → C.ER 09:20
PROVIDERS: ADMIT Internal Medicine; ATTEND Internal Medicine
PROC: 5A1955Z Respiratory Ventilation, Greater than 96 Consecutive Hours (ICD-10-PCS; 2018-11-17)
PROC: 0BH17EZ Insertion of Endotracheal Airway into Trachea, Via Natural or Artificial Opening (ICD-10-PCS; 2018-11-17)
PROC: 4A023N7 Measurement of Cardiac Sampling and Pressure, Left Heart, Percutaneous Approach (ICD-10-PCS; 2018-11-17)
PROC: B2051ZZ Plain Radiography of Left Heart using Low Osmolar Contrast (ICD-10-PCS; 2018-11-17)
PROC: B2011ZZ Plain Radiography of Multiple Coronary Arteries using Low Osmolar Contrast (ICD-10-PCS; 2018-11-17)
PROC: 0DJ08ZZ Inspection of Upper Intestinal Tract, Via Natural or Artificial Opening Endoscopic (ICD-10-PCS; 2018-11-19)
PROC: 02HV33Z Insertion of Infusion Device into Superior Vena Cava, Percutaneous Approach (ICD-10-PCS; 2018-11-26)
PROC: 0B113F4 Bypass Trachea to Cutaneous with Tracheostomy Device, Percutaneous Approach (ICD-10-PCS; principal; 2018-11-26 11:00)
PROC: 0DH63UZ Insertion of Feeding Device into Stomach, Percutaneous Approach (ICD-10-PCS; 2018-11-30)
DX: I46.9 Cardiac arrest, cause unspecified (principal); J18.9 Pneumonia, unspecified organism; N17.0 Acute kidney failure with tubular necrosis; J96.91 Respiratory failure, unspecified with hypoxia; J80 Acute respiratory distress syndrome; I31.3 Pericardial effusion (noninflammatory); J44.0 Chronic obstructive pulmonary disease with (acute) lower respiratory infection; J44.1 Chronic obstructive pulmonary disease with (acute) exacerbation; N17.9 Acute kidney failure, unspecified; J98.11 Atelectasis; E87.1 Hypo-osmolality and hyponatremia; E87.0 Hyperosmolality and hypernatremia; E46 Unspecified protein-calorie malnutrition; Z99.11 Dependence on respirator [ventilator] status; K25.9 Gastric ulcer, unspecified as acute or chronic, without hemorrhage or perforation; I49.01 Ventricular fibrillation; I47.2 Ventricular tachycardia; I48.92 Unspecified atrial flutter; I25.10 Atherosclerotic heart disease of native coronary artery without angina pectoris; I11.0 Hypertensive heart disease with heart failure; I27.81 Cor pulmonale (chronic); I27.29 Other secondary pulmonary hypertension; I49.3 Ventricular premature depolarization; I50.9 Heart failure, unspecified; N40.0 Benign prostatic hyperplasia without lower urinary tract symptoms; R13.10 Dysphagia, unspecified; E86.0 Dehydration; G47.33 Obstructive sleep apnea (adult) (pediatric); E78.5 Hyperlipidemia, unspecified; D63.8 Anemia in other chronic diseases classified elsewhere; D50.9 Iron deficiency anemia, unspecified; F17.210 Nicotine dependence, cigarettes, uncomplicated; Z91.19 Patient's noncompliance with other medical treatment and regimen; Z95.5 Presence of coronary angioplasty implant and graft; K29.80 Duodenitis without bleeding; K44.9 Diaphragmatic hernia without obstruction or gangrene; K29.70 Gastritis, unspecified, without bleeding